=== PATIENT | male | born 1965 | race Caucasian/White ===

== ENCOUNTER → 2017-12-08 20:10 | Outpatient (CLI) | payer MEDICAID, SELFPAY | PROVIDERS: Family Provider Family Medicine; PCP Family Medicine; Visit Provider Internal Medicine Critical Care Medicine | DX: G47.10 Hypersomnia, unspecified (principal) | CPT/HCPCS: 95810 ==

== ENCOUNTER → 2018-02-08 13:07 | Outpatient (CLI) | payer OTHER, SELFPAY ==
--- NOTE | 2018-02-08 13:30 | MRI_ITS ---
STUDY: MRI LUMBAR SPINE WITHOUT CONTRAST REASON FOR EXAM: Male, 52 years old. Back pain. Previous surgery TECHNIQUE: Standardized fat and water weighted pulse sequences were obtained in the sagittal and axial planes. COMPARISON: None FINDINGS: There is a mild (7 mm) spondylolisthesis of L4 over L5. There are no acute fractures. There are no abnormal marrow infiltrative processes. Plates and transpedicular screws through L4 and L5 are noted. There is also de- kt at L4 and L5 T12-L1: Normal endplates. Normal disc height, hydration and morphology. Normal bilateral facet joints. Normal central canal and bilateral lateral recesses. Normal bilateral intervertebral neural foramina. L1-2: Disc space narrowing but no focal disc protrusion or extrusion. L2-3: Normal endplates. Normal disc height, hydration and morphology. Normal bilateral facet joints. Normal central canal and bilateral lateral recesses. Normal bilateral intervertebral neural foramina. L3-4: No focal disc protrusion or extrusion. The disc spaces are normal height.. L4-5: The kt. Plates and transpedicular screws through L4 and L5. No pseudomeningocele formation and no arachnoiditis. The dural sac is ectatic L5-S1: Normal endplates. Normal disc height, hydration and morphology. Normal bilateral facet joints. Normal central canal and bilateral lateral recesses. Normal bilateral intervertebral neural foramina. . MRI/Spine Lumbar (Routine) IMPRESSION: A mild spondylolisthesis of L4 over L5. Plates and transpedicular screws through L4 and L5 have been used for stabilization. The hardware is in good position. De kt at L4-5. No pseudomeningocele formation and no arachnoiditis Electronically Signed: Arnaldo Amaral, at 3:15 EDT Tel , Service support ,
== END ==
PROVIDERS: Family Provider Family Medicine; PCP Family Medicine; Visit Provider Family Medicine
DX: M43.16 Spondylolisthesis, lumbar region (principal)
CPT/HCPCS: 72148

== ENCOUNTER 2018-04-26 11:30 | Outpatient (RCR) | payer OTHER, SELFPAY ==
--- NOTE | 2018-03-31 09:44 | HP.PTEVAL ---
Patient's Visit Information ALLISON DALTON is a 53 year old M referred to Physical Therapy by Sandy Vela with a diagnosis of LUMBAR BACK PAIN,LUMBAR RADICULOPATHY,H/O LUMBR FUSION. Date of Evaluation: 03/31/18 Physical Therapist: Pete Antunez, PT, - Visit Plan Frequency: 2x /Week Duration: 4 Weeks Plan: Initiate slow graded progression LUMBAR ROM ,strengthening ,LE flexablity,DLS,postural ex's - Subjective Subjective: This 53 y/o male presenst to physical therapy with lumbar pain . Patient intially,injury at work 2014 fell down flight of steps immediated pain . MRI showed spondylothesis ,buldging disc. Seen Dr Lin refered to [facility] thus underwent L4-5 fusion laminectomy. Patient several session of PT . Patient has had several eidural injections.Patient has had Aquatic PT. Patient seen DR Cardoza. Patient had MRI. Recommended Aquatic PT. Pain lumbar -thoracic occassionally pain radicular symptoms. Patient pain described as ache. Patient c/o parathesia/tingling left > right. Symtoms walking ,standing ,bending,lifting,siiting. Symptoms affect sleeping. Coughing/sneezing increases symptoms. Bowel/bladder dysfunction. Patient affects QOL and ADL'S and husework tasks. SOCAIL: single. VOCATION:not working - Pain Bilateral Back Pain Intensity (Out of 10): 4 Pain Intensity Range: 7, 10 - Objective POSTURE: right shift mild foward posture hips knees flexed. GAIT: ambulates with antalgic right shift decrease stance time left mild foward posture slow beryr. PALAPTION: tender paraspinals ,L-S REGION. NEURO: c/o parathesia/tingling feet,light touch impaired bilateral feet,reflexes L3-4,L4-5,L5-S1 3/3. FLEXABLITITY: hams severe tight. LUMBAR ROM: flexion /extension mod/severe tight,side glides mod/severe tight. MMT: quads 3/5 ,hams 3+/5,hip flexion 3+/5,ankle 4-/5,great toe extensors 4-/5. + ANR - Special Tests L/S Slump test left side: Positive L/S Slump test right side: Positive L/S Left Straight Leg Raise: Positive L/S Right Straight Leg Raise: Positive - Goals Goal 1:: Patient to be Independant with Aquatic PT to address pain Goal Time Frame: 4-6 Weeks Goal 2:: Patient to improve qulaity of gait by 50% with less anatlagic gait Goal Time Frame: 4-6 Weeks Goal 3:: Patient to decrease lumbar pain by 40% por greater to improve function Goal Time Frame: 4-6 Weeks Goal 4:: Patient improve strength by 1/2 grade to improve function with walking and standing. Goal Time Frame: 4-6 Weeks Goal 5:: Patient to improve lumbar ROM for function of recovery, Goal Time Frame: 4-6 Weeks Goal 6:: Patient improve ADL'S and light housework tasks with min/mod limiations Goal Time Frame: 4-6 Weeks - Rehabilitation Potential Physical Therapy Diagnosis: This patient presents with lumbar apin from h/o lumbar fusion with poor ROM lumbar,pain,decrease strength BLE impairs and ADL'S Rehabilitation Potential: Fair - Anticipated Interventions Patient/Client Instruction: Educate patient on: Condition, Plan of Care For the Purpose of:: To decrease pain, To increase ROM, To improve muscle performance and motor function, To improve ability to perform ADL's, To increase tolerance to activity/condition/position, To decrease level of supervision to perform tasks, To improve ability of physical actions for home/community/work/leisure, To improve gait and locomotor functions, To improve health of tissue, To decrease soft tissue restriction, To increase flexibility/ROM, To improve endurance, To improve health and function, To improve ability to perform tasks related to life management Therapeutic Exercise to Include: Strength training, Body mechanics, Postural training, Flexibilty training, In an aquatic setting, Dynamic Lumbar Stabilization Comment: BLE For the Purpose of:: To decrease pain, To improve muscle performance and motor function, To improve ability to perform ADL's, To increase tolerance to activity/condition/position, To improve performance and independence with ADL's, To improve ability of physical actions for home/community/work/leisure, To improve gait and locomotor functions, To improve health of tissue, To decrease soft tissue restriction, To increase flexibility/ROM, To improve ability to perform tasks related to life management Thank you for the opportunity to evaluate your patient. For Medicare and Medicare HMO plans, please review the plan of care and approve it. It will need to be FAXED BACK to us at [phone] for Medicare purposes. Please let me know if there are questions or concerns regarding this plan of care. Physician Signature: Date:
--- NOTE | 2018-04-04 07:53 | HP.PTEVAL_ITS ---
Patient's Visit Information ALLISON DALTON is a 53 year old M referred to Physical Therapy by Sandy Vela with a diagnosis of LUMBAR BACK PAIN,LUMBAR RADICULOPATHY,H/O LUMBR FUSION. Date of Evaluation: 03/31/18 Physical Therapist: Pete Antunez, PT, - Visit Plan Frequency: 2x /Week Duration: 4 Weeks Plan: Initiate slow graded progression Aquatic ex's LUMBAR ROM ,strengthening ,LE flexablity,DLS,postural ex's - Subjective Subjective: This 53 y/o male presenst to physical therapy with lumbar pain . Patient intially,injury at work 2014 fell down flight of steps immediated pain . MRI showed spondylothesis ,buldging disc. Seen Dr Lin refered to [facility] thus underwent L4-5 fusion laminectomy. Patient several session of PT . Patient has had several eidural injections.Patient has had Aquatic PT. Patient seen DR Cardoza. Patient had MRI. Recommended Aquatic PT. Pain lumbar - thoracic occassionally pain radicular symptoms. Patient pain described as ache. Patient c/o parathesia/tingling left > right. Symtoms walking ,standing ,bending,lifting,siiting. Symptoms affect sleeping. Coughing/sneezing increases symptoms. Bowel/bladder dysfunction. Patient affects QOL and ADL'S and husework tasks. SOCAIL: single. VOCATION:not working - Pain Bilateral Back Pain Intensity (Out of 10): 4 Pain Intensity Range: 7, 10 - Objective POSTURE: right shift mild foward posture hips knees flexed. GAIT: ambulates with antalgic right shift decrease stance time left mild foward posture slow berry. PALAPTION: tender paraspinals ,L-S REGION. NEURO: c/o parathesia/tingling feet,light touch impaired bilateral feet,reflexes L3-4,L4-5,L5-S1 3/3. FLEXABLITITY: hams severe tight. LUMBAR ROM: flexion /extension mod/severe tight,side glides mod/severe tight. MMT: quads 3/5 ,hams 3+/5,hip flexion 3+/5,ankle 4-/5,great toe extensors 4-/5. + ANR - Special Tests L/S Slump test left side: Positive L/S Slump test right side: Positive L/S Left Straight Leg Raise: Positive L/S Right Straight Leg Raise: Positive - Goals Goal 1:: Patient to be Independant with Aquatic PT to address pain Goal Time Frame: 4-6 Weeks Goal 2:: Patient to improve qulaity of gait by 50% with less anatlagic gait Goal Time Frame: 4-6 Weeks Goal 3:: Patient to decrease lumbar pain by 40% por greater to improve function Goal Time Frame: 4-6 Weeks Goal 4:: Patient improve strength by 1/2 grade to improve function with walking and standing. Goal Time Frame: 4-6 Weeks Goal 5:: Patient to improve lumbar ROM for function of recovery, Goal Time Frame: 4-6 Weeks Goal 6:: Patient improve ADL'S and light housework tasks with min/mod limiations Goal Time Frame: 4-6 Weeks - Rehabilitation Potential Physical Therapy Diagnosis: This patient presents with lumbar apin from h/o lumbar fusion with poor ROM lumbar,pain,decrease strength BLE impairs and ADL'S Rehabilitation Potential: Fair - Anticipated Interventions Patient/Client Instruction: Educate patient on: Condition, Plan of Care For the Purpose of:: To decrease pain, To increase ROM, To improve muscle performance and motor function, To improve ability to perform ADL's, To increase tolerance to activity/condition/position, To decrease level of supervision to perform tasks, To improve ability of physical actions for home/community/work/leisure, To improve gait and locomotor functions, To improve health of tissue, To decrease soft tissue restriction, To increase flexibility/ROM, To improve endurance, To improve health and function, To improve ability to perform tasks related to life management Therapeutic Exercise to Include: Strength training, Body mechanics, Postural training, Flexibilty training, In an aquatic setting, Dynamic Lumbar Stabilization Comment: BLE For the Purpose of:: To decrease pain, To improve muscle performance and motor function, To improve ability to perform ADL's, To increase tolerance to activity/condition/position, To improve performance and independence with ADL's, To improve ability of physical actions for home/community/work/leisure, To improve gait and locomotor functions, To improve health of tissue, To decrease soft tissue restriction, To increase flexibility/ROM, To improve ability to perform tasks related to life management Thank you for the opportunity to evaluate your patient. For Medicare and Medicare HMO plans, please review the plan of care and approve it. It will need to be FAXED BACK to us at [phone] for Medicare purposes. Please let me know if there are questions or concerns regarding this plan of care. Physician Signature: Date:
--- NOTE | 2018-07-19 14:20 | HP.PTDCSUM ---
HP - PT D/C Summary It has been my pleasure to treat ALLISON DALTON under orders from Sandy Vela MD, for the diagnosis of LUMBAR BACK PAIN,LUMBAR RADICULOPATHY,H/O LUMBR FUSION for a total of 13 visit(s). Discharge Date: Please see the following information for a summary of their discharge status. - Subjective Subjective: Patient feels great while in water ,but out pain returns. Symptoms affect ADL'S and activities with walking. Some improvement with flexablity - Pain Bilateral Back Pain Intensity (Out of 10): 3 LLE Pain Intensity (Out of 10): 3 - Overall Improvement % Improvement: 25 - Objective Objective/Function: POSTURE: reduce lordosis,lateral flexed to right. GAIT: antalgic gait foward posture ,shifted to right. MMT: quads 3-/5 ANR,HAMS 3+/5,hip flexion 3+/5 ankld 3+/5. LUMBAR ROM: flexion mod/severe loss,extension severe loss pain. FLEXABLITY: mod /severe loss - Goals Goal 1:: Patient to be Independant with Aquatic PT to address pain Goal Progress: Goal Met Goal 2:: Patient to improve qulaity of gait by 50% with less anatlagic gait Goal Progress: Not Progressing Goal 3:: Patient to decrease lumbar pain by 40% por greater to improve function Goal Progress: Progressing Goal 4:: Patient improve strength by 1/2 grade to improve function with walking and standing. Goal Progress: Not Progressing Goal 5:: Patient to improve lumbar ROM for function of recovery, Goal Progress: Not Progressing Goal 6:: Patient improve ADL'S and light housework tasks with min/mod limiations Goal Progress: Progressing - Plan Plan: RTD - D/C Information If there are questions or concerns regarding this patient's physical therapy, please feel free to call me at [phone]. Thank you for the referral of this patient. Sincerely, Pete Antunez, PT, Cert MDT, OCS
== END 2018-04-26 19:00 | disposition home or self-care (01) ==
LOC: PT 11:30
PROVIDERS: Family Provider Family Medicine; PCP Family Medicine; Visit Provider Orthopaedic Surgery
DX: M54.5 Low back pain (principal); M54.16 Radiculopathy, lumbar region; Z98.1 Arthrodesis status
CPT/HCPCS: 97113; 97162

== ENCOUNTER 2019-03-27 05:21 | Emergency (ER) | payer MEDICAID, SELFPAY ==
[2019-03-27] VITALS (7 sets, daily range): BP systolic 95–126; BP diastolic 63–100; PULSE 72–144; RESP 15–20; TEMP 37.1; O2SAT 92–100; BMI 32.9
--- NOTE | 2019-03-27 05:29 | EKG12_ITS ---
Test Reason : REPEAT Blood Pressure : / mmHG Vent. Rate : 078 BPM Atrial Rate : 078 BPM P-R Int : 184 ms QRS Dur : 094 ms QT Int : 358 ms P-R-T Axes : 023 -39 002 degrees QTc Int : 408 ms Normal sinus rhythm Left axis deviation Low Voltage QRS (Limb Leads) Poor R - wave progression Abnormal ECG Confirmed by ALINE BROWNING, AN ([id number]), editor news HAWK AN ([id number]) on 03/28/2019 2:09:00 PM Referred By: ROXANA Confirmed By:AN MIRELES MD
--- NOTE | 2019-03-27 05:29 | RAD_ITS ---
STUDY: X-RAY CHEST REASON FOR EXAM: Male, 53 years old. Chest pain TECHNIQUE: Single AP portable view of the chest. COMPARISON: . 02/16/2017. FINDINGS: There are superimposed monitor leads. Stable left sided calcified granuloma. The lungs are clear and expanded. There is no demonstrated pleural abnormality. Normal size heart. Normal mediastinum and margy. Normal visualized pulmonary arteries. Normal visualized aortic arch and descending thoracic aorta. Normal visualized thoracic spine. Normal visualized ribs, clavicles, and shoulders. There is no demonstrated abnormality of the visualized soft tissue structures of the upper abdomen. RAD/Chest 1 View (Portable) IMPRESSION: No acute cardiopulmonary disease. Other nonacute findings as outlined above. No significant interval change. Electronically Signed: Yael Betancourt MD at 5:57 EDT , Service support ,
[2019-03-27] MEDS: dilTIAZem 25 MG/5 ML Vial 10 MG IV BOLUS (05:39)
[2019-03-27 05:48] LABS: Absolute Lymphocyte Count 4.61 X10^3/uL (0.83-4.51); Absolute Neutrophil Count 4.4 X10^3/uL (2.0-7.7); Basophil# 0.06 X10^3/uL; Basophil% 0.6 % (0-1); Eosinophil# 0.21 X10^3/uL; Eosinophils% 2.1 % (0-5); Hematocrit 49.2 % (40-54); Hemoglobin 16.3 g/dL (13.0-16.5); Lymphocyte # 4.61 X10^3/ul (4.0); Lymphocyte % 45.7 % (19-41); Mean Corp Hgb Conc 33.1 g/dL (32-36); Mean Corpuscular Hgb 29.5 pg (27.0-32.0); Mean Corpuscular Volume 89.1 fL (80-94); Mean Platelet Vol. 10.4 fl (6.2-12.0); Monocyte# 0.77 X10^3/uL; Monocyte% 7.6 % (0-10); NRBC Flagged by Analyzer 0 % (0-5); Neutrophil # 4.41 X10^3/uL (2.7-7.7); Neutrophil % 43.8 % (47-70); Platelet Count 175 K/mm3 (150-450); RBC Distribution Width SD 42.8 fl (35.1-43.9); Red Blood Count 5.52 M/mm3 (4.6-6.2); White Blood Count 10.1 K/mm3 (4.4-11.0)
[2019-03-27 06:09] LABS: Anion Gap 10 (5-15); BUN 15 mg/dL (7-18); BUN/Creat Ratio 14.2 RATIO (10-20); Calcium,Total 8.4 mg/dL (8.5-10.1); Chloride 109 mmol/L (98-107); Creatinine, Serum 1.06 mg/dL (0.70-1.30); EST Glomerular Filtration Rate 78 mL/min (>60); Est Glom Filt Rate - Afr Amer 94 mL/min (>60); Estimated Creatinine Clearance 86.82 ml/min; Glucose 98 mg/dL (74-106); Potassium 4.3 mmol/L (3.5-5.1); Sodium Level 140 mmol/L (136-145)
[2019-03-27] MEDS: Enoxaparin 100 MG/ML Syringe SC (06:31)
--- NOTE | 2019-03-27 06:42 | ED.VISSUMM ---
- ER Visit Summary Date of Service: 03/27/19 Chief Complaint: Rapid heart rate History of Present Illness: The patient is a 53 M with a history of atrial fibrillation. His symptoms started about an hour prior to arrival. They woke him up. He was feeling well previously. He has had these symptoms before. He normally takes 100 of flecainide. He did this morning, but nothing changed. He reports an associated headache as well as some chest pain. 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 He takes aspirin but no other blood thinners. No history of coronary disease. He says he had a normal stress test in 2017. Patient has a history of PE. He was told this was provoked after his back surgery. He was on Eliquis for several months, but had completed the course. He has had CTA chest to evaluate for PE in the past. Both times, the IV contrast triggered his atrial fibrillation. Physical Examination: Afebrile. Heart rate 144. Blood pressure 126/100. Patient appears uncomfortable but not toxic or in distress. Heart is a regular and tachycardic. Lungs are clear. Abdomen is soft. Skin appears normal. Alert and oriented. Test Results: EKG shows atrial fibrillation at rate of 154. CBC, BMP, troponin unremarkable. Chest x-ray showed chronic changes. Emergency Department Course and Treatment: Patient was placed on a monitor. Treated with a fluid bolus and Cardizem. He did have some transient rate control, but remained in atrial fibrillation. He was still having symptoms. Patient was discussed with Dr. Matos. We will treat the patient with a dose of Lovenox and then perform synchronized cardioversion. Patient consented to sedation and cardioversion. Dr. Matos also requested d-dimer. Results are pending. Patient was treated with Versed and fentanyl. Immediately after sedation, Dr. Matos came to the ED and talked with the patient. He immediately cardioverted spontaneously. Repeat EKG shows sinus rhythm, normal rate and blood pressure is normal. Patient is resting. Symptoms resolved. D-dimer is negative. Dr. Matos advised treatment with Xarelto 20 mg daily for a month and follow-up with cardiology. HASBLED = 0. Treatment Plan: As above Disposition: Discharge Impression: 1. Atrial fibrillation This note was generated with [employer] software. It may contain incorrect words, spelling, and punctuation that were not noted in review of the chart prior to signing ED Disposition - Plan for ED Patient: Instructions: Rivaroxaban Oral tablet, Atrial Fibrillation Prescriptions: Rivaroxaban [Xarelto] 20 mg PO DAILY #30 tab Prescription Printed Referrals: Jean-Pierre Matos MD [STAFF PHYSICIAN] -
[2019-03-27] MEDS: fentaNYL 100 MCG/2 ML Ampul 50 MCG IV (06:47)
[2019-03-27] MEDS: Midazolam 2 MG/2 ML Syringe IV (06:47)
--- NOTE | 2019-03-27 06:53 | ED.DEP ---
ED Disposition - Plan for ED Patient: Instructions: Atrial Fibrillation, Rivaroxaban Oral tablet Prescriptions: Rivaroxaban [Xarelto] 20 mg PO DAILY #30 tab Prescription Printed Referrals: Jean-Pierre Matos MD [STAFF PHYSICIAN] -
[2019-03-27 06:55] LABS: D-Dimer Quantitative (DVT/PE) < 0.27 FEU/ug/m (0.27-0.49)
--- NOTE | 2019-03-27 07:14 | EKG12_ITS ---
Test Reason : CP Blood Pressure : / mmHG Vent. Rate : 154 BPM Atrial Rate : 197 BPM P-R Int : 000 ms QRS Dur : 076 ms QT Int : 292 ms P-R-T Axes : 000 -32 035 degrees QTc Int : 467 ms Atrial fibrillation with rapid ventricular response Left axis deviation Low Voltage QRS (Limb Leads) Poor R- wave Progression Abnormal ECG Confirmed by ALINE BROWNING, AN ([id number]), manuscript editor HAWK AN ([id number]) on 03/28/2019 2:09:52 PM Referred By: DIDIER Confirmed By:AN MIRELES MD
== END 2019-03-27 08:10 | disposition home or self-care (01) ==
LOC: ED 05:50
PROVIDERS: Emergency Provider Emergency Medicine; Family Provider Family Medicine; PCP Family Medicine
DX: I48.91 Unspecified atrial fibrillation (principal); R51 Headache; Z86.711 Personal history of pulmonary embolism; Z79.82 Long term (current) use of aspirin; Z79.899 Other long term (current) drug therapy; Z87.891 Personal history of nicotine dependence
CPT/HCPCS: 71045; 80048; 84484; 85025; 85379; 93005; 96361; 96372; 96374; 96375; 99285; J7030; A4216

== ENCOUNTER → 2019-04-02 12:58 | Outpatient (CLI) | payer MEDICAID, SELFPAY ==
[2019-03-27 05:22] VITALS: BMI 32.9
--- NOTE | 2019-04-02 13:12 | MRI_ITS ---
STUDY: MRI LUMBAR SPINE WITH AND WITHOUT CONTRAST REASON FOR EXAM: Male, 54 years old. The patient presents with a history of a radiculopathy, with a history of previous lumbar surgery (2016), now complaining of low back pain and no improvement following surgery. TECHNIQUE: Standardized fat and water weighted pulse sequences were obtained in the sagittal and axial planes. IV Dotarem 20 contrast material was administered for the contrast portion of the examination COMPARISON: MRI LUMBAR SPINE-February 08, 2018 FINDINGS: Vertebrae, Alignment and Curvature Vertebrae: There is a first-degree L4 anterolisthesis relationship to the L5 vertebra with 8 mm of anterior displacement, unchanged as compared the prior examination of February 08, 2018. The patient status post total L4-5 (unroofing) there are bilateral pedicle screws within the L4 and L5 pedicles laminectomies. Curvature: Exaggerated cervical lordosis. Mild levoscoliosis of the lumbar spine on this non-weight bearing examination. Thoracic Cord (visualized distal) / Conus Medullaris Normal. Terminates at the at the superior endplate of the L1 vertebra. Disc Space Levels N.B.: Normal level statement indicates: Normal endplates; disc height, signal and morphology; facet joints; central canal, lateral recesses, and intervertebral neuroformina. T12-L1: (Imaged only in the sagittal plane). Normal disc hydration and height. There is a small Schmorl's node deformity the anterior superior endplate of the L1 vertebra. There is no disc displacement. Normal central canal and intervertebral neural foramina. L1-L2: There is disc desiccation, moderate loss of the disc height with Schmorl's node deformity the inferior endplate of the L1 vertebra. There is a posterior right central disc protrusion (axial T2 series 5, image 25; axial T1 series 6, image 33; axial T1 postcontrast series 8, image 33; sagittal T1 fat-sat postcontrast series 7, image 8). The small disc protrusion measures 3 x 11 mm (AP, transverse), and is producing minimal rightward ventral thecal sac flattening, but without thoracic cord or radicular impingement. L2-L3: There is mild disc desiccation, preservation of the disc height without disc displacement. There is mild bilateral facet arthrosis with bilateral facet effusions (axial T2 series 5, image 20). Normal central canal and intervertebral neural foramina. L3-L4: Normal disc hydration, height and morphology. There is moderate bilateral facet arthrosis with osseous hypertrophy (axial T1 postcontrast series 8, image 19). Normal central canal and intervertebral neural foramina. L4-L5: Status post total (unroofing) laminectomy with a first-degree L4 anterolisthesis relationship to the L5 vertebra, with 8 mm of anterior slippage. Pedicle screws are present within the bilateral L4 and L5 pedicles. There is dural ectasia prolapsing into the laminectomy. There is bilateral osseous foraminal stenosis with impingement upon the bilateral exiting L4 nerve roots (sagittal T2 series 2, images 4 and 11), unchanged compared the prior examination. L5-S1: There is mild disc desiccation, preservation disc height, anterior endplate spondylosis with annular bulging. Normal central canal and intervertebral neural foramina. Sacral Alae: Normal. Retroperitoneum and Paraspinal Structures Kidneys: Partially imaged with no demonstrated abnormality. Aorta: Normal. Inferior Vena Cava: Normal. Lymph Nodes: None visualized. Muscles (Paraspinal): Normal. MRI/Spine Lumbar W/WO Contrast IMPRESSION: 1. Status post total L4-5 laminectomies with a first-degree L4 anterolisthesis with pedicle screws within the bilateral L4 and L5 pedicles. 2. Bilateral L4-5 osseous foraminal stenosis with neural impingement upon the bilateral exiting L4 nerve roots. 3. L1-2 small posterior right central disc protrusion without neural impingement. 4. L2-3 and L3-4 facet arthroses without neural impingement. Electronically Signed: Lázaro Vital DO at 14:56 EDT Tel , Service support ,
[2019-04-02 13:43] LABS: BUN 11 mg/dL (7-18); EST Glomerular Filtration Rate 67 mL/min (>60); Est Glom Filt Rate - Afr Amer 81 mL/min (>60)
== END ==
PROVIDERS: Family Provider Family Medicine; PCP Family Medicine
DX: M54.16 Radiculopathy, lumbar region (principal); M43.10 Spondylolisthesis, site unspecified
CPT/HCPCS: 36415; 72158; 82565; 84520; A9575

== ENCOUNTER → 2019-04-09 17:46 | Outpatient (CLI) | payer MEDICAID, SELFPAY ==
[2019-03-27 05:22] VITALS: BMI 32.9
--- NOTE | 2019-04-09 17:52 | CT_ITS ---
STUDY: CT LUMBAR SPINE WITHOUT CONTRAST REASON FOR EXAM: Male, 54 years old. SPONDYLOLISTHESIS. Prior surgery 04/2016. Low back pain. RADIATION DOSAGE (If Supplied By Facility): CTDIvol = ( 26.82 ) mGy, DLP = ( 859.87 ) mGycm TECHNIQUE: The patient was scanned in a multi detector CT scanner. High resolution transaxial imaging was performed. Images were obtained from L1 to L5. Sagittal and coronal images were reconstructed. Individualized dose optimization techniques were used for this CT. COMPARISON: MRI 04/02/2019 FINDINGS: Stable 10 mm of grade 1 L4-5 anterolisthesis. There is no substantial scoliosis. Bilateral posterior pedicle fusions at the L4 and L5 levels. Screws are well seated within bone. No CT evidence of hardware failure. L1-2: Bulging annulus with mild central canal and bilateral foraminal stenoses. L2-3: Normal endplates. Normal disc height and morphology. Normal bilateral facet joints. Normal central canal and bilateral lateral recesses. Normal bilateral intervertebral neural foramina. L3-4: Bulging annulus and bilateral facet hypertrophy with moderate bilateral foraminal stenoses. L4-5: Bilateral laminectomies. Severe bilateral foraminal stenoses. L5-S1: Bulging annulus with mild central canal and severe left foraminal stenosis. Vascular calcifications. CT/Spine Lumbar without Contrast IMPRESSION: Stable 10 mm of grade 1 L4-5 anterolisthesis. Multilevel degenerative disease and postoperative change as described. Severe foraminal stenoses are present bilaterally at L4-5 and on the left at L5-S1. Electronically Signed: Yann Winston MD at 16:55 EDT Tel , Service support ,
== END ==
PROVIDERS: Family Provider Family Medicine; PCP Family Medicine
DX: M54.16 Radiculopathy, lumbar region (principal); M43.10 Spondylolisthesis, site unspecified
CPT/HCPCS: 72131

== ENCOUNTER → 2019-04-17 16:10 | Outpatient (CLI) | payer MEDICAID, SELFPAY ==
[2019-03-27 05:22] VITALS: BMI 32.9
[2019-04-13 13:20] VITALS: BMI 31.8
--- NOTE | 2019-04-17 16:45 | MRI_ITS ---
HISTORY: Bilateral hearing loss. Symptoms been ongoing for years. Lower back pain. Technique: High spatial resolution algorithm T2 fat saturated series was obtained through the internal auditory canals. Coronal T2 through the internal auditory canals. Coronal T1 post gadolinium through the internal auditory canals. Axial T1 post gadolinium through the internal auditory canals with fat saturation, axial T1 through the entire brain post gadolinium. Sagittal T1 pre-gadolinium, and several other axial series were obtained through the brain. 15 series. 440 images. No comparison cross-sectional imaging through the brain. Findings: Brain volume is normal. No acute ischemia. Flow is present within major central intracranial arteries. Paranasal sinuses are clear. The seventh and eighth nerves are normal. The fifth nerves have normal origins. The sixth nerves have normal origins. The internal auditory canals are not expanded. Cochleovestibular systems appeared normal. No enhancing lesions are perceived. The cerebral pontine angles are normal. Orbits and globes are normal. Paranasal sinuses and mastoid air cells are free of disease. MRI/Brain W/WO Contrast IMPRESSION: Normal. at 0608 Reported and signed by: Clemente Singleton MD Electronically Signed: Clemente Singleton MD at 6:07 EDT Tel , Service support ,
== END ==
PROVIDERS: Family Provider Family Medicine; PCP Family Medicine; Visit Provider Otolaryngology
DX: H93.292 Other abnormal auditory perceptions, left ear (principal)
CPT/HCPCS: 70553; A9575

== ENCOUNTER → 2019-05-14 20:00 | Outpatient (CLI) | payer MEDICAID, SELFPAY ==
[2019-04-13 13:20] VITALS: BMI 31.8
== END ==
PROVIDERS: Family Provider Family Medicine; PCP Family Medicine; Referring Provider Nurse Practitioner Acute Care; Visit Provider Nurse Practitioner Acute Care
DX: G47.33 Obstructive sleep apnea (adult) (pediatric) (principal)
CPT/HCPCS: 95811

== ENCOUNTER 2019-05-24 16:00 | Outpatient (RCR) | payer MEDICAID, SELFPAY ==
[2019-03-27 05:22] VITALS: BMI 32.9
[2019-04-13 13:20] VITALS: BMI 31.8
--- NOTE | 2019-04-23 13:01 | HP.PTEVAL_ITS ---
Patient's Visit Information ALLISON DALTON is a 54 year old M referred to Physical Therapy by WANDA MANDEL with a diagnosis of LUMBAR RADICULOPATHY,DEGENERATIVE SPONDYLISTHESIS. Date of Evaluation: 04/23/19 Physical Therapist: Pete Antunez, PT, Cert MDT, OCS - Visit Plan Frequency: 2x /Week Duration: 4 Weeks Plan: PT INTERVENTIONS AQUATIC THERAPY FOR LUMBAR ROM ,STRENGTH BLE,LE FLEXABILTY ,LUMBAR ROM ,ENDURANCE - Subjective Findings: This 54 y/o male presents to physical therapy with lumbar radiculopathy. Patient intially underwent s/p lumbar fusion/laminectomy L4-5 2015. Intially ,after surgery had parathesia in legs and pain progressively worse over time.Patient injuried low back due to falling down stairs Jun 11 2015. Patient after surgery had PT to include Aquatic therapy which helped. Patient h ad pain management to included epidural injections didnt help. Patient seen DR FRANKLIN orthopedic surgeon. Did MRI CATscan showed disc protrusion ,and severe bilateral formal stenosis L4-5 ,and on left L5-S1.Location symmtical lumvar with radicular symptoms in bilateral legs to buttucks ,lateral hip anterior anteror tibia worse left . Pateint unable to feel below knees. Aggravating walking ,standing,twisting,bending lifting ,sitting. Patient pain affects ADL'S and husework tasks unable to work. Alleviating factors rest ,and aquatic.MEDS neurotin . Pateint had h/o Afib . Coughing/sneezing -. Bowel/bladder +. Patient pain affects sleeping. SOCIAL: . VOCATION: unemployed - Pain Bilateral Back Pain Intensity (Out of 10): 4 Pain Intensity Range: 10 Bilateral Lower Extremity Pain Intensity (Out of 10): 3 Pain Intensity Range: 10 - Objective POSTURE: foward posture trunk flexed. PALPATION: unremarkable. NEURO: c/o parathesai/tingling below knee ,light touch diminished , reflexes L3-4,L4-5,L5-S1 2/3. GAIT: antalgic gait foward posture trunk flexion slow berry. SYMMTRIES: align. LUMBAR ROM: flexion mod /severe loss,extension severe loss ,side glides mod loss pain with all test movemnets. MMT: bilateral quads/hams/ankle 3+/5 ,ankle and GTE 3+/5 - Special Tests L/S Slump test left side: Negative L/S Slump test right side: Negative L/S Left Straight Leg Raise: Positive L/S Right Straight Leg Raise: Positive Lumbar Standing: Flexion - Mechanical Response: No effect Lumbar Standing: Flexion - Symptoms During Testing: Increases Lumbar Standing: Flexion - Symptoms After Testing: Worse Lumbar Standing: Extension - Mechanical Response: No effect Lumbar Standing: Extension - Symptoms During Testing: Increases Lumbar Standing: Extension - Symptoms After Testing: Worse - Goals Goal 1:: Patient to be Independant with Aquatic PT. Goal Time Frame: 4-6 Weeks Goal 2:: Patient to decrease back pain by 40 % or > to improve function. Goal Time Frame: 4-6 Weeks Goal 3:: Patient to improve quality of gait with less pain Goal Time Frame: 4-6 Weeks Goal 4:: Patient to improve lumbar ROM for function of recovery Goal Time Frame: 4-6 Weeks Goal 5:: Patient to improve back owestry by 5 points or > to improve QOL. Goal Time Frame: 4-6 Weeks Goal 6:: Patient increase strength BLE to 4-/5 to improve function. Goal Time Frame: 4-6 Weeks - Rehabilitation Potential Physical Therapy Diagnosis: This patient has h/o with lumbar laminectomy/fusion 2016 but recently had MRI showed protrusion ,spondylotheisis ,severe foraminal stenosis with pain lumbar and radiculopathy with poor ROM, weakness legs,antal gic gait impairs ADLS' and function/. Rehabilitation Potential: Good - Anticipated Interventions Patient/Client Instruction: Educate patient on: Condition, Plan of Care For the Purpose of:: To decrease pain, To increase ROM, To improve muscle performance and motor function, To improve ability to perform ADL's, To increase tolerance to activity/condition/position, To improve performance and independence with ADL's, To improve ability of physical actions for home/community/work/leisure, To improve gait and locomotor functions, To improve health of tissue, To decrease soft tissue restriction, To increase flexibility/ROM, To improve endurance, To improve ability to perform tasks related to life management Therapeutic Exercise to Include: Strength training, Endurance training, Postural training, Flexibilty training, In an aquatic setting, Active ROM, Dynamic Lumbar Stabilization Comment: BLE For the Purpose of:: To decrease pain, To increase ROM, To improve muscle performance and motor function, To improve ability to perform ADL's, To increase tolerance to activity/condition/position, To improve performance and independence with ADL's, To improve ability of physical actions for home/community/work/leisure, To improve health of tissue, To decrease soft tissue restriction, To improve ability to perform tasks related to life management Thank you for the opportunity to evaluate your patient. For Medicare and Medicare HMO plans, please review the plan of care and approve it. It will need to be FAXED BACK to us at [phone] for Medicare purposes. For Medicare only, by signing this I certify the plan of care. Please let me know if there are questions or concerns regarding this plan of care. Physician Signature: Da te:
--- NOTE | 2019-06-28 09:29 | HP.PTDCNRP_ITS ---
HP - Discharge Summary (1) - Patient Information ALLISON DALTON was seen in my office for initial evaluation on 04/23/19. The following Plan of Care was established for this patient: Initial Frequency: 2x /Week Initial Duration: 4 Weeks - Anticipated Interventions Patient/Client Instruction: Educate patient on: Condition, Plan of Care For the Purpose of:: To decrease pain, To increase ROM, To improve muscle p erformance and motor function, To improve ability to perform ADL's, To increase tolerance to activity/condition/position, To improve performance and independence with ADL's, To improve ability of physical actions for home/community/work/leisure, To improve gait and locomotor functions, To improve health of tissue, To decrease soft tissue restriction, To increase flexibility/ROM, To improve endurance, To improve ability to perform tasks related to life management Therapeutic Exercise to Include: Strength training, Endurance training, Postural training, Flexibilty training, In an aquatic setting, Active ROM, Dynamic Lumbar Stabilization For the Purpose of:: To decrease pain, To increase ROM, To improve muscle performance and motor function, To improve ability to perform ADL's, To increase tolerance to activity/condition/position, To improve performance and independence with ADL's, To improve ability of physical actions for home/community/work/leisure, To improve health of tissue, To decrease soft tissue restriction, To improve ability to perform tasks related to life management This patient was last seen in our office . Pertinent comments regarding their Physical therapy will appear below: Patient was seen for PT for lumbar radiculopathy with h/o of lumbar fusion. Plan to undergo 2 lumbar surgery in Jul per patient thus is d/c. At this point I will be discontinuing this patient from physical therapy. I would be happy to see this patient again in the future if found appropriate by the physician. Thank you! Pete Antunez, PT, Cert MDT, OCS
== END 2019-05-24 19:00 | disposition home or self-care (01) ==
LOC: PT 16:00
PROVIDERS: Family Provider Family Medicine; PCP Family Medicine
DX: M54.16 Radiculopathy, lumbar region (principal)
CPT/HCPCS: 97113; 97162; 97530

== ENCOUNTER → 2019-07-20 10:05 | Outpatient (CLI) | payer MEDICAID, SELFPAY ==
[2019-04-13 13:20] VITALS: BMI 31.8
[2019-07-20 12:42] LABS: Absolute Lymphocyte Count 2.34 X10^3/uL (0.83-4.51); Absolute Neutrophil Count 4.8 X10^3/uL (2.0-7.7); Basophil# 0.05 X10^3/uL; Basophil% 0.6 % (0-1); Eosinophil# 0.16 X10^3/uL; Hematocrit 50.6 % (40-54); Hemoglobin 16.5 g/dL (13.0-16.5); Lymphocyte # 2.34 X10^3/ul (4.0); Lymphocyte % 29.3 % (19-41); Mean Corp Hgb Conc 32.6 g/dL (32-36); Mean Corpuscular Hgb 29.7 pg (27.0-32.0); Mean Corpuscular Volume 91.2 fL (80-94); Mean Platelet Vol. 10.5 fl (6.2-12.0); Monocyte# 0.57 X10^3/uL; Monocyte% 7.1 % (0-10); NRBC Flagged by Analyzer 0 % (0-5); Neutrophil # 4.83 X10^3/uL (2.7-7.7); Neutrophil % 60.6 % (47-70); Platelet Count 206 K/mm3 (150-450); RBC Distribution Width CV 12.7 % (11.6-14.6); RBC Distribution Width SD 42.7 fl (35.1-43.9); Red Blood Count 5.55 M/mm3 (4.6-6.2)
[2019-07-20 12:56] LABS: ALB/GLOB Ratio 1.2 RATIO (0.9-2.4); AST(SGOT) 15 U/L (15-37); Alanine Aminotransfer ALT/SGPT 44 U/L (16-61); Albumin, Serum 3.8 g/dL (3.2-5.0); Alkaline Phosphatase 72 U/L (45-117); Anion Gap 4 (5-15); BUN 19 mg/dL (7-18); BUN/Creat Ratio 15.8 RATIO (10-20); Calcium,Total 9.4 mg/dL (8.5-10.1); Chloride 106 mmol/L (98-107); EST Glomerular Filtration Rate 67 mL/min (>60); Est Glom Filt Rate - Afr Amer 81 mL/min (>60); Globulin 3.3 g/dL (2.2-4.2); Glucose 95 mg/dL (74-106); Hemoglobin A1c 5.7 % (4.2-6.3); Potassium 4.4 mmol/L (3.5-5.1); Prealbumin 36.9 mg/dL (20.0-40.0); Protein, Total 7.1 g/dL (6.4-8.2); Sodium Level 141 mmol/L (136-145)
== END ==
PROVIDERS: Family Provider Family Medicine; PCP Family Medicine; Referring Provider Family Medicine
DX: M54.16 Radiculopathy, lumbar region (principal)
CPT/HCPCS: 36415; 80053; 82306; 83036; 84134; 85025; 85610

== ENCOUNTER 2019-09-14 15:45 | Emergency (ER) | payer MEDICAID, SELFPAY ==
[2019-04-13 13:20] VITALS: BMI 31.8
[2019-09-14 15:47] VITALS: BP 149/133; PULSE 158; RESP 18; TEMP 37.2; O2SAT 98; BMI 33.7
[2019-09-14 15:50] VITALS: PULSE 141; RESP 16; O2SAT 98
--- NOTE | 2019-09-14 15:58 | EKG12_ITS ---
Test Reason : AFIB Blood Pressure : / mmHG Vent. Rate : 160 BPM Atrial Rate : 202 BPM P-R Int : 000 ms QRS Dur : 086 ms QT Int : 278 ms P-R-T Axes : 000 -32 047 degrees QTc Int : 453 ms Atrial fibrillation with rapid ventricular response Left axis deviation Abnormal ECG Confirmed by FABRIZIO BROWNING, AUGUSTO ([id number]), electronic news gathering editor ARIAS HOPPER ([id number]) on 09/17/2019 3:28:55 PM Referred By: TUCKER Confirmed By:AUGUSTO DINH MD
--- NOTE | 2019-09-14 15:59 | ED.DCSUM_ITS ---
- ER Visit Summary Date of Service: 09/14/19 Chief Complaint: Palpitations History of Present Illness: The patient is a 54 M who presents with palpitations that began today. Patient states that began suddenly approximately 45 minutes prior to arrival. Patient states he has a history of paroxysmal atrial f ibrillation and he could feel himself go into atrial fibrillation. Patient states he took atenolol and flecainide at home with no relief. Patient called EMS after this. Patient denies any chest pain or shortness of breath. Patient denies any nausea or vomiting. Patient denies any diaphoresis. Patient did have recent back surgery and has been on Coumadin since 09/11/2019. Physical Examination: Vital signs are stable except for a tachycardia of 158. Patient is afebrile. Patient is in no acute distress. Oral mucosa is pink and moist. Neck is supple. Trachea is midline. There is no JVD. Heart was irregularly irregular and tachycardic. Lungs are clear and equal bilaterally. Abdomen is soft. There is some mild incisional tenderness but there is no rebound or guarding noted. Cranial nerves II through XII are intact. There are no focal motor or sensory deficits noted. Test Results: EKG shows atrial fibrillation with a rate of 160. There are no acute ST or T wave changes. CBC and comprehensive metabolic profile were essentially within normal limits. INR is 1.0. Troponin was normal. Emergency Department Course and Treatment: Patient was ordered a dose of Cardizem however he converted to a normal sinus rhythm prior to receiving Cardizem. Repeat EKG showed normal sinus rhythm with a rate of 75. There are no acute ST or T wave changes. Patient was instructed to continue his medications as previously prescribed. Patient was instructed to follow-up with his primary care physician and sprinkler irrigation equipment mechanic in 5 to 7 days. Patient was instructed return if worse in any way. Patient understood and was agreeable with the plan. All questions were answered. Disposition: Discharge home Impression: Paroxysmal atrial fibrillation This note was generated with [employer] dictation software. It may contain incorrect words, spelling, and punctuation that were not noted in review of the chart prior to signing ED Disposition - Plan for ED Patient: Disposition: Home or Assisted Living Diagnosis: Paroxysmal atrial fibrillation Instructions: Atrial Fibrillation Referrals: Yannick Wilkins MD [Primary Care Provider] - 3-5 Days
--- NOTE | 2019-09-14 16:05 | EKG12_ITS ---
Test Reason : REPEAT Blood Pressure : / mmHG Vent. Rate : 075 BPM Atrial Rate : 075 BPM P-R Int : 170 ms QRS Dur : 096 ms QT Int : 354 ms P-R-T Axes : 040 -21 035 degrees QTc Int : 395 ms Normal sinus rhythm Normal ECG Confirmed by AUGUSTO DINH MD ([id number]), department editor ARIAS HOPPER ([id number]) on 09/17/2019 3:28:39 PM Referred By: RENY Confirmed By:AUGUSTO DINH MD
[2019-09-14] MEDS: 0.9% Normal Saline 1,000 ML 1000 ML IV (16:12)
[2019-09-14 16:13] LABS: Absolute Lymphocyte Count 2.99 X10^3/uL (0.83-4.51); Absolute Neutrophil Count 5.7 X10^3/uL (2.0-7.7); Basophil# 0.03 X10^3/uL; Basophil% 0.3 % (0-1); Eosinophil# 0.09 X10^3/uL; Eosinophils% 0.9 % (0-5); Hematocrit 37.6 % (40-54); Hemoglobin 12.8 g/dL (13.0-16.5); Lymphocyte # 2.99 X10^3/ul (4.0); Lymphocyte % 31.3 % (19-41); Mean Corpuscular Hgb 30.1 pg (27.0-32.0); Mean Corpuscular Volume 88.5 fL (80-94); Mean Platelet Vol. 9.9 fl (6.2-12.0); Monocyte# 0.66 X10^3/uL; Monocyte% 6.9 % (0-10); NRBC Flagged by Analyzer 0 % (0-5); Neutrophil # 5.71 X10^3/uL (2.7-7.7); Neutrophil % 59.9 % (47-70); Platelet Count 182 K/mm3 (150-450); RBC Distribution Width SD 42.5 fl (35.1-43.9); Red Blood Count 4.25 M/mm3 (4.6-6.2); White Blood Count 9.6 K/mm3 (4.4-11.0)
[2019-09-14 16:24] LABS: Prothrombin Time (Protime)PT. 12.7 SECONDS (11.7-14.9)
[2019-09-14 16:35] LABS: ALB/GLOB Ratio 0.9 RATIO (0.9-2.4); AST(SGOT) 42 U/L (15-37); Alanine Aminotransfer ALT/SGPT 44 U/L (16-61); Albumin, Serum 2.7 g/dL (3.2-5.0); Alkaline Phosphatase 58 U/L (45-117); Anion Gap 7 (5-15); BUN 19 mg/dL (7-18); BUN/Creat Ratio 18.3 RATIO (10-20); Calcium,Total 8.2 mg/dL (8.5-10.1); Chloride 104 mmol/L (98-107); Creatinine, Serum 1.04 mg/dL (0.70-1.30); EST Glomerular Filtration Rate 79 mL/min (>60); Est Glom Filt Rate - Afr Amer 96 mL/min (>60); Estimated Creatinine Clearance 87.49 ml/min; Globulin 3.1 g/dL (2.2-4.2); Glucose 119 mg/dL (74-106); Potassium 3.4 mmol/L (3.5-5.1); Protein, Total 5.8 g/dL (6.4-8.2); Sodium Level 139 mmol/L (136-145)
[2019-09-14 16:51] VITALS: BP 103/63; PULSE 77; RESP 19; O2SAT 94
== END 2019-09-14 17:40 | disposition home or self-care (01) ==
PROVIDERS: Emergency Provider Emergency Medicine; PCP Family Medicine
DX: I48.0 Paroxysmal atrial fibrillation (principal); J02.9 Acute pharyngitis, unspecified; M54.9 Dorsalgia, unspecified; Z79.01 Long term (current) use of anticoagulants; Z87.891 Personal history of nicotine dependence
CPT/HCPCS: 80053; 84484; 85025; 85610; 93005; 96360; 99285; J7030; A4216

== ENCOUNTER 2019-09-20 14:36 | Emergency (ER) | payer MEDICAID, SELFPAY ==
[2019-09-20 14:37] VITALS: BP 144/98; PULSE 75; RESP 18; TEMP 36.6; O2SAT 98; BMI 33.0
--- NOTE | 2019-09-20 14:58 | EKG12_ITS ---
Test Reason : WHEEZING/EDEMA Blood Pressure : / mmHG Vent. Rate : 063 BPM Atrial Rate : 063 BPM P-R Int : 162 ms QRS Dur : 090 ms QT Int : 384 ms P-R-T Axes : 028 -07 -01 degrees QTc Int : 392 ms Normal sinus rhythm Normal ECG Confirmed by MAKSIM BROWNING, LAMONT ([id number]), primer expeditor and drier HAWK AN ([id number]) on 09/21/2019 1:13:34 PM Referred By: MIK Confirmed By:ANSELMO SCHAEFFER MD
[2019-09-20] MEDS: Ipratropium/Albuterol Sulfate 3 ML AMPUL.NEB INHALATION (15:38)
[2019-09-20 15:41] VITALS: PULSE 69; RESP 16; O2SAT 100
[2019-09-20 16:51] VITALS: PULSE 86; RESP 17; O2SAT 98
--- NOTE | 2019-09-20 16:55 | RAD_ITS ---
STUDY: X-RAY CHEST REASON FOR EXAM: Male, 54 years old. PT WITH FLUID OVERLOAD. SWELLING TO BILATERAL FEET AND LEGS. PT STATES STARTING TO WHEEZE SLIGHTLY TECHNIQUE: PA and lateral views of the chest. COMPARISON: None. FINDINGS: Cardiac silhouette unremarkable. Pulmonary vascularity unremarkable. Aorta unremarkable. No focal airspace opacities. No pleural effusions. Stable left lung granuloma. Upper abdomen unremarkable. Osseous structures intact. No pneumothorax. RAD/Chest PA and Lateral IMPRESSION: No acute cardiopulmonary findings Electronically Signed: Pola Sagastume, at 17:58 EDT Tel , Service support ,
[2019-09-20 17:28] LABS: Absolute Lymphocyte Count 1.41 X10^3/uL (0.83-4.51); Absolute Neutrophil Count 6.4 X10^3/uL (2.0-7.7); Basophil# 0.04 X10^3/uL; Basophil% 0.5 % (0-1); Eosinophil# 0.19 X10^3/uL; Eosinophils% 2.2 % (0-5); Hematocrit 37.2 % (40-54); Hemoglobin 12.7 g/dL (13.0-16.5); Lymphocyte # 1.41 X10^3/ul (4.0); Lymphocyte % 16.1 % (19-41); Mean Corp Hgb Conc 34.1 g/dL (32-36); Mean Corpuscular Hgb 30.5 pg (27.0-32.0); Mean Corpuscular Volume 89.2 fL (80-94); Mean Platelet Vol. 9.5 fl (6.2-12.0); Monocyte# 0.64 X10^3/uL; Monocyte% 7.3 % (0-10); NRBC Flagged by Analyzer 0 % (0-5); Neutrophil # 6.38 X10^3/uL (2.7-7.7); Platelet Count 257 K/mm3 (150-450); RBC Distribution Width CV 12.5 % (11.6-14.6); RBC Distribution Width SD 40.5 fl (35.1-43.9); Red Blood Count 4.17 M/mm3 (4.6-6.2); White Blood Count 8.7 K/mm3 (4.4-11.0)
[2019-09-20] MEDS: Furosemide 40 MG Tablet PO (17:45)
[2019-09-20] MEDS: HYDROcodone Bitartrate/Apap 5/325 Tablet PO (17:45)
[2019-09-20 17:50] LABS: Anion Gap 6 (5-15); BUN 14 mg/dL (7-18); BUN/Creat Ratio 14.4 RATIO (10-20); Calcium,Total 8.6 mg/dL (8.5-10.1); Chloride 104 mmol/L (98-107); Creatinine, Serum 0.97 mg/dL (0.70-1.30); EST Glomerular Filtration Rate 86 mL/min (>60); Est Glom Filt Rate - Afr Amer 104 mL/min (>60); Glucose 104 mg/dL (74-106); Potassium 4.1 mmol/L (3.5-5.1); Sodium Level 137 mmol/L (136-145)
[2019-09-20 18:27] LABS: BNP,B-Type NATRIURETIC PEPTIDE 44.2 pg/mL (0-100)
--- NOTE | 2019-09-20 18:34 | ED.DCSUM_ITS ---
- ER Visit Summary Date of Service: 09/20/19 Chief Complaint: Bilateral leg swelling History of Present Illness: The patient is a [address] Menon, Dr. Matos, and Dr. Yannick Soriano. He reports that he had a lumbar fusion at [facility] by Dr. bhardwaj on September 10. States he was doing well until his legs became swollen this morning. States he is elevating his feet and has not gone down. He is on Lovenox for atrial fibrillation and following this surgery. Patient reports he is also been wheezing today. He has an occasional cough that he describes as clearing my throat. He states he is mildly short of breath at worst and is not short of breath now. Denies any fever or chills. No chest p ain. Physical Examination: Vitals: Stable. Afebrile. General: Well-nourished and well-developed. Head: Normocephalic atraumatic. Neck: Supple, no lymphadenopathy. No JVD. Nontender. Cardiovascular: Regular rate and rhythm. No murmurs. Respiratory: No respiratory distress. Clear to auscultation bilaterally. Minimal forced end expiratory wheezing. Abdominal: Soft, nontender, nondistended, normal bowel sounds. No guarding, rebound, or peritoneal signs. Back: Nontender. Incisions are healing well. There is no erythema or warmth to suggest infection Extremities: Nontender 2+ pitting edema lower extremities bilaterally. 2+ dorsalis pedis pulses bilaterally Skin: Normal color, no rash. Neurologic: Alert and oriented ?3. Cranial nerves II through XII are intact. N ormal strength and sensation. Psych: Normal affect. Test Results: EKG is sinus at [address] changes. CBC shows an H&H 12.7, 37.2, segmented for 73, lymphs at 16. Chem-7 is normal. Troponin is negative. BT CUSTOMER ACCOUNT TECHNICIAN is 44.2. Chest x-ray is normal. Emergency Department Course and Treatment: Patient was treated albuterol Atro vent aerosol. He was given a dose of Lasix p.o. Multiple attempts were made an IV without success. He had a Mcdonough stick on the right to obtain blood work. Treatment Plan: Patient was discussed with Dr. Betancourt, covering for Dr. Soriano. He will be discharged instructions to follow-up tomorrow as previously scheduled. Is given a prescription for Lasix and albuterol MDI for home. Return to the emergency department for any worsening symptoms. Disposition: To home in improved and stable condition. Impression: 1. Peripheral edema. This note was generated with [employer] dictation software. It may contain incorrect words, spelling, and punctuation that were not noted in review of the chart prior to signing ED Disposition - Plan for ED Patient: Disposition: Home or Assisted Living Instructions: ED Peripheral Edema, Bilateral Prescriptions: Furosemide [Lasix] 20 mg PO DAILY #7 tab Prescription Printed Albuterol Inhaler [Ventolin Hfa] 1 - 2 puff INHALATION Q4H PRN PRN #1 inhaler PRN Reason: Wheezing Prescription Printed Referrals: Yannick Wilkins MD [Primary Care Provider] - 3-5 Days
[2019-09-20 19:17] VITALS: BP 115/64; PULSE 68; RESP 16; O2SAT 95
== END 2019-09-20 19:18 | disposition home or self-care (01) ==
LOC: ED 15:02
PROVIDERS: Emergency Provider Emergency Medicine; PCP Family Medicine
DX: R60.0 Localized edema (principal); R05 Cough; R06.00 Dyspnea, unspecified; I48.91 Unspecified atrial fibrillation; G47.33 Obstructive sleep apnea (adult) (pediatric); F32.9 Major depressive disorder, single episode, unspecified; Z86.711 Personal history of pulmonary embolism; Z98.1 Arthrodesis status; Z79.01 Long term (current) use of anticoagulants; Z79.899 Other long term (current) drug therapy
CPT/HCPCS: 71046; 80048; 83880; 84484; 85025; 93005; 94640; 99283; A4216; J1940

== ENCOUNTER → 2019-11-21 14:21 | Outpatient (CLI) | payer MEDICAID, SELFPAY ==
[2019-11-20 11:05] VITALS: BMI 31.8
--- NOTE | 2019-11-21 14:33 | RAD_ITS ---
STUDY: X-RAY - LUMBAR SPINE REASON FOR EXAM: Male, 54 years old. Surgery September 10 to replace hardware, pain going down left leg TECHNIQUE: 3 view(s) of the lumbar spine were obtained. COMPARISON: None FINDINGS: The patient is status post laminectomy and fusion at the L3-L4 and L5-S1 levels with interpedicular screw and mervat fixation device. There is also evidence of anterior fixation at the L5-S1 level with prosthetic disc. Normal lumbar lordosis. There is no substantial scoliosis. Anterior listhesis of L5 forward on L5. Moderate degree of disc space narrowing at the L1-L2 level with marked degree of disc space narrowing at the L4-L5 level. There is mild atherosclerotic calcification of the abdominal aorta without a demonstrated aneurysm. RAD/Lumbar Spine 2 or 3 Views IMPRESSION: Prior laminectomy and fusion at the L4-L5 and L5-S1 levels with anterior listhesis of L4 on L5 and disc space narrowing. Electronically Signed: Jacob Regan, at 14:56 EDT , Service support ,
== END ==
PROVIDERS: PCP Family Medicine
DX: M54.16 Radiculopathy, lumbar region (principal); M43.10 Spondylolisthesis, site unspecified; Z98.1 Arthrodesis status
CPT/HCPCS: 72100

== ENCOUNTER 2019-12-19 15:30 | Outpatient (RCR) | payer MEDICAID, SELFPAY ==
[2019-11-20 11:05] VITALS: BMI 31.8
--- NOTE | 2019-12-14 15:54 | HP.PTEVAL ---
Patient's Visit Information ALLISON DALTON is a 54 year old M referred to Physical Therapy by WANDA MANDEL with a diagnosis of SACROILIITIS. Date of Evaluation: 12/14/19 Physical Therapist: Mary Jansen PT, Cert MDT - Visit Plan Frequency: 2-3x /Week Duration: 4-6 Weeks Plan: AQUATIC THERAPY FOR PAIN RELIEF, LE DESENSATIZATION, POSTURE CORRECTION/STRENGTHENING, INSTRUCTION IN APPROPRIATE BODY MECHANICS AND ACTIVITY MODIFICATIONS. DLS STARTING WITH A NEUTRAL SPINE PROGRESSING ROM TOLERATED. CHET LE ROM, STRETCHING AND STRENGTHENING. HEP INSTRUCTION. MINIMIZE BENDING, LIFTING AND TWISTING UNTIL NEXT SURGICAL FOLLOW UP. - Subjective DX: SACROILITIS. 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 Work/Leisure: NOT CURRENTLY WORKING. OFF SINCE SURGERY IN SEPTEMBER 2019. WORKS FOR THE [employer]. OFF WORK COMPLETELY UNTIL MAY 2019. Disability: NO. Present symptoms: LEFT LOW BACK PAIN AND PAIN GOING DOWN LEFT LEG TO THE HEEL. NO TAILBONE PAIN. ALSO LEFT LE NUMBNESS AND TINGLING. LEFT CALF REALLY ACHES. NUMBNESS AND TINGLING GOES TO THE HEEL TOO. Present since: JUN 11 2015. Pain Scale: WORST 4/10, LEAST 0/10. Currently: 0/10 NO PAIN BUT LLE NUMBNESS AND TINGLING. Commenced as a result of: WENT DOWN A FLIGHT OF STEPS ON HIS BACK AT THE [employer] WORK[employer] COMPENSATION. Worse: TRYING TO TURN OVER IN BED, GETTING UP, INITIATING GAIT, BENDING DOWN TO SIT, PRESSURE ON LEFT BUTTOCK. FIRST THING IN THE MORNING LEFT LEG DOESN'T WANT TO WORK RIGHT. Better: LYING DOWN. Disturbed sleep: YES. Previous history/Previous treatment: APR 2016 FIRST BACK SURGERY BY DR. ANGELES AT [facility]. ONE OR TWO INJECTIONS BEFORE SECOND SURGERY - DIDN'T HELP. PHYSICAL THERAPY. NO CHIRO FOR LOW BACK. STARTED WITH A FALL IN 2014. Treatment this episode: SURGERY SEPTEMBER 11 2019 (3 MONTHS PO). Coughing/sneezing/straining: POSITIVE. Gait: DIFFICULTY INITIATING GAIT ABOUT 15 TO 20 STEPS THEN OK. NO ASSISTIVE DEVICE. Difficulty initiating urinatin: NO. Accidents: NOTHING ELSE MAJOR. Unexplained weight loss: NO. Imaging: LUMBAR X-RAY ABOUT 2 WEEKS - SEE [facility] EMR. PATIENT REPORTS HE WAS TOLD EVERYTHING LOOKS GOOD. PMH: UNREMARKABLE. OTHER: PATIENT REPORTS HE IS MUCH BETTER SINCE THIS SURGERY. RIGHT LE FEELS NORMAL NOW. RESIDUAL LEFT LE SX'S BUT LLE IS MUCH BETTER THAN BEFORE THIS SURGERY EVEN THOUGH IT STILL HAS ISSUES. PATIENT REPORTS NO EXCESSIVE BENDING LIFTING OR TWISTING. NO LIFTING GREATER THAN 25 LBS UNTIL FOLLOW UP. - Objective Sitting/Standing Posture: POOR. INCREASED TRUNK FLEXION. Active Correction of posture: NE. Other Observations: INDEP GAIT INTO PT WITHOUT ANY ASSISTIVE DEVICES. Motor deficit: CHET LE WEAKNESS LEFT > RIGHT. RIGHT LE: HIP 4-/5, KNEE 4/5, ANKLE 4/5. C/O PAIN IN LOWER LEG WHEN MMT OF RIGHT QUAD. LLE: HIP 3+/5, KNEE 4-/5, ANKLE 4-/5. PATIENT IS SHAKY WITH LE MMT'ING. Sensory deficit: HYPERSENSATIVITY OF LEFT TRUNK AND LE. ROM deficit: TIGHT CHET HS'S, HIP FLEXORS, HIP ROTATORS AND HS'S. Reflexes: 1/2 CHET QUADS. CHET ACHILLES - ABSENT. Dural Signs: POSITIVE LLE. Lumbar mvmt loss: flex - WOO. ext - WOO. R SG - WOO. L SG - WOO. PATIENT C/O INCREASED LEFT BACK AND LE PAIN WITH LEFT SG TESTING BUT EVERYTHING ELSE JUST FEELS STIFF. Core strength: POOR. Palpation: ANTERIOR AND POSTERIOR INCISIONS LOOK WELL HEALED WITHOUT ANY SIGNS OF INFECTION. LEFT LOW BACK, BUTTOCK, THIGH AND CALF ARE VERY HYPERSENSATIVE TO TOUCH. - Goals Goal 1:: DECREASE C/O BACK AND LE SX'S. Goal Time Frame: 4-6 Weeks Goal 2:: IMPROVE PERSONAL CARE, LIFTING, WALKING, SITTING, STANDING, SLEEP, SOCIAL LIFE, TRAVEL AND WORK FUNCTION. Goal Time Frame: 4-6 Weeks Goal 3:: INSTRUCT IN PROPHYLAXIS Goal Time Frame: 4-6 Weeks - Rehabilitation Potential Rehabilitation Potential: Fair - Anticipated Interventions Patient/Client Instruction: Educate patient on: Condition, Plan of Care, Risk Factors, Benefits of Fitness Program For the Purpose of:: To improve self management Therapeutic Exercise to Include: Strength training, Body mechanics, Postural training, Flexibilty training, Gait and locomotor training, Neuromotor development, In an aquatic setting, Dynamic Lumbar Stabilization For the Purpose of:: To decrease pain, To increase ROM, To improve muscle performance and motor function, To increase tolerance to activity/condition/position, To improve ability of physical actions for home/community/work/leisure, To improve gait and locomotor functions Thank you for the opportunity to evaluate your patient. For Medicare and Medicare HMO plans, please review the plan of care and approve it. It will need to be FAXED BACK to us at [phone] for Medicare purposes. For Medicare only, by signing this I certify the plan of care. Please let me know if there are questions or concerns regarding this plan of care. Physician Signature: Date:
--- NOTE | 2020-05-12 18:11 | HP.PT.NRP ---
ALLISON DALTON was seen in my office for initial evaluation on 12/14/19. The following Plan of Care was established for this patient: Initial Frequency: 2-3x /Week Initial Duration: 4-6 Weeks Patient/Client Instruction: Educate patient on: Condition, Plan of Care, Risk Factors, Benefits of Fitness Program For the Purpose of:: To improve self management Therapeutic Exercise to Include: Strength training, Body mechanics, Postural training, Flexibilty training, Gait and locomotor training, Neuromotor development, In an aquatic setting, Dynamic Lumbar Stabilization For the Purpose of:: To decrease pain, To increase ROM, To improve muscle performance and motor function, To increase tolerance to activity/condition/position, To improve ability of physical actions for home/community/work/leisure, To improve gait and locomotor functions This patient was last seen in our office 12/19/19. Pertinent comments regarding their Physical therapy will appear below: This patient has not returned to Physical Therapy and is appropriate to return to MD for further follow-up as needed. At this point I will be discontinuing this patient from physical therapy. I would be happy to see this patient again in the future if found appropriate by the physician. Thank you! Mary Jansen, PT, Cert MDT
== END 2019-12-19 19:00 | disposition home or self-care (01) ==
LOC: PT 15:30
PROVIDERS: PCP Family Medicine
DX: M46.1 Sacroiliitis, not elsewhere classified (principal)
CPT/HCPCS: 97113; 97162

== ENCOUNTER 2020-08-12 07:53 | Day surgery (SDC) | payer MEDICAID, SELFPAY ==
[2020-08-07 14:08] VITALS: BMI 29.1
[2020-08-12] VITALS (7 sets, daily range): BP systolic 101–118; BP diastolic 55–77; PULSE 52–66; RESP 16–18; TEMP 36.2–36.6; O2SAT 95–100; BMI 29.6
--- NOTE | 2020-08-12 06:49 | HP_ITS ---
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 Is patient in pain?: No Allergies venom-honey bee Allergy (Verified 08/07/20 14:09) Swelling clarithromycin [From Biaxin] Adverse Reaction (Verified 08/07/20 14:09) Rash Iodinated Contrast Media [DYEE] Adverse Reaction (Verified 08/07/20 14:09) Other Medications Atenolol [Tenormin] 25 mg PO PRN PRN 09/14/19 [History Confirmed 08/07/20] Cholecalciferol (Vitamin D3) [Vitamin D3] 5,000 unit PO DAILY 09/14/19 [History Confirmed 08/07/20] Flecainide [Tambocor] 100 mg PO PRN PRN 09/14/19 [History Confirmed 08/07/20] Multivitamin with Minerals [Multiple Vitamin] 1 ea PO DAILY 09/14/19 [History Confirmed 08/07/20] PFSH Medical History Umbilical hernia (Acute) Abdominal pain (Acute) Sleep apnea (Acute) Low back problem (Acute) Arthritis (Acute) Gall stones (Chronic) Pulmonary embolism (Resolved) Depression (Chronic) LATESHA (obstructive sleep apnea) (Acute) Atrial fibrillation (Chronic) Hypersomnia (Acute) Surgical History History of fracture of ankle (Acute) History of back surgery (Chronic) Family History Father CAD (coronary artery disease) History of coronary artery bypass surgery Social History (Updated 08/08/20 @ 08:[address] Jose Alejandro Martinez MD) alcohol intake: never substance use type: does not use HPI HPI HPI: ALLISON DALTON, is a 55 M who presents to the office today for HPI HPI Surgical H&P: Yes HPI: ALLISON DALTON, is a 55 M who presents to the office today for Umbilical hernia. The patient has had his umbilical hernia for approximately 1 year and it is growing larger. He has no nausea or vomiting or fevers or chills. The area is tender with no radiation of pain to other areas. ROS General General: No weight change, appetite, fatigue, colon cancer or breast cancer HEENT HEENT: No difficulty swallowing, eye injury, eye surgery, swollen glands or hoarseness Endo Endocrine: No thyroid disease, diabetes mellitus, thyroid cancer, Hair loss, heat intolerance or cold intolerance Skin Skin: No rash or changing moles Musc Musculoskeletal: Yes back problems and arthritis; no rheumatoid arthritis, gout or joint pain Cardio Cardiovascular: Yes atrial fibrillation; no murmur, pacemaker, heart disease, high blood pressure, heart attack, heart stent, palpitations, shortness of breat with exertion or chest pain Psych Psychiatric: No depression, anxiety or hearing voices Resp Respiratory: No shortness of breath, Yes sleep apnea, No cough, No COPD, No asthma, No emphysema, No wheezing Gastro Gastrointestinal: Yes abdominal pain, No nausea or vomiting, No diarrhea, No constipation, No blood in stool, No acid reflux, No hemorrhoids, No ulcers, Yes gallbladder problem, No black,tarry stools Harsha Hematologic: No blood thinners, No blood disorders, No bleeding, No anemia, No blood clots Neuro Neurologic: Yes numbness, Yes tingling Exam Const General: cooperative Orientation: alert, oriented x3 Resp Effort & Inspection: normal respiratory effort Auscultation: clear to auscultation bilaterally Cardio Rate: regular rate Rhythm: regular rhythm Heart Sounds: no murmurs GI Inspection: non-distended Palpation: soft, hernia umbilical, nontender Assessment & Plan Problems 1. Umbilical hernia without obstruction and without gangrene K42.9 Plan The patient has a small umbilical hernia which is reducible. I discussed open hernia repair with him. I discussed mesh versus nonmesh repair. I recommended that if the hernia defect is larger than [address] a mesh and the patient is agreeable. I discussed the risks of the procedure including not limited to bleeding, infection, injury to underlying bowel. The patient understands the risks as well to proceed with umbilical hernia repair with or without mesh. Jose Alejandro Martinez MD Pager: [facility] [address] [place] [address], [address] [place] [address] Office: Coding Level of Care Code Off vis,new,level 3 Diagnoses Umbilical hernia without obstruction and without gangrene K42.9 ??Obstruction and gangrene presence: without obstruction or gangrene I have re-examined the patient. There are no clinical changes since date of exam.
[2020-08-12] MEDS: Lactated Ringers 1,000 ML 100 ML IV (08:44)
[2020-08-12] MEDS: Cefazolin 2 GM in 0.9% Normal Saline 100 ML IV (08:55)
[2020-08-12] MEDS: Bupiv/Epi 0.5% Mpf 30 ML Vial (09:20)
--- NOTE | 2020-08-12 09:30 | PCM.OPRPT ---
Problem List (1) Umbilical hernia Status: Acute Qualifiers: Obstruction and gangrene presence: without obstruction or gangrene Report of Operation Date of Procedure: 08/12/20 Pre-Operative Diagnosis: Umbilical hernia Post-Operative Diagnosis: Same Surgery/Procedure Performed:: Umbilical hernia repair with mesh Description of Procedure: Patient was brought back to the operating room and general anesthesia was induced. A curvilinear incision was marked over the umbilicus and injected with local anesthetic. Scalpel was used to make a curvilinear incision this was deepened to the hernia. The hernia was reduced and the fascia was cleared anteriorly's electrocautery. The fascia was then grasped elevated and appeared to be approximately 1.5 cm in diameter. The preperitoneal fat was cleared underneath to create a pocket for the mesh and the peritoneum remained intact. Next a small Ventralex mesh was placed into the preperitoneal space and sutured to the anterior abdominal wall using 2-0 PDS suture. The anterior fascia was then closed transversely using interrupted 2-0 PDS sutures. The cavity was irrigated and suctioned dry the skin was closed with running 4-0 Monocryl and injected with local anesthesia once more. Steri-Strips and bandage were applied. Patient tolerated the procedure well was brought to PACU in stable condition. Grafts/Implants Used: small Ventralex ST - Admit VTE Documentation VTE Mechan Device Prophylaxis: SCD's
--- NOTE | 2020-08-12 09:35 | DCINST_ITS ---
Discharge Diet: Light diet - advance as tolerated Discharge Activity: Return to Normal Activity, May Not Drive - for 2-3 days or while taking narcotic pain meds., May Shower - with the bandage in place 1-2 days after surgery. Lifting Restrictions: 20 pounds for 4 weeks. Additional Activity Instructions:: Climbing stairs is fine, walking is encouraged. Sitting in bed may be uncomfortable. Sitting up using your lateral muscles (sitting up sideways) is usually more comfortable. Do not drive, work heavy equipment of sign legal documents for 24 hours. Pain medications may cause nausea, you should typically eat light foods as you take your pain medications. Pain medications may also cause constipation. If you have difficulty with this, discuss with your doctor. Call your doctor if your incision/area has: Continuous Slow Oozing, Sudden Increased Bleeding, Increased Pain/ Swelling, Increased Redness, Foul Smelling Discharge Call your doctor if you observe: Fever of 101 or Higher Suture Line Care: Avoid Pulling/Pushing, Avoid Pinching/Bending Change Dressing in (Days):: 3 - Leave steri-strips for 1 week. May protect with a guaze bandaid. Cleanse incision/area with: Keep Dressing Clean & Dry Allergies/Adverse Reactions: Allergies venom-honey bee Allergy (Verified 08/12/20 08:21) Swelling clarithromycin [From Biaxin] Adverse Reaction (Verified 08/12/20 08:21) Rash Iodinated Contrast Media [DYEE] Adverse Reaction (Verified 08/12/20 08:21) Other PATIENT STATES PUT HIM INTO AFIB, chest pain Medications to take at Discharge Atenolol [Tenormin] 25 mg PO PRN PRN 09/14/19 Cholecalciferol (Vitamin D3) [Vitamin D3] 5,000 unit PO DAILY 09/14/19 Flecainide [Tambocor] 100 mg PO PRN PRN 09/14/19 Multivitamin with Minerals [Multiple Vitamin] 1 ea PO DAILY 09/14/19 Aspirin E.C. [Ecotrin] 81 mg PO DAILY@0800 08/08/20 Oxycodone HCl/Acetaminophen [Percocet 5-325 mg Tablet] 1 - 2 tab PO Q6H PRN PRN 3 Days #20 tablet 08/12/20 The following prescriptions were given: Oxycodone HCl/Acetaminophen [Percocet 5-325 mg Tablet] 1 - 2 tab PO Q6H PRN PRN 3 Days #20 tablet PRN Reason: Pain Score 4-10/10 Transmission Status: Sent to [facility] Primary Care Physician: Yannick Wilkins MD [Primary Care Provider] - Test Results: Test results from this visit will be discussed in further detail at your follow- up appointment, if applicable. Please Follow Up With: Jose Alejandro Martinez MD When: Please call to schedule 2 week follow up appointment. [phone]
[2020-08-12] MEDS: BENZOCAINE/MENTHOL 1 LOZENGE MUCOUS MEM (10:58)
== END 2020-08-12 11:30 | disposition home or self-care (01) ==
LOC: SDC 07:53 → AC 07:53
PROVIDERS: PCP Family Medicine; Referring Provider Surgery; Visit Provider Surgery
PROC: (CPT 49585; principal; 2020-08-12 09:15)
DX: K42.9 Umbilical hernia without obstruction or gangrene (principal); Z20.828 Contact with and (suspected) exposure to other viral communicable diseases; M19.90 Unspecified osteoarthritis, unspecified site; F32.9 Major depressive disorder, single episode, unspecified; G47.33 Obstructive sleep apnea (adult) (pediatric); I48.91 Unspecified atrial fibrillation; Z86.711 Personal history of pulmonary embolism; Z79.899 Other long term (current) drug therapy; Z87.891 Personal history of nicotine dependence
CPT/HCPCS: 00750; 49585; 87426; C9803; J7120; C1781; J2405

== ENCOUNTER 2020-09-02 02:03 | Emergency (ER) | payer MEDICAID, SELFPAY ==
[2020-09-02 02:04] VITALS: BP 137/85; PULSE 56; RESP 16; TEMP 35.9; O2SAT 97; BMI 30.7
--- NOTE | 2020-09-02 02:19 | EKG12_ITS ---
Test Reason : BACK PAIN Blood Pressure : / mmHG Vent. Rate : 058 BPM Atrial Rate : 058 BPM P-R Int : 168 ms QRS Dur : 094 ms QT Int : 414 ms P-R-T Axes : 018 -06 042 degrees QTc Int : 406 ms Sinus bradycardia Otherwise normal ECG Confirmed by FABRIZIO BROWNING, AUGUSTO ([id number]), science editor TANESHA SCHNEIDER ([id number]) on 09/03/2020 12:50:22 PM Referred By: DC Confirmed By:AUGUSTO DINH MD
--- NOTE | 2020-09-02 02:19 | CT_ITS ---
STUDY: CTA OF THE ABDOMINAL AORTA REASON FOR EXAM: Male, 55 years old. RADIATION DOSAGE (If Supplied By Facility): CTDIvol = ( 17.91 ) mGy, DLP = ( 1512.06 ) mGycm TECHNIQUE: Axial CT angiography multi-detector data acquisition was obtained from the to the following intravenous administration of ml of 100mL Isovue-370 contrast. Axial images and MIP images were reconstructed from the axial data set. Post-processing of the angiographic images was performed, with multiplanar reformation and 3D reconstruction. Individualized dose optimization techniques were used for this CT. TECHNICAL QUALITY: Good COMPARISON: None. Descriptors of Narrowing: None (0%) Mild (< 50%) Moderate (50-70%) Severe (70-90%) Subtotal/Total Occlusion (90-100%) Non-Evaluable (technically non-diagnostic FINDINGS: Abdominal aorta: Mild atherosclerotic disease. No demonstrated narrowing. Celiac and superior mesenteric arteries: No demonstrated narrowing. Inferior mesenteric artery: No demonstrated narrowing. Right renal artery(arteries): No demonstrated narrowing. Left renal artery(arteries): No demonstrated narrowing. Right common iliac artery: No demonstrated narrowing. Right external iliac artery: No demonstrated narrowing. Right internal iliac artery: No demonstrated narrowing. Left common iliac artery: No demonstrated narrowing. Left external iliac artery: No demonstrated narrowing. Left internal iliac artery: No demonstrated narrowing. The visualized lung bases are unremarkable. The visualized portions of the heart are within normal limits. Liver cyst in segment #5 measures 1 cm. There are multiple gallstones. Normal spleen. Normal pancreas. Normal bilateral adrenal glands. Normal right kidney. Normal left kidney. Normal visualized stomach. Normal small intestine. Normal colon. The appendix is visualized and appears normal. Normal abdominal aorta. Normal inferior vena cava. Normal retroperitoneum. Normal urinary bladder. There are postsurgical changes from umbilical hernia repair. Normal osseous structures. CT/CT ANGIO ABD&PEL W/O&W/DYE IMPRESSION: Mild atherosclerotic disease changes in the abdominal aorta without dissection or hemodynamically significant stenosis. Cholelithiasis. Liver cyst in segment #5 measures 1 cm. Electronically Signed: Pawel Beyer MD at 2:55 EST Tel , Service support ,
--- NOTE | 2020-09-02 02:19 | CT_ITS ---
STUDY: CTA CHEST REASON FOR EXAM: Male, 55 years old. c/o severe back pain and lower abdominal pain, pt had umbilical hernia sx this month, hx pe in the past, a-fib, prior back sx, concern for dissection/pe RADIATION DOSAGE (If Supplied By Facility): CTDIvol = ( 17.91 ) mGy, DLP = ( 1512.60 ) mGycm TECHNIQUE: The examination was performed with the intravenous administration of IV 100mL Isovue-370. Post-processing of the angiographic images was performed, with multiplanar reformation and 3D reconstruction. Individualized dose optimization techniques were used for this CT. COMPARISON: None. FINDINGS: Normal enhancement of the main pulmonary artery and right and left pulmonary arteries. Normal enhancement of the bilateral peripheral pulmonary arteries. There is no demonstrated pulmonary embolism. Normal thoracic aorta and visualized great vessels. There is no demonstrated aortic dissection. Normal heart and pericardium. Normal mediastinum. Normal hilar regions. Normal visualized trachea and bronchi. The lungs are well expanded. Normal pulmonary parenchyma. There is a calcified granuloma in the left lung upper lobe measures 1.2 cm. Normal pleura. Normal chest wall structures. Normal osseous structures. CT/CTA Chest W/WO Contrast IMPRESSION: Normal CTA chest examination, without a demonstrated pulmonary embolism or arterial dissection. Electronically Signed: Pawel Beyer MD at 3:01 EST Tel , Service support ,
[2020-09-02] MEDS: Ondansetron 4 MG/2 ML Vial IV (02:25)
[2020-09-02] MEDS: HYDROmorphone 1 MG/ML Syringe IV ×2 (02:25→03:04)
[2020-09-02] MEDS: 0.9% Normal Saline 1,000 ML 1000 ML IV (02:26)
[2020-09-02 02:27] LABS: Absolute Lymphocyte Count 2.35 X10^3/uL (0.83-4.51); Absolute Neutrophil Count 10.5 X10^3/uL (2.0-7.7); Basophil# 0.05 X10^3/uL; Basophil% 0.4 % (0-1); Eosinophil# 0.09 X10^3/uL; Eosinophils% 0.7 % (0-5); Hematocrit 44.4 % (40-54); Hemoglobin 14.9 g/dL (13.0-16.5); Lymphocyte # 2.35 X10^3/ul (4.0); Lymphocyte % 17.4 % (19-41); Mean Corp Hgb Conc 33.6 g/dL (32-36); Mean Corpuscular Hgb 29.9 pg (27.0-32.0); Mean Platelet Vol. 10.2 fl (6.2-12.0); Monocyte# 0.54 X10^3/uL; NRBC Flagged by Analyzer 0 % (0-5); Neutrophil # 10.45 X10^3/uL (2.7-7.7); Neutrophil % 77.1 % (47-70); Platelet Count 214 K/mm3 (150-450); RBC Distribution Width CV 12.7 % (11.6-14.6); RBC Distribution Width SD 41.1 fl (35.1-43.9); Red Blood Count 4.99 M/mm3 (4.6-6.2); White Blood Count 13.5 K/mm3 (4.4-11.0)
[2020-09-02 02:33] LABS: Partial Thromboplast Time 29.7 Seconds (24.1-36.2)
[2020-09-02 02:42] VITALS: O2SAT 99
[2020-09-02 02:44] LABS: ALB/GLOB Ratio 1.2 RATIO (0.9-2.4); AST(SGOT) 10 U/L (15-37); Alanine Aminotransfer ALT/SGPT 30 U/L (16-61); Albumin, Serum 3.8 g/dL (3.2-5.0); Alkaline Phosphatase 76 U/L (45-117); Anion Gap 9 (5-15); BUN 19 mg/dL (7-18); BUN/Creat Ratio 15.1 RATIO (10-20); Calcium,Total 8.9 mg/dL (8.5-10.1); Chloride 104 mmol/L (98-107); Creatinine, Serum 1.26 mg/dL (0.70-1.30); EST Glomerular Filtration Rate 63 mL/min (>60); Est Glom Filt Rate - Afr Amer 77 mL/min (>60); Estimated Creatinine Clearance 73.56 ml/min; Globulin 3.3 g/dL (2.2-4.2); Glucose 145 mg/dL (74-106); Lipase 107 U/L (73-393); Potassium 3.8 mmol/L (3.5-5.1); Protein, Total 7.1 g/dL (6.4-8.2); Sodium Level 141 mmol/L (136-145)
[2020-09-02 03:04] VITALS: BP 125/69; PULSE 52; RESP 18; O2SAT 96
--- NOTE | 2020-09-02 03:15 | ED.RN ---
LACTIC 2.3 REPORTED TO . VERBALIZES UNDERSTANDING
[2020-09-02 03:16] LABS: Lactic Acid 2.3 mmol/L (0.4-1.9)
[2020-09-02 04:37] LABS: Bacteria 0 SEEN /hpf (None Seen); Mucous, Urine 0 SEEN /hpf (<or=2+); Squamous Epithelial Cells - UA 0 SEEN /hpf (0-5); White Blood Cells 0 SEEN /hpf (0-5)
[2020-09-02 04:41] LABS: Color, Urine Yellow (Yellow); Glucose, Dipstick Normal (Normal); Ketone-Dipstick 15 mg/dl (Negative); Leukocyte Esterase-Dipstick Negative /ul (Negative); Nitrite-Dipstick Negative (Negative); Occult Blood-Urine 10 /ul (Negative); Protein-Dipstick 15 mg/dl (Negative); Urine Bilirubin Dipstick Negative (Negative); Urine Clarity Clear (Clear); Urine Urobilinogen Normal (Normal); Urine pH 6.5 (5.0 - 8.0)
[2020-09-02 04:48] LABS: Red Blood Cells-Urine 0-5 SEEN /hpf (0-5)
[2020-09-02 06:18] VITALS: BP 106/66; PULSE 53; RESP 15; O2SAT 97
[2020-09-02 06:24] LABS: Lactic Acid 1.9 mmol/L (0.4-1.9)
[2020-09-02] MEDS: HYDROcodone Bitartrate/Apap 5/325 Tablet PO (06:43)
[2020-09-02] MEDS: 0.9% Normal Saline 1,000 ML 999 ML IV (06:43)
--- NOTE | 2020-09-02 06:43 | ED.VISSUMM ---
- ER Visit Summary Date of Service: 09/02/20 Chief Complaint: Multiple complaints History of Present Illness: The patient is a 55 M with notable complaints. Yesterday morning he noticed an irregular heart rate from around 9 AM until noon. He has a history of atrial fibrillation and felt like atrial fibrillation. He took his flecainide and atenolol and seemed to do better. In the evening around 11 PM he started to have some chest pain. He was worried he might have a clot and so he took a dose of Xarelto. He was previously on Xarelto but has not taken a dose for several months. After that he started to have low back pain at his prior lumbar fusion site. He had a fusion in 2015 and the second 1 in 2019. He then started to have stomach pain at his umbilicus and he vomited. He did have surgery to repair her hernia by Dr. Stoll earlier this month. Patient also has a history of sleep apnea, PE. He normally just takes aspirin but no other blood thinners. Non-smoker. Physical Examination: Afebrile and vital signs unremarkable. Heart rate is 56. Patient appears very uncomfortable. Head and neck show normal inspection. Heart regular. Lungs clear. Abdomen is diffusely tender but worse at the umbilicus and in the lower abdomen. Surgical sites appear unremarkable. No hernia appreciated. No spinal tenderness, but he does have diffuse lower back tenderness. Lower extremities show strong and equal pulses. He has good strength but he reports some decreased sensation in the left leg. This is not new. No bowel or bladder symptoms. Patient appears slightly pale. Test Results: EKG shows sinus rhythm at a rate of 58. No sign of acute ischemia or infarction pattern. White count 13.5. Glucose 145, BUN 19, AST 10, lipase normal. INR 2.0, PTT 29.7. Urinalysis unremarkable. Troponin normal. Lactate 2.3. Repeat lactate 1.9 and repeat troponin normal. CTA chest abdomen and pelvis shows no PE or dissection. He has mild atherosclerosis of his abdominal aorta, cholelithiasis without other additional abnormal findings of the gallbladder and a 1 cm liver cyst. Emergency Department Course and Treatment: Patient was seen immediately on arrival. He was treated with pain medicine, fluids, nausea medicine. He was placed on the monitor. Patient has multiple symptoms including chest pain, abdominal pain, back pain. There was concern for an aortic process. There was also concern for cardiothoracic etiologies, GI and postsurgical etiologies, and myofascial and spinal back pain. His initial work-up showed a slightly elevated lactate and white count. He had no signs of infection. The timing does not fit with an abscess. His exam does not fit with an abscess to his spine. There is no evidence of PE. No evidence of aortic dissection. Cardiac testing is unremarkable. Normal osseous structures on imaging. Patient was discussed with his PCP who is on-call as the hospitalist. He would like to follow-up with the patient and his an outpatient in the office and will not be admitting the patient this evening. Patient voiced understanding and agreement. Treatment Plan: As above Disposition: Discharge Impression: Lumbar back pain This note was generated with [employer] dictation software. It may contain incorrect words, spelling, and punctuation that were not noted in review of the chart prior to signing ED Disposition - Plan for ED Patient: Referrals: Yannick Wilkins MD [Primary Care Provider] -
--- NOTE | 2020-09-02 06:49 | ED.DEP ---
ED Disposition - Plan for ED Patient: Instructions: ED Back Pain (Acute or Chronic) Referrals: Yannick Wilkins MD [Primary Care Provider] -
[2020-09-02 06:58] LABS: Reflex Lactate? Y
[2020-09-02 07:12] VITALS: BP 102/50; PULSE 48; RESP 17; O2SAT 96
== END 2020-09-02 07:13 | disposition home or self-care (01) ==
LOC: ED 03:01
PROVIDERS: Emergency Provider Emergency Medicine; PCP Family Medicine
DX: M54.5 Low back pain (principal); R10.30 Lower abdominal pain, unspecified; R11.2 Nausea with vomiting, unspecified; R20.2 Paresthesia of skin; I48.91 Unspecified atrial fibrillation; G47.30 Sleep apnea, unspecified; Z98.1 Arthrodesis status; Z86.711 Personal history of pulmonary embolism; Z79.82 Long term (current) use of aspirin; Z79.899 Other long term (current) drug therapy
CPT/HCPCS: 71275; 74174; 80053; 81001; 83605; 83690; 84484; 85025; 85610; 85730; 93005; 96361; 96374; 96375; 99285; J7030; Q9967; A4216; J2405

== ENCOUNTER → 2021-06-03 10:38 | Outpatient (CLI) | payer MEDICAID, SELFPAY ==
--- NOTE | 2021-06-03 15:37 | PFTCOMP_ITS ---
COMPLETE PULMONARY FUNCTION TEST INTERPRETATION Brief HPI: Patient is a 56 year old male, currently under the care of Dr. Helms, who presents to [facility] for complete pulmonary function tests secondary to diagnosis of dyspnea. Respiratory therapist reports good effort and reproducible results. Interpretation: Forced expiration spirometry shows no large airways obstructive ventilatory defect with an FEV1 of 94% predicted. There is no significant bronchodilator response by strict ATS criteria. Spirograms are of good quality and plateau normally. The respiratory flow volume loop shows a normal pattern. Lung volumes by body plethysmography show a normal total lung capacity at 7.29 L, 105% predicted. All other lung volumes are within normal limits. Diffusion capacity by carbon monoxide is elevated at 122% predicted. The airway resistance is normal. No previous pulmonary function tests were available for review. Impression: Normal pulmonary function testing. Could consider a bronchoprovocation study if asthma is suspected
== END ==
PROVIDERS: PCP Family Medicine; Referring Provider Internal Medicine Critical Care Medicine; Visit Provider Internal Medicine Critical Care Medicine
DX: R06.00 Dyspnea, unspecified (principal)
CPT/HCPCS: 94060; 94726; 94729

== ENCOUNTER → 2021-06-25 11:04 | Outpatient (CLI) | payer MEDICAID, SELFPAY ==
[2021-06-25 11:15] VITALS: PULSE 102; PULSE 107; PULSE 110; PULSE 88; PULSE 90; O2SAT 95; O2SAT 96
--- NOTE | 2021-06-26 07:43 | PCM.PSN.6M ---
PSN 6 Minute Walk Test 6 Minute Walk Test 6 Minute Walk Test: 6 Minute Walk Test PSN:6-Minute Walk Test Start: 06/25/21 11:38 Freq: Status: Active Protocol: [id number].6MINW Document 06/25/21 11:15 INDIGO (Rec: 06/25/21 11:41 INDIGO [id number]) 6 Minute Walk Test Date Performed 06/25/21 Time Performed 11:15 Height 5 ft 11 in Weight: 99.79 kg Weight in Pounds 220.[address]: Rakesh Helms Assistive device used: None Pre-test Oxygen Delivery Method Room Air Pulse Ox (%) 96 Pulse Rate (60-100 beats/min) 88 Dyspnea Lizeth Scale (0-10) 0 Exertion Lizeth Scale (6-20) 6 1st minute Oxygen Delivery Method Room Air Pulse Ox (%) 95 Pulse Rate (60-100 beats/min) 110 H 2nd minute Oxygen Delivery Method Room Air Pulse Ox (%) 95 Pulse Rate (60-100 beats/min) 107 H 3rd minute Oxygen Delivery Method Room Air Pulse Ox (%) 96 Pulse Rate (60-100 beats/min) 102 H 4th minute Oxygen Delivery Method Room Air Pulse Ox (%) 95 Pulse Rate (60-100 beats/min) 107 H 5th minute Oxygen Delivery Method Room Air Pulse Ox (%) 96 Pulse Rate (60-100 beats/min) 102 H 6th minute Oxygen Delivery Method Room Air Pulse Ox (%) 96 Pulse Rate (60-100 beats/min) 102 H Dyspnea Lizeth Scale (0-10) 0 Exertion Lizeth Scale (6-20) 11 Post-test Oxygen Delivery Method Room Air Pulse Ox (%) 95 Pulse Rate (60-100 beats/min) 90 Full Laps Walked 24 Partial Lap, Number of Tiles Walked 40 Total Distance Walked (ft) 1456 Interpretation Interpretation: The patient ambulated 1456 feet over the course of 6 minutes beginning on room air without assistive devices or breaks. Pretesting oxygen saturation was noted to be 96% on room air. With ambulation, the mitchel oxygen saturation was 95%. There was no significant exertional oxygen desaturation. Recommendations Recommendations: There is no indication for the use of supplemental oxygen at this time.
== END ==
PROVIDERS: PCP Family Medicine; Referring Provider Internal Medicine Critical Care Medicine; Visit Provider Internal Medicine Critical Care Medicine
DX: R06.00 Dyspnea, unspecified (principal)
CPT/HCPCS: 94618

== ENCOUNTER 2021-07-17 12:48 | Outpatient (CLI) | payer MEDICAID, SELFPAY ==
[2021-07-17] MEDS: Methacholine Chloride 18 ml neb kit INHALATION (13:07)
--- NOTE | 2021-07-17 15:25 | BRONCHALL_ITS ---
Bronchoprovocation Challenge Bronchoprovocation Challenge Bronchoprovocation Challenge: BRONCHOPROVOCATION STUDY INTERPRETATION Brief HPI: Patient is a 56 year old male, currently under the care of Dr. Helms, who presents to [facility] for a bronchoprovocation study secondary to diagnosis of dyspnea. Respiratory therapist reports good effort and reproducible results. Interpretation: Initial spirometry showed no large airways obstructive ventilatory defect. The patient was then given increasingly concentrated doses of methacholine in a stepwise/standardized fashion, using a modified ATS protocol. The patient?s maximum reduction in FEV1 was 15 percent predicted. Impression: Negative Bronchoprovocation study. This is NOT consistent with the diagnosis of asthma.
== END 2021-07-17 23:59 | disposition short-term general hospital (02) ==
LOC: PSN 12:48
PROVIDERS: PCP Family Medicine; Referring Provider Nurse Practitioner Acute Care; Visit Provider Nurse Practitioner Acute Care
DX: R06.00 Dyspnea, unspecified (principal)
CPT/HCPCS: 94070; 95070

== ENCOUNTER 2021-09-07 13:00 | Outpatient (CLI) | payer MEDICAID, SELFPAY | END 2021-09-07 23:59 | disposition home or self-care (01) | PROVIDERS: PCP Family Medicine; Visit Provider Nurse Practitioner Acute Care | DX: G47.33 Obstructive sleep apnea (adult) (pediatric) (principal) | CPT/HCPCS: 98960; G0463 ==

== ENCOUNTER 2023-05-09 13:00 | Outpatient (RCR) | payer OTHER, MEDICAID, SELFPAY ==
--- NOTE | 2023-03-17 12:41 | HP.PTEVAL ---
Patient's Visit Information Visit Information Visit Information: ALLISON DALTON is a 57 year old M referred to Physical Therapy by DARCI HELTON with a diagnosis of s/p LB surgery 01/10/23 cleanout. Date of Evaluation: 03/17/23 Physical Therapist: Andreas Contreras, DPT, OCS, CSCS Visit Plan Frequency: 3x /Week Duration: 2 Months Plan: 3x/week for 8 weeks starting aquatic therapy for ... 1. LB aggressive ROM in pool and progress to HEP 2. stretch posterior legs calves, HS, gluts and progress to HEP 3. core adn postural strength including LE to I pool program(pt willing after I in therapy. Then we can consider progression to gym based exercises. Subjective Subjective: Slipped on icy steps back in 2014. had back surgery laminectomy fusion did not help. 2nd surgery did not help, Pain was still down legs and in LB and hard to move. had cleanout procedure of LB which he thinks finally helped take pressure off nerve. pain in les is better at 0-4/10 laterally and anteriorly. L leg still numb and has been for 7 years. LB hurts slightly more now at 4+/10. Worse with standing and being too active. Feels OK lying down.Worse with weather changes. Sleep is not great and gets 4-5 hours before has to wake up and move. basic ADLs are I and slow but able Enjoys golfing and disc golf but has not lately done these. work injury was at [facility] and he has not worked since the original injury. Pain LBP, legs: Pain Intensity (Out of 10): 2 Pain Intensity Range: 0 and 6 Objective Objective: Walks with very stiff LB and poor trunk rotation but I. Transfers slowly out of chair but I. bed transfer stiff but I. Incisions posteriorly x 3 have healed, they have obviosu soft tissue scarring particularly middle incision, no signs of redness, wetness or swelling. tender to touch moderatlely in L lumbar paraspinals into R side and up into thoracic lower. Lumbar AROM: ext max limited, flexion max limited, SB max limited, poor and painful at all end ranges in LB LE AROM is painful to stretch back of hips fascia in LB, + slump and + SLR B Hip 90 degrees flexion before limited by pain, extension to 5 B with some pain in LB. knees and ankles AROM WFL, max tightness HS at -60 90/90 test limited by pain. reflexes 1/3 patella and achilles Sensation diminished in lateral legs L >R to gross lgiht touch. Strength L ankle DF and ev3+ and L 4, PF 4 B. knee strength flexion 4- L and 4 R, extension 4- L and 4 R. hip flexion seated 3 B with pain in LB. abduction 3+ L and 4- Rextension 3+ L and 4- R. Steps are stiff but reciprocal. Balance/Special Test Scores Oswestry Low Back Score: 24 Goals Goal 1:: Pain in LB and legs 3/10 at worst and 50% better Goal Time Frame: 6-8 Weeks Goal 2:: Walks and transfer without hesitation or evidence of paiin or limitations in community Goal Time Frame: 6-8 Weeks Goal 3:: I appropriate strength pool and land for core adn LB ROM and LE stretching Goal Time Frame: 6-8 Weeks Goal 4:: Oswestry score 10 or better. Goal Time Frame: 6-8 Weeks Rehabilitation Potential Physical Therapy Diagnosis: stiffness, weakness and soft tissue pain due to chronic back issues effecting his function Rehabilitation Potential: Fair Anticipated Interventions Patient/Client Instruction: Educate patient on: Condition and Plan of Care For the Purpose of:: To decrease pain, To increase ROM, To improve nutrient delivery to tissue, To improve muscle performance and motor function and To increase tolerance to activity/condition/position Therapeutic Exercise to Include: Strength training, Postural training, Flexibilty training, In an aquatic setting, Active ROM and Dynamic Lumbar Stabilization For the Purpose of:: To decrease pain, To increase ROM, To improve nutrient delivery to tissue, To improve muscle performance and motor function, To increase tolerance to activity/condition/position, To improve ability of physical actions for home/community/work/leisure and To improve gait and locomotor functions Manual Therapy Techniques to Include: Scar massage For the Purpose of:: To decrease pain, To increase ROM and To improve nutrient delivery to tissue Text: Thank you for the opportunity to evaluate your patient. For Medicare and Medicare HMO plans, please review the plan of care and approve it. It will need to be FAXED BACK to us at [phone] for Medicare purposes. For Medicare only, by signing this I certify the plan of care. Please let me know if there are questions or concerns regarding this plan of care. Physician Signature: Date:
--- NOTE | 2023-05-09 13:46 | HP.PTDCSUM ---
Discharge Summary D/C summary: It has been my pleasure to treat ALLISON DALTON referred by DARCI HELTON, with the diagnosis of s/p LB surgery 01/10/23 cleanout for a total of 21 visit(s). Discharge Date: 05/09/23 Please see the following information for a summary of their discharge status. Subjective Subjective: Pt states he's still pretty sore. Did not go swimming today. Was up quite late last night with back pain. Took some muscle relaxers to help take the edge off. States trying to golf on tuesday, but didn't go well - hurt to swing. Pain LBP, legs: Pain Intensity (Out of 10): 3 Upper Back: Pain Intensity (Out of 10): 2 Overall Improvement % Improvement: 10 Objective Objective/Function: Cont to add in a few more activities that pt can demo at home. Remains quite challenged with Current exercise selections. To see PT next for reassessment. Goals Goal 1:: Pain in LB and legs 3/10 at worst and 50% better Goal Progress: 10% Goal 2:: Walks and transfer without hesitation or evidence of paiin or limitations in community Goal Progress: Not Progressing Goal 3:: I appropriate strength pool and land for core adn LB ROM and LE stretching Goal Progress: pool met Goal 4:: Oswestry score 10 or better. Goal Progress: Not Progressing Plan Plan: 3x/week for 4 week, pt to continue daily HEP and 3x/week in the pool at . In clinic work toward ROM Low back including yoga stretches, Also please do HEP for core and general strength he can do at home including mat exercises for core, using db (has 0-40#) and knee flexion /ext which he has, and bands and body weight and work to I. D/C Information Discharge Comments: back to doctor for next medical step d/c sentence: If there are questions or concerns regarding this patient's physical therapy, please feel free to call me at [phone]. Thank you for the referral of this patient. Sincerely, Andreas Contreras, DPT, OCS, CSCS Balance/Gait/Functional tests Balance/Special Test Scores Oswestry Low Back Score: 23 Improvement % Improvement: 10
== END 2023-05-09 19:00 | disposition home or self-care (01) ==
LOC: PT 13:00
PROVIDERS: PCP Family Medicine
DX: M43.16 Spondylolisthesis, lumbar region (principal)
CPT/HCPCS: 97110; 97113; 97162; 97164; 97530

== ENCOUNTER → 2023-10-27 | Outpatient (CLI) | payer MEDICAID, SELFPAY ==
--- NOTE | 2023-10-27 12:45 | RAD_ITS ---
STUDY: X-RAY - LUMBAR SPINE REASON FOR EXAM: Male, 58 years old. Status post spinal surgery. Follow-up. TECHNIQUE: 3 view(s) of the lumbar spine were obtained. COMPARISON: None FINDINGS: Normal lumbar lordosis. No scoliosis. 12 mm of anterolisthesis of L4 on L5. Posterior fusion from L4 to S1 with laminectomy defects and intervertebral disc prosthesis at L5-S1. Diffuse moderate lower thoracic and lumbosacral intervertebral disc space narrowing most marked at L4-5 with osteophytes at this level. Vascular calcification. RAD/Lumbar Spine 2 or 3 Views IMPRESSION: Posterior fusion with laminectomy from L4 to S1 with no complicating features identified. Moderate lower thoracic and lumbosacral spondylosis as described. Electronically Signed: Fabricio Churchill MD at 14:54 EDT ,
== END | disposition home or self-care (01) ==
LOC: RAD 12:36
PROVIDERS: PCP Family Medicine; Referring Provider Anesthesiology Pain Medicine; Visit Provider Anesthesiology Pain Medicine
DX: M54.16 Radiculopathy, lumbar region (principal)
CPT/HCPCS: 72100

== ENCOUNTER 2024-03-23 07:51 | Day surgery (SDC) | payer MEDICAID, SELFPAY ==
[2024-03-23] VITALS (9 sets, daily range): BP systolic 109–122; BP diastolic 69–78; PULSE 64–70; RESP 16; TEMP 36.4–36.7; O2SAT 94–97; BMI 30.3
--- NOTE | 2024-03-23 08:09 | PCM.PRE.AN2 ---
ASA Classification* ASA Classification ASA Classification: 3 Assessment & Plan Anesthesia* Anesthesia Assessment Anesthesia Assessment: Discussed sedation and/or anesthesia options, risks, benefits, and alternatives with patient/parents/legal guardian/POA. Questions invited. The patient/parents/legal guardian/POA seems to understand and agrees to proceed with anesthesia plan. Reviewed the physical assessment, medical history, allergy history and patient home medications list prior to surgery/procedure/anesthetic and documented any changes. Performed airway and anesthesia risk assessments. Anesthesia Type Anesthesia Type: General Anesthesia Focused Assessment* Airway Assessment Mouth opens: >3 cm Mallampati Score: II Focused Labs Anesthesia Preop lab: CBC WBC 13.5 K/mm3 (4.4-11.0) H 09/02/20 02:05 RBC 4.99 M/mm3 (4.6-6.2) 09/02/20 02:05 Hgb 14.9 g/dL (13.0-16.5) 09/02/20 02:05 Hct 44.4 % (40-54) 09/02/20 02:05 Plt Count 214 K/mm3 (150-450) 09/02/20 02:05 CHEMISTRY Potassium 3.8 mmol/L (3.5-5.1) 09/02/20 02:05 Sodium 141 mmol/L (136-145) 09/02/20 02:05 BUN 19 mg/dL (7-18) H 09/02/20 02:05 Creatinine 1.26 mg/dL (0.70-1.30) 09/02/20 02:05 Glucose 145 mg/dL (74-106) H 09/02/20 02:05 TSH 1.05 uIU/mL (0.358-3.74) 01/05/17 10:53 COAG PT 22.0 SECONDS (11.7-14.9) H 09/02/20 02:05 Pre-Assessment Diagnosis/Proposed Procedure Planned Operative Procedure(s): Insertion, Spinal Cord Stim,Permanent Anesthesia History 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 When Was Last Pacemaker Check QUESTION #4 FULL TEXT: You/Your Family Experience fever (hyperthermia) with Anesthesia Last Oral Intake Last Oral intake: Last Oral Intake NPO since Meds taken in AM with sips of water? 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 Female No 03/22/24 10:56 HX of Motion Sickness No 03/22/24 10:56 HX of N/V After Surgery No 03/22/24 10:56 Non-Smoker Yes 03/22/24 10:56 Duration of Surgery greater Yes 03/22/24 10:56 than 60 minutes Number of Risk Factors 2 03/22/24 10:56 PONV Score Moderate Risk 03/22/24 10:56 Height & Weight Height & Weight: Anesthesia: Height & Weight Height 5 ft 11.5 in 08/19/21 10:15 Respiratory Assessment Respiratory Assessment - lieutenant shift supervisor: Respiratory Tract Infection Hx - lieutenant shift supervisor Hx Respiratory Tract Infection No 03/22/24 10:56 STOP Sleep Apnea STOP Sleep Apnea - lieutenant shift supervisor: STOP Sleep Apnea - lieutenant shift supervisor Hx Hypertension No 03/22/24 10:56 Hx Sleep Apnea Yes: NON-COMPLIANT 03/22/24 10:56 CPAP No: NON-COMPLIANT 03/22/24 10:56 BIPAP No 03/22/24 10:56 Do you snore loudly (louder than talking or can be heard Do you often feel tired/ fatigued/ sleepy during daytime? Has anyone observed you stop breathing during sleep? STOP Results Positive 03/22/24 10:56 QUESTION #5 FULL TEXT : Do you snore loudly (louder than talking or can be heard through closed doors)? 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 Specify any problems Hx of Preganancy in last 3 N/A 03/22/24 10:56 Months Nurse Filling Out Transfusion VCHRISTIN 03/22/24 10:56 & Questions: Date: 03/22/24 03/22/24 10:56 Time: 10:57 03/22/24 10:56 Patient unable to answer at this time (ie. confused, unrespo /Reproduction History /Reproductive History - lieutenant shift supervisor: /Reproductive Hx- lieutenant shift supervisor Hx Now Gestational Age (in weeks): EDC: Hx Hx Para Hx Section SAB Active Medications Active Medications: Current Medications Generic Name Dose Route Start Last Admin Trade Name Freq PRN Reason Stop Dose Admin Lactated Ringer's 1,000 mls @ 15 mls/hr 03/23/24 06:00 IV 03/25/24 05:59 .Q48H ARIELLA Lactated Ringer's 1,000 mls @ 15 mls/hr 03/23/24 08:00 IV .Q48H ARIELLA PFSH Medical History (Updated 03/22/24 @ 10:56 by Annie Falk) Wears glasses Back pain Former smoker History of echocardiogram Cardiology follow-up encounter Umbilical hernia Abdominal pain Sleep apnea Low back problem Arthritis LATESHA (obstructive sleep apnea) Atrial fibrillation Hypersomnia Depression Pulmonary embolism Gall stones Home Medications ?Medication ?Instructions ?Recorded ?Last Taken ?Type multivitamin with minerals 1 ea PO DAILY 09/14/19 Unknown History meloxicam 7.5 mg tablet 7.5 mg PO DAILY 03/22/24 Unknown History tizanidine 4 mg tablet 4 mg PO QHS PRN PRN muscle 03/22/24 Unknown History spasticity Allergy/AdvReac Type Severity Reaction Status Date / Time venom-honey bee Allergy Swelling Verified 03/22/24 10:48 clarithromycin (From Biaxin) AdvReac Rash Verified 03/22/24 10:48 Iodinated Contrast Media AdvReac Other Verified 03/22/24 10:48 (DYEE) Family History Father CAD (coronary artery disease) History of coronary artery bypass surgery Surgical History (Updated 03/22/24 @ 10:56 by Annie Falk) H/O cardiac radiofrequency ablation Hx of umbilical hernia repair History of fracture of ankle History of back surgery Social History Smoking Status: Never smoker alcohol intake: never substance use type: does not use caffeine: Yes what type of physical activity do you participate in: walking Review of Systems (Anesthesia) ROS Narrative System reviewed and no additional complaints, except as documented.
[2024-03-23] MEDS: Lactated Ringers 1,000 ML 15 ML IV (08:28)
[2024-03-23] MEDS: Cefazolin 3 GM in 0.9% Normal Saline (100mL Bag) 100 ML IV (10:02)
--- NOTE | 2024-03-23 10:48 | RAD_ITS ---
STUDY: X-RAY - LUMBAR SPINE REASON FOR EXAM: Male, 58 years old. Intraprocedural digital documentation views TECHNIQUE: 3 intraoperative digital documentation view(s) of the lumbar spine were obtained. COMPARISON: Lumbar spine x-rays dated October 27, 2023 FINDINGS: 3 intraprocedural digital documentation views show placement of epidural catheter with tips at the T7-T8 interspace. RAD/Lumbar Spine 2 or 3 Views IMPRESSION: Intraprocedural digital documentation views. Electronically Signed: Fabricio Churchill MD at 11:58 EDT ,
[2024-03-23] MEDS: Lidocaine 0.5% (50 ml) 50 ML Vial (11:40)
[2024-03-23] MEDS: Bupiv/Epi 0.25% 30 ML Vial (11:40)
--- NOTE | 2024-03-23 12:13 | PCM.POST.ANE ---
Anesthesia: Postop Eval I Current Vital Signs Temperature: 97.9 F Pulse Rate: 68 Blood Pressure: 119/76 Respiratory Rate: 16 Pulse Ox: 95 Oxygen Delivery Method: Room Air Assessment Airway patent: Yes Spontaneous unlabored respirations: Yes Mental status: Awake and Calm nausea: No Vomiting: No Anesthesia Complication: No Fluid Hydration Crystalloid volume administer (ml): 700 Total IV fluid infused: 700 Progress Note Anesthesia document: Postop Eval 1 completed: Yes
--- NOTE | 2024-03-23 13:25 | SUR.PHASEII ---
this nurse called dr. alonso's office, script sent to [facility]; antibiotic
--- NOTE | 2024-03-23 15:37 | POSTOPAN2_ITS ---
Anesthesia Postop Eval I Sum Postop Eval Completion status Anesthesia document: Postop Eval 1 completed: Yes Anesthesia Postop Eval I Summary Anesthesia Postop Eval I Summary: Anesthesia Postop Eval I: Assessment Summary Airway patent Yes 03/23/24 13:42 BREWERY WORKER.[email or web address] Spontaneous unlabored Yes 03/23/24 13:42 BREWERY WORKER.GDOTT respirations Mental status Awake,Calm 03/23/24 13:42 BREWERY WORKER.GDOTT nausea No 03/23/24 13:42 BREWERY WORKER.GDOTT Vomiting No 03/23/24 13:42 BREWERY WORKER.GDOTT Anesthesia Postop Eval I: Fluid Summary Crystalloid volume administer 700 03/23/24 13:42 BREWERY WORKER.GDOTT (ml) Colloids volume administered ( ml) Blood Product volume administered (ml) Total IV fluid infused 700 03/23/24 13:42 BREWERY WORKER.GDOTT Anesthesia Postop Eval I: Summary Notes Anesthesia Complication No 03/23/24 13:42 BREWERY WORKER.GDOTT Anesthesia Complication Comment: Post-operative progress note Anesthesia: Postop Eval II Evaluation Mental status: Awake Pain Level: 0 nausea: No Vomiting: No
--- NOTE | 2024-03-23 15:37 | PCM.POSTANE2 ---
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.GDOTT Spontaneous unlabored Yes 03/23/24 13:42 PARALLEL COMPUTING SOFTWARE ENGINEER.GDOTT respirations Mental status Awake,Calm 03/23/24 13:42 PARALLEL COMPUTING SOFTWARE ENGINEER.GDOTT nausea No 03/23/24 13:42 PARALLEL COMPUTING SOFTWARE ENGINEER.GDOTT Vomiting No 03/23/24 13:42 PARALLEL COMPUTING SOFTWARE ENGINEER.GDOTT Anesthesia Postop Eval I: Fluid Summary Crystalloid volume administer 700 03/23/24 13:42 PARALLEL COMPUTING SOFTWARE ENGINEER.GDOTT (ml) Colloids volume administered ( ml) Blood Product volume administered (ml) Total IV fluid infused 700 03/23/24 13:42 PARALLEL COMPUTING SOFTWARE ENGINEER.GDOTT Anesthesia Postop Eval I: Summary Notes Anesthesia Complication No 03/23/24 13:42 PARALLEL COMPUTING SOFTWARE ENGINEER.GDOTT Anesthesia Complication Comment: Post-operative progress note Anesthesia: Postop Eval II Evaluation Mental status: Awake Pain Level: 0 nausea: No Vomiting: No
== END 2024-03-23 14:28 | disposition home or self-care (01) ==
LOC: SDC 07:52 → AC 07:53
PROVIDERS: PCP Family Medicine; Referring Provider Anesthesiology Pain Medicine; Visit Provider Anesthesiology Pain Medicine
PROC: (CPT 63685; principal; 2024-03-23 09:15)
DX: M96.1 Postlaminectomy syndrome, not elsewhere classified (principal); I48.91 Unspecified atrial fibrillation; M51.36 Other intervertebral disc degeneration, lumbar region; M51.37 Other intervertebral disc degeneration, lumbosacral region; Z79.82 Long term (current) use of aspirin; F32.9 Major depressive disorder, single episode, unspecified
CPT/HCPCS: 63685; 72100; 76000; C1778; C1820; J7120; J2405

== ENCOUNTER 2024-07-06 12:41 | Emergency (ER) | payer MEDICAID, SELFPAY ==
[2024-07-06 12:42] VITALS: BP 148/72; PULSE 87; RESP 16; TEMP 37; O2SAT 100; BMI 30.9
[2024-07-06 12:43] VITALS: BP 148/72; PULSE 87; RESP 16; TEMP 37; O2SAT 100
--- NOTE | 2024-07-06 13:16 | ED.RN ---
PT STATES OF 07/05/24 PT WOKE UP AROUND 0100 WITH URINARY SYMPTOMS, CHILLS, TEMP OF 101 DEGREES. DENIES EVER EXPERIENCING URINARY SYMPTOMS LIKE THIS BEFORE. NO HX OF UTI. PT C/O URGENCY, BURNING, NOT ABLE TO EMPTY HIS BLADDER. PT STATES, TOOK 4 TABS OF KEFLEX THAT I HAD AT HOME THAT WAS WITHIN DATE.
--- NOTE | 2024-07-06 13:56 | CT_ITS ---
HISTORY: Pain. TECHNIQUE: Helically acquired images were obtained of the abdomen and pelvis without oral or IV contrast. A radiation dose optimization technique was used for this scan. 435 images. COMPARISON: 09/02/2020. FINDINGS: LOWER CHEST: Lung bases clear. BOWEL: Bowel including appendix nondilated. No focal pericolonic inflammatory change. PERITONEUM: No significant free fluid. LIVER: Small central cyst again seen. GALLBLADDER/BILIARY TREE: Multiple gallstones. SPLEEN: Calcified granulomas. PANCREAS/ADRENAL GLANDS: Nonenlarged. KIDNEYS AND URETERS: Punctate left interpolar calculus without hydronephrosis. No right nephrolithiasis or hydronephrosis. VESSELS: No abdominal aortic aneurysm. Mild atherosclerosis. PELVIC ORGANS: Mildly enlarged prostate gland. ABDOMINAL WALL: Small fat-containing inguinal hernias. BONES: Left lateral rib fractures L4-S1 posterior spinal fusion hardware with chronic anterolisthesis of L4-5 and L5-S1 interbody fusion material. Thoracic spinal stimulator noted. CT/Abdomen/Pelvis without Cont IMPRESSION: Small nonobstructing left renal calculus. Cholelithiasis. Mildly enlarged prostate gland. Electronically Signed: Kerri Hernandez MD at 15:21 EST ,
--- NOTE | 2024-07-06 14:03 | EX.ED.DYSGE1 ---
HPI <YANY Bustillo - Last Filed: 07/06/24 16:24> History of Present Illness Chief Complaint: Complaint Narrative Narrative: Patient is a 59-year-old male with history of atrial fibrillation who no longer has a secondary to ablation, chronic back pain with a pain stimulator presenting to the emergency department with complaints of dysuria, fever and chills. Patient states at 1:30 AM yesterday, the patient developed fever and chills, dysuria. Patient states he feels like he is not emptying all the way. He states he feels generalized malaise and bodyaches. Denies any history of kidney stones. Denies taking any blood thinners. Denies any concern for STD. PFS <YANY Bustillo - Last Filed: 07/06/24 16:24> [facility] Medical History (Updated 07/06/24 @ 16:22 by YANY Bustillo) Wears glasses Back pain Former smoker History of echocardiogram Cardiology follow-up encounter Umbilical hernia Abdominal pain Sleep apnea Low back problem Arthritis LATESHA (obstructive sleep apnea) Atrial fibrillation Hypersomnia Depression Pulmonary embolism Gall stones Home Medications ?Medication ?Instructions ?Recorded ?Last Taken ?Type multivitamin with minerals 1 ea PO DAILY 09/14/19 03/22/24 History meloxicam 7.5 mg tablet 7.5 mg PO DAILY 03/22/24 03/22/24 History tizanidine 4 mg tablet 4 mg PO QHS PRN PRN muscle 03/22/24 03/21/24 History spasticity ciprofloxacin HCl 500 mg tablet 500 mg PO BID 14 days #28 tabs 07/06/24 Unknown Rx (Cipro) tamsulosin 0.4 mg capsule (Flomax) 0.4 mg PO DAILY #10 caps 07/06/24 Unknown Rx Allergy/AdvReac Type Severity Reaction Status Date / Time venom-honey bee Allergy Swelling Verified 07/06/24 12:43 clarithromycin (From Biaxin) AdvReac Rash Verified 07/06/24 12:43 Iodinated Contrast Media AdvReac Other Verified 07/06/24 12:43 (RICA) Family History (Reviewed 08/19/21 @ 10:25 by Tiffanie Dangelo CHAIR POST MACHINE OPERATOR, CHAIR POST MACHINE OPERATOR-C) Father CAD (coronary artery disease) History of coronary artery bypass surgery Surgical History H/O cardiac radiofrequency ablation Hx of umbilical hernia repair History of fracture of ankle History of back surgery Social History Smoking Status: Current every day smoker tobacco type: cigarettes alcohol intake: never substance use type: does not use caffeine: Yes what type of physical activity do you participate in: walking ROS <YANY Bustillo - Last Filed: 07/06/24 16:24> ROS ED ROS Narrative Constitutional: Negative for weight loss, weakness. Positive for fever and chills Eyes: Negative for vision loss, vision change, double vision ENT: Negative for any sore throat, ear pain, congestion Cardiovascular: Negative for any chest pain, tightness, palpitations Respiratory: Negative for any cough, sputum production, hemoptysis, dyspnea, dyspnea on exertion, orthopnea Gastrointestinal: Negative for any abdominal pain, nausea, vomiting, diarrhea, constipation, blood in stool, blood in vomit : Negative for any urinary frequency, blood in urine. Positive for dysuria, urine retention Muscle skeletal: Negative for any neck pain. Positive for back pain Neurological: Negative for any headache, syncope, dizziness Skin: Negative for any rashes, itching, abrasions, lacerations Psychiatric: Negative for any depression, anxiety, stress, suicidal ideation, homicidal ideation Hematologic: Negative for any excessive bruising, easy bleeding EXAM <YANY Bustillo - Last Filed: 07/06/24 16:24> Physical Exam Narrative Exam Narrative: Vital signs reviewed. Vital signs are stable, no fever in the emergency department. HEET: Head normocephalic atraumatic, TMs clear bilaterally. Posterior pharynx is clear, moist mucous membranes. Nares clear bilaterally. Neck: Supple with no lymphadenopathy or tenderness. No signs of meningismus. Cardiac: Regular rate and rhythm no murmurs gallops or rubs, equal peripheral pulses bilaterally. Respiratory: Lungs clear to auscultation bilaterally. No chest tenderness. Abdomen: Soft, nontender, nondistended. No abdominal bruit or pulsatile masses. No hepatosplenomegaly. Patient was able provide a urine sample, patient did have some dark-colored urine, the could be possibly hematuria. Pay states he still feels full. Extremities: No peripheral edema, no signs of gross trauma or deformity. Active full range of motion of all extremities. Neuro: Cranial nerves II through XII intact, no focal neurological deficits. Skin: Clean dry and intact with no rash, purpura, petechiae, vesicles or pustules. Backs/flank: Positive right sided CVA tenderness no midline spinal tenderness, no deformity. Psych: Normal mood and affect. No SI, HI or acute psychosis. Const Vital Signs: 07/06/24 12:42 07/06/24 12:43 07/06/24 14:41 Temperature 98.6 F 98.6 F Temperature Source Oral Oral Pulse Rate 87 87 88 Respiratory Rate 16 16 16 Blood Pressure 148/72 H 148/72 H 156/79 H Blood Pressure Mean 97 97 104 Pulse Ox 100 100 94 Oxygen Delivery Method Room Air Room Air Room Air 07/06/24 16:00 07/06/24 16:07 Temperature 98.5 F Temperature Source Pulse Rate 88 88 Respiratory Rate 16 16 Blood Pressure 148/72 H 148/72 H Blood Pressure Mean 97 97 Pulse Ox 98 97 Oxygen Delivery Method Room Air <Dr. Santos Hallman DO - Last Filed: 07/06/24 16:01> Physical Exam Const Vital Signs: 07/06/24 12:42 07/06/24 12:43 07/06/24 14:41 Temperature 98.6 F 98.6 F Temperature Source Oral Oral Pulse Rate 87 87 88 Respiratory Rate 16 16 16 Blood Pressure 148/72 H 148/72 H 156/79 H Blood Pressure Mean 97 97 104 Pulse Ox 100 100 94 Oxygen Delivery Method Room Air Room Air Room Air 07/06/24 16:00 07/06/24 16:07 Temperature 98.5 F Temperature Source Pulse Rate 88 88 Respiratory Rate 16 16 Blood Pressure 148/72 H 148/72 H Blood Pressure Mean 97 97 Pulse Ox 98 97 Oxygen Delivery Method Room Air MDM <YANY Bustillo - Last Filed: 07/06/24 16:24> [facility] Lab Data Labs: Laboratory Results - last 24 hr 07/06/24 07/06/24 14:00 14:05 WBC 15.2 H RBC 4.91 Hgb 15.3 Hct 44.4 MCV 90.4 MCH 31.2 MCHC 34.5 RDW Std Deviation 42.5 RDW Coeff of Navneet 12.8 Plt Count 129 L MPV 9.6 Immature Gran % (Auto) 0.300 Neut % (Auto) 81.9 H Lymph % (Auto) 11.8 L [place] % (Auto) 5.3 Eos % (Auto) 0.3 Baso % (Auto) 0.4 Absolute Neuts (auto) 12.5 H Absolute Lymphs (auto) 1.79 Nucleated RBC % 0 Sodium 137 Potassium 4.5 Chloride 105 Carbon Dioxide 29.0 Anion Gap 4 L BUN 15 Creatinine 1.15 Estim Creat Clear Calc 84.53 Est GFR (MDRD) Af Amer 84 Est GFR (MDRD) Non-Af 69 BUN/Creatinine Ratio 13.0 Glucose 100 Calcium 9.2 Total Bilirubin 1.20 H AST 41 H ALT 62 H Alkaline Phosphatase 84 Total Protein 7.2 Albumin 3.4 Globulin 3.8 Albumin/Globulin Ratio 0.9 Lipase 26 Urine Color Chelly Urine Clarity Sl. Cloudy Urine pH 7.0 Ur Specific Romayor 1.010 Urine Protein 30 H Urine Glucose (UA) Normal Urine Ketones 5 H Urine Occult Blood 10 H Urine Nitrite Negative Urine Bilirubin 1 H Urine Urobilinogen 4 H Ur Leukocyte Esterase 100 H Urine RBC 0 SEEN Urine WBC 25-50 SEEN Ur Squamous Epith Cells 0 SEEN Urine Bacteria 0 SEEN Urine Mucus 1+ Radiography Diagnostic Testing: Clinical Impression(s) from Imaging Studies Abdomen/Pelvis CT 07/06/24 13:56 IMPRESSION: Small nonobstructing left renal calculus. Cholelithiasis. Mildly enlarged prostate gland. Electronically Signed: Kerri Hernandez MD at 15:21 EST Reading Location ID and State: [facility] / [place] Tel , Service support , Treatment and Re-Evaluation :: Differential diagnosis includes however is not limited to: Obstructing uropathy, kidney stone, outlet obstruction, UTI, STI, pyelonephritis Patient appears generally well, vital signs are stable, patient is nontoxic-appearing. Presenting to the emergency department complaints of dysuria, fever chills, back pain. Patient will receive a CT scan of the abdomen pelvis without contrast, patient received basic laboratory values, urinalysis IV fluids IV Toradol and Zofran. Patient will receive a bladder scan after voiding to see if he is retaining. All radiologic examinations were read, reviewed by the emergency department attending. From these reads, a plan of care will be put in place. Patient's laboratory values show a leukocytosis with a white blood count of 15.2, patient's chemistries show a normal creatinine, bili bilirubin is 1.20, lipase was negative. Urinalysis will be sent for culture, and showed no bacteria have there was 25-50 white blood cells, 100 leukocytes, negative for any nitrites. Patient CT scan of the abdomen pelvis shows a small nonobstructing left renal calculus, cholelithiasis, mildly enlarged prostate gland. Secondary to this finding, secondary to the finding the urine, patient be treated for more of a prostatitis picture. Patient replaced on Cipro twice a day for 14 days. He will follow-up closely with Dr. Earl from urology. He is instructed return for any worsening symptoms, fever chills nausea or vomiting. Patient stable for discharge I have personally performed a face to face assessment of the patient and have reviewed the JAMES Note. I performed a substantive portion of the visit including all aspects of the following. My mata findings include: History is 59-year-old male for an onset of urinary hesitancy feeling that he cannot empty his bladder as well as fever. He states that normally does not have any difficulty with urination does not frequently get up during the night. He wonders if there is some blood in his urine. Exam is afebrile vital signs are stable. Patient clinically appears well. Medical Decison Making urinalysis with 25-50 white cells. No significant blood in the urine white count 15.2 normal creatinine slight elevation total bilirubin at 1.2 AST [address] of the abdomen pelvis was obtained which demonstrates slightly enlarged prostate. I do wonder if the patient has a prostatitis. Placed him on Flomax [id number] he is comfortable with that plan. <Dr. Santos Hallman, - Last Filed: 07/06/24 16:01> [facility] History & Record Review Discussion w/independent historian: Patient Lab Data Attestation: I reviewed the patient's lab results. Labs: Laboratory Results - last 24 hr 07/06/24 07/06/24 14:00 14:05 WBC 15.2 H RBC 4.91 Hgb 15.3 Hct 44.4 MCV 90.4 MCH 31.2 MCHC 34.5 RDW Std Deviation 42.5 RDW Coeff of Navneet 12.8 Plt Count 129 L MPV 9.6 Immature Gran % (Auto) 0.300 Neut % (Auto) 81.9 H Lymph % (Auto) 11.8 L [place] % (Auto) 5.3 Eos % (Auto) 0.3 Baso % (Auto) 0.4 Absolute Neuts (auto) 12.5 H Absolute Lymphs (auto) 1.79 Nucleated RBC % 0 Sodium 137 Potassium 4.5 Chloride 105 Carbon Dioxide 29.0 Anion Gap 4 L BUN 15 Creatinine 1.15 Estim Creat Clear Calc 84.53 Est GFR (MDRD) Af Amer 84 Est GFR (MDRD) Non-Af 69 BUN/Creatinine Ratio 13.0 Glucose 100 Calcium 9.2 Total Bilirubin 1.20 H AST 41 H ALT 62 H Alkaline Phosphatase 84 Total Protein 7.2 Albumin 3.4 Globulin 3.8 Albumin/Globulin Ratio 0.9 Lipase 26 Urine Color Chelly Urine Clarity Sl. Cloudy Urine pH 7.0 Ur Specific Romayor 1.010 Urine Protein 30 H Urine Glucose (UA) Normal Urine Ketones 5 H Urine Occult Blood 10 H Urine Nitrite Negative Urine Bilirubin 1 H Urine Urobilinogen 4 H Ur Leukocyte Esterase 100 H Urine RBC 0 SEEN Urine WBC 25-50 SEEN Ur Squamous Epith Cells 0 SEEN Urine Bacteria 0 SEEN Urine Mucus 1+ Radiography Diagnostic Testing: Clinical Impression(s) from Imaging Studies Abdomen/Pelvis CT 07/06/24 13:56 IMPRESSION: Small nonobstructing left renal calculus. Cholelithiasis. Mildly enlarged prostate gland. Electronically Signed: Kerri Hernandez MD at 15:21 EST , Treatment and Re-Evaluation :: Differential diagnosis includes however is not limited to: Obstructing uropathy, kidney stone, outlet obstruction, UTI, STI, pyelonephritis Patient appears generally well, vital signs are stable, patient is nontoxic-appearing. Presenting to the emergency department complaints of dysuria, fever chills, back pain. Patient will receive a CT scan of the abdomen pelvis without contrast, patient received basic laboratory values, urinalysis IV fluids IV Toradol and Zofran. Patient will receive a bladder scan after voiding to see if he is retaining. All radiologic examinations were read, reviewed by the emergency department attending. From these reads, a plan of care will be put in place. I have personally performed a face to face assessment of the patient and have reviewed the JAMES Note. I performed a substantive portion of the visit including all aspects of the following. My mata findings include: History is 59-year-old male for an onset of urinary hesitancy feeling that he cannot empty his bladder as well as fever. He states that normally does not have any difficulty with urination does not frequently get up during the night. He wonders if there is some blood in his urine. Exam is afebrile vital signs are stable. Patient clinically appears well. Medical Decison Making urinalysis with 25-50 white cells. No significant blood in the urine white count 15.2 normal creatinine slight elevation total bilirubin at 1.2 AST [address] of the abdomen pelvis was obtained which demonstrates slightly enlarged prostate. I do wonder if the patient has a prostatitis. Placed him on Flomax [id number] he is comfortable with that plan. Discharge Plan Triage Chief Complaint: Complaint ED Midlevel Provider: Yannick Arevalo ED Provider: Santos Hallman Dx/Rx/DC Orders Clinical Impression: Acute prostatitis Instructions: ED Prostatitis Prescriptions: New ciprofloxacin HCl [Cipro] 500 mg tablet 500 mg PO BID 14 Days Qty: 28 0RF tamsulosin [Flomax] 0.4 mg capsule 0.4 mg PO DAILY Qty: 10 0RF No Action multivitamin with minerals 1 EACH tablet 1 ea PO DAILY tizanidine 4 mg tablet 4 mg PO QHS PRN PRN (Reason: muscle spasticity) meloxicam 7.5 mg tablet 7.5 mg PO DAILY Primary Care Provider: Yannick Wilkins Referrals: Daniel Edge MD [Med Staff - Active Staff] - Yannick Wilkins MD [Primary Care Provider] - Print Language: Danish Disposition Disposition: Home, Self Care
[2024-07-06 14:15] LABS: Bacteria 0 SEEN /hpf (None Seen); Red Blood Cells-Urine 0 SEEN /hpf (0-5); Squamous Epithelial Cells - UA 0 SEEN /hpf (0-5)
[2024-07-06] MEDS: Ketorolac 15 MG/ML Vial IV (14:16)
[2024-07-06] MEDS: 0.9% Normal Saline (1000mL) 1,000 ML 999 ML IV (14:16)
[2024-07-06] MEDS: Ondansetron 4 MG/2 ML Vial IV (14:16)
[2024-07-06 14:18] LABS: Absolute Lymphocyte Count 1.79 X10^3/uL (0.83-4.51); Absolute Neutrophil Count 12.5 X10^3/uL (2.0-7.7); Basophil# 0.06 X10^3/uL; Basophil% 0.4 % (0-1); Eosinophil# 0.04 X10^3/uL; Eosinophils% 0.3 % (0-5); Hematocrit 44.4 % (40-54); Hemoglobin 15.3 g/dL (13.0-16.5); Lymphocyte # 1.79 X10^3/ul (0.83-4.51); Lymphocyte % 11.8 % (19-41); Mean Corp Hgb Conc 34.5 g/dL (32-36); Mean Corpuscular Hgb 31.2 pg (27.0-32.0); Mean Corpuscular Volume 90.4 fL (80-94); Mean Platelet Vol. 9.6 fl (6.2-12.0); Monocyte# 0.81 X10^3/uL; Monocyte% 5.3 % (0-10); NRBC Flagged by Analyzer 0 % (0-5); Neutrophil # 12.48 X10^3/uL (2.7-7.7); Neutrophil % 81.9 % (47-70); Platelet Count 129 K/mm3 (150-450); RBC Distribution Width CV 12.8 % (11.6-14.6); RBC Distribution Width SD 42.5 fl (35.1-43.9); Red Blood Count 4.91 M/mm3 (4.6-6.2); White Blood Count 15.2 K/mm3 (4.4-11.0)
[2024-07-06 14:18] LABS: Color, Urine Amber (Yellow); Glucose, Dipstick Normal (Normal); Ketone-Dipstick 5 mg/dl (Negative); Leukocyte Esterase-Dipstick 100 /ul (Negative); Nitrite-Dipstick Negative (Negative); Occult Blood-Urine 10 /ul (Negative); Protein-Dipstick 30 mg/dl (Negative); Urine Clarity Sl. Cloudy (Clear); Urine Urobilinogen 4 mg/dl (Normal)
[2024-07-06 14:29] LABS: Urine Bilirubin Dipstick 1 mg/dL (Negative)
[2024-07-06 14:36] LABS: ALB/GLOB Ratio 0.9 RATIO (0.9-2.4); AST(SGOT) 41 U/L (15-37); Alanine Aminotransfer ALT/SGPT 62 U/L (16-61); Albumin, Serum 3.4 g/dL (3.2-5.0); Alkaline Phosphatase 84 U/L (45-117); Anion Gap 4 (5-15); BUN 15 mg/dL (7-18); Calcium,Total 9.2 mg/dL (8.5-10.1); Chloride 105 mmol/L (98-107); Creatinine, Serum 1.15 mg/dL (0.70-1.30); EST Glomerular Filtration Rate 69 mL/min (>60); Est Glom Filt Rate - Afr Amer 84 mL/min (>60); Estimated Creatinine Clearance 84.53 ml/min; Globulin 3.8 g/dL (2.2-4.2); Glucose 100 mg/dL (74-106); Lipase 26 U/L (13-75); Potassium 4.5 mmol/L (3.5-5.1); Protein, Total 7.2 g/dL (6.4-8.2); Sodium Level 137 mmol/L (136-145)
[2024-07-06 14:38] LABS: White Blood Cells 25-50 SEEN /hpf (0-5)
[2024-07-06 14:39] LABS: Mucous, Urine 1+ /hpf (<or=2+)
[2024-07-06 14:41] VITALS: BP 156/79; PULSE 88; RESP 16; O2SAT 94
[2024-07-06 16:00] VITALS: BP 148/72; PULSE 88; RESP 16; O2SAT 98
[2024-07-06 16:07] VITALS: BP 148/72; PULSE 88; RESP 16; TEMP 36.9; O2SAT 97
[2024-07-06] MEDS: Ciprofloxacin 500 MG Tablet PO (16:24)
[2024-07-06] MEDS: Tamsulosin HCl 0.4 MG Capsule PO (16:38)
== END 2024-07-06 16:39 | disposition home or self-care (01) ==
PROVIDERS: Nurse Practitioner; Emergency Provider Emergency Medicine; PCP Family Medicine; Visit Provider Emergency Medicine
DX: N41.0 Acute prostatitis (principal); I48.91 Unspecified atrial fibrillation; R50.9 Fever, unspecified; F17.210 Nicotine dependence, cigarettes, uncomplicated; R30.0 Dysuria
CPT/HCPCS: 74176; 80053; 81001; 83690; 85025; 87086; 96361; 96374; 96375; 99283; A4216; J2405

== ENCOUNTER 2025-04-24 12:09 | Emergency (ER) | payer MEDICAID, SELFPAY ==
[2025-04-24 12:09] VITALS: BP 147/81; PULSE 77; RESP 16; TEMP 36.6; O2SAT 99; BMI 30.1
--- NOTE | 2025-04-24 12:37 | RAD_ITS ---
PROCEDURE: KNEE 4 OR MORE VIEWS 04/24/2025 REASON FOR EXAM: PAIN 4 day history of knee pain. No known injury. TECHNIQUE: Procedure Code: RADKN Modality: DX Procedure: KNEE 4 OR MORE VIEWS Laterality: Left knee COMPARISON: None FINDINGS: Bones: No fracture. No suspicious bone lesion. Joints: Normal alignment. Mild degenerative changes. Effusion: No effusion. Soft tissues: Soft tissues are unremarkable. Other: RAD/Knee 4 or More Views IMPRESSION: NO EFFUSION ACUTE FRACTURE OR DISLOCATION. Reading Location: [place] [address]
[2025-04-24] MEDS: Ketorolac 30 MG/ML Syringe IM (12:49)
--- NOTE | 2025-04-24 12:56 | EDS_ITS ---
HPI History of Present Illness Chief Complaint: Lower Extremity Injury Narrative Narrative: Chief complaint and HPI: 60-year-old male presents for evaluation of left knee pain. Patient states approximately 4 days ago he mowed several different yards. He states shortly after he developed left knee pain that has progressively worsened. Pain is located on the medial aspect. He denies any twisting motion or trauma. He denies any popping or clicking. He denies any fever, chills, sw elling. Pain is worse with ambulation. Review of systems: See HPI Medications: As listed on the chart Allergies: As listed on the chart PFSH: Per chart Vital signs: As listed on the chart. Reviewed. Physical exam: Gen: A&O x3, NAD Head: Normocephalic, atraumatic Eyes: No sclera icterus, conjunctiva clear ENT: Moist mucous membranes CV: RRR, no murmurs Resp: Lungs CTA BL, no w/r/c Musc: Full active and passive range of motion of the left lower extremity/knee although endorses pain in the medial knee with movement, no knee instability, no popping or clicking of the knee with movement, patient has tenderness to palpation of the medial knee located over the medial collateral ligament, no meniscus tenderness, no swelling/warmth/erythema/ecchymosis/crepitus of the knee joint or left lower extremity, compartments soft, sensation intact, good capillary refill, femoral/DP/PT pulses +2 Skin: Warm, dry Psych: Cooperative, appropriate mood and affect [facility] Medical History (Updated 04/24/25 @ 13:[address] Luis Braxton, ) Wears glasses Back pain Former smoker History of echocardiogram Cardiology follow-up encounter Umbilical hernia Abdominal pain Sleep apnea Low back problem Arthritis LATESHA (obstructive sleep apnea) Atrial fibrillation Hypersomnia Depression Pulmonary embolism Gall stones Home Medications ?Medication ?Instructions ?Recorded ?Last Taken ?Type multivitamin with minerals 1 ea PO DAILY 09/14/1903/11 History aripiprazole 10 mg tablet 10 mg PO DAILY 04/24/25 Unkn own History trazodone 50 mg tablet 25 - 150 mg PO QHS PRN PRN s leep 04/24/25 Unknown History Allergy/AdvReac Type Severity Reaction Status Date / Time venom-honey bee Allergy Swelling Verified 04/24/25 12:11 clarithromycin (From Biaxin) AdvReac Rash Verified 04/24/25 12:11 Iodinated Contrast Media AdvReac Other Verified 04/24/25 12:11 (DYEE) Family History Father CAD (coronary artery disease) History of coronary artery bypass surgery Surgical History H/O cardiac radiofrequency ablation Hx of umbilical hernia repair History of fracture of ankle History of back surgery Social History Smoking Status: Former smoker quit date: 07/11/99 pack-years: 2 alcohol intake: never substance use type: does not use caffeine: Yes what type of physical activity do you participate in: walking EXAM Physical Exam Const Vital Signs: 04/24/25 12:09 Temperature 98 F Temperature Source Oral Pulse Rate 77 Respiratory Rate 16 Blood Pressure 147/81 H Blood Pressure Mean 103 Pulse Ox 99 Oxygen Delivery Method Room Air MDM MDM MDM Narrative Medical decision making narrative: 60-year-old male presents for evaluation of left knee pain. Patient states approximately 4 days ago he mowed several different yards. He states shortly after he developed left knee pain that has progressively worsened. Pain is located on the medial aspect. He denies any twisting motion or trauma. He denies any popping or clicking. He denies any fever, chills, swelling. See physical exam findings. Differential diagnosis includes but is not limited to knee sprain, osteoarthritis. Suspect less likely fracture. Exam not consistent with septic arthritis. IM Toradol ordered for pain. X-ray of the knee obtained. X-ray of the knee was personally reviewed and interpreted by me, ED physician. No fracture or dislocation. No effusion. Radiology in agreement. At this point in time, I suspect patient's pain is secondary to a knee sprain. RICE therapy. Tylenol and Motrin as needed for pain. Crutches needed for ambulation. Follow-up with orthopedic surgeon. He confirmed understand the plan. Patient stable discharge home. Pain did improve with Toradol. Impression: 1. Left knee sprain Radiography Diagnostic Testing: Clinical Impression(s) from Imaging Studies Knee X-Ray 04/24/25 12:37 IMPRESSION: NO EFFUSION ACUTE FRACTURE OR DISLOCATION. Reading Location: [facility] Discharge Plan Triage Chief Complaint: Lower Extremity Injury ED Provider: Luis Braxton Dx/Rx/DC Orders Clinical Impression: Left knee sprain Instructions: ED Knee Sprain, ED RICE Prescriptions: No Action multivitamin with minerals 1 EACH tablet 1 ea PO DAILY trazodone 50 mg tablet 25 - 150 mg PO QHS PRN PRN (Reason: sleep) aripiprazole 10 mg tablet 10 mg PO DAILY Primary Care Provider: Yannick Wilkins Referrals: Yannick Wilkins MD [Primary Care Provider, Family Practice] - 3-5 Days Jaylen Carlos MD [Med Staff - Active Staff, Orthopedics] - 3-5 Days Activity Restrictions/Additional Instructions: Follow-up with primary care physician and orthopedic physician. Return back to ED if symptoms change or worsen. Crutches as needed for ambulation. Tylenol and ibuprofen as needed for pain. Received Toradol here in the emergency department, no ibuprofen for 8 hours. After okay for ibuprofen. Print Language: [place] Citizen Disposition Disposition: Home, Self Care
[2025-04-24 13:36] VITALS: BP 123/70; PULSE 69; RESP 16; TEMP 36.6; O2SAT 94
== END 2025-04-24 13:47 | disposition home or self-care (01) ==
PROVIDERS: Emergency Provider Surgery; PCP Family Medicine; Visit Provider Surgery
DX: S83.92XA Sprain of unspecified site of left knee, initial encounter (principal); I48.91 Unspecified atrial fibrillation; Z87.891 Personal history of nicotine dependence; F32.A Depression, unspecified; Z79.899 Other long term (current) drug therapy
CPT/HCPCS: 73564; 96372; 99282

== ENCOUNTER → 2025-05-01 | Outpatient (CLI) | payer MEDICAID, SELFPAY ==
--- OUTSIDE RECORDS SUMMARY | 2025-05-01 11:48 | XMS RPT_ITS | CCD ---
Author Organization [facility] Care Team Providers Care Business Team Leader Name Role Phone Yannick Wilkins Primary Care Provider YANNICK WILKINS Primary Care Unavailable YANNICK WILKINS Referring Unavailable YANNICK WILKINS Primary Care Unavailable LOREE GARNETT Attending Unavailable YANNICK WILKINS Primary Care Unavailable GRUPO SILVA Referring Unavailable GRUPO SILVA Attending Unavailable Santos Hallman Attending Unavailable Yannick Wilkins Primary Care Unavailable Luis Braxton Attending UnavailYannick Ott Primary Care Unavailable Allergies Allergy Classification Reported Allergen(s) Allergy Type Date of Onset Reaction(s) Facility (9 sources) Clarithromycin; Translations: [CLARITHROMYCIN] Drug Allergy 05-05-20 16 Rash [place], [place] (7 sources) Iodine; Translations: [IODINE] Drug Allergy 05-05-20 16 Other: See Comments [place], [place] (7 sources) pregabalin; Translations: [PREGABALIN] Drug Allergy 02-10-20 18 Other: See Comments [place], [place] (7 sources) bee venom Propensity to adverse reactions to drug 05-10-20 19 Anaphylaxis [facility] Work Phone: (1 source) BEE VENOM PROTEIN (HONEY BEE); Translations: [BEE VENOM PROTEIN (HONEY BEE)] Propensity to adverse reactions to drug (disorder) 10-04-19 21 [facility] Repository (2 sources) Triiodobenzoic Acids Propensity to adverse reactions 08-19-19 22 Other [facility] (1 source) Clarithromycin Drug Allergy 04-24-20 25 [facility] Repository (1 source) Iodinated Contrast Media Drug allergy (disorder) 04-24-20 25 [facility] Repository (1 source) venom-honey bee Drug allergy (disorder) 04-24-20 [facility] Repository Medications Current Medications Medication Drug Class(es) Dates Sig (Normalized) Sig (Original) acetaminophen 500 mg oral tablet (2 sources) Start: 09-11-2019 End: 09-11-2019 take 1 dose by mouth three times daily 1,000 mg, Oral, EVERY 8 HOURS SCHEDULED (3 times per day), First dose on Tue09/11/19 at 2200 Maximum dose of acetaminophen is 4000 mg from all sources in 24 hours. [id number] 200 actuat albuterol 0.09 mg/actuat metered dose inhaler (4 sources) beta2-Adrenergic Agonist Start: 07-08-2021 take 1 puff(s) by inhalation every four hours Albuterol Sulfate (Ventolin Hfa) 90 mcg/actuation HFA aerosol inhaler Active 2 PUFF INHALATION Q4H July 08, 2021 1:00am Start: 09-20-2019 End: 08-07-2020 take 1 puff(s) by inhalation every four hours as needed Albuterol Sulfate Discontinued 1 - 2 PUFF INHALATION EVERY 4 HOURS NEEDED September 20, 2019 12:00am August 07, 2020 3:10pm ascorbic acid 60 mg / beta carotene 5000 unt / copper sulfate 40 mg / dl-alpha tocopheryl acetate 30 unt / sodium selenite 0.04 mg / zinc oxide 40 mg oral tablet (1 source) Vitamin C take 1 tablet by mouth once daily Multiple Vitamins-Minerals (THERAPEUTIC MULTIVITAMIN-MINERALS) tablet Take 1 tablet by mouth daily 0 Active aspirin 81 mg delayed release oral tablet (9 sources) Platelet Aggregation Inhibitor, Nonsteroidal Anti-inflammatory Drug Start: take 81 mg by mouth once daily Aspirin Active 81 MG PO DAILY@0800 August 08, 2020 1:00am Start: 09-26-2019 End: 10-26-2019 take 1 tablet by mouth once daily aspirin EC 81 MG EC tablet Take 1 tablet by mouth daily 30 tablet 0 09/26/2019 Active Start: 09-26-2019 End: 09-12-2019 take 1 tablet by mouth once daily aspirin EC 81 MG EC tablet Take 1 tablet by mouth daily 30 tablet 0 09/26/2019 09/12/2019 Discontinued (REORDER) End: 09-11-2019 take 1 tablet by mouth once daily aspirin, enteric coated (ASPIRIN, ENTERIC COATED) 81 mg EC tablet Take 81 mg by mouth once daily. 0 Active Comment on above: Take 81 mg by mouth once daily. atenolol 25 mg oral tablet (8 sources) beta-Adrenergic Roberto Start: Atenolol Active 25 MG PO NEEDED September 14, 2019 1:00am Comment on above: [facility]. cholecalciferol 5000 unt oral tablet (3 sources) Vitamin D Start: End: take 1 tablet by mouth once daily Cholecalciferol (VITAMIN D3) 125 MCG (5000 UT) TABS Take 1 tablet by mouth daily 30 tablet 2 09/05/2019 Active Cholecalciferol (Vitamin D3) (Vitamin D3) 5,000 UNIT capsule (2 sources) Start: take 1 capsule by mouth once daily Cholecalciferol (Vitamin D3) (Vitamin D3) 5,000 UNIT capsule Active 5000 UNIT PO DAILY September 14, 2019 1:00am 1 ml dexamethasone phosphate 4 mg/ml injection (1 source) Corticosteroid Start: End: 4 mg, Intravenous, EVERY 4 HOURS, First dose on Tue09/11/19 at 2100, For 3 days docusate sodium 50 mg / sennosides, jail 8.6 mg oral tablet (4 sources) Start: take 1 tablet by mouth twice daily 1 tablet, Oral, 2 TIMES DAILY, First dose on Tue09/11/19 at 2100 Start: 09-11-2019 take 8.6-50 mg by [facility] once as needed senna-docusate (PERICOLACE) 8.6-50 MG per tablet Take 2 tablets by mouth daily as needed for Constipation 20 tablet 0 09/11/2019 Active flecainide acetate 100 mg oral tablet (10 sources) Antiarrhythmic Start: 09-14-2019 Flecainide Act ida 100 MG PO NEEDED September 14, 2019 1:00am Start: 09-12-2019 take 1 dose by mouth twice daily 100 mg, Oral, EVERY 12 HOURS SCHEDULED (2 times per day), First dose on Tue09/12/19 at 2100 Start: 11-04-2016 End: 08-24-2022 Flecainide Discontinued 100 MG PO NEEDED December 30, 2016 12:00am April 13, 2019 9:12am Comment on above: Take 1 tablet by neris twice daily. metoclopramide 10 mg oral tablet (1 source) Dopamine-2 Receptor Antagonist Start: 09-11-19 take 10 mg by mouth four times daily before mealtime 10 mg, Oral, 4 TIMES DAILY BEFORE MEALS & NIGHTLY, First dose on Tue09/11/19 at 2100 montelukast 10 mg oral tablet (2 sources) Leukotriene Receptor Antagonist Start: 07-08-20 take 10 mg by mouth once daily in the evening Montelukast Active 10 MG PO EVERY EVENING July 08, 2021 1:00am 1 ml morphine sulfate 4 mg/ml injection (1 source) Opioid Agonist Start: 09-11-19 take 4 mg by mouth every six hours as needed for pain 4 mg, Intravenous, EVERY 6 HOURS PRN, Pain Severe (7-10), Starting Tue09/11/19 at 2027 If oral and IV narcotics ordered, use oral first and only use IV if oral is ineffective or cannot take oral. Do Not give oral and IV within 1 hour of each other unless specifically ordered. Multiple Vitamins-Minerals (THERAPEUTIC MULTIVITAMIN-MINERALS) tablet (3 sources) take 1 tablet by mouth once daily Multiple Vitamins-Minerals (THERAPEUTIC MULTIVITAMIN-MINERA LS) tablet Take 1 tablet by mouth daily 0 Active Multivitamin With Minerals (2 sources) Start: 09-14-19 Multivitamin With Minerals Active 1 EACH PO DAILY September 14, 2019 1:00am oxyCODONE hydrochloride 5 mg oral tablet (2 sources) Opioid Agonist Start: 09-11-19 End: 09-18-19 take 5 mg by mouth every six hours as needed for pain 5 mg, Oral, EVERY 6 HOURS PRN, Pain Mild (1-3), Pain Moderate (4-6), Starting Tue09/11/19 at 2027 phenol 14 mg/ml mouthwash (1 source) Start: 09-11-19 phenol 1.4 % mouth spray 1 spray Promethazine (1 source) Phenothiazine Start: 09-11-19 promethazine (PHENERGAN) tablet 12.5 mg 3 ml sodium chloride 9 mg/ml injection (2 sources) Start: 09-11-19 20 10 mL, Intravenous, EVERY 12 HOURS SCHEDULED (2 times per day), First dose on Tue09/11/19 at 2100 Start: 09-11-2019 take 10 mL intraveno us route once as needed 10 mL, Intravenous, PRN, Line Care, After every IV line use, Starting Tue09/11/19 at 2027 therapeutic multivitamin-minerals 1 tablet (1 source) Start: 09-12-2019 take 1 tablet by mouth once daily 1 tablet, Oral, DAILY, First dose on Tue09/12/19 at 0900 Completed/Discontinued Medications Medication Drug Class(es) Dates Sig (Normalized) Sig (Original) acetaminophen 325 mg / oxyCODONE hydrochloride 5 mg oral tablet (2 sources) Opioid Agonist Start: 08-12-2020 End: 08-15-2020 take 1 tablet by mouth every six hours as needed Oxycodone-Acetami nophen Discontinued 1 - 2 TABLET PO EVERY 6 HOURS NEEDED 27 09August 12, 2020 August 15, 2020 1:03am ALPRAZolam 0.25 mg disintegrating oral tablet (1 source) Benzodiazepine Start: 09-11-2019 End: 09-11-2019 ALPRAZolam (NIRAVAM) dissolvable tablet 0.25 mg calcium chloride 0.0014 meq/ml / potassium chloride 0.004 meq/ml / sodium chloride 0.103 meq/ml / sodium lactate 0.028 meq/ml injectable solution (1 source) Start: 09-11-2019 End: 09-11-2019 lactated ringers infusion ceFAZolin 2000 mg injection (2 sources) Cephalosporin Antibacterial Start: 09-11-2019 End: 09-12-2019 2 g, Intravenous, EVERY 8 HOURS, 3 doses, First dose on Tue09/11/19 at 2100, Last dose on Tue09/12/19 at 1300 Start: 09-11-2019 End: 09-11-2019 ceFAZolin (ANCEF) 2 g in dex trose 4 % 100 mL IVPB (premix) celecoxib 400 mg oral capsule (1 source) Nonsteroidal Anti-inflammatory Drug Start: 09-11-2019 End: 09-11-2019 celecoxib (CELEBREX) capsule 400 mg Start: 09-11-2019 End: 09-11-2019 celecoxib (CELEBREX) capsule 400 mg citalopram 20 mg oral tablet (1 source) Serotonin Reuptake Inhibitor Start: 01-18-2017 citalopram 10 mg tab(s) (CeleXA) 24 hr dilTIAZem hydrochloride 360 mg extended release oral tablet (2 sources) Calcium Channel Roberto Start: 05-03-2016 End: 05-04-2016 take 360 mg by mouth once daily Diltiazem Hcl Discontinued 360 MG PO DAILY May 03, 2016 12:00am May 04, 2016 10:55am DULoxetine 30 mg delayed release oral capsule (1 source) Serotonin and Norepinephrine Reuptake Inhibitor Start: 07-23-2022 take 1 capsule by mouth once daily DULoxetine (CYMBALTA) 30 mg capsule Take 30 mg by mouth once daily. 0 07/23/2022 Active Comment on above: Take 30 mg by mouth once daily. 0.4 ml enoxaparin sodium 100 mg/ml prefilled syringe (6 sources) Low Molecular Weight Heparin Start: 09-11-2019 End: 08-07-2020 Enoxaparin Discontinued 40 MG SC DAILY@0600 September 14, 2019 1:00am August 07, 2020 3:10pm famotidine 20 mg oral tablet (1 source) Histamine-2 Receptor Antagonist Start: 09-11-2019 End: 09-11-2019 famotidine (PEPCID) tablet 20 mg Start: 09-11-2019 End: 09-11-2019 famotidine (PEPCID) tablet 2 0 mg furosemide 20 mg oral tablet (2 sources) Loop Diuretic Start: 09-20-2019 End: 08-07-2020 take 20 mg by mouth once daily Furosemide Discontinued 20 MG PO DAILY September 20, 2019 12:00am August 07, 2020 3:10pm gabapentin 300 mg oral capsule (1 source) Anti-epileptic Agent Start: 09-11-2019 End: 09-11-2019 gabapentin (NEURONTIN) capsule 300 mg Start: 09-11-2019 End: 09-11-2019 gabapentin (NEURONTIN) capsu le 300 mg 1 ml HYDROmorphone hydrochloride 1 mg/ml cartridge (1 source) Opioid Agonist Start: 09-11-2019 End: 09-11-2019 HYDROmorphone (DILAUDID) injection 0.5 mg 1 ml LORazepam 2 mg/ml injection (1 source) Benzodiazepine Start: 09-11-2019 End: 09-11-2019 LORazepam (ATIVAN) injection 0.5 mg maprotiline hydrochloride 50 mg oral tablet (1 source) Start: 01-17-2017 maprotiline 50 mg tab(s) (LUDIOMIL) MULTIVITAMIN ORAL (1 source) MULTIVITAMIN ORA L Take by mouth once daily. 0 Active Comment on above: Take by mouth once d aily. pantoprazole 40 mg delayed release oral tablet (1 source) Proton Pump Inhibitor Start: 12-27-2020 End: 08-24-2022 take 1 tablet by mouth once daily in the morning pantoprazole DR (PROTONIX) 40 mg tablet Take 1 tablet by mouth DAILY at 6:00 AM 30 tablet 0 12/27/2020 08/24/2022 Discontinued Comment on above: Take 1 tablet by neris th DAILY at 6:00 AM polyethylene glycol 3350 259308 mg / potassium chloride 2970 mg / sodium bicarbonate 6740 mg / sodium chloride 5860 mg / sodium sulfate 15968 mg powder for oral solution (1 source) Osmotic Laxative Start: 08-24-2022 End: 08-24-2022 peg 3350-Electrolytes (GOLYTELY) 236-22.74-6.74 -5.86 gram suspension Take 4,000 mL by mouth one time only for 1 dose. 1 Each 0 08/24/2022 08/24/2022 Comment on above: Take 4,000 mL by neris th one time only for 1 dose. rivaroxaban 20 mg oral tablet (7 sources) Factor Xa Inhibitor Start: 09-02-2020 End: 08-24-2022 Rivaroxaban Discontinued 20 MG PO NEEDED September 02, 2020 1:00am August 19, 2021 11:20am Start: 03-27-2019 End: 09-11-2019 take 20 mg by mouth once daily Rivaroxaban Discontinue d 20 MG PO DAILY March 27, 2019 12:00am April 13, 2019 1:14pm Comment on above: Take 1 tablet by neris th daily with dinner. Problems Active Problems Problem Classification Problem Date Documented Date Episodic/Chronic Abdominal hernia (2 sources) Umbilical hernia; Translations: [Umbilical hernia without obstruction or gangrene] 08-12-2020 Episodic Abdominal pain (2 sources) Abdominal pain; Translations: [Unspecified abdominal pain] 08-12-2020 Episodic Biliary tract disease (2 sources) Gallstone; Translations: [Calculus of gallbladder without cholecystitis without obstruction] 08-12-2020 Episodic Cardiac dysrhythmias (9 sources) Atrial fibrillation; Translations: [Unspecified atrial fibrillation] Onset: 05-05-2016 12-25-2020 Chronic Mood disorders (2 sources) Depressive disorder; Translations: [Depression] 08-07-2020 Chronic Osteoarthritis (2 sources) Arthritis; Translations: [Unspecified osteoarthritis, unspecified site] 08-12-2020 Chronic Other injuries and conditions due to external causes (2 sources) H/O: fracture; Translations: [Personal history of (healed) traumatic fracture] 08-12-2020 Episodic Other lower respiratory disease (2 sources) Dyspnea; Translations: [Dyspnea, unspecified] 07-08-2021 Episodic Other screening for suspected conditions (not mental disorders or infectious disease) (2 sources) Patient encounter status; Translations: [Encounter for screening for malignant neoplasm of colon] Onset: 08-24-2022 Episodic Pulmonary heart disease (2 sources) Pulmonary embolism; Translations: [Other pulmonary embolism without acute cor pulmonale] 08-12-2020 Episodic Residual codes; unclassified (2 sources) Obstructive sleep apnea syndrome; Translations: [Obstructive sleep apnea (adult) (pediatric)] 08-12-2020 Chronic Residual codes; unclassified (2 sources) Sleep apnea; Translations: [Sleep apnea, unspecified] 08-12-2020 Chronic Residual codes; unclassified (2 sources) Hypersomnia; Translations: [Hypersomnia, unspecified] 08-07-2020 Chronic Residual codes; unclassified (2 sources) History of repair of umbilical hernia; Translations: [Other specified postprocedural states] 08-26-2020 Episodic Residual codes; unclassified (2 sources) H/O Spinal surgery; Translations: [Other specified postprocedural states] 08-12-2020 Episodic Spondylosis; intervertebral disc disorders; other back problems (1 source) Post-surgery back pain; Translations: [Postlaminectomy syndrome, not elsewhere classified] Onset: 11-19-2016 11-19-2016 Chronic Spondylosis; intervertebral disc disorders; other back problems (8 sources) Lumbar radiculopathy; Translations: [Chronic low back pain] Onset: 09-22-2016 04-05-2019 Episodic Past or Other Problems Problem Classification Problem Date Documented Date Episodic/Chronic Complications of surgical procedures or medical care (4 sources) Pseudarthrosis after fusion or arthrodesis; Translations: [Pseudarthrosis after fusion or arthrodesis] Onset: 09-11-2019 09-11-2019 Episodic Inflammatory conditions of male genital organs (1 source) Acute prostatitis; Translations: [Acute prostatitis] Onset: 08-01-2024 Episodic Other connective tissue disease (1 source) History of lumbar fusion; Translations: [Arthrodesis status] Onset: 05-05-2016 05-05-2016 Episodic Residual codes; unclassified (1 source) Family history of atrial fibrillation; Translations: [Family history of ischemic heart disease and other diseases of the circulatory system] Onset: 05-05-2016 05-05-2016 Episodic Results Test Name Value Interpretation Reference Range Facility Emergency Department Summary on 04-24-2025 Emergency Department Summary [facility] Medical Records Department [address] [place] [address] Emergency Department Summary 04/24/25 MR#: [id number] Acct: [id number] Name: CHANO DALTON Rep #: [id number] : 1965 60 From: Luis Braxton DO PCP: Dr. Yannick Wilkins MD Status:REG ER Location: ED HPI History of Present Illness Chief Complaint: Lower Extremity Injury Narrative Narrative: Chief complaint and HPI: 60-year-old male presents for evaluation of left knee pain. Patient states approximately 4 days ago he mowed several different yards. He states shortly after he developed left knee pain that has progressively worsened. Pain is located on the medial aspect. He denies any twisting motion or trauma. He denies any popping or clicking. He denies any fever, chills, swelling. Pain is worse with ambulation. Review of systems: See HPI Medications: As listed on the chart Allergies: As listed on the chart PFSH: Per chart Vital signs: As listed on the chart. Reviewed. Physical exam: Gen: A O x3, NAD Head: Normocephalic, atraumatic Eyes: No sclera icterus, conjunctiva clear ENT: Moist mucous membranes CV: RRR, no murmurs Resp: Lungs CTA BL, no w/r/c Musc: Full active and passive range of motion of the left lower extremity/knee although endorses pain in the medial knee with movement, no knee instability, no popping or clicking of the knee with movement, patient has tenderness to palpation of the medial knee located over the medial collateral ligament, no meniscus tenderness, no swelling/warmth/erythe ma/ecchymosis/crepitus of the knee joint or left lower extremity, compartments soft, sensation intact, good capillary refill, femoral/DP/PT pulses +2 Skin: Warm, dry Psych: Cooperative, appropriate mood and affect PFSH [facility] Medical History (Updated 04/24/25 @ 13:[address] Luis Braxton, DO) Wears glasses Back pain Former smoker History of echocardiogram Cardiology follow-up encounter Umbilical hernia Abdominal pain Sleep apnea Low back problem Arthritis LATESHA (obstructive sleep apnea) Atrial fibrillation Hypersomnia Depression Pulmonary embolism Gall stones Home Medications ???Medication ???Instructions ???Recorded ???Last Taken ???Type multivitamin with minerals 1 ea PO DAILY 09/14/19 03/22/24 Hi story aripiprazole 10 mg tablet 10 mg PO DAILY 04/24/25 Unknown Hi story trazodone 50 mg tablet 25 - 150 mg PO QHS PRN PRN sleep 1 Unknown History Allergy/AdvReac Type Severity Reaction Status Date / Time venom-honey bee Allergy Swelling Verified 04/24/25 12:11 clarithromycin (From Biaxin) AdvReac Rash Verified 04/24/25 12:11 Iodinated Contrast Media AdvReac Other Verified 04/24/25 12:11 (DYEE) Family History Father CAD (coronary artery disease) History of coronary artery bypass surgery Surgical History H/O cardiac radiofrequency ablation Hx of umbilical hernia repair History of fracture of ankle History of back surgery Social History Smoking Status: Former smoker quit date: 07/11/99 pack-years: 2 alcohol intake: never substance use type: does not use caffeine: Yes what type of physical activity do you participate in: walking EXAM Physical Exam Const Vital Signs: 04/24/25 12:09 Temperature 98 F Temperature Source Oral Pulse Rate 77 Respiratory Rate 16 Blood Pressure 147/81 H Blood Pressure Mean 103 Pulse Ox 99 Oxygen Delivery Method Room Air MDM MDM MDM Narrative Medical decision making narrative: 60-year-old male presents for evaluation of left knee pain. Patient states approximately 4 days ago he mowed several different yards. He states shortly after he developed left knee pain that has progressively worsened. Pain is located on the medial aspect. He denies any twisting motion or trauma. He denies any popping or clicking. He denies any fever, chills, swelling. See physical exam findings. Differential diagnosis includes but is not limited to knee sprain, osteoarthritis. Suspect less likely fracture. Exam not consistent with septic arthritis. IM Toradol ordered for pain. X-ray of the knee obtained. X-ray of the knee was personally reviewed and interpreted by me, ED physician. No fracture or dislocation. No effusion. Radiology in agreement. At this point in time, I suspect patient's pain is secondary to a knee sprain. RICE therapy. Tylenol and Motrin as needed for pain. Crutches needed for ambulation. Follow-up with orthopedic surgeon. He confirmed understand the plan. Patient stable discharge home. Pain did improve with Toradol. Impression: 1. Left knee sprain Radiography Diagnostic Testing: Clinical Impres (more content not included)... Normal [facility] Knee 4 or More Viewson 04-24 Knee 4 or More Views [facility] Imaging Services [address], [place] [id number] Knee 4 or More Views MR#: [id number] Acct: [id number] Name: CHANO DALTON Rep #: [id number] : 1965 M 60 From: Jacob cochran MD PCP: Dr. Yannick Wilkins MD Status: REG ER Study: Knee 4 or More Views Date of Exam: 04/24/25 Exam# [id number] Ordering Dr: Luis Braxton DO PROCEDURE: KNEE 4 OR MORE VIEWS 04/24/2025 REASON FOR EXAM: PAIN 4 day history of knee pain. No known injury. TECHNIQUE: Procedure Code: RADKN Modality: DX Procedure: KNEE 4 OR MORE VIEWS Laterality: Left knee COMPARISON: None FINDINGS: Bones: No fracture. No suspicious bone lesion. Joints: Normal alignment. Mild degenerative changes. Effusion: No effusion. Soft tissues: Soft tissues are unremarkable. Other: RAD/Knee 4 or More Views IMPRESSION: NO EFFUSION ACUTE FRACTURE OR DISLOCATION. Reading Location: [place] [address] CC: Dr. Luis Braxton DO; Dr. Yannick Wilkins MD [employer] Straightener: Signed Normal [facility] Urine Cultureon 07-07-2024 [facility] Culture exhibits no growth. Normal [facility] Comment on above: Performed By: #### M 100.2200 #### [facility] Laboratory [address] [facility] [place], [address] Abdomen/Pelvis without Conto n 07-06-2024 Abdomen/Pelvis without Cont [facility] Imaging Services [address], [place] [address] Abdomen/Pelvis without Cont MR#: [id number] Acct: [id number] Name: CHANO DALTON Rep #: [id number] : 1965 M 59 From: Kerri nielsen MD PCP: Dr. Yaninck Wilkins MD Status: REG ER Study: Abdomen/Pelvis without Cont Date of Exam: 06/11 01/31 Exam# [id number] Ordering Dr: Yannick Arevalo INGOT PASSER-C [id number] HISTORY: Pain. TECHNIQUE: Helically acquired images were obtained of the abdomen and pelvis without oral or IV contrast. A radiation dose optimization technique was used for this scan. 435 images. COMPARISON: 09/02/2020. FINDINGS: LOWER CHEST: Lung bases clear. BOWEL: Bowel including appendix nondilated. No focal pericolonic inflammatory change. PERITONEUM: No significant free fluid. LIVER: Small central cyst again seen. GALLBLADDER/BILIARY TREE: Multiple gallstones. SPLEEN: Calcified granulomas. PANCREAS/ADRENAL GLANDS: Nonenlarged. KIDNEYS AND URETERS: Punctate left interpolar calculus without hydronephrosis. No right nephrolithiasis or hydronephrosis. VESSELS: No abdominal aortic aneurysm. Mild atherosclerosis. PELVIC ORGANS: Mildly enlarged prostate gland. ABDOMINAL WALL: Small fat-containing inguinal hernias. BONES: Left lateral rib fractures L4-S1 posterior spinal fusion hardware with chronic anterolisthesis of L4-5 and L5-S1 interbody fusion material. Thoracic spinal stimulator noted. CT/Abdomen/Pelvis without Cont IMPRESSION: Small nonobstructing left renal calculus. Cholelithiasis. Mildly enlarged prostate gland. Electronically Signed: Kerri Hernandez MD at 15:21 EST Reading Location ID and State: [facility] / [place] Tel , Service support , CC: YANY Arevalo; Dr. Yannick Wilkins MD [employer] Straightener: Signed Normal [facility] CBC W/Diff, Automatedon 12- Absolute Lymph 1.79 X10 3/uL Normal 0.83-4.51 [facility] Comment on above: Performed By: #### L 100.0100, L500.4050, L501.2450 #### [facility] Laboratory [address] [place], [address] Absolute Neut 12.5 X10 3/uL High 2.0-7.7 [facility] Comment on above: Performed By: #### L 100.0100, L500.4050, L501.2450 #### [facility] Laboratory [address] [place], [address] Basophils/100 WBC (Bld) 0.4 % Normal 0-1 [facility] Comment on above: Performed By: #### L 100.0100, L500.4050, L501.2450 #### [facility] [address] [place], [address] Eosinophils/100 WBC (Bld) 0.3 % Normal 0-5 [facility] Comment on above: Performed By: #### L 100.0100, L500.4050, L501.2450 #### [facility] [address] [place], [address] Erythrocyte distribution width (RBC) [Ratio] 12.8 % Normal 11.6-14.6 [facility] Comment on above: Performed By: #### L 100.0100, L500.4050, L501.2450 #### [facility] [address] [place], [address] Hematocrit (Bld) [Volume fraction] 44.4 % Normal 40-54 [facility] Comment on above: Performed By: #### L 100.0100, L500.4050, L501.2450 #### [facility] [address] [place], [address] Hemoglobin (Bld) [Mass/Vol] 15.3 g/dL Normal 13.0-16.5 [facility] Comment on above: Performed By: #### L 100.0100, L500.4050, L501.2450 #### [facility] [address] [place], [address] IG% 0.300 Normal 0.0-0.9 [facility] Comment on above: Result Comment: IG% - Immature Granulocytes (promyelocytes, myelocytes and metamyelocytes) > 1% indicates that a LEFT SHIFT is Present. Performed By: #### L 100.0100, L500.4050, L501.2450 #### [facility] [address] [place], [address] Lymphocytes/100 WBC (Bld) 11.8 % Low 19-41 [facility] Comment on above: Performed By: #### L 100.0100, L500.4050, L501.2450 #### [facility] [address] [place], [address] MCH (RBC) [Entitic mass] 31.2 pg Normal 27.0-32.0 [facility] Comment on above: Performed By: #### L 100.0100, L500.4050, L501.2450 #### [facility] [address] [place], [address] MCHC (RBC) [Mass/Vol] 34.5 g/dL Normal 32-36 [facility] Comment on above: Performed By: #### L 100.0100, L500.4050, L501.2450 #### [facility] [address] [place], [address] MCV (RBC) [Entitic vol] 90.4 fL Normal 80-94 [facility] Comment on above: Performed By: #### L 100.0100, L500.4050, L501.2450 #### [facility] [address] [place], [address] Monocytes/100 WBC (Bld) 5.3 % Normal 0-10 [facility] Comment on above: Performed By: #### L 100.0100, L500.4050, L501.2450 #### [facility] [address] [place], [address] Neutrophils/100 WBC (Bld) 81.9 % High 47-70 [facility] Comment on above: Performed By: #### L 100.0100, L500.4050, L501.2450 #### [facility] [address] [place], [address] Nucleated RBC (Bld) [#/Vol] 0 10*3/uL Normal 0-5 [facility] Comment on above: Performed By: #### L 100.0100, L500.4050, L501.2450 #### [facility] [address] [place], [address] Platelet mean volume (Bld) [Entitic vol] 9.6 fL Normal 6.2-12.0 [facility] Comment on above: Performed By: #### L 100.0100, L500.4050, L501.2450 #### [facility] [address] [place], [address] Platelets (Bld) [#/Vol] 129 10*3/uL Low 150-450 [facility] Comment on above: Performed By: #### L 100.0100, L500.4050, L501.2450 #### [facility] [address] [place], [address] RBC (Bld) [#/Vol] 4.91 10*6/uL Normal 4.6-6.2 [facility] Comment on above: Performed By: #### L 100.0100, L500.4050, L501.2450 #### [facility] [address] [place], [address] RDW SD 42.5 fl Normal 35.1-43.9 [facility] Comment on above: Performed By: #### L 100.0100, L500.4050, L501.2450 #### [facility] [address] [place], [address] WBC (Bld) [#/Vol] 15.2 10*3/uL High 4.4-11.0 [facility] Comment on above: Performed By: #### L 100.0100, L500.4050, L501.2450 #### [facility] [address] [place], [address] Comprehensive Metabolic Prof [facility] 07-06-2024 Albumin [Mass/Vol] 3.4 g/dL Normal 3.2-5.0 [facility] Comment on above: Performed By: #### L 100.0100, L500.4050, L501.2450 #### [facility] [address] [place], [address] Albumin/Globulin [Mass ratio] 0.9 {ratio} Normal 0.9-2.4 [facility] Comment on above: Performed By: #### L 100.0100, L500.4050, L501.2450 #### [facility] [address] [place], [address] ALK P 84 U/L Normal 45-117 [facility] Comment on above: Performed By: #### L 100.0100, L500.4050, L501.2450 #### [facility] [address] [place], [address] ALT [Catalytic activity/Vol] 62 U/L High 16-61 [facility] Comment on above: Performed By: #### L 100.0100, L500.4050, L501.2450 #### [facility] [address] [place], [address] AST [Catalytic activity/Vol] 41 U/L High 15-37 [facility] Comment on above: Result Comment: Mode rate Hemolysis, Result may be falsely increased. Performed By: #### L 100.0100, L500.4050, L501.2450 #### [facility] [address] [place], [address] Bilirubin [Mass/Vol] 1.20 mg/dL High 0.20-1.00 [facility] Comment on above: Result Comment: For patients on eltrombopag therapy, use of Dimension [place] TBIL is not recommended. Performed By: #### L 100.0100, L500.4050, L501.2450 #### [facility] [address] [place], [address] BUN/CRE 13.0 RATIO Normal 10-20 [facility] Comment on above: Performed By: #### L 100.0100, L500.4050, L501.2450 #### [facility] [address] [place], [address] CA,Total 9.2 mg/dL Normal 8.5-10.1 [facility] Comment on above: Performed By: #### L 100.0100, L500.4050, L501.2450 #### [facility] [address] [place], [address] Chloride [Moles/Vol] 105 mmol/L Normal 98-107 [facility] Comment on above: Performed By: #### L 100.0100, L500.4050, L501.2450 #### [facility] [address] [place], [address] CO2 [Moles/Vol] 29.0 mmol/L Normal 21.0-32.0 [facility] Comment on above: Performed By: #### L 100.0100, L500.4050, L501.2450 #### [facility] [address] [place], [address] Creatinine [Mass/Vol] 1.15 mg/dL Normal 0.70-1.30 [facility] Comment on above: Result Comment: The validity of the calculated GFR GFRAA in patients over 70 years has not been determined. Clinical correlation is essential. Performed By: #### L 100.0100, L500.4050, L501.2450 #### [facility] [address] [place], [address] ECRCL 84.53 ml/min Normal [facility] Comment on above: Performed By: #### L 100.0100, L500.4050, L501.2450 #### [facility] [address] [place], [address] EST GFR - AA 84 mL/min Normal >60 [facility] Comment on above: Result Comment: Afri can [place] GFR Calc Performed By: #### L 100.0100, L500.4050, L501.2450 #### [facility] [address] [place], [address] GAP 4 Low 5-15 [facility] Comment on above: Performed By: #### L 100.0100, L500.4050, L501.2450 #### [facility] [address] [place], [address] GFR/1.73 sq M.predicted among non-blacks MDRD (S/P/Bld) [Vol rate/Area] 69 mL/min/{1.73_m2} Normal >60 [facility] Comment on above: Result Comment: Non- GFR Calc Performed By: #### L 100.0100, L500.4050, L501.2450 #### [facility] [address] [place], [address] Globulin (S) [Mass/Vol] 3.8 g/dL Normal 2.2-4.2 [facility] Comment on above: Performed By: #### L 100.0100, L500.4050, L501.2450 #### [facility] [address] [place], [address] Glucose [Mass/Vol] 100 mg/dL Normal 74-106 [facility] Comment on above: Result Comment: Fast ing Glucose result from 100 to 125 mg/dL suggests IMPAIRED HOMEOSTASIS per A.D.A. criteria. Performed By: #### L 100.0100, L500.4050, L501.2450 #### [facility] [address] [place], [address] Potassium [Moles/Vol] 4.5 mmol/L Normal 3.5-5.1 [facility] Comment on above: Result Comment: Mode rate Hemolysis, Result may be falsely increased. Performed By: #### L 100.0100, L500.4050, L501.2450 #### [facility] [address] [place], [address] Sodium [Moles/Vol] 137 mmol/L Normal 136-145 [facility] Comment on above: Performed By: #### L 100.0100, L500.4050, L501.2450 #### [facility] [address] [place], [address] T PROT 7.2 g/dL Normal 6.4-8.2 [facility] Comment on above: Performed By: #### L 100.0100, L500.4050, L501.2450 #### [facility] [address] [place], [address] Urea nitrogen [Mass/Vol] 15 mg/dL Normal 7-18 [facility] Comment on above: Performed By: #### L 100.0100, L500.4050, L501.2450 #### [facility] [address] [place], [address] Emergency Department Summary on 07-06-2024 Emergency Department Summary [facility] Department [address] [place] [address] Emergency Department Summary 07/06/24 MR#: [id number] Acct: [id number] Name: CHANO DALTON Rep #: [id number] : 1965 59 From: Yannick SLADE PCP: Dr. Yannick [place] MD Status:DEP ER Location: ED HPI History of Present Illness Chief Complaint: Complaint Narrative Narrative: Patient is a 59-year-old male with history of atrial fibrillation who no longer has a secondary to ablation, chronic back pain with a pain stimulator presenting to the emergency department with complaints of dysuria, fever and chills. Patient states at 1:30 AM yesterday, the patient developed fever and chills, dysuria. Patient states he feels like he is not emptying all the way. He states he feels generalized malaise and bodyaches. Denies any history of kidney stones. Denies taking any blood thinners. Denies any concern for STD. [facility] Medical History (Updated 07/06/24 @ 16:22 by YANY Bustillo) Wears glasses Back pain Former smoker History of echocardiogram Cardiology follow-up encounter Umbilical hernia Abdominal pain Sleep apnea Low back problem Arthritis LATESHA (obstructive sleep apnea) Atrial fibrillation Hypersomnia Depression Pulmonary embolism Gall stones Home Medications ???Medication ???Instructions ???Recorded ???Last Taken ???Type multivitamin with minerals 1 ea PO DAILY 09/14/19 03/22/24 History meloxicam 7.5 mg tablet 7.5 mg PO DAILY 03/22/24 03/22/24 History tizanidine 4 mg tablet 4 mg PO QHS PRN PRN muscle 03/22/24 03/21/24 History spasticity ciprofloxacin HCl 500 mg tablet 500 mg PO BID 14 days #28 tabs 07/06/24 Unknown Rx (Cipro) tamsulosin 0.4 mg capsule (Flomax) 0.4 mg PO DAILY #10 caps 07/06/24 Unknown Rx Allergy/AdvReac Type Severity Reaction Status Date / Time venom-honey bee Allergy Swelling Verified 07/06/24 12:43 clarithromycin (From Biaxin) AdvReac Rash Verified 07/06/24 12:43 Iodinated Contrast Media AdvReac Other Verified 07/06/24 12:43 (DYEE) Family History Father CAD (coronary artery disease) History of coronary artery bypass surgery Surgical History H/O cardiac radiofrequency ablation Hx of umbilical hernia repair History of fracture of ankle History of back surgery Social History Smoking Status: Current every day smoker tobacco type: cigarettes alcohol intake: never substance use type: does not use caffeine: Yes what type of physical activity do you participate in: walking ROS ROS ED ROS Narrative Constitutional: Negative for weight loss, weakness. Positive for fever and chills Eyes: Negative for vision loss, vision change, double vision ENT: Negative for any sore throat, ear pain, congestion Cardiovascular: Negative for any chest pain, tightness, palpitations Respiratory: Negative for any cough, sputum production, hemoptysis, dyspnea, dyspnea on exertion, orthopnea Gastrointestinal: Negative for any abdominal pain, nausea, vomiting, diarrhea, constipation, blood in stool, blood in vomit : Negative for any urinary frequency, blood in urine. Positive for dysuria, urine retention Muscle skeletal: Negative for any neck pain. Positive for back pain Neurological: Negative for any headache, syncope, dizziness Skin: Negative for any rashes, itching, abrasions, lacerations Psychiatric: Negative for any depression, anxiety, stress, suicidal ideation, homicidal ideation Hematologic: Negative for any excessive bruising, easy bleeding EXAM Physical Exam Narrative Exam Narrative: Vital signs reviewed. Vital signs are stable, no fever in the emergency department. HEET: Head normocephalic atraumatic, TMs clear bilaterally. Posterior pharynx is clear, moist mucous membranes. Nares clear bilaterally. Neck: Supple with no lymphadenopathy or tenderness. No signs of meningismus. Cardiac: Regular rate and rhythm no murmurs gallops or rubs, equal peripheral pulses bilaterally. Respiratory: Lungs clear to auscultation bilaterally. No chest tenderness. Abdomen: Soft, nontender, nondistended. No abdominal bruit or pulsatile masses. No hepatosplenomegaly. Patient was able provide a urine sample, patient did have some dark-colored urine, the could be possibly hematuria. Pay states he still feels full. Extremities: No peripheral edema, no signs of gross trauma or deformity. Active full range of motion of all extremities. Neuro: Cranial nerves II through XII intact, no focal neurological deficits. Skin: Clean dry and intact with no rash, purpura, petechiae, vesicles or pustules. Backs/flank: Positive right sided CVA tenderness no midline spinal te (more content not included)... Normal [facility] Lipaseon 07-06-2024 Lipase [Catalytic activity/Vol] 26 U/L Normal 13-75 [facility] Comment on above: Result Comment: Renetta abarca note: LIPASE revised reference range effective 22. New Lipase methodology. Expected to produce lower values than the previous assay method. NEW Reference Range: 13 - 75 U/L Performed By: #### L 100.0100, L500.4050, L501.2450 #### [facility] [address] [place], [address] Urinalysis, Completeon 07-06 Mucus Ql (Urine sed) 1+ /hpf Normal [facility] Comment on above: Order Comment: COLOR OF URINE MAY AFFECT DIPSTICK RESULTS. CLEAN CATCH Performed By: #### L 400.0001 #### [facility] [address] [place], [address] WBC 25-50 SEEN Normal 0-5 [facility] Comment on above: Order Comment: COLOR OF URINE MAY AFFECT DIPSTICK RESULTS. CLEAN CATCH Performed By: #### L 400.0001 #### [facility] [address] [place], [address] BACTERIA 0 SEEN Normal None Seen [facility] Comment on above: Order Comment: COLOR OF URINE MAY AFFECT DIPSTICK RESULTS. CLEAN CATCH Performed By: #### L 400.0001 #### [facility] [address] [place], [address] EPI,SQUAMOUS 0 SEEN Normal 0-5 [facility] Comment on above: Order Comment: COLOR OF URINE MAY AFFECT DIPSTICK RESULTS. CLEAN CATCH Performed By: #### L 400.0001 #### [facility] [address] [place], [address] RBC 0 SEEN Normal 0-5 [facility] Comment on above: Order Comment: COLOR OF URINE MAY AFFECT DIPSTICK RESULTS. CLEAN CATCH Performed By: #### L 400.0001 #### [facility] [address] [place], [address] CNOVon 10-04-2022 CN Office Visit (UCWSTR ) CHANO DALTON ([id number]) 1965 M Date Time Provider Department 10/04/22 12:45 PM JOSS GONSALEZ [facility] During your visit today, we recorded the following information about you: Temperature Pulse Respiration Blood pressure 98.4 degrees 70/minute 20/minute 126/80 Weight 99.6 kg Joss Gonsalez MD 10/04/2022 12:52 PM Signed Patient presents with: Cough: SOB, chest congestion, ears clogged, nasal congestion x2 weeks HPI: Feeling sick for 2 weeks. Initial influenza-like illness improved some, but head and chest congestion are not. Positive symptoms: Cough, Shortness of breath, Chest tightness, Earache, Nasal Congestion, resolved fever, sinus pressure, Negative symptoms: Vomiting, Diarrhea, OTC: Tylenol PAST MEDICAL HISTORY Diagnosis Date Atrial fibrillation (HCC) Depression MEDICATIONS: Current Outpatient Medications Medication Sig DULoxetine (CYMBALTA) 30 mg capsule Take 30 mg by mouth once daily. aspirin, enteric coated (ASPIRIN, ENTERIC COATED) 81 mg EC tablet Take 81 mg by mouth once daily. MULTIVITAMIN ORAL Take by mouth once daily. atenolol (TENORMIN) 25 mg tablet Take 1 tablet by mouth once daily. (Patient taking differently: Take 25 mg by mouth as needed.) Current Facility-Administered Medications Medication Dose Route Frequency citalopram 10 mg tab(s) (CeleXA) 10 mg ORAL DAILY (6 AM) maprotiline 50 mg tab(s) (LUDIOMIL) 50 mg ORAL AT BEDTIME ALLERGIES: ALLERGIES Allergen Reactions Bee Venom Protein (* Anaphylaxis Contrast Dye [Iodin* Other: See Comments Triggers afib Lyrica [Pregabalin] Other: See Comments can't pee Biaxin [Clarithromy* Rash VITALS: BP 126/80 Pulse 70 Temp 36.9 ?C (98.4 ?F) Resp 20 Wt 99.6 kg (219 lb 9.6 oz) SpO2 96% BMI 29.78 kg/m? PHYSICAL EXAM: GEN: mildly ill appearing HEENT: PERRL, EOMI, conjunctiva clear Ears: canals clear. TMs without bulge or effusion. Right tympanic membrane retracted. Small central hyperemia left tympanic membrane. Sinuses: tender frontal sinus, tender maxillary sinuses Throat: moist mucous membranes, pharyngeal erythema, no exudate Neck: supple, no thyromegaly, no lymphadenopathy HEART: regular rate and rhythm, no murmurs LUNGS: clear to auscultation, no wheezes or crackles, no increased WOB ASSESSMENT/PLAN: 1. Acute non-recurrent sinusitis, unspecified location - ICD9: 461.9, ICD10: J01.90 Discussed differential includes lingering viral URI, multiple viral illnesses, and secondary bacterial sinusitis. - AMOXICILLIN 875 MG-POTASSIUM CLAVULANATE 125 MG TABLET Continue supportive treatment. Joss Gonsalez MD Allergies As of Date: 10/04/2022 Noted Allergy Reaction BEE VENOM PROTEIN (HONEY BEE) 10/03/2020 10 - Anaphylaxis CONTRAST DYE (IODINE) 05/05/2016 14 - Other: See Comments Comments: Triggers afib LYRICA (PREGABALIN) 10/03/2020 14 - Other: See Comments Comments: can't pee BIAXIN (CLARITHROMYCIN) 05/05/2016 2 - Rash Date Reviewed: 10/04/2022 Reviewed by: Ana M Ferreira MA - Fully Assessed Reason for Visit: Cough [28] Cmt: SOB, chest congestion, ears clogged, nasal congestion x2 weeks Primary Visit Diagnosis:Acute non-recurrent sinusitis, unspecified location [J01.90] Order(s):amoxicillin-c lavulanic acid (AUGMENTIN) 875-125 mg per tabletTake 1 tablet by mouth twice daily for 5 days.Disp: 10 tabletRfl: 0 Prescriptions as of 10/04/2022 - amoxicillin-clavulanic acid (AUGMENTIN) 875-125 mg per tablet Take 1 tablet by mouth twice daily for 5 days. - DULoxetine (CYMBALTA) 30 mg capsule Take 30 mg by mouth once daily. - aspirin, enteric coated (ASPIRIN, ENTERIC COATED) 81 mg EC tablet Take 81 mg by mouth once daily. - MULTIVITAMIN ORAL Take by mouth once daily. - atenolol (TENORMIN) 25 mg tablet Take 1 tablet by mouth once daily. Facility-Administered Medications as of 10/04/2022 - citalopram 10 mg tab(s) (CeleXA) - maprotiline 50 mg tab(s) (LUDIOMIL) Problem List As Of Date 10/04/2022 Noted Resolved Atrial fibrillation (HCC) [I48.91] 05/05/2016 Family history of atrial fibrillation [Z82.49] 05/05/2016 S/P lumbar fusion [Z98.1] 05/05/2016 Chronic left-sided low back pain with left-side*09/22/2016 Failed back syndrome [M96.1] 11/19/2016 Prescriptions ordered this encounter Disp Refills Start End AMOXICILLIN 875 MG-POTASSIUM CLAVULA* 10 t* 0 10/04/2022 10/09/2022 Route: ORAL Sig: Take 1 tablet by mouth twice daily for 5 days. Encounter Status:Closed by JOSS GONSALEZ on 10/04/22 [facility] CNOVon 08-24-2022 CNOV Office Visit (GENSWS ) CHANO DALTON ([id number]) 1965 M Date Time Provider Department 08/24/22 1:00 PM LOREE GARNETT During your visit today, we recorded the following information about you: Temperature Pulse Blood pressure Weight 97.2 degrees 94/minute 140/78 99.3 kg Height 1.829 m Sanam Martin LPN 08/24/2022 12:58 PM Signed REVIEW OF SYSTEMS: General: The patient denies fatigue, denies weight loss, denies weight gain, denies feeling hot, and denies feelings of cold. Eyes: The patient denies glaucoma, denies eye injury/surgery, wears glasses or contacts. Ear/Nose/Throat: The patient notes allergies, denies hayfever, denies ear infections, and denies bloody noses. Cardiovascular: The patient denies chest pain, denies heart disease, denies high blood pressure,denies cardiac stent, denies prior heart attack, denies irregular heart beat, denies high cholesterol, denies poor circulation, denies heart failure, other cardiac issues, notes claudication, notes cold feet, denies peripheral arterial stent. Respiratory: The patient denies tuberculosis, denies pneumonia, denies frequent cough, denies pulmonary embolism, denies shortness of breath, and denies coughing up blood. Gastrointestinal: The patient denies difficulty swallowing, denies acid reflux, denies ulcers, denies vomiting, denies jaundice/hepatitis, denies gallbladder problems, denies black or tarry stools, denies hemorrhoids, denies bleeding from rectum, denies diverticulitis, denies constipation, denies diarrhea, denies loss of stool control, and denies hernias. Kidney/Bladder: The patient denies kidney stones, denies urine infections, and denies bloody urine. Skin: The patient denies a history of skin cancer, denies bleeding/changing moles, and denies a history of skin rash. Neurologic: The patient denies a history of epilepsy/convulsions, denies headaches, notes head/spinal injuries, and denies stroke/TIA. Psychiatric: The patient notes psychiatric medications, notes depression, and denies voices, denies substance abuse. Endocrine: The patient denies thyroid disorders, denies diabetes, and denies hormonal problems. Hematologic: The patient denies a history of bruising, denies bleeding, and denies anemia, denies blood clots. Infections: The patient denies a history of measles and mumps, denies rheumatic fever, and denies sexually transmitted diseases. Musculoskeletal: The patient notes back pain/injury, notes back problems, notes sciatica, denies knee/foot trouble, denies arthritis, or denies gout. When was patient's last Mammogram screening? N/A Last Colonoscopy: none KRISTEN Adames PA-C 08/24/2022 4:40 PM Signed HISTORY AND PHYSICAL Chano Beeood 1965 REFERRING PHYSICIAN: Yannick Wilkins MD CHIEF COMPLAINT: Consult (colonoscopy) HPI: The patient is a 57 year old male referred for endoscopy. Chano notes no colon complaints. Patient denies any change in bowel habits, weight changes, blood in stools, black tarry stools or abdominal pain. Denies family history of colon issues. The patient notes no upper GI complaints. Chano has not undergone prior endoscopy. Patient denies chest pain, shortness of breath or recent hospitalizations. Past medical history significant for atrial fibrillation, resolved after ablation per patient. Denies problems with sedation in the past. PAST MEDICAL HISTORY Diagnosis Date Atrial fibrillation (HCC) Depression PAST SURGICAL HISTORY Procedure Laterality Date LAMINECTOMY W/O FFD 07/12 VERT SEG LUMBAR LAMINECTOMY,LUMBAR redo in 2019 REPAIR INCISIONAL HERNIA,REDUCIBLE Current Outpatient Medications Medication Sig DULoxetine (CYMBALTA) 30 mg capsule Take 30 mg by mouth once daily. aspirin, enteric coated (ASPIRIN, ENTERIC COATED) 81 mg EC tablet Take 81 mg by mouth once daily. MULTIVITAMIN ORAL Take by mouth once daily. atenolol (TENORMIN) 25 mg tablet Take 1 tablet by mouth once daily. (Patient taking differently: Take 25 mg by mouth as needed.) Current Facility-Administered Medications Medication Dose Route Frequency citalopram 10 mg tab(s) (CeleXA) 10 mg ORAL DAILY (6 AM) maprotiline 50 mg tab(s) (LUDIOMIL) 50 mg ORAL AT BEDTIME ALLERGIES: Bee Venom Protein (Honey Bee), Contrast Dye [Iodine], Lyrica [Pregabalin], and Biaxin [Clarithromycin] PERSONAL HISTORY: Social History Tobacco Use Smoking status: Former Types: Cigarettes Quit date: 07/11/2009 Years since quittin.1 Smokeless tobacco: Former Types: Chew Vaping Use Vaping Use: Never used Substance Use Topics Alcohol use: Not Currently Drug use: Not Currently FAMILY HISTORY: FAMILY HISTORY Problem Relation Age of Onset Coronary Artery Disease Father Heart Maternal Grandmother Heart Maternal Grandfather REVIEW OF SYMPTOMS: The review of systems data was (more content not included)... Normal [facility] CT PULMONARY VEIN W IVCONon 03-23-2021 CT PULMONARY VEIN W IVCON * * *Final Report* * * DATE OF EXAM: Mar 23 2021 10:34AM [facility] [place] 5227 - CT PULMONARY VEIN W IVCON / PROCEDURE REASON: I48.19-Persistent atrial fibrillation (HCC) * * * * Physician Interpretation * * * * Examination: CTA of the chest dated 03/23/2021 10:34 AM Comparison: Not available History: 55 years old Male with history of atrial fibrillation status post RFA/PVI of the pulmonary vein ostia in 12/25/2020. There is a concern for pulmonary venous patency. Technique: Multi-detector CT technology was employed (Siemens Definition Flash dual source scanner ). Axial, sequential imaging with prospective gating was performed of the chest following the IV administration of contrast material. A low-osmolar contrast agent was used (90 cc of Omnipaque 350). CT Dose-Length Product (DLP): [address] Dose Reduction Employed: Automated exposure control (AEC) For optimization of anatomic evaluation, multiplanar reconstruction, maximum intensity projections, and advanced 3-D off-line postprocessing were performed on a dedicated stand-alone workstation under the direct supervision of the interpreting physician. RESULT: Potential study limitations: Extra systole artifact. The chest wall, mediastinum, pericardium, and pulmonary arteries are unremarkable. No significant adenopathy is identified in the axilla, mediastinum, and margy. Small hiatal hernia. Lung windows within normal limits. There is no pulmonary parenchymal mass, infiltrate, or pleural effusion. The cardiac chambers are normal in size.... VASCULAR WITH ADVANCED 3-D OFF-LINE POSTPROCESSING: The left atrium and atrial appendage show no evidence of thrombus. The left atrium receives 4 widely patent pulmonary veins without complication from the RFA/PVI procedure. The right middle vein is a branch of the right superior pulmonary vein. No pulmonary vein stenosis is noted. The coronary sinus drains into the right atrium normally and is widely patent. The aortic valve is trileaflet, and free from calcifications. The visualized portions of the ascending and descending thoracic aorta are of normal size. The aortic arch is not included in this study. There is no acute aortic pathology, such as dissection, intramural hematoma, or contained rupture. The coronary arteries have normal origins and courses. There are no distinct coronary calcifications identified, though this study was not optimized for coronary artery evaluation. The limited images of the upper abdomen are unremarkable. IMPRESSION: 1. Very prominent artifacts due to extrasystoles. Grossly Normal pulmonary venous anatomy without pulmonary vein stenosis. 2. No left atrial or left atrial appendage thrombus. Tin Container Straightener: MARCELLA Transcribe Date/Time: Mar 23 2021 11:51A Dictated by : OSWALDO PEREZ MD This examination was interpreted and the report reviewed and electronically signed by: OSWALDO PEREZ MD on Mar 23 2021 11:59AM EST [id number] [facility] 12-26-2020 [facility] HNO ID: [id number] Author: Deya Sow MD Service: Electrophysiology Author Type: Physician Type: Discharge Summary Filed: 12/29/2020 8:08 AM Note Text: Department of Cardiovascular Medicine Discharge Summary PATIENT NAME: Chano Dalton ADMISSION DATE: 12/25/2020 DISCHARGE DATE: 12/26/2020 Attending Physician: Deya Mon* Code Status: Not on file Primary Service: Admission Diagnosis: symptomatic persistent atrial fibrillation Discharge Diagnosis: successful pulmonary vein isolation of atrial fibrillation Secondary Diagnoses: Patient Active Hospital Problem List: Atrial fibrillation (HCC) (05/05/2016) Reason for Hospitalization: Mr. Chano Dalton is a 55 year old patient of Dr. Crespo who was diagnosed in 2010 with paroxysmal atrial fibrillation and underwent a cardioversion. Maintained on pill in the pocket flecainide and beta roberto with termination usually within a few hours. He has a preserved LV systolic function. Of recent, he has noticed frequent episodes of atrial fibrillation cause lightheadedness but no syncope and is bothered by the prominent tachy palpitations. He was seen in the outpatient department on 10/03/20 and agreed to pursue catheter ablation. Hospital Course: Post PVI he is doing well with no complaints of lightheadedness on ambulation. He has been SR on telemetry. He does complain of chest tightness and much reassurance given to him due to common symptoms after the procedure. He has been started on protonix and given tylenol and is starting to feel better. Vital signs have been stable. He is urinating well this morning. Extensive discharge teaching was given. Physical exam: Alert AND oriented x 3. MARCIAL x 4. Lungs clear ant and post. S1S2 regular. Abdomen soft and non tender. Positive bowel sounds. No LE edema. Right and left femoral access sites both without bruit or hematoma; DP +2. Sutures to both sites were removed without problems. Consults: None Major Procedure or Operation: Other Procedures, Testing AND Radiology: None In summary, the patient underwent: Pulmonary vein isolation CFE were targeted Pre-discharge Medications: AAD Summary Findings: BASELINE 1. Clinical arrhythmia procedure outcome: successful 2. Instrumentation was via inferior vena cava and transeptal approaches. 3. The [employer]: MAGGI/NAVX mapping system was utilized. 4. Sinus node function was normal. 5. AV arden testing revealed normal function. 6. Infranodal conduction was normal. 7. Supraventricular arrhythmias - Atrial fibrillation. There were no intraprocedural complications. Patient Condition at Discharge: Stable Disposition: Home/Self Care Information Provided to the Patient: Patient given copy of After Visit Summary which included activity instructions, diet instructions, wound care instructions, medication instructions and follow up appointment. ALLERGIES Allergen Reactions - Bee Venom Protein (* Anaphylaxis - Contrast Dye [Iodin* Other: See Comments Triggers afib - Lyrica [Pregabalin] Other: See Comments can't pee - Biaxin [Clarithromy* Rash Discharge Medications: Current Discharge Medication List START taking these medications pantoprazole DR (PROTONIX) 40 mg Take 40 mg by mouth DAILY (6 AM). Qty: 30 tablet Refills: 0 CONTINUE these medications which have NOT CHANGED XARELTO 20 mg Take 20 mg by mouth daily with dinner. Qty: 90 tablet Refills: 3 aspirin, enteric coated (ASPIRIN, ENTERIC COATED) 81 mg Take 81 mg by mouth once daily. MULTIVITAMIN ORAL Take by mouth. gabapentin (NEURONTIN) 300 mg capsule Initially start by taking two 300mg tablets three times a day, then use titration instructions given to increase dose. Qty: 360 capsule Refills: 1 atenolol (TENORMIN) 25 mg Take 25 mg by mouth once daily. Qty: 30 tablet Refills: 11 flecainide (TAMBOCOR) 100 mg Take 100 mg by mouth twice daily. Qty: 60 tablet Refills: 6 Comments: Take 1 or 2 tabs as needed for atrial fibrillation breakthroughs Transitions of Care Critical Issues: Outpatient Management: * Are there important medication changes and/or outstanding issues that need to be addressed: None * What is the plan for follow up: (see below) Future Appointments: Future Appointments Date Time Provider Department Center 01/01/2021 2:00 PM [id number] Highest Readmission Risk Score: 7 The 30 day readmissions risk score is derived from an internally validated risk model which evaluates patient level characteristics, utilization history, medication orders and lab results up until the day of discharge. Patients with a score of 40 or above are considered highest risk for readmission. Specific patient level drivers will be listed at the bottom of the summary. The patient's risk for 30-day readmission is determined using the following contributing factors: P (more content not included)... Normal [facility] NURSING PROGon 12-26-2020 NURSING PROG HNO ID: [id number] Author: Susy Mccormick RN Service: Nursing Author Type: Registered Nurse Type: Nursing Progress Note Filed: 12/26/2020 4:40 PM Note Text: Patient is alert, oriented, and ambulating in his room and the hallway. Bilateral groin sites are soft and stable and unchanged from earlier assessments. Dressings are D AND I. Pulses are palp and no edema noted. Patient states that he has been having non radiating, mid sternal aching for a few hours that gets worse with inspiration but does not change with ambulation. O2 applied at 2L/NC for comfort and patient states that he feels better. Lungs are clear, and patient denies SOB or cough. Patient taking po well and states that his throat is very sore from general anesthesia yesterday. VSS and monitor SR Call herrera within reach. 1015 Patient given Cepacol and Toradol for his pain with good relief. 1130 Patient ambulating in the hallway and states that he is still having throat and chest discomfort. Nadja Fernández SIZE MAKER paged. 1150 Nadja Fernández in to see patient. 1300 Patient given Tylenol, Cepacol, and Protonix. Nadja Fernández in to check patient. 1400 Patient states that he is feeling better but his throat is still sore. Patient ready for discharge. Waiting for his ride home. [facility] NURSING PROG HNO ID: [id number] Author: Nelly Almaguer RN Service: ? Author Type: Registered Nurse Type: Nursing Progress Note Filed: 12/26/2020 12:43 AM Note Text: Nursing Progress Note Patient Name: Chano Dalton Patient Location: [id number]/[facility] -[id number] __ Daily Note: Assumed care of pt at 2330: pt alert and resting in chair. Pt denies cp or pressure, c/o sore throat Pt bilateral groin dressings dry and intact, no bleeding or hematoma noted. Pedal pulses palpable. Pt SR on telemetry. Independent in the room and hallway w/ a steady gait. Pt denies any needs at this time. Call light in reach. 0045: Pt given cepacol for c/o sore throat, safety maintained. This note was completed by: Nelly Almaguer [facility] ANES PRE-OPon 12-25-2020 ANES PRE-OP HNO ID: [id number] Author: Andreas Verde MD Service: Anesthesiology Author Type: Anesthesiologist Type: Anesthesia Preprocedure Evaluation Filed: 12/25/2020 9:38 AM Note Text: ANESTHESIOLOGY DAY OF SURGERY NOTE : 1965 Procedure(s) (LRB): COMPLETE EPS W/PVI ABLATION (N/A) ADD'L PVI ABLATION (N/A) Surgeon(s): Deya Sow MD Estimated body mass index is 30.12 kg/m? as calculated from the following: Height as of this encounter: 182.9 cm (6'). Weight as of this encounter: 100.7 kg (222 lb 1.6 oz). Most recent hematocrit and potassium results: Hematocrit 44.8 12/25/2020 Potassium 4.8 12/25/2020 Relevant Problems CARDIO (+) Atrial fibrillation (HCC) I - PHYSICAL EVALUATION AIRWAY Patient intubated: No. Mallampati: II. TM distance: >3 FB. Neck ROM: full ROM without neurological symptoms. Mouth opening: adequate. Short neck: no. Thick neck: no DENTAL Dental findings: teeth intact. Additional exam findings: no II - ANESTHESIA PLAN ASA Score: 3 Anesthetic Plan: general Airway type: ETT Anesthetic plan additional comments: Symptoms of Sleep Apnea: Denies Previous Anesthesia: No history of adverse event Family history of anesthetic problems: None Functional Capacity Assessment:Denies chest pain and SOB with exertion. Denies change in functional capacity. History of GERD: No Most recent lab results: Hemoglobin 15.0 12/25/2020 Hematocrit 44.8 12/25/2020 Potassium 4.8 12/25/2020 Platelet Count 179 12/25/2020 Creatinine 1.15 12/25/2020. The patient is not a current smoker. NPO Status: adequate Monitoring plan: Standard ASA. Postoperative analgesic plan: parenteral or oral opioids and multimodal analgesia. Anesthetic Risks, Benefits, Alternatives, Personnel Discussed. Consent obtained from: patient.Patient / Surrogate agrees to blood products: yes DNR status not reviewed with patient and/or family prior to surgery. Significant changes in the patient condition since the History and Physical, not otherwise documented in primary service progress note: no. Potential Anesthesia issues that may suggest increased risk of complications or contraindication to planned procedure: none. Vitals Value Taken Time BP 127/87 12/25/20 0711 Pulse 58 12/25/20 0711 Resp 14 12/25/20 0711 Temp SpO2 97 % 12/25/20 0711 No current facility-administered medications on file as of 12/25/2020. Outpatient Medications as of 12/25/2020 Medication Sig - rivaroxaban (XARELTO) 20 mg tablet Take 1 tablet by mouth daily with dinner. - aspirin, enteric coated (ASPIRIN, ENTERIC COATED) 81 mg EC tablet Take 81 mg by mouth once daily. - MULTIVITAMIN ORAL Take by mouth. - gabapentin (NEURONTIN) 300 mg capsule Initially start by taking two 300mg tablets three times a day, then use titration instructions given to increase dose. - atenolol (TENORMIN) 25 mg tablet Take 1 tablet by mouth once daily. (Patient taking differently: Take 25 mg by mouth as needed. For AF episodes ) - flecainide (TAMBOCOR) 100 mg tablet Take 1 tablet by mouth twice daily. (Patient taking differently: Take 100 mg by mouth as needed.) I have interviewed and examined the patient. I have reviewed the medical record and/or the pre-anesthesia evaluation, pertinent labs, and test results. This contains updated information obtained within 48 hours of Surgery/Procedure. SIGNATURE: Andreas Verde MD PATIENT NAME: Chano Dalton DATE: December 25, 2020 TIME: 7:46 AM CSN: [id number] Normal [facility] Basic Metabolic Panlon 12-25 Anion gap [Moles/Vol] 10 mmol/L Normal 9-18 [facility] Comment on above: Performed By: #### B SHOSHANA, CBC ####[id number] [place], [place] [phone] Calcium [Mass/Vol] 9.3 mg/dL Normal 8.5-10.5 [facility] Comment on above: Performed By: #### B MP, CBC ####[facility] [place], [place] [phone] Chloride [Moles/Vol] 104 mmol/L Normal 98-110 [facility] Comment on above: Performed By: #### B MP, CBC ####[phone] CO2 [Moles/Vol] 27 mmol/L Normal 23-32 [facility] Comment on above: Performed By: #### B MP, CBC ####[place] [phone] Creatinine [Mass/Vol] 1.15 mg/dL Normal 0.70-1.40 [facility] Comment on above: Performed By: #### B MP, CBC ####[place] [phone] eGFR- Amer. >60 Normal >60 [facility] Comment on above: Performed By: #### B SHOSHANA, CBC ####[place] [phone] eGFR-All Other Races >60 Normal >60 [facility] Comment on above: Result Comment: eGFR (Estimated GFR) Units of measure: mL/min/1.73 meters squared eGFR is derived from the reexpressed MDRD Study equation using the following parameters: serum creatinine, age, gender and race. The creatinine assay has been calibrated to be traceable to IDMS. An eGFR <60 mL/min/1.73m2 for >3 months is consistent with chronic kidney disease. Refer to KDOQI guidelines for clinical interpretation. In patients with unstable renal function, e.g. those with acute kidney injury, the eGFR may not accurately reflect actual GFR. Performed By: #### B MP, CBC ####[place] [phone] Glucose [Mass/Vol] 96 mg/dL Normal 65-100 [facility] Comment on above: Performed By: #### B MP, CBC ####[place] [phone] Potassium [Moles/Vol] 4.8 mmol/L Normal 3.5-5.0 [facility] Comment on above: Performed By: #### B MP, CBC ####[place] [phone] Sodium [Moles/Vol] 141 mmol/L Normal 135-146 [facility] Comment on above: Performed By: #### B MP, CBC ####[place] [phone] Urea nitrogen [Mass/Vol] 17 mg/dL Normal 10-25 [facility] Comment on above: Performed By: #### B MP, CBC ####[phone] CBCon 12-25-2020 Absolute nRBC <0.01 Normal <0.01 [facility] Comment on above: Performed By: #### B MP, CBC #### [place] [phone] Erythrocyte distribution width (RBC) [Ratio] 12.9 % Normal 11.5-15.0 [facility] Comment on above: Performed By: #### B MP, CBC #### [place] [phone] Hematocrit (Bld) [Volume fraction] 44.8 % Normal 39.0-51.0 [facility] Comment on above: Performed By: #### B MP, CBC #### [phone] Hemoglobin (Bld) [Mass/Vol] 15.0 g/dL Normal 13.0-17.0 [facility] Comment on above: Performed By: #### B MP, CBC #### [phone] MCH 29.5 pG Normal 26.0-34.0 [facility] Comment on above: Performed By: #### B MP, CBC #### [place] [phone] MCHC (RBC) [Mass/Vol] 33.5 g/dL Normal 30.5-36.0 [facility] Comment on above: Performed By: #### B MP, CBC #### [place] [phone] MCV (RBC) [Entitic vol] 88.2 fL Normal 80.0-100.0 [facility] Comment on above: Performed By: #### B MP, CBC #### [place] [phone] Platelet mean volume (Bld) [Entitic vol] 10.4 fL Normal 9.0-12.7 [facility] Comment on above: Performed By: #### B MP, CBC #### [place] [phone] Platelets (Bld) [#/Vol] 179 10*3/uL Normal 150-400 [facility] Comment on above: Performed By: #### B MP, CBC #### [place] [address] RBC (Bld) [#/Vol] 5.08 10*6/uL Normal 4.20-6.00 [facility] Comment on above: Performed By: #### B MP, CBC #### [place] [phone] WBC (Bld) [#/Vol] 7.88 10*3/uL Normal 3.70-11.00 [facility] Comment on above: Performed By: #### B MP, CBC #### [place] [address] CONSULT PROGon 12-25-2020 CONSULT PROG HNO ID: [id number] Author: Jere Mohan RPh Service: Pharmacy Author Type: Pharmacist Type: Consult Progress Note Filed: 12/25/2020 4:28 PM Note Text: PHARMACY PROGRESS NOTE Patient Name: Chano Dalton Admission Date: 12/25/2020 Date of Consult: 12/25/2020 Time of Consult: 4:27 PM In accordance with the inpatient pharmacy consult agreement the following medication changes have been made: Discontinue Citalopram 10 mg PO daily and Maprotiline 50 mg PO at bedtime, patient no longer prescribed outpatient. Pharmacy will continue to monitor patient for continued eligibility of these medication changes. Please call with any questions or concerns. SIGNATURE: Jere Mohan RPh DATE/TIME: 12/25/2020 4:27 PM Normal [facility] Confirm Blood Typeon 021 ABO/RH(D) Positive Normal [facility] Comment on above: Performed By: #### C ONABO ####[facility] [place], [place] [phone] HISTORY PHYSICALon HISTORY PHYSICAL HNO ID: [id number] Author: Violeta Henley PA-C Service: Cardiovascular Disease Author Type: Physician Fur Stretcher Type: HANDP Filed: 12/25/2020 7:54 AM Note Text: HISTORY AND PHYSICAL EXAMINATION SERVICE DATE: 12/25/2020 SERVICE TIME: 7:39 AM PRIMARY CARE PHYSICIAN: Yannick Wilkins MD ASSESSMENT AND PLAN: Paroxysmal atrial tachycardia, A.Fib SUBJECTIVE CHIEF COMPLAINT: Having A.Fib and being symptomatic HPI: This is a 55 year old male who his first episode of A.Fib was ten yrs ago that was terminated with cardioversion . States his breakthrough episodes were treated with Flecainide and metoprolol and this regmine was helpful for while And few times he end up at local [facility] and his A.Fib was terminated with IV medication. States last few months its frequency and its duration has been increased and also they are more symptomatics He describes of having palpitations, chest heaviness, with S.O.B and light-headedness. Therefore he decided to have ablation PAST MEDICAL HISTORY: PAST MEDICAL HISTORY Diagnosis Date - Atrial fibrillation (HCC) PAST SURGICAL HISTORY: PAST SURGICAL HISTORY Procedure Laterality Date - LAMINECTOMY,LUMBAR - LAMINECTOMY,LUMBAR redo in 2019 - REPAIR INCISIONAL HERNIA,REDUCIBLE FAMILY HISTORY: FAMILY HISTORY Problem Relation Age of Onset - Coronary Artery Disease Father - Heart Maternal Grandmother - Heart Maternal Grandfather SOCIAL HISTORY: Social History Tobacco Use - Smoking status: Former Smoker Types: Cigarettes Quit date: 07/11/2009 Years since quittin.4 - Smokeless tobacco: Former User Types: Chew Vaping Use - Vaping Use: Never used Substance Use Topics - Alcohol use: Not Currently - Drug use: Not Currently MEDICATIONS: Prior to Admission Medications perflutren lipid microspheres 1.3 mL in NaCl (PF) 0.9% 10 mL injection (DEFINITY), , INTRAVENOUS, DIRECTED PRN, Deya Sow MD sodium chloride 0.9 % (flush) 10 mL (BD POSIFLUSH), 10 mL, INTRAVENOUS, DIRECTED PRN, Deya Sow MD citalopram 10 mg tab(s) (CeleXA), 10 mg, ORAL, DAILY (6 AM), Sanam Horta APRN.GRANT maprotiline 50 mg tab(s) (LUDIOMIL), 50 mg, ORAL, AT BEDTIME, Sanam Horta APRN.SIZE MAKER rivaroxaban (XARELTO) 20 mg tablet, Take 1 tablet by mouth daily with dinner., Disp: 90 tablet, Rfl: 3, 12/24/2020 at 1700 aspirin, enteric coated (ASPIRIN, ENTERIC COATED) 81 mg EC tablet, Take 81 mg by mouth once daily., Disp: , Rfl: , 12/24/2020 at 1300 MULTIVITAMIN ORAL, Take by mouth., Disp: , Rfl: , 12/24/2020 at Unknown time gabapentin (NEURONTIN) 300 mg capsule, Initially start by taking two 300mg tablets three times a day, then use titration instructions given to increase dose., Disp: 360 capsule, Rfl: 1 atenolol (TENORMIN) 25 mg tablet, Take 1 tablet by mouth once daily. (Patient taking differently: Take 25 mg by mouth as needed. For AF episodes ), Disp: 30 tablet, Rfl: 11, Unknown at Unknown time flecainide (TAMBOCOR) 100 mg tablet, Take 1 tablet by mouth twice daily. (Patient taking differently: Take 100 mg by mouth as needed.), Disp: 60 tablet, Rfl: 6, Unknown at Unknown time CURRENT ALLERGIES: ALLERGIES Allergen Reactions - Bee Venom Protein (* Anaphylaxis - Contrast Dye [Iodin* Other: See Comments Triggers afib - Lyrica [Pregabalin] Other: See Comments can't pee - Biaxin [Clarithromy* Rash COMPLETE REVIEW OF SYSTEMS: GENERAL: No weight loss, malaise or fevers., SEE HPI HEENT: No changes in vision, no nose bleeds or other nasal problems NECK: Negative for lumps, goiter, and significant neck swelling RESPIRATORY: Negative for cough, wheezing or shortness of breath. CARDIOVASCULAR: No leg swelling claudication or palpitations GI: Negative for abdominal discomfort, blood in stools or black stools or change in bowel habits MUSCULOSKELETAL: Negative for joint pain or swelling, PSYCH: Negative for depression or sleep disturbance. HEMATOLOGY/LYMPHOLOGY: Negative for prolonged bleeding, bruising easily or swollen nodes ENDOCRINE: Is not diabetic, does not have hyperthyroidism. NEURO: No history of syncope, paralysis, seizures or tremors All other reviewed and negative other than HPI. History of Bleeding Issues: No OBJECTIVE PHYSICAL EXAM: Patient Vitals for the past 24 hrs: BP Temp src Pulse Resp SpO2 Height Weight 12/25/20 0711 127/87 Temporal Art (!) 58 14 97 % 182.9 cm (6') 100.7 kg (222 lb 1.6 oz) Body mass index is 30.12 kg/m?. GENERAL: Alert and orianted x 3, no distress, cooperative SKIN: Skin color, turgor normal. No rashes or lesions. EARS: External ears normal. NECK: No jugulovenous distention, no carotid bruits, supple. CHEST: No deformities. LUNGS: Lungs clear to auscultation. No rales or wheezing. CARDIAC: Rhythm regular, normal S1 and S2; No murmurs ABDOMEN: Abdomen soft, non-tender.. No masses or organomegaly. EXTREMITIES: Extremities normal. No deformities, (more content not included)... Normal [facility] NURSING PROGon 12-25-2020 NURSING PROG HNO ID: [id number] Author: Briana Rae RN Service: ? Author Type: Registered Nurse Type: Nursing Progress Note Filed: 12/25/2020 9:57 PM Note Text: Nursing Progress Note Patient Name: Chano Dalton Patient Location: [id number]/[facility] -[id number] __ 1999 Assumed care of patient. Report given from ZULAY Jain. Patient in chair at this time. Bilateral groin sites dry and intact. Call light within reach. 2099 Patient ambulating in halls with stable gait. Bilateral groin sites dry and intact. Vascular assessment WNL. Patient denies any pain or discomfort at this time. 2144 Patient up in chair. No needs at this time. This note was completed by: Briana Rae [facility] NURSING PROG HNO ID: [id number] Author: Susy Mccormick RN Service: Nursing Author Type: Registered Nurse Type: Nursing Progress Note Filed: 12/25/2020 6:52 PM Note Text: Patient alert, oriented, and denies pain or need at time of arrival to CPPU from Pre Post. He is calm and pleasant, and states that his throat is very scratchy Bilateral groin sites are soft, stable and dressings are D AND I with no SS hematoma, bleeding, or ecchymosis at sites. Patient is taking po well and menu given. Carpenter draining clear yellow urine and patient may have it removed after he is ambulating . He is on bedrest until 1600. VSS and monitor SR. Call herrera within reach. 1700 Patient off bedrest and bilateral groin sites are stable and soft. He denies pain or needs. Patient ordering his dinner. 1844 No changes. Patient sitting at the edge of the bed. He will ambulate and then his carpenter can be removed. [facility] NURSING PROG HNO ID: [id number] Author: Jackie Tesfaye RN Service: Nursing Author Type: Registered Nurse Type: Nursing Progress Note Filed: 12/25/2020 3:33 PM Note Text: Nursing Progress Note Topic of Note: Daily Note Chano Dalton [id number] Pt. in recovery following a PVI ablation. Pt. awakens to tactile stimuli but is sedated and falls back to sleep when left alone. Right and left groin sites with no bleeding or hematoma to either site. SR on the monitor. No respiratory distress on 4 liters simple face mask. 1423 Pt. able to swallow water and his medications with no choking episodes. States his throat is a little sore, but denies severe pain at groin sites. 1443 Medicated with 15 mg of Toradol and 300 mg Gabapentin per order. Pt. resting quietly in bed. 1510 Report called to Susy Mccormick R.N. Pt. will be transported to room 307 with all personal belongings shortly. 1530 Taken via bed to CPPU room 307 in no acute distress. This note was completed by: Jackie Tesfaye Normal [facility] Type and Screenon 12-25-2020 ABO/RH(D) Positive Normal [facility] Comment on above: Performed By: #### T SCR ####[place] [phone] Urinalysison 12-25-2020 Bilirubin, Urine Negative Normal Negative [facility] Comment on above: Performed By: #### U A #### [address] Clarity (U) Clear Normal Clear [facility] Comment on above: Performed By: #### U A #### [place] [phone] Color (U) Light Yellow Critically abnormal Yellow [facility] Comment on above: Performed By: #### U A #### [place] [phone] Comments SEE COMMENT Normal [facility] Comment on above: Result Comment: Micr oscopic not warranted Performed By: #### U A #### [address] Glucose Ql (U) Negative Normal Negative [facility] Comment on above: Performed By: #### U A #### [place] [phone] Hemoglobin/Blood,Ur Negative Normal Negative [facility] Comment on above: Performed By: #### U A #### [address] Ketones Ql (U) Negative Normal Negative [facility] Comment on above: Performed By: #### U A #### [address] Leukest Negative Normal Negative [facility] Comment on above: Performed By: #### U A #### [place] [phone] Nitrite Ql (U) Negative Normal Negative [facility] Comment on above: Performed By: #### U A #### [place] [phone] pH (U) 5.5 [pH] Normal 5.0-8.0 [facility] Comment on above: Performed By: #### U A #### [place] [phone] Protein, Urine Negative Normal Negative [facility] Comment on above: Performed By: #### U A #### [place] [phone] Specific [place], Ur 1.023 Normal 1.005-1.030 [facility] Comment on above: Performed By: #### U A #### [place] [phone] Urobilinogen (U) [Mass/Vol] Negative Normal Negative [facility] Comment on above: Performed By: #### U A #### [place] [phone] CR Spine Lumbosacral 4+ View son 08-20-2020 CR Spine Lumbosacral 4+ Views Patient Name: CHANO DALTON Diagnostic Radiology ACCESSION EXAM DATE/TIME PROCEDURE ORDERING PROVIDER [id number] 08/20/2020 07:56 EST CR Spine Lumbosacral 4+ MD TEQUILA, YURI BERNARDO CPT code 69941 Reason For Exam (CR Spine Lumbosacral 4+ Views) Lumbar pain Report CLINICAL INFORMATION: Lower back pain. Prior lumbar fusion. Lumbosacral spine, four views: Weightbearing AP and lateral views in neutral position, flexion and extension views demonstrate five lumbar type vertebral bodies. There has been an L4 and L5 laminectomy with posterior instrumented fusion of L4 through S1 using bilateral pedicle screws and rods and and intervertebral disc prosthesis at L5 L5 S1 with transfixing screws extending into the L5 vertebral body. There is no evidence of acute fracture or compression deformity. There is severe narrowing of the fused C4-C5 intervertebral disc with grade I anterolisthesis of L4 on L5 which is stable in flexion and extension. There is and moderate intervertebral disc narrowing at L1-L2 and L2-L3. There is mild retrolisthesis of L2 on L3 which is stable in all three positions. There is no other spondylolisthesis. The pedicles and posterior elements are intact at the nonfused levels. IMPRESSION: Degenerative and postsurgical changes as described. Report Dictated on Final Dictated: 08/20/2020 2:21 pm Dictating Physician: MD GUERRERO HARLAN Signed Date and Time: 08/20/2020 2:32 pm Signed by: MD GUERRERO HARLAN Transcribed Date and Time: 08/20/2020 2:21 Normal [facility] XR LUMBAR SPINE (MIN 4 VIEWS )on 08-20-2020 Patient Name: CHANO DALTON Diagnostic Radiology ACCESSION EXAM DATE/TIME PROCEDURE ORDERING PROVIDER [id number] 08/20/2020 07:56 EST CR Spine Lumbosacral 4+ MD LOVELACE BRADLEY Views PHILLIP CPT code 06049 Reason For Exam (CR Spine Lumbosacral 4+ Views) Lumbar pain Report CLINICAL INFORMATION: Lower back pain. Prior lumbar fusion. Lumbosacral spine, four views: Weightbearing AP and lateral views in neutral position, flexion and extension views demonstrate five lumbar type vertebral bodies. There has been an L4 and L5 laminectomy with posterior instrumented fusion of L4 through S1 using bilateral pedicle screws and rods and and intervertebral disc prosthesis at L5 L5 S1 with transfixing screws extending into the L5 vertebral body. There is no evidence of acute fracture or compression deformity. There is severe narrowing of the fused C4-C5 intervertebral disc with grade I anterolisthesis of L4 on L5 which is stable in flexion and extension. There is and moderate intervertebral disc narrowing at L1-L2 and L2-L3. There is mild retrolisthesis of L2 on L3 which is stable in all three positions. There is no other spondylolisthesis. The pedicles and posterior elements are intact at the nonfused levels. IMPRESSION: Degenerative and postsurgical changes as described. Report Dictated on --- Final --- Dictated: 08/20/2020 2:21 pm Dictating Physician: MD GUERRERO HARLAN Signed Date and Time: 08/20/2020 2:32 pm Signed by: MD GUERRERO HARLAN Transcribed Date and Time: 08/20/2020 2:21 [facility] Work Phone: [facility] From [facility] - 08/20/2020 2:33 PM EST [facility]: [id number] Diagnostic Radiology ACCESSION EXAM DATE/TIME PROCEDURE ORDERING PROVIDER [id number] 08/20/2020 07:56 EST CR Spine Lumbosacral 4+ MD TEQUILA, YURI BERNARDO CPT code 81526 Reason For Exam (CR Spine Lumbosacral 4+ Views) Lumbar pain Report CLINICAL INFORMATION: Lower back pain. Prior lumbar fusion. Lumbosacral spine, four views: Weightbearing AP and lateral views in neutral position, flexion and extension views demonstrate five lumbar type vertebral bodies. There has been an L4 and L5 laminectomy with posterior instrumented fusion of L4 through S1 using bilateral pedicle screws and rods and and intervertebral disc prosthesis at L5 L5 S1 with transfixing screws extending into the L5 vertebral body. There is no evidence of acute fracture or compression deformity. There is severe narrowing of the fused C4-C5 intervertebral disc with grade I anterolisthesis of L4 on L5 which is stable in flexion and extension. There is and moderate intervertebral disc narrowing at L1-L2 and L2-L3. There is mild retrolisthesis of L2 on L3 which is stable in all three positions. There is no other spondylolisthesis. The pedicles and posterior elements are intact at the nonfused levels. IMPRESSION: Degenerative and postsurgical changes as described. Report Dictated on --- Final --- Dictated: 08/20/2020 2:21 pm Dictating Physician: MD GUERRERO HARLAN Signed Date and Time: 08/20/2020 2:32 pm Signed by: MD GUERRERO HARLAN Transcribed Date and Time: 08/20/2020 2:21 [facility] Work Phone: CR Spine Lumbosacral 2 or 3 Viewson 09-27-2019 CR Spine Lumbosacral 2 or 3 Views Patient Name: CHANO DALTON Diagnostic Radiology Exam Date/Time 09/27/2019 10:01:47 EDT Exam CR Spine Lumbosacral 2 or 3 Views Ordering Physician MD LOVELACE BRADLEY PHILLIP Accession Number [id number] CPT4 Codes 98458 () Reason For Exam status post lumbar spinal fusion Report Indication: Status post lumbar fusion. AP and lateral views of the lumbar spine. COMPARISON: 03/15/2019. Since the prior examination, fusion has been performed at the L4, L5 and S1 levels with intrapedicular screws and posterior stabilization bars present. A disc block spacer is present at L5-S1. Persistent disc space narrowing at L4-L5. Anterolisthesis of L4 in reference L5 is similar. Lumbar vertebral body height is maintained. IMPRESSION: Status post fusion of L3, L4 and L5. No acute bony abnormality. Report Dictated on Final Dictated: 09/27/2019 10:53 am Dictating Physician: MD CHANDRA LAURA Signed Date and Time: 09/27/2019 10:54 am Signed by: MD CHANDRA LAURA Transcribed Date and Time: 09/27/2019 10:53 Normal [facility] XR LUMBAR SPINE (2-3 VIEWS)o n 09-27-2019 Patient Name: CHANO DALTON ---Diagnostic Radiology--- Exam Date/Time 09/27/2019 10:01:47 EDT Exam CR Spine Lumbosacral 2 or 3 Views Ordering Physician MD LOVELACE BRADLEY PHILLIP Accession Number [id number] CPT4 Codes 60776 () Reason For Exam status post lumbar spinal fusion Report Indication: Status post lumbar fusion. AP and lateral views of the lumbar spine. COMPARISON: 03/15/2019. Since the prior examination, fusion has been performed at the L4, L5 and S1 levels with intrapedicular screws and posterior stabilization bars present. A disc block spacer is present at L5-S1. Persistent disc space narrowing at L4-L5. Anterolisthesis of L4 in reference L5 is similar. Lumbar vertebral body height is maintained. IMPRESSION: Status post fusion of L3, L4 and L5. No acute bony abnormality. Report Dictated on --- Final --- Dictated: 09/27/2019 10:53 am Dictating Physician: MD CHANDRA LAURA Signed Date and Time: 09/27/2019 10:54 am Signed by: MD CHANDRA LAURA Transcribed Date and Time: 09/27/2019 10:53 [place], [place] Ronnie, Emilya Incoming Radiology Results From [facility] - 09/27/2019 10:55 AM EDT Patient Name: CHANO DALTON ---Diagnostic Radiology--- Exam Date/Time 09/27/2019 10:01:47 EDT Exam CR Spine Lumbosacral 2 or 3 Views Ordering Physician MD LOVELACE BRADLEY PHILLIP Accession Number [id number] CPT4 Codes 06070 () Reason For Exam status post lumbar spinal fusion Report Indication: Status post lumbar fusion. AP and lateral views of the lumbar spine. COMPARISON: 03/15/2019. Since the prior examination, fusion has been performed at the L4, L5 and S1 levels with intrapedicular screws and posterior stabilization bars present. A disc block spacer is present at L5-S1. Persistent disc space narrowing at L4-L5. Anterolisthesis of L4 in reference L5 is similar. Lumbar vertebral body height is maintained. IMPRESSION: Status post fusion of L3, L4 and L5. No acute bony abnormality. Report Dictated on --- Final --- Dictated: 09/27/2019 10:53 am Dictating Physician: MD CHANDRA LAURA Signed Date and Time: 09/27/2019 10:54 am Signed by: MD CHANDRA LAURA Transcribed Date and Time: 09/27/2019 10:53 [facility], [place] Basic Metabolic Panelon 0 Calcium [Mass/Vol] 8.6 mg/dL Normal 8.4-10.4 [facility] Comment on above: Performed By: #### H VICENTE ALBARADO3M #### [facility] [address] [place] [address] Glucose [Mass/Vol] 145 mg/dL High 70-100 [facility] Comment on above: Performed By: #### H EMOG, BMP3M #### [facility] [address] [place] [address] Urea nitrogen [Mass/Vol] 18 mg/dL Normal 7-20 [facility] Comment on above: Performed By: #### H VERENA BMP3M #### [facility] [address] [place] [address] Anion gap [Moles/Vol] 9 Normal [facility] Comment on above: Performed By: #### H VERENA BMP3M #### [facility] [address] [place] [address] CO2 [Moles/Vol] 25 mmol/L Normal 22-30 [facility] Comment on above: Performed By: #### H VICENTE ALBARADO3M #### [place] [address] [place] [address] Creatinine [Mass/Vol] 0.95 mg/dL Normal 0.52-1.25 [facility] Comment on above: Performed By: #### H VERENA BMP3M #### [place] [address] [place] [address] GFR/1.73 sq M predicted among blacks MDRD (S/P/Bld) [Vol rate/Area] mL/min/{1.73_m2} Normal >60 [facility] Comment on above: Performed By: #### H VERENA BMP3M #### [place] [address] [place] [address] GFR/1.73 sq M predicted among non-blacks MDRD (S/P/Bld) [Vol rate/Area] mL/min/{1.73_m2} Normal >60 [facility] Comment on above: Result Comment: Sour ce- MDRD equation with creatinine calibration to IDMS(NKDEP) eGFR not recommended for drug dose adjustment Performed By: #### H VERENA BMP3M #### [place] [address] [place] [address] Chloride [Moles/Vol] 104 mmol/L Normal 98-107 [facility] Comment on above: Performed By: #### H VERENA BMP3M #### [facility] [address] [place] [address] Potassium [Moles/Vol] 4.6 mmol/L Normal 3.5-5.1 [facility] Comment on above: Performed By: #### H VICENTE ALBARADO3M #### [facility] [address] [place] [address] Sodium [Moles/Vol] 138 mmol/L Normal 135-145 [facility] Comment on above: Performed By: #### H VICENTE ALBARADO3M #### [facility] [address] [place] [address] Basic Metabolic Panel w/ Ref cornelius to MGon 09-12-2019 Anion gap [Moles/Vol] 9 mmol/L [place], [place] Calcium [Mass/Vol] 8.6 mg/dL 8.4 - 10. 4 mg/dL [place] Chloride [Moles/Vol] 104 mmol/L 98 - 107 mmol/L [place] CO2 [Moles/Vol] 25 mmol/L 22 - 30 mmol/L [place] Creatinine [Mass/Vol] 0.95 mg/dL 0.52 - 1.25 mg/dL [place] EGFR IF NonAfrican [place] >60.0 >60 mL/min [place] Comment on above: Source- MDRD equatio n with creatinine calibration to IDMS(NKDEP) eGFR not recommended for drug dose adjustment GFR/1.73 sq M predicted among blacks MDRD (S/P/Bld) [Vol rate/Area] mL/min/{1.73_m2} >60 mL/min [place] Glucose [Mass/Vol] 145 mg/dL High 70 - 100 mg/dL [place] Interpretation and review of laboratory results Abnormal [place] Potassium [Moles/Vol] 4.6 mmol/L 3.5 - 5.1 mmol/L [place] Sodium [Moles/Vol] 138 mmol/L 135 - 145 mmol/L [place] Urea nitrogen [Mass/Vol] 18 mg/dL 7 - 20 mg/dL [place] Test Performed by [facility], [address] [place] [address] [place], [place] CBCon 09-12-2019 Erythrocyte distribution width (RBC) [Ratio] 13.5 % 11.5 - 14.5 % [place] Hematocrit (Bld) [Volume fraction] 42.3 % 40 - 52 % [place] Hemoglobin (Bld) [Mass/Vol] 14.0 g/dL 13 - 18 g/dL [place] Interpretation and review of laboratory results Abnormal [place] MCH (RBC) [Entitic mass] 29.9 pg 26 - 34 pg [place] MCHC (RBC) [Mass/Vol] 33.0 % 32 - 36 % [place] MCV (RBC) [Entitic vol] 90.4 fL 80 - 98 fL [place] Platelet mean volume (Bld) [Entitic vol] 8.3 fL 7.4 - 10.4 fL [place] Platelets (Bld) [#/Vol] 194 10*3/uL 140 - 440 10*3/uL [place] RBC (Bld) [#/Vol] 4.68 10*6/uL 4.4 - 5.9 10*6/uL [place] WBC (Bld) [#/Vol] 16.7 10*3/uL High 3.6 - 10.7 10*3/uL [place] Test Performed by [facility], [address] [place] [address] [place], [place] Hemogramon 09-12-2019 Erythrocyte distribution width (RBC) [Ratio] 13.5 % Normal 11.5-14.5 [facility] Comment on above: Performed By: #### H JOSE ROBERTO ALBARADO #### [address] [address] Hematocrit (Bld) [Volume fraction] 42.3 % Normal 40.0-52.0 [facility] Comment on above: Performed By: #### H VICENTE ALBARADO3Miriam #### [address] Hemoglobin (Bld) [Mass/Vol] 14.0 g/dL Normal 13.0-18.0 [facility] Comment on above: Performed By: #### VICENTE MEADE3M #### [facility] [address] [place], [place] MCH (RBC) [Entitic mass] 29.9 pg Normal 26.0-34.0 [facility] Comment on above: Performed By: #### Bandar ALBARADO BMP3M #### [place] [address] [address] [place] MCHC (RBC) [Mass/Vol] 33.0 % Normal 32.0-36.0 [facility] Comment on above: Performed By: #### Bandar ALBARADO BMP3M #### [place] [address] [address] [place] MCV (RBC) [Entitic vol] 90.4 fL Normal 80.0-98.0 [facility] Comment on above: Performed By: #### Bandar ALBARADO BMP3M #### [place] [address] [address] [place], [place] Platelet mean volume (Bld) [Entitic vol] 8.3 fL Normal 7.4-10.4 [facility] Comment on above: Performed By: #### Bandar ALBARADO BMP3M #### [place] [address] [address] [place], [place] Platelets (Bld) [#/Vol] 194 10*3/uL Normal 140-440 [facility] Comment on above: Performed By: #### H VERENA BMP3M #### [place] [address] [address], [place] RBC (Bld) [#/Vol] 4.68 10*6/uL Normal 4.40-5.90 [facility] Comment on above: Performed By: #### Bandar ALBARADO BMP3M #### [facility] [address] [place], [place] WBC (Bld) [#/Vol] 16.7 10*3/uL High 3.6-10.7 [facility] Comment on above: Performed By: #### H EMOG, BMP3M #### [address] [address] Op Noteon 09-11-2019 Op Note PATIENT: CHANO DALTON ADMISSION DATE: 09/11/2019 SURGERY DATE: 09/11/2019 DATE OF : 1965 AGE: 54 ADMITTING PHYSICIAN: Yuri Lovelace MD ATTENDING PHYSICIAN: Mireya Sagastume MD DICTATING PHYSICIAN: Mireya Sagastume MD OPERATIVE RECORD Procedure: ANTERIOR LUMBAR EXPOSURE WITH DISKECTOMY AND FUSION OF L4 THROUGH S1. Preoperative Diagnosis: Degenerative disk disease at L4-L5 and L5-S1. Postoperative Diagnosis: Degenerative disk disease at L4-L5 and L5-S1. Anesthesia: General. Co-Surgeon: Yuri Lovelace M.D. Indications: The patient is a 54-year-old white male brought to the operating room by Dr. Lovelace for anterior lumbar spine approach. Description of Procedure: The patient was placed in the supine position and general anesthesia was induced. The abdomen was shaved, prepped, and draped in the usual sterile fashion. A transverse left lower quadrant incision was made and through this incision, the left rectus sheath was exposed. A Z-shaped incision was made in the left rectus sheath and the left rectus muscle was retracted laterally. Using blunt dissection, the retroperitoneum was dissected down to the iliac vessels and spine. Middle sacral artery and vein were ligated with hemoclips and divided. The iliac vessels were then mobilized laterally exposing the L5-S1 disk space. The left iliac vein was then mobilized laterally and mobilized to the right side of the spine exposing the L4-L5 disk space. Once the 2 disk spaces were adequately exposed, Dr. Lovelace proceeded with his portion of the case which will be dictated separately. Once he was finished, the retractors were removed placing the iliac vessels and retroperitoneum back into normal position. The anterior rectus sheath was then reconstructed with running #1 PDS suture followed by a subcutaneous and subcuticular closure. Estimated blood loss for the procedure was 100 cc and sponge and needle counts were correct at the end of the case. The patient will then be turned for a posterior approach, which Dr. Lovelace will dictate separately. [employer] Job ID: [id number] Mireya Sagastume MD DOD:09/11/2019 02:51 P DP/dsk DOT:09/11/2019 03:41 P Job Number: [id number] Document Number: [id number] cc: Yuri Lovelace MD [address] Replaced by [facility] [address] Mireya Sagastume MD [address] Replaced by [facility] [address] Normal [facility] Vit D, 1,25-Dihydroxyon 08-12 Vit D, 1,25-Dihydroxy 44.7 pg/mL Normal 19.9-79.3 [facility] Comment on above: Result Comment: INTE RPRETIVE INFORMATION: Vitamin D, 1,25-Dihydroxy This test is primarily indicated during patient evaluation for hypercalcemia and renal failure. A normal result does not rule out Vitamin D deficiency. The recommended test for diagnosing Vitamin D deficiency is Vitamin D 25-hydroxy. Performed by [facility], [address] [place] [address] [email or web address], Osiel Lassiter MD, Lab. Director Performed By: #### D 125O #### The performing lab is in the report. CULTURE STAPH AUREUSon 08-30 CULTURE STAPH AUREUS CULTURE STAPH AUREUS --> Status: F No Staphylococcus aureus isolated. Normal [facility] Comment on above: Order Comment: Speci men Source Comment:Nasal Performed By: #### C /SA ####[facility] [id number] [place] [address] CULTURE URINEon 08-30-2019 CULTURE URINE CULTURE URINE --> Status: F Normal urogenital porter present. Normal [facility] Comment on above: Performed By: #### C UA2, C/UR #### [facility] [address] [place] [address] Add On Lab Teston 08-28-2019 Sodium [Moles/Vol] Accepted [facility] Work Phone: Comment on above: Specimen available & acceptable for analysis. Test Performed by [facility], [address] [place] [id number] [place] [address] Work Phone: Add on test from HISon 08-28 Add on test from HIS Accepted Normal [facility] Comment on above: Result Comment: Spec imen available & acceptable for analysis. Performed By: #### A DDON #### [facility] [place] Complete Urinalysison 2019 Appearance (U) Clear Normal Clear [facility] Comment on above: Performed By: #### C UA2, C/UR #### [facility] [place] Bacteria LM.HPF (Urine sed) [#/Area] Moderate Normal Negative [facility] Comment on above: Performed By: #### C UA2, C/UR #### [facility] [place], [place] Bilirubin,Urine Negative Normal Negative [facility] Comment on above: Performed By: #### C UA2, C/UR #### [facility] [place] Color (U) Yellow Normal Lt. Yellow [facility] Comment on above: Performed By: #### C UA2, C/UR #### [facility] [place] Glucose Ql (U) Normal Normal Normal (<70) [facility] Comment on above: Performed By: #### C UA2, C/UR #### [facility] [place] Ketone,Urine Negative Normal Negative [facility] Comment on above: Performed By: #### C UA2, C/UR #### [facility] [place], [place] Leukocytes,Urine 75 Lanny/uL Normal Negative [facility] Comment on above: Performed By: #### C UA2, C/UR #### [facility] [place] Mucous Threads Many Normal Negative [facility] Comment on above: Performed By: #### C UA2, C/UR #### [facility] [address] [place], [place] Nitrites,Urine Positive Normal Negative [facility] Comment on above: Performed By: #### C UA2, C/UR #### [place] [address] [place] Occult Blood,Urine Negative Normal Negative [facility] Comment on above: Performed By: #### C UA2, C/UR #### [place] [address] [place] pH (U) 5.5 Normal 5.0-8.0 [facility] Comment on above: Performed By: #### C UA2, C/UR #### [place] [address] [place] Protein (U) [Mass/Vol] Negative Normal Negative [facility] Comment on above: Performed By: #### C UA2, C/UR #### [place] [address] [place] RBC LM.HPF (Urine sed) [#/Area] 3 - 5 Normal 0-2 [facility] Comment on above: Performed By: #### C UA2, C/UR #### [place] [address] [place] Specific [place],Urine 1.018 Normal 1.005-1.030 [facility] Comment on above: Performed By: #### C UA2, C/UR #### [place] [address] [place] Squamous Epithelial 0 - 2 Normal 3-5 [facility] Comment on above: Performed By: #### C UA2, C/UR #### [place] [address] [place], [place] Urobilinogen,Urine Normal Normal Normal (0-1) [facility] Comment on above: Performed By: #### C UA2, C/UR #### [place] [address] [place], [place] WBC LM.HPF (Urine sed) [#/Area] 11 - 25 Normal 0-5 [facility] Comment on above: Performed By: #### C UA2, C/UR #### [facility] [place] [address] TS GELon 08-28-2019 TS GEL ABO Group: A Rh, Gel: POS Antibody Screen Gel: NEG Normal [facility] Comment on above: Performed By: #### T SGL #### [facility] [place] [address] [facility] TYPE AND SCREENon 08-28-2019 Sodium [Moles/Vol] A [employer] Work Phone: Sodium [Moles/Vol] Negative [employer] Work Phone: Comment on above: Test Performed by [facility] [employer], [address] [place] [id number] Sodium [Moles/Vol] Positive [employer] Work Phone: Comment on above: Test Performed by [employer], [address] [place] [address] Test Performed by [facility], [address] [place] [address] [employer] Work Phone: Urinalysison 08-28-2019 Appearance (U) Clear Clear NA [employer] Work Phone: Bacteria, UA Moderate Negative /[HPF] [employer] Work Phone: Bilirubin Urine Negative Negative mg/dL [employer] Work Phone: Color (U) Yellow Lt. Yellow NA [employer] Work Phone: Glucose, Ur Normal Normal (<70) mg/dL [facility] Work Phone: Ketones Ql (U) Negative Negative mg/dL [employer] Work Phone: LEUKOCYTES, UA 75 Negative Lanny/uL [facility] Work Phone: Mucous Threads Many Negative /[LPF] [employer] Work Phone: Nitrite, Urine Positive Negative NA [employer] Work Phone: Occult Blood,Urine Negative Negative mg/dL [facility] Work Phone: pH (U) 5.5 [pH] [employer] Work Phone: Protein (U) [Mass/Vol] Negative Negative mg/dL [facility] Work Phone: RBC (U) [#/Vol] 3-5 0 - 2 /[HPF] [facility] Work Phone: Specific [place], Urine 1.018 [facility] Work Phone: Squam Epithel, UA 0-2 3 - 5 /[HPF] [employer] Work Phone: Urobilinogen, Urine Normal Normal ( 0-1) mg/dL [employer] Work Phone: WBC, UA 11-25 0 - 5 /[HPF] [employer] Work Phone: Test Performed by [employer], [address] [place] [address] [facility] Work Phone: Vital Signs Date Time Vital Sign Value Performing Clinician Facility 08-24-2022 12:55-0500 Body height 182.9 cm Loree Kostas PA-C Work Phone: [facility] 08-24-2022 12:55-0500 Body temperature 97.2 [degF] Loree Kostas PA-C Work Phone: [facility] 08-24-2022 12:55-0500 Body weight 99.34 kg Loree Tylersville PA-C Work Phone: [facility] 08-24-2022 12:55-0500 Diastolic blood pressure 78 mm[Hg] Loree [place] PA-C Work Phone: [facility] 08-24-2022 12:55-0500 Heart rate 94 /min Loree [place] PA-C Work Phone: [facility] 08-24-2022 12:55-0500 SaO2% (BldA) [Mass fraction] 96 % Loree Kostas PA-C Work Phone: [facility] 08-24-2022 12:55-0500 Systolic blood pressure 140 mm[Hg] Loree [place] PA-C Work Phone: [facility] 09-12-2019 13:14-0500 Body Temperature 97.81 [degF] [facility] [employer] [facility] [place] , [place] 09-12-2019 13:14-0500 BP Diastolic 59 mm[Hg] [facility] [place] 09-12-2019 13:14-0500 BP Systolic 112 mm[Hg] [facility] [place] 09-12-2019 13:14-0500 Pulse (Heart Rate) 72 /min [facility] [place] 09-12-2019 13:14-0500 Pulse Oximetry 93 % [facility] [place] 09-12-2019 13:14-0500 Respiratory Rate 16 /min [facility] [place] 09-11-2019 06:43-0500 BMI (Body Mass Index) 33.52 kg/m2 [facility], [place] 09-11-2019 06:43-0500 Body weight 102.97 kg [facility] , [place] 09-11-2019 06:43-0500 Height 175.3 cm [facility] , [place] 08-28-2019 10:16-0500 BMI (Body Mass Index) 31.66 kg/m2 Yuri Adornot [employer] Work Phone: 08-28-2019 10:16-0500 Body Temperature 97.59 [degF] Yuri Adornot [employer] Work Phone: 08-28-2019 10:16-0500 Body weight 102.97 kg Yuri Figueroarott [facility] Work Phone: 08-28-2019 10:16-0500 BP Diastolic 76 mm[Hg] Yuri Figueroarott [facility] Work Phone: 08-28-2019 10:16-0500 BP Systolic 117 mm[Hg] Yuri Figueroarott [facility] Work Phone: 08-28-2019 10:16-0500 Height 180.3 cm Yuri [facility] Work Phone: 08-28-2019 10:16-0500 Pulse (Heart Rate) 52 /min Yuri [facility] Work Phone: 08-28-2019 10:16-0500 Pulse Oximetry 95 % Yuri [facility] Work Phone: Encounters Encounter Date Encounter Type Care Provider Facility Start: 04-24-2025 End: 04-24-2025 Emergency department patient visit Luis Braxton Facility:[facility] Start: 07-06-2024 End: 07-06-2024 Emergency department patient visit Santosroxana Vailne Facility:[facility] Start: 01-23-2024 ambulatory YANNICK WILKINS [facility] Start: 10-27-2023 End: 10-27-2023 ambulatory [facility] Work Phone: Start: 10-27-2023 End: 10-27-2023 Patient encounter procedure [facility]-Radiology, [facility] Work Phone: Start: 05-09-2023 End: 05-09-2023 ambulatory [facility] Work Phone: Start: 05-09-2023 End: 05-09-2023 Discharged Recurring [facility]-Physical Therapy Work Phone: Start: 10-04-2022 End: 10-04-2022 ambulatory YANNICK WILKINS Facility:[facility] Start: 08-24-2022 End: 08-25-2022 ambulatory YANNICK WILKINS Facility:[facility] Start: 08-24-2022 End: 08-24-2022 Patient encounter procedure Loree Garnett PA-C Work Phone: General Surgery Comment on above: Encounter for screen ing for malignant neoplasm of colon (Primary Dx) Start: 08-20-2020 End: 08-20-2020 Subsequent hospital visit by physician Yuri Lovelace Work Phone: [facility] Start: 09-27-2019 End: 09-27-2019 Subsequent hospital visit by physician Yuri Lovelace Work Phone: [facility] X-Ray Start: 09-11-2019 End: 09-12-2019 Evaluation and management of inpatient Yuri Figueroahasmukh Work Phone: [facility] H6 TELEMETRY Comment on above: Pseudarthrosis after fusion or arthrodesis (Primary Dx) Start: 08-28-2019 End: 08-28-2019 Subsequent hospital visit by physician Yuri Lovelace Work Phone: [facility] Pre-Admit Testing Comment on above: Lumbar radiculopathy Start: 03-15-2019 End: 03-15-2019 Subsequent hospital visit by physician Yuri Lovelace Work Phone: [facility] X-Ray Procedures Date Procedure Procedure Detail Performing Clinician Start: 10-27-2023 X-ray of lumbar spin e, two or three views Start: 12-25-2020 Antibody screen Comment on above: Performed By: #### T SCR ####[address] [id number] Start: 08-20-2020 Radex spine lumbosac ral minimum 4 views Yuri Inkhasmukh Work Phone: Start: 09-27-2019 Radex spine lumbosac ral 2/3 views Yuri Inkhasmukh Work Phone: Start: 09-12-2019 OPERATIVE REPORT 3m Sca nning Start: 09-12-2019 BASIC METABOLIC PANE L W/ REFLEX TO MG FOR LOW K David Reagan Work Phone: Start: 09-12-2019 Blood count complete automated David Reagan Work Phone: Start: 08-28-2019 ADD ON LAB TEST Abbi Andujar Work Phone: Start: 08-28-2019 Urnls dip stick/tabl et rgnt auto w/o microscopy Abbi Andujar Work Phone: Start: 08-28-2019 Blood typing serologic abo Abbi Andujar Work Phone: Plan of Treatment Date Care Activity Detail Author Start: 12-26-2023 DIABETES SCREEN DIABETES SCREEN [facility] Start: 07-11-2022 DEPRESSION ASSESSMENT DEPRESSION ASS ESSMENT [facility] Start: 02-04-2022 COVID-19 VACCINE (5 - Booster for Pfizer series) COVID-19 VACCINE (5 - Booster for Pfizer series) [facility] Start: 2021 PROSTATE CANCER SCREENING DISCUSSION PROSTATE CANCER SCREENING DISCUSSION [facility] Start: 03-11-2020 Influenza vaccination Flu vaccine (# 1) [facility] Work Phone: Start: 11-08-2019 End: 11-08-2019 Nurse Only [facility] [place] Start: 10-04-2019 End: 10-04-2019 Office Visit [facility] [place] Start: 09-20-2019 End: 09-20-2019 Office Visit [facility] [place] Start: 09-11-2019 End: 09-11-2019 Appointment 09/11/2019 Appointment General Surgery Yuri Lovelace MD [address] [facility] [address] [place], [place] [id number] Mireya Sagastume MD [address] [facility] [address] [place], [place] [id number] [facility] General Surgery Start: 04-05-2019 End: 04-05-2019 Office Visit 04/05/2019 Office Visit Orthopedic Surgery Yuri Lovelace MD [address] [facility] [address] [place], [place] [address] [facility] [place] Start: 03-11-2019 Influenza vaccination Flu vaccine (# 1) [place], [place] Start: 2016 Colon cancer screen colonoscopy Colon cancer screen colonoscopy [place], [place] Start: 2016 Screening for malign ant neoplasm of colon Colon cancer screen colonoscopy [facility] Work Phone: Start: 2016 Shingles Vaccine (1 of 2) Shingles Vaccine (1 of 2) [place] Start: 2016 SHINGRIX VACCINE (1 of 2) SHINGRIX VACCINE (1 of 2) [facility] Start: 2011 COLOGUARD (FIT-DNA) COLOGUARD (FIT-D NA) [facility] Start: 2011 Colonoscopy COLONOSCOPY [facility] Start: 2011 COLORECTAL CANCER SCREENING COLORECTAL CANCER SCREENING [facility] Start: [address] COLONOGRAPHY [facility] Start: 2011 FECAL OCCULT BLOOD FECAL OCCULT BLOO D [facility] Start: 2011 SIGMOIDOSCOPY SIGMOIDOSCOPY [facility] Start: 2006 Diabetes screen Diabetes screen [place], [place] Start: 2006 Lipid panel Lipid screen [facility] Work Phone: Start: 2006 Lipid screen Lipid screen [place], [place] Start: 2001 LIPID SCREEN LIPID SCREEN [facility] Start: 1985 DTaP/Tdap/Td vaccine (1 - Tdap) DTaP/Tdap/Td vaccine (1 - Tdap) [place], [place] Start: 1985 Urine microalbumin profile DTAP,TDAP,TD (1 - Tdap) [facility] Start: 1984 HIV SCREENING HIV SCREENING [facility] Start: 1981 HIV screen HIV screen [place], [place] Start: 1981 HIV screening HIV screen [facility] Work Phone: Start: 1977 DTaP/Tdap/Td vaccine (1 - Tdap) DTaP/Tdap/Td vaccine (1 - Tdap) [facility] Work Phone: Start: 1966 HEPATITIS B (1 of 3 - 3-dose series) HEPATITIS B (1 of 3 - 3-dose series) [facility] Start: 1966 Hepatitis C screening Hepatitis C sc reen [facility] Work Phone: End: 08-28-2019 Bacteria identified Cx Nom (U) Urine Culture Microbiology Routine Once for 1 Occurrences starting 08/28/2019 until 08/28/2019 [facility] Work Phone: Comment on above: Once for 1 Occurrenc es starting 08/28/2019 until 08/28/2019 Bacteria identified Cx Nom (U) Urine Culture Microbiology Routine 08/28/2019 11:23 AM [employer] Work Phone: End: 09-13-2019 Basic Metabolic Panel w/ Reflex to MG Basic Metabolic Panel w/ Reflex to MG Lab Routine Daily for 2 Occurrences starting 09/12/2019 until 09/13/2019, 1 completed [employer] [facility] Comment on above: Daily for 2 Occurren dawn starting 09/12/2019 until 09/13/2019, 1 completed End: 09-13-2019 CBC CBC Lab Routine Daily for 2 Occurrences starting 09/12/2019 until 09/13/2019, 1 completed [employer] [facility] Comment on above: Daily for 2 Occurren dawn starting 09/12/2019 until 09/13/2019, 1 completed End: 08-28-2019 Culture, Staph Aureus - [facility] only Culture, Staph Aureus - [facility] Microbiology Routine Lumbar radiculopathy 1 Occurrences starting 08/28/2019 until 08/28/2019 [employer] Work Phone: Comment on above: 1 Occurrences starti ng 08/28/2019 until 08/28/2019 Culture, Staph Aureu s - [facility] only Culture, Staph Aureus - [facility] Microbiology Routine Lumbar radiculopathy 08/28/2019 11:23 AM [employer] Work Phone: EKG 12 Lead EKG 12 Lead ECG Routine 09/12/2019 1:48 PM LEIGH [employer] HERNAN GUILLEN End: 09-11-2019 FL Greater Than 1 Hour FL Greater Than 1 Hour Imaging Routine Once for 1 Occurrences starting 09/11/2019 until 09/11/2019 [employer] [facility] Comment on above: Once for 1 Occurrenc es starting 09/11/2019 until 09/11/2019 FL Greater Than 1 Hour FL Greate r Than 1 Hour Imaging Routine 09/11/2019 7:54 AM LEIGH [employer] AKHERNAN Initiate Oxygen Ther apy Protocol Initiate Oxygen Therapy Protocol Respiratory Care Routine Daily until discontinued starting 09/11/2019 [facility] [employer] HERNAN GUILLEN Comment on above: Daily until disconti nued starting 09/11/2019 End: 08-28-2019 Vitamin D 1,25 Dihydroxy Vitamin D 1,25 Dihydroxy Lab Routine One Time for 1 Occurrences starting 08/28/2019 until 08/28/2019 [facility] Work Phone: Comment on above: One Time for 1 Occur rences starting 08/28/2019 until 08/28/2019 Vitamin D 1,25 Dihydroxy Vitamin D 1,25 Dihydroxy Lab Routine 08/28/2019 11:21 AM EST [facility] Work Phone: End: 03-15-2019 XR LUMBAR SPINE (MIN 4 VIEWS) XR LUMBAR SPINE (MIN 4 VIEWS) Imaging Routine Once for 1 Occurrences starting 03/15/2019 until 03/15/2019 [place] Comment on above: Once for 1 Occurrenc es starting 03/15/2019 until 03/15/2019 XR LUMBAR SPINE (MIN 4 VIEWS) XR LUMBAR SPINE (MIN 4 VIEWS) Imaging Routine 03/15/2019 1:58 PM EDT [place] [facility] Immunizations Immunization Date Immunization Notes Care Provider Fa cili 10-23-2020 Covid (Pfizer) [facility] 10-03-2020 Covid (Pfizer) [facility] 04-12-2016 Influenza virus vaccine [facility] Payers Date Payer Category Payer Self-pay [id number] 2022 Medicaid [facility] MEDICAID [facility] COMMUNITY PLAN [place] [id number] 2022-Present [phone] [address] [place] [address] Medicaid [id number] 2019 Medicaid [id number] 2016 Private Health Insurance [facility] COMMUNITY PLAN xxxxxxxxx 2016-Present [phone] [address] [place] [address] xxxxxxxxx [id number] 2016 Private Health Insurance [id number] 1966 Unknown [id number] Unknown [facility] [id number] Unknown [facility] [id number] Unknown [id number] Unknown [id number] Social History Date Type Detail Facility Start: 03-15-2019 End: 08-24-2022 Tobacco smoking status NHIS Former smoker [facility] End: 07-11-2009 History of tobacco use Current smoker [place], [place] End: 07-11-2009 History of tobacco use Cigarette Smoker [place] Start: 03-15-2019 Alcohol intake Not Currently [place], [place] Sex Assigned At Not on file [place] Start: 09-11-2019 End: 08-24-2022 Alcohol intake Ex-drinker (finding) [employer] Work Phone: Start: 08-20-2020 Tobacco use and exposure Never used [employer] Work Phone: Exposure to SARS-CoV -2 (event) Not sure [employer] Work Phone: Start: 08-24-2022 Tobacco use and exposure Former smokeless tobacco user [facility] History of tobacco use Chews Tobacco [facility] Start: 1965 Sex Assigned At Male [facility] Start: 08-19-2021 Tobacco smoking stat [facility] Unknown if ever smoked [facility] Start: 08-08-2020 Non-smoker [facility] Medical Equipment Procedure Code Equipment Code Equipment Origin al Text Equipment Identifier Dates Repair, hernia, umbilical, using mesh MESH,VENTLEX ST SM 4.3CM FDA Start: 08-12-2020 Repair, hernia, umbilical, using mesh MESH,VENTLEX ST SM 4.3CM FDA Start: 02-02-2021 Clinical Notes 12-26-2020 to 05-09-2023 Note Date & Type Note Facility 05-09-2023 Discharge summary Note Date/Time May 09, 2023 1:46pm [facility] Physical Therapy [facility] [address] [place] [address] / REHABILITATION SERVICES DISCHARGE SUMMARY MR#: [id number] Acct: [id number] Name: CHANO DALTON Rep #: [id number] : 1965 58 From: Andreas Contreras DPT, OCS, CSCS Referring DrDaren: Status: REG RCR Insurance: [employer] [facility] COMMUNITY PLAN Discharge Summary D/C summary: It has been my pleasure to treat CHANO DALTON referred by DARCI HELTON,with the diagnosis of s/p LB surgery 01/10/23 cleanout for a total of 21 visit(s). Discharge Date: 05/09/23 Please see the following information for a summary of their discharge status. Subjective Subjective: Pt states he's still pretty sore. Did not go swimming today. Was up quite late last night with back pain. Took some muscle relaxers to help take theedge off. States trying to golf on tuesday, but didn't go well - hurt to swing. Pain LBP, legs: Pain Intensity (Out of 10): 3 Upper Back: Pain Intensity (Out of 10): 2 Overall Improvement % Improvement: 10 Objective Objective/Function: Cont to add in a few more activities that pt can demo at home. Remains quite challenged with Current exercise selections. To see PT next for reassessment. Goals Goal 1:: Pain in LB and legs 3/10 at worst and 50% better Goal Progress: 10% Goal 2:: Walks and transfer without hesitation or evidence of paiin or limitations in community Goal Progress: Not Progressing Goal 3:: I appropriate strength pool and land for core adn LB ROM and LE stretching Goal Progress: pool met Goal 4:: Oswestry score 10 or better. Goal Progress: Not Progressing Plan Plan: 3x/week for 4 week, pt to continue daily HEP and 3x/week in the pool at . In clinic work toward ROM Low back including yoga stretches, Also please do HEPfor core and general strength he can do at home including mat exercises for core, using db (has 0-40#) and knee flexion /ext which he has, and bands and body weight and work to I. D/C Information Discharge Comments: back to doctor for next medical step d/c sentence: If there are questions or concerns regarding this patient's physical therapy, please feel free to call me at [phone]. Thank you for the referral of thispatient. Sincerely, Andreas Contreras, DPT, OCS, CSCS Balance/Gait/Functional tests Balance/Special Test Scores Oswestry Low Back Score: 23 Improvement % Improvement: 10 <Electronically signed by Andreas MARQUEZT, OCS, CSCS> 05/09/23 1346 CC: Dr. Yannick Wilkins MD; DARCI SHALL ~ EBG Signed [facility] Work Phone: [phone]) 389-668703-27-2023 NoteHNO ID: [id number] Author: Joss Gonsalez MD Service: ? Author Type: Physician Type: Progress Notes Filed: 10/04/2022 12:52 PM Note Text: Patient presents with: Cough: SOB, chest congestion, ears clogged, nasal congestion x2 weeks HPI: Feeling sick for 2 weeks. Initial influenza-like illness improved some, but head and chest congestion are not. Positive symptoms: Cough, Shortness of breath, Chest tightness, Earache, Nasal Congestion, resolved fever, sinus pressure, Negative symptoms: Vomiting, Diarrhea, OTC: Tylenol PAST MEDICAL HISTORY Diagnosis Date Atrial fibrillation (HCC) Depression MEDICATIONS: Current Outpatient Medications Medication Sig DULoxetine (CYMBALTA) 30 mg capsule Take 30 mg by mouth once daily. aspirin, enteric coated (ASPIRIN, ENTERIC COATED) 81 mg EC tablet Take 81 mg by mouth once daily. MULTIVITAMIN ORAL Take by mouth once daily. atenolol (TENORMIN) 25 mg tablet Take 1 tablet by mouth once daily. (Patient taking differently: Take 25 mg by mouth as needed.) Current Facility-Administered Medications Medication Dose Route Frequency citalopram 10 mg tab(s) (CeleXA) 10 mg ORAL DAILY (6 AM) maprotiline 50 mg tab(s) (LUDIOMIL) 50 mg ORAL AT BEDTIME ALLERGIES: ALLERGIES Allergen Reactions Bee Venom Protein (* Anaphylaxis Contrast Dye [Iodin* Other: See Comments Triggers afib Lyrica [Pregabalin] Other: See Comments can't pee Biaxin [Clarithromy* Rash VITALS: BP 126/80 Pulse 70 Temp 36.9 ?C (98.4 ?F) Resp 20 Wt 99.6 kg (219 lb 9.6 oz) SpO2 96% BMI 29.78 kg/m? PHYSICAL EXAM: GEN: mildly ill appearing HEENT: PERRL, EOMI, conjunctiva clear Ears: canals clear. TMs without bulge or effusion. Right tympanic membrane retracted. Small central hyperemia left tympanic membrane. Sinuses: tender frontal sinus, tender maxillary sinuses Throat: moist mucous membranes, pharyngeal erythema, no exudate Neck: supple, no thyromegaly, no lymphadenopathy HEART: regular rate and rhythm, no murmurs LUNGS: clear to auscultation, no wheezes or crackles, no increased WOB ASSESSMENT/PLAN: 1. Acute non-recurrent sinusitis, unspecified location - ICD9: 461.9, ICD10: J01.90 Discussed differential includes lingering viral URI, multiple viral illnesses, and secondary bacterial sinusitis. - AMOXICILLIN 875 MG-POTASSIUM CLAVULANATE 125 MG TABLET Continue supportive treatment. Joss Gonsalez, [facility]02-14-2023 NoteHNO ID: [id number] Author: Loree Garnett PA-C Service: ? Author Type: Physician Fur Stretcher Type: Progress Notes Filed: 08/24/2022 4:40 PM Note Text: HISTORY AND PHYSICAL Chano Dalton 1965 REFERRING PHYSICIAN: Yannick Wilkins MD CHIEF COMPLAINT: Consult (colonoscopy) HPI: The patient is a 57 year old male referred for endoscopy. Chano notes no colon complaints. Patient denies any change in bowel habits, weight changes, blood in stools, black tarry stools or abdominal pain. Denies family history of colon issues. The patient notes no upper GI complaints. Chano has not undergone prior endoscopy. Patient denies chest pain, shortness of breath or recent hospitalizations. Past medical history significant for atrial fibrillation, resolved after ablation per patient. Denies problems with sedation in the past. PAST MEDICAL HISTORY Diagnosis Date Atrial fibrillation (HCC) Depression PAST SURGICAL HISTORY Procedure Laterality Date LAMINECTOMY W/O FFD 07/12 VERT SEG LUMBAR LAMINECTOMY,LUMBAR redo in 2019 REPAIR INCISIONAL HERNIA,REDUCIBLE Current Outpatient Medications Medication Sig DULoxetine (CYMBALTA) 30 mg capsule Take 30 mg by mouth once daily. aspirin, enteric coated (ASPIRIN, ENTERIC COATED) 81 mg EC tablet Take 81 mg by mouth once daily. MULTIVITAMIN ORAL Take by mouth once daily. atenolol (TENORMIN) 25 mg tablet Take 1 tablet by mouth once daily. (Patient taking differently: Take 25 mg by mouth as needed.) Current Facility-Administered Medications Medication Dose Route Frequency citalopram 10 mg tab(s) (CeleXA) 10 mg ORAL DAILY (6 AM) maprotiline 50 mg tab(s) (LUDIOMIL) 50 mg ORAL AT BEDTIME ALLERGIES: Bee Venom Protein (Honey Bee), Contrast Dye [Iodine], Lyrica [Pregabalin], and Biaxin [Clarithromycin] PERSONAL HISTORY: Social History Tobacco Use Smoking status: Former Types: Cigarettes Quit date: 07/11/2009 Years since quittin.1 Smokeless tobacco: Former Types: Chew Vaping Use Vaping Use: Never used Substance Use Topics Alcohol use: Not Currently Drug use: Not Currently FAMILY HISTORY: FAMILY HISTORY Problem Relation Age of Onset Coronary Artery Disease Father Heart Maternal Grandmother Heart Maternal Grandfather REVIEW OF SYMPTOMS: The review of systems data was entered by the nurse and reviewed by ky Nursing Notes: Sanam Martin LPN 08/24/2022 12:58 PM Signed REVIEW OF SYSTEMS: General: The patient denies fatigue, denies weight loss, denies weight gain, denies feeling hot, and denies feelings of cold. Eyes: The patient denies glaucoma, denies eye injury/surgery, wears glasses or contacts. Ear/Nose/Throat: The patient notes allergies, denies hayfever, denies ear infections, and denies bloody noses. Cardiovascular: The patient denies chest pain, denies heart disease, denies high blood pressure,denies cardiac stent, denies prior heart attack, denies irregular heart beat, denies high cholesterol, denies poor circulation, denies heart failure, other cardiac issues, notes claudication, notes cold feet, denies peripheral arterial stent. Respiratory: The patient denies tuberculosis, denies pneumonia, denies frequent cough, denies pulmonary embolism, denies shortness of breath, and denies coughing up blood. Gastrointestinal: The patient denies difficulty swallowing, denies acid reflux, denies ulcers, denies vomiting, denies jaundice/hepatitis, denies gallbladder problems, denies black or tarry stools, denies hemorrhoids, denies bleeding from rectum, denies diverticulitis, denies constipation, denies diarrhea, denies loss of stool control, and denies hernias. Kidney/Bladder: The patient denies kidney stones, denies urine infections, and denies bloody urine. Skin: The patient denies a history of skin cancer, denies bleeding/changing moles, and denies a history of skin rash. Neurologic: The patient denies a history of epilepsy/convulsions, denies headaches, notes head/spinal injuries, and denies stroke/TIA. Psychiatric: The patient notes psychiatric medications, notes depression, and denies voices, denies substance abuse. Endocrine: The patient denies thyroid disorders, denies diabetes, and denies hormonal problems. Hematologic: The patient denies a history of bruising, denies bleeding, and denies anemia, denies blood clots. Infections: The patient denies a history of measles and mumps, denies rheumatic fever, and denies sexually transmitted diseases. Musculoskeletal: The patient notes back pain/injury, notes back problems, notes sciatica, denies knee/foot trouble, denies arthritis, or denies gout. When was patient's last Mammogram screening? N/A Last Colonoscopy: none Sanam Martin LPN I have confirmed and edited as necessary, the PFSH and ROS obtained by others. Loree Garnett PA-C PHYSICAL EXAMINATION: General: The patient is 57 year old male, well nourished, well hydrated in no acute distre (more content not included)...[facility] 08-24-2022 History of Present illness Narrative* Loree Garnett PA-C - 08/24/2022 1:12 PM EST HISTORY AND PHYSICAL Chano Dalton 1965 REFERRING PHYSICIAN: Yannick Wilkins MD CHIEF COMPLAINT: Consult (colonoscopy) HPI: The patient is a 57 year old male referred for endoscopy. Chano notes no colon complaints. Patient denies any change in bowel habits, weight changes, blood in stools, black tarry stools or abdominal pain. Denies family history of colon issues. The patient notes no upper GI complaints. Chano has not undergone prior endoscopy. Patient denies chest pain, shortness of breath or recent hospitalizations. Past medical history significant for atrial fibrillation, resolved after ablation per patient. Denies problems with sedationin the past. PAST MEDICAL HISTORY Diagnosis Date Atrial fibrillation (HCC) Depression PAST SURGICAL HISTORY Procedure Laterality Date LAMINECTOMY W/O FFD 07/12 VERT SEG LUMBAR LAMINECTOMY,LUMBAR redo in 2019 REPAIR INCISIONAL HERNIA,REDUCIBLE Current Outpatient Medications Medication Sig DULoxetine (CYMBALTA) 30 mg capsule Take 30 mg by mouth once daily. aspirin, enteric coated (ASPIRIN, ENTERIC COATED) 81 mg EC tablet Take 81 mg by mouth once daily. MULTIVITAMIN ORAL Take by mouth once daily. atenolol (TENORMIN) 25 mg tablet Take 1 tablet by mouth once daily. (Patient taking differently: Take 25 mg by mouth as needed.) Current Facility-Administered Medications Medication Dose Route Frequency citalopram 10 mg tab(s) (CeleXA) 10 mg ORAL DAILY (6 AM) maprotiline 50 mg tab(s) (LUDIOMIL) 50 mg ORAL AT BEDTIME ALLERGIES: Bee Venom Protein (Honey Bee), Contrast Dye [Iodine], Lyrica [Pregabalin], and Biaxin [Clarithromycin] PERSONAL HISTORY: Social History Tobacco Use Smoking status: Former Types: Cigarettes Quit date: 07/11/2009 Years since quittin.1 Smokeless tobacco: Former Types: Chew Vaping Use Vaping Use: Never used Substance Use Topics Alcohol use: Not Currently Drug use: Not Currently FAMILY HISTORY: FAMILY HISTORY Problem Relation Age of Onset Coronary Artery Disease Father Heart Maternal Grandmother Heart Maternal Grandfather REVIEW OF SYMPTOMS: The review of systems data was entered by the nurse and reviewed by ky Nursing Notes: Sanam Martin LPN 08/24/2022 12:58 PM Signed REVIEW OF SYSTEMS: General: The patient denies fatigue, denies weight loss, denies weight gain, denies feeling hot, and denies feelings of cold. Eyes: The patient denies glaucoma, denies eye injury/surgery, wears glasses or contacts. Ear/Nose/Throat: The patient notes allergies, denies hayfever, denies ear infections, and denies bloody noses. Cardiovascular: The patient denies chest pain, denies heart disease, denies high blood pressure,denies cardiac stent, denies prior heart attack, denies irregular heart beat, denies high cholesterol, denies poor circulation, denies heart failure, other cardiac issues, notes claudication, notes cold feet, denies peripheral arterial stent. Respiratory: The patient denies tuberculosis, denies pneumonia, denies frequent cough, denies pulmonary embolism, denies shortness of breath, and denies coughing up blood. Gastrointestinal: The patient denies difficulty swallowing, denies acid reflux, denies ulcers, denies vomiting, denies jaundice/hepatitis, denies gallbladder problems, denies black or tarry stools, denies hemorrhoids, denies bleeding from rectum, denies diverticulitis, denies constipation, denies diarrhea, denies loss of stool control, and denies hernias. Kidney/Bladder: The patient denies kidney stones, denies urine infections, and denies bloody urine. Skin: The patient denies a history of skin cancer, denies bleeding/changing moles, and denies a history of skin rash. Neurologic: The patient denies a history of epilepsy/convulsions, denies headaches, notes head/spinal injuries, and denies stroke/TIA. Psychiatric: The patient notes psychiatric medications, notes depression, and denies voices, deniessubstance abuse. Endocrine: The patient denies thyroid disorders, denies diabetes, and denies hormonal problems. Hematologic: The patient denies a history of bruising, denies bleeding, and denies anemia, denies blood clots. Infections: The patient denies a history of measles and mumps, denies rheumatic fever, and denies sexually transmitted diseases. Musculoskeletal: The patient notes back pain/injury, notes back problems, notes sciatica, denies knee/foot trouble, denies arthritis, or denies gout. When was patient's last Mammogram screening? N/A Last Colonoscopy: none Sanam Martin LPN I have confirmed and edited as necessary, the PFSH and ROS obtained by others. Loree Garnett PA-C PHYSICAL EXAMINATION: General: The patient is 57 year old male, well nourished, well hydrated in no acute distress. The patient is oriented to time, place, and person. VITALS: Blood pressure 140/78, pulse 94, temperature 36.2 C (97.2 F), height 182.9 cm (6'), weight 99.3 kg (219 lb), SpO2 96 %. Body mass index is 29.7 kg/m . HEENT: Normal cephalic, ataumatic, pupils are equally round, sclera are anicteric, mucous membranesare moist, oropharynx is clear. Neck has no masses, asymmetry or lymphadenopathy. Respiratory: Clear to auscultation and percussion. Normal respiratory excursion and pattern. Cardiac: Examination is regular rate and rhythm. Normal S1/S2 Abdominal exam: Soft, nontender, with no palpable masses. No hepatosplenomegaly. No palpable hernias. Extremities: no clubbing, cyanosis or edema. No adenopathy. LABORATORY VALUES: As Noted RADIOLOGIC STUDIES: As Noted Assessment IMPRESSION: encounter for screening colonoscopy PLAN: I have reviewed my findings with the surgeon. Will plan for lower endoscopy. We discussed therisks and benefits of the planned endoscopy. I have informed the patient that complications can occur including failure to complete the endoscopy and perforation. The patient had the opportunity to ask questions concerning the planned endoscopy. My staff has also explained the procedure to the patient in understandable terms and has given the patient printed material concerning the procedure. Thepatient freely consents to surgery. The patient was offered a surgery/procedure at a [facility] facility. I have counseled the patient regarding the risk of exposure to and/or potential harm posed by the COVID-19 virus with having a surgery/procedure at this time versus the risk of delaying the surgery/procedure. It is not possible to know either the risk of delaying the surgery or procedure or chance of getting an infection with perfect accuracy, but a joint decision was made between the patient and myself to proceed at this time with endoscopy. I plan to use Golytely bowel preparation I have explained to the patient the difference between IV conscious sedation and MAC anesthesia - and I have offered either, according to the patient's wishes. I have explained that with IV conscioussedation there is no anesthesia provider available and therefore there is a limitation of the amount of IV medications that can be given and that the patient may wake up in the middle of the procedure and/or experience pain/discomfort during the procedure. Further discussion was done and the patient was given the opportunity to ask questions and all questions were answered. The patient chooses MAC anesthesia Diagnoses: (Z12.11) Encounter for screening for malignant neoplasm of colon (primary encounter diagnosis) Consultation requested by Dr. Wilkins for an opinion regarding screening colonoscopy. My final recommendations will be communicated back to the requesting physician by way of shared Medical record orletter to requesting physician via US mail. Loree Garnett PA-C [facility] Nurse Note* Sanam Martin, [employer] - 08/24/2022 12:55 PM EST REVIEW OF SYSTEMS: General: The patient denies fatigue, denies weight loss, denies weight gain, denies feeling hot, and denies feelings of cold. Eyes: The patient denies glaucoma, denies eye injury/surgery, wears glasses or contacts. Ear/Nose/Throat: The patient notes allergies, denies hayfever, denies ear infections, and denies bloody noses. Cardiovascular: The patient denies chest pain, denies heart disease, denies high blood pressure,denies cardiac stent, denies prior heart attack, denies irregular heart beat, denies high cholesterol, denies poor circulation, denies heart failure, other cardiac issues, notes claudication, notes cold feet, denies peripheral arterial stent. Respiratory: The patient denies tuberculosis, denies pneumonia, denies frequent cough, denies pulmonary embolism, denies shortness of breath, and denies coughing up blood. Gastrointestinal: The patient denies difficulty swallowing, denies acid reflux, denies ulcers, denies vomiting, denies jaundice/hepatitis, denies gallbladder problems, denies black or tarry stools, denies hemorrhoids, denies bleeding from rectum, denies diverticulitis, denies constipation, denies diarrhea, denies loss of stool control, and denies hernias. Kidney/Bladder: The patient denies kidney stones, denies urine infections, and denies bloody urine. Skin: The patient denies a history of skin cancer, denies bleeding/changing moles, and denies a history of skin rash. Neurologic: The patient denies a history of epilepsy/convulsions, denies headaches, notes head/spinal injuries, and denies stroke/TIA. Psychiatric: The patient notes psychiatric medications, notes depression, and denies voices, deniessubstance abuse. Endocrine: The patient denies thyroid disorders, denies diabetes, and denies hormonal problems. Hematologic: The patient denies a history of bruising, denies bleeding, and denies anemia, denies blood clots. Infections: The patient denies a history of measles and mumps, denies rheumatic fever, and denies sexually transmitted diseases. Musculoskeletal: The patient notes back pain/injury, notes back problems, notes sciatica, denies knee/foot trouble, denies arthritis, or denies gout. When was patient's last Mammogram screening? N/A Last Colonoscopy: none Sanam Martin LPN [facility] NoteHNO ID: [id number] Author: CARA Barber Service: Radiology Author Type: Clinical Compliance Mgr Type: Progress Notes Filed: 03/23/2021 10:37 AM Note Text: Radiology Service Progress Note DATE OF SERVICE: March 23, 2021 TIME: 10:35 AM PATIENT IDENTITY VERIFICATION COMPLETED USING TWO (2) STANDARD IDENTIFIERS: Name and Date of confirmed by patient verbally and Name and Date of confirmed by identification band. FALL SCREENING: Has the patient had 2 falls in the last year or 1 fall with injury or currently using an Ambulatory Assistive Device (Walker, Cane, Wheelchair, Crutches, etc.)? No PATIENT GENDER DATA: Male PATIENT RELEVANT IMPLANT DATA REVIEWED: Not Applicable ALLERGIES: Reviewed and unchanged CONTRAST ALLERGY: NO. and PT CLAIMS TRIGGERS AFIB, PT HAD CONTRAST WITH NO PTROBLEN AND NO PREP EXAM: CT -CONTRAST INDUCED NEPHROPATHY RISK FACTORS: Not applicable CREATININE: Creatinine Date Value Ref Range Status 12/25/2020 1.15 0.70 - 1.40 mg/dL Final 12/29/2016 0.87 0.73 - 1.22 mg/dL Final eGFR-All Other Races Date Value Ref Range Status 12/25/2020 >60 >60 . Final Comment: eGFR (Estimated GFR) Units of measure: mL/min/1.73 meters squared eGFR is derived from the reexpressed MDRD Study equation using the following parameters: serum creatinine, age, gender and race. The creatinine assay has been calibrated to be traceable to IDMS. An eGFR <60 mL/min/1.73m2 for >3 months is consistent with chronic kidney disease. Refer to KDOQI guidelines for clinical interpretation. In patients with unstable renal function, e.g. those with acute kidney injury, the eGFR may not accurately reflect actual GFR. eGFR- Date Value Ref Range Status 12/25/2020 >60 >60 Final P.O.C.T. RESULTS: POC done: Yes, See Lab Tab March 23, 2021 TREATMENT: N/A PERIPHERAL IV DATA: Ambulatory: A peripheral IV was started in the Left antecubital site with a Angio cath: 20 gauge. RADIOLOGY DEPARTMENT: CT; Exam(s) Completed: Chest SIGNATURE: Roselia Calix, CT PATIENT NAME: Chano Dalton DATE: March 23, 2021 TIME: 10:35 [id number] NoteHNO ID: [id number] Author: Ml Cartagena (Esphion) Service: Pharmacy Author Type: ? Type: Plan of Care Filed: 12/26/2020 6:47 PM Note Text: Pharmacy Discharge Medication Service: This patient has elected to receive their discharge prescriptions through the [facility] Bedside Prescription Delivery program. The prescriptions are currently being processed. A follow-up note will be entered once the prescriptions have been filled and delivered to the patient. Please contact me with any questions or updates to the patient's discharge medications. Ml Cartagena (Esphion) DCT Contact Info: [id number] NoteHNO ID: [id number] Author: Ml Cartagena (Esphion) Service: Pharmacy Author Type: ? Type: Plan of Care Filed: 12/26/2020 6:47 PM Note Text: PHARMACY BEDSIDE DELIVERY SERVICE Patient Name: Chano Dalton The marked outpatient medications were filled and delivered. NURSE WILL GIVE TO PATIENT. Medication List START taking these medications pantoprazole DR 40 mg tabletX Commonly known as: PROTONIX Take 1 tablet by mouth DAILY at 6:00 AM Start taking on: December 27, 2020 CHANGE how you take these medications atenolol 25 mg tablet Commonly known as: TENORMIN Take 1 tablet by mouth once daily. What changed: ? when to take this ? reasons to take this ? additional instructions flecainide 100 mg tablet Commonly known as: TAMBOCOR Take 1 tablet by mouth twice daily. What changed: ? when to take this ? reasons to take this CONTINUE taking these medications aspirin, enteric coated 81 mg EC tablet Commonly known as: ASPIRIN, ENTERIC COATED gabapentin 300 mg capsule Commonly known as: NEURONTIN Initially start by taking two 300mg tablets three times a day, then use titration instructions given to increase dose. MULTIVITAMIN ORAL XARELTO 20 mg tablet Generic drug: rivaroxaban Take 1 tablet by mouth daily with dinner. You might also be taking other medications not listed above. If you have questions about any of your other medications, talk to the person who prescribed them or your Primary Care Provider. Ml Cartagena (Esphion) PAGER: [phone] December 26, 2020 6:47 [facility]06-18-2021 NoteHNO ID: [id number] Author: Ml Cartagena (Esphion) Service: Pharmacy Author Type: ? Type: Plan of Care Filed: 12/26/2020 6:46 PM Note Text: [facility] BEDSIDE DELIVERY SURVEY 1. Patient to use [facility] Delivery - YES Insurance Information as follows: 2. Insurance card on file - YES 3. 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 Advance Directives and Living Will Power of Medical Coding Specialist Latest Code Status on File Code Status Date Activated Date Inactivated Comments Full Code 09/11/2019 8:28 PM Full Code 09/11/2019 6:43 AM 09/11/2019 8:28 PM Latest Code Status on File Code Status Date Activated Date Inactivated Comments Full Code 09/11/2019 8:28 PM 09/12/2019 8:50 PM Documents on File Type Date Recorded 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 These guidelines are for the post-surgery period. Activity: Ease into normal activity as tolerated. Weightbearing status: weight bearing as tolerated Medications: see medication instructions. Please be sure to read and understand the information provided by your pharmacy. Ask your Pharmacist if any questions. Wound Care and Hygiene: -Wash hands before touching or changing dressings -Do Not touch incision -Leave dressing till day 10 after surgery, then leave open to air Call Your Doctor for: -Excessive bleeding/swelling of incision -Fever with temperature above 101 F Anesthesia Precautions: -Do Not operate any vehicle (automobile, bicycle, motorcycle) or power tools for 24 hours -Do Not drink alcoholic beverages for 24 hours -As precaution to prevent post-operative nausea and vomiting, start your diet with liquids, then progress to light foods. If tolerated, resume normal diet. Additional Instructions: Contact your surgeon's office (Dr. Lovelace) to set up an appointment in 2 weeks, or if you have anyproblems or questions. documented in this encounter* Instructions* Yojana Lugo RN - 08/28/2019 Please bring your [employer] [facility] Information folder on the day of surgery. Please marco antonio the last dose taken (date and time ) on your Daily Medications List provided in your After Visit Summary. Please bring a photo ID and insurance information Do NOT take the following medications on the morning of surgery: Vitamins TAKE the following medications the morning of your surgery: NONE You may take your prescription pain medications. You may take Tylenol (Acetaminophen) if needed forpain. No Motrin, Ibuprofen, or Advil 24 hours prior to surgery, or longer if instructed by your surgeon. No Aleve or Naprosyn 3 days prior to surgery, or longer if instructed by your surgeon. If you are on BLOOD THINNERS or ASPIRIN: Last dose 09/05 Additional instructions: Shower kit given with instructions. You will receive a reminder call the day before surgery with your Same Day Surgery arrival time. If you have specific questions, please call your surgeon. * Attachments The following attachments cannot be sent through Care Everywhere. * Lumbar Spinal Fusion: Pre-op ([place]) documented in this encounter History of Present Illness * Manju Bhatti RN - 09/12/2019 6:00 PM EST Discharge instructions reviewed with the patient, medications were delivered form meds to beds, patient educated/teaching done on Lovenox injections. Patient instructed to follow up with ortho spine after discharge. Dad here to transport him home. No further questions. * Manju Bhatti RN - 09/12/2019 2:[address] Mcclelland EKG ok , ok to discharge if ok with ortho, ortho ok for discharge. * Jaylen Sanchez, TOMA - 09/12/2019 1:21 PM EST Physical Therapy [facility] Initial Assessment NAME: Chano Dalton : 1965 Date of Service: 09/12/2019 Discharge Recommendations: Home with Home health PT, Home with assist PRN PT Equipment Recommendations Equipment Needed: Yes(FWW for maintain floor of house) Assessment Body structures, Functions, Activity limitations: Decreased functional mobility ;Decreased safe awareness;Decreased endurance;Decreased strength;Decreased ROM Assessment: Pt admitted for ALIF L4-S1 +PSF L4-S1 on 09/10. 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 Pt has spinal precautions due to surgery and needs rollator or FWW for mobility. Pt able to ascend/descend 8 steps with handrail. Pt would benefit from home health PT. due to lifting restrictions (spinal precautions), pt needs FWW on main floor of home also. Prognosis: Good Decision Making: Low Complexity PT Education: Goals;PT Role;Plan of Care;Precautions;Weight-bearing Education Patient Education: log roll, spinal precautions, no brace needed. REQUIRES PT FOLLOW UP: Yes Patient Diagnosis(es): The encounter diagnosis was Pseudarthrosis after fusion or arthrodesis. has a past medical history of Atrial fibrillation (HCC), Back pain, Hx of blood clots, LATESHA (obstructive sleep apnea), and Pulmonary emboli (HCC). has a past surgical history that includes Ankle fracture surgery (Right); Spinal fusion; lumbar laminectomy (2016); and back surgery. Restrictions Restrictions/Precautions Restrictions/Precautions: (IV) Required Braces or Orthoses?: No(As per orders, no spinal brace needed. Pt has LSO and requested towear it during session) Position Activity Restriction Spinal Precautions: No Bending, No Lifting, No Twisting Vision/Hearing Vision: Impaired Vision Exceptions: Wears glasses at all times Hearing: Within functional limits Subjective General Chart Reviewed: Yes Patient assessed for rehabilitation services?: Yes Additional Pertinent Hx: hx of low back surgeries; ALIF L4-S1 +PSF L4-S1 on 09/10; new onset of tingling in R 1-3rd digit and ortho saw pt regarding this. Transferred IV to other side by nursing and feels much better after Family / Caregiver Present: No Follows Commands: Within Functional Limits Subjective Subjective: Pt agreeable for therapy. Pt states his legs feel so much better after surgery and states having NO numbness in BLE. Pain Screening Patient Currently in Pain: Yes Pain Assessment Pain Assessment: 0-10 Pain Level: 7 Pain Type: Surgical pain Pain Location: Back Pain Orientation: Lower Pain Descriptors: Aching Vital Signs Patient Currently in Pain: Yes Orientation Orientation Overall Orientation Status: Within Normal Limits Social/Functional History Social/Functional History Lives With: Family Type of Home: House Home Layout: Two level(lives in basement) Home Access: Stairs to enter with rails Entrance Stairs - Number of Steps: 7 Entrance Stairs - Rails: None Bathroom Shower/Tub: Tub/Shower unit Bathroom Toilet: Standard Bathroom Accessibility: Accessible Home Equipment: Standard walker, Cane Receives Help From: Family ADL Assistance: Independent Homemaking Assistance: Independent Homemaking Responsibilities: No Ambulation Assistance: Independent Transfer Assistance: Independent Active Lookback Coordinator: No Mode of Transportation: Other(mother or insurance) Occupation: Unemployed Additional Comments: Pt states has been using rollator for 2-3 months due to low back pain. Pt lives with parents Cognition Cognition Overall Cognitive Status: WFL Objective Observation/Palpation Posture: Fair Observation: LSO on AROM RLE (degrees) RLE AROM: WFL AROM LLE (degrees) LLE AROM : WFL AROM RUE (degrees) RUE AROM : WFL AROM LUE (degrees) LUE AROM : WFL Strength RLE Comment: 3+/5 Strength LLE Comment: 3+/5 Strength RUE Comment: 4-/5 Strength LUE Comment: 4-/5 Tone RLE RLE Tone: Normotonic Tone LLE LLE Tone: Normotonic Motor Control Gross Motor?: WNL Sensation Overall Sensation Status: (only report tingling of thumb, index and middle finger on R hand; improved pt reports after IV being moved. Diminished touch ) Bed mobility Comment: Pt had previous back surgery and aware of log rolling Transfers Sit to Stand: Stand by assistance Stand to sit: Stand by assistance Ambulation Ambulation?: Yes Ambulation 1 Surface: level tile Device: Rolling Walker Other Apparatus: (IV) Assistance: Stand by assistance Quality of Gait: mild lack of full knee extension with ambulation on LLE. Gait Deviations: Slow Shandra Distance: 75 feet x2 Stairs/Curb Stairs?: Yes Stairs # Steps : 8 Rails: Right ascending(Pt unable to reach both set of handrails) Device: Hand Held Assist Assistance: Minimal assistance Comment: Pt required hand held assist with hand but unable to touch other handrail. Pt with both handrails would be SBA x1. Balance Posture: Fair Sitting - Static: Good Sitting - Dynamic: Good Standing - Static: Fair;+ Standing - Dynamic: Fair Plan Plan Times per week: 5 Plan weeks: 2 weeks Current Treatment Recommendations: Strengthening, Transfer Training, Endurance Training, Neuromuscular Re-education, Patient/Caregiver Education & Training, Equipment Evaluation, Education, &procurement, Home Exercise Program, Safety Education & Training, Functional Mobility Training, Balance Training, Gait Training, Stair training, ROM Safety Devices Type of devices: Call light within reach, Patient at risk for falls, All fall risk precautions in place, Gait belt, Left in chair G-Code OutComes Score AM-PAC Score AM-PAC Inpatient Mobility Raw Score : 21 (09/12/191321) AM-PAC Inpatient T-Scale Score : 50.25 (09/12/191321) Mobility Inpatient CMS 0-100% Score: 28.97 (09/12/191321) Mobility Inpatient CMS G-Code Modifier : CJ (09/12/191321) Goals Short term goals Time Frame for Short term goals: 2 weeks Short term goal 1: Maintain spinal precautions at all times. Short term goal 2: Bed mobility via log roll independent Short term goal 3: Transfers independent Short term goal 4: Ambulate 150 feet x1 with least restrictive device with independence Short term goal 5: Ascend/descend 14 steps with unilateral or bilateral handrails with modified independence Patient Goals Patient goals : to get home Therapy Time Individual Concurrent Group Co-treatment Time In 1102 Time Out 1120 Minutes 18 Transfer Plan of care over to [facility] Physical Therapy staff. Goals and/or treatment plan was established in collaboration with patient/family/other (specify). No Bed/chair alarm on prior to session and no alarm after session Jaylen Sanchez PT * David Reagan MD - 09/12/2019 5:46 AM EST Department of Orthopedic Surgery Progress Note SUBJECTIVE: Right finger numbness/tingling improving since yesterday, still with some residual tingling, but improving. Tolerable pain. Tolerating PO intake, +flatus. Says he feels the tops of his feet for the first time in years. OBJECTIVE: General: alert and oriented to person, place and time, well-developed and well- nourished, in no acute distress VITALS: BP 90/61 Pulse 71 Temp 97.1 F (36.2 C) (Temporal) Resp 18 Ht 5' 9 (1.753 m) Wt 227 lb (103 kg) SpO2 93% BMI 33.52 kg/m MSK exam: 5/5 bilateral lower motor exam SILT +pulses Dressing CDI x3 RUE: SILT but decreased in first 3 digits. +AIN/PIN/IO, +pulses. Labs: CBC: Lab Results Component Value Date WBC 16.7 09/12/2019 RBC 4.68 09/12/2019 HGB 14.0 09/12/2019 HCT 42.3 09/12/2019 MCV 90.4 09/12/2019 MCH 29.9 09/12/2019 MCHC 33.0 09/12/2019 RDW 13.5 09/12/2019 PLT 194 09/12/2019 MPV 8.3 09/12/2019 ASSESSMENT AND PLAN: A/P: This is a 54 y.o. male s/p ALIF L4-S1 +PSF L4-S1 on 09/10: Perioperative abx x24hrs Lovenox 40mg Daily starting POD#1 for 14 days, then aspirin 81mg Daily x30 days general diet Pain control Senna and Reglan bowel regimen Decadron x 24hrs IMS c/s for post op medical mgmt Case mgmt c/s for dc planning No brace needed PT/OT, WBAT No NSAIDs due to spinal fusion surgery Anticipate Discharge today if cleared medically and passes PT * Obdulio Clark MD - 09/11/2019 8:00 PM EST Paged to bedside due to complaints of RUE numbness and tingling in thumb, index, and long finger since surgery. On examination, there is diminished sensation in those digits. AIN/PIN/u intact. Palpable radial pulse. Dorsal hand IV in place. Negative Tinel and Phalens test on ipsilateral arm at carpal and cubital tunnel. D/w Dr. Lovelace. Will monitor. Recommend removing IV and putting on other side. Will start IV decadron 4 mg Q4h. Obdulio Clark PGY-2 Orthopaedic Surgery 09/11/2019 8:03 PM [id number] * Radha Timmons RN - 09/11/2019 7:[address] Clark from Ortho at bedside to evaluate Numbness. He said it is due to positioning during surgery * Radha Timmons RN - 09/11/2019 7:20 PM EST Spoke with Dr Lovelace's resident, Lee Marie Regarding numbness and tingling in fingers on right hand. He will send someone to evaluate. * Mer Díaz RN - 09/11/2019 7:06 PM EST Pt complaining on new numbness in the right thumb, first and second fingers. * Mer Díaz RN - 09/11/2019 6:33 PM EST Pt's mother called per request with pt's assigned room number documented in this encounter* [place] - 08/28/2019 10:00 AM EST Labs obtained on first attempt with 23 gauge needle at L HAND site, patient tolerated well, site benign. documented in this encounter Assessments Diagnosis Pseudarthrosis after fusion or arthrodesis- Primary Arthrodesis status Diagnosis Lumbar radiculopathy Thoracic or lumbosacral neuritis or radiculitis, unspecified Summary Purpose Family History No Family History Records Found Relationship Condition Age at Onset Recorded Date/T gracy father Coronary artery disease Unknown History of coronary artery bypass surgery Unknown Hospital Course Note Orthopedic Discharge Summary Name: Chano Dalton ; 1965 Age: 54 y.o. Gender: male Weight: Weight: 227 lb (103 kg) Attending Physician: Yuri Lovelace MD Admit Date:09/11/2019 Discharge Diagnosis: Pseudarthrosis of L4-5 PSF Discharge Date: 09/12/2019 Brief history of injury/present illness: Chano is a 54 y.o. male with pseudarthrosis of previous L4-5 PSF who presented for operative treatment. Risks, benefits, alternatives to surgery were discussed with the family who elected to proceed. Pertinent physical findings: none Surgeries/Procedures: ALIF L4-S1, PSF L4-S1, JOANNE Hospital Course: The patient was admitted for elective spinal surgery. After undergoing the above procedure without complications, the patient recovered well in PACU. The patient progressed with physical therapy and met all goals prior to discharge. The patient was tolerating a diet and had their pain controlled prior to discharge. The patient was d/c on POD #1 in stable condition. Home going medic (more content not included)... Note PROCEDURE NOTE Name: Chano Dalton Date of : 1965 Age: 54 y.o. Primary Care Physician: YANNICK WILKINS MD Admission Date/Time: 09/11/2019 6:24 AM Date of Procedure: 09/11/19 Attending Surgeon: Yuri Lovelace MD Fur Stretcher: Tez PGY4 PREOPERATIVE DIAGNOSES: 1. L5-S1 DDD with Instability 2. L4/L5 Pseudarthrosis 3. Bilateral S1 radiculopathy 4. Mechanical back pain. POSTOPERATIVE DIAGNOSES: Same as above. PROCEDURES PERFORMED: 1. L5-S1 arthrodesis via anterior interbody technique (Vascular surgery assist) 2. L4-L5 anterior arthrodesis (Vascular surgery assist) 3. L5-S1 application of intervertebral biomechanical device. 4. Anterior exploration of fusion, L4/L5 5. Removal of spinal instrumentation, bilateral L4 and L5 6. Reinsertion of spinal Instrumentation, L4-S1 7. Posterior spinal fusion, L5-S1 8 Allograft for spinal surgery. 9. Use of intraoperative neuromonitoring. 10. Stereotactic computer-assisted (navigational) procedure; spinal (S (more content not included)... Procedure Findings Note PROCEDURE NOTE Name: Chano Dalton Date of : 1965 Age: 54 y.o. Primary Care Physician: YANNICK WILKINS MD Admission Date/Time: 09/11/2019 6:24 AM Date of Procedure: 09/11/19 Attending Surgeon: Yuri Lovelace MD Fur Stretcher: Tez PGY4 PREOPERATIVE DIAGNOSES: 1. L5-S1 DDD with Instability 2. L4/L5 Pseudarthrosis 3. Bilateral S1 radiculopathy 4. Mechanical back pain. POSTOPERATIVE DIAGNOSES: Same as above. PROCEDURES PERFORMED: 1. L5-S1 arthrodesis via anterior interbody technique (Vascular surgery assist) 2. L4-L5 anterior arthrodesis (Vascular surgery assist) 3. L5-S1 application of intervertebral biomechanical device. 4. Anterior exploration of fusion, L4/L5 5. Removal of spinal instrumentation, bilateral L4 and L5 6. Reinsertion of spinal Instrumentation, L4-S1 7. Posterior spinal fusion, L5-S1 8 Allograft for spinal surgery. 9. Use of intraoperative neuromonitoring. 10. Stereotactic computer-assisted (navigational) procedure; spinal (S (more content not included)... Chief Complaint and Reason for Visit Chief Complaint LUMBAR DR TO FAX, WE HAVE C9 Additional Source Comments (unrecognized sect ion and content) No Status Records FoundNo Status Records FoundNo Status Records FoundNo Status Records FoundNo Status Records FoundNo Status Records Found INFORMATION SOURCE (unrecogn ized section and content) DATE CREATED AUTHOR 08/26/2020 [facility] DATE CREATED AUTHOR AUTHOR'S ORGANIZ ATION 12/29/2020 [facility] DATE CREATED AUTHOR AUTHOR'S ORGANIZ ATION 03/24/2021 [facility] DATE CREATED AUTHOR AUTHOR'S ORGANIZ ATION 10/06/2022 [facility] DATE CREATED AUTHOR AUTHOR'S ORGANIZ ATION 01/27/2024 [facility] DATE CREATED AUTHOR AUTHOR'S ORGANIZ ATION 04/26/2025 [facility] Source Comments (unrecognize d section and content) In the event this informatio n is protected by the Federal Confidentiality of Alcohol and Drug Abuse Patient Records regulations: The Federal rules restrict any use of the information to criminally investigate or prosecute any alcohol or drug abuse patient.[facility] Reason for Visit (unrecogniz ed section and content) Reason Comments Consult colonoscopy Care Teams (unrecognized sec tion and content) Business 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 Yannick Wilkins MD Family Provider Active Dr. Yannick Wilkins MD Primary Care Provider Active Team Status: Inactive Member Role Status Dates Dr. Yannick Wilkins MD Primary Care Provider Active SUNITHA BEJARANO Attending Provider, Referring Provider Active Team Status: Inactive Member Role Status Dates Dr. Yannick Wilkins MD Primary Care Provider Active Dr. Marlon Doyle MD Attending Provider, Referring Pr cruzer Active Goals (unrecognized section and content) Goals may be documented in a n alternate sectionGoals may be documented in an alternate section FOR RECORDS PERTAINING TO PATIENTS WHO ARE OR HAVE BEEN ENROLLED IN A CHEMICAL DEPENDENCY/SUBSTANCEABUSE PROGRAM, SOME INFORMATION MAY BE OMITTED. This clinical summary was aggregated from multiple sources. Caution should be exercised in using it in the provision of clinical care. This summary normalizes information from multiple sources, and as a consequence, information in this document may materially change the coding, format and clinical context of patient data. In addition, data may be omitted in some cases. CLINICAL DECISIONS SHOULD BE BASED ON THE PRIMARY CLINICAL RECORDS. [facility] [employer] [facility]. provides no warranty or guarantee of the accuracy or completeness of information in this document.
--- OUTSIDE RECORDS SUMMARY | 2025-05-01 11:48 | XMS RPT_ITS | CCD ---
Author Organization [facility] Care Team Providers Care Biology Lecturer Name Role Phone Yannick Wilkins Primary Care [...] Translations: [CLARITHROMYCIN] Drug Allergy 05-05-20 16 Rash [place], [place] (7 sources) Iodine; Translations: [IODINE] Drug Allergy 05-05-20 16 Other: See Comments [place], [place] (7 sources) pregabalin; Translations: [PREGABALIN] Drug Allergy 02-10-20 18 Other: See Comments [place], [place] (7 sources) bee venom Propensity to adverse reactions to drug 05-10-20 19 Anaphylaxis [facility] Work Phone: (1 source) BEE VENOM PROTEIN (HONEY BEE); Translations: [BEE VENOM PROTEIN (HONEY BEE)] Propensity to adverse reactions to drug (disorder) 10-04-19 21 [facility] Rep[facility] (2 sources) Triiodobenzoic Acids Propensity to adverse reactions 08-19-19 22 Other [facility] (1 source) Clarithromycin Drug Allergy 04-24-20 25 [facility] Repository (1 source) Iodinated Contrast Media Drug allergy (disorder) 04-24-20 25 [facility] Repository (1 source) venom-honey bee Drug allergy (disorder) 04-24-20 [facility] Repository Medications Current Medications Medication Drug Class(es) Dates Sig (Normalized) Sig (Original) acetaminophen 500 mg oral tablet (2 sources) Start: 09-11-2019 End: 09-11-2019 take 1 dose by mouth three times daily 1,000 mg, Oral, EVERY 8 HOURS SCHEDULED (3 times per day), First dose on Tue09/11/19 at 2200 Maximum dose of acetaminophen is 4000 mg from all sources in 24 hours. [id number] actuat albuterol 0.09 mg/actuat metered dose [...] Comment on above: [facility]. cholecalciferol 5000 unt oral [...] days docusate sodium 50 mg / sennosides, assisted 8.6 mg oral tablet (4 sources) Start: take 1 tablet by mouth twice daily 1 tablet, Oral, 2 TIMES DAILY, First dose on Tue09/11/19 at 2100 Start: 09-11-2019 take 8.6-50 mg by [facility] once as needed senna-docusate (PERICOLACE) [...] DAILY at 6:00 AM polyethylene glycol [id number] [id number] mg / potassium chloride 2970 mg / sodium bicarbonate 6740 mg / sodium chloride 5860 mg / sodium sulfate 17596 mg powder for oral solution (1 source) [...] Department Summary on 04-24-2025 Emergency Department Summary [facility] Medical Records Department [address] [place] [address] Emergency Department Summary 04/24/25 MR#: [id number] Acct: [id number] Name: CHANO DALTON Rep #: [id number] : 1965 60 From: Luis Braxton DO [...] Psych: Cooperative, appropriate mood and affect PFSH [facility] Medical History (Updated 04/24/25 @ 13:24 [...] Clinical Impres (more content not included)... Normal [facility] Knee 4 or More Viewson 04-24 Knee 4 or More Views [facility] Imaging Services [address] [place], [place] [address] Knee 4 or More Views MR#: [id number] Acct: [id number] Name: CHANO DALTON Rep #: [id number] : 1965 M 60 From: Jacob cochran MD PCP: Dr. Yannick Wilkins MD Status: REG ER Study: Knee 4 or More Views Date of Exam: 04/24/25 Exam# [id number] Ordering Dr: Luis Braxton DO PROCEDURE: KNEE [...] EFFUSION ACUTE FRACTURE OR DISLOCATION. Reading Location: [place] [address] CC: Dr. Luis Braxton DO; Dr. Yannick Wilkins MD Junior Systems Engineer: Signed Normal [facility] Urine Cultureon 07-07-2024 URC Culture exhibits no growth. Normal [facility] Comment on above: Performed By: #### M 100.2200 #### [facility] Laboratory [address] [facility] [place], [address] Abdomen/Pelvis without Conto n 07-06-2024 Abdomen/Pelvis without Cont [facility] Imaging Services [address] [place], [place] [address] Abdomen/Pelvis without Cont MR#: [id number] Acct: [id number] Name: CHANO DALTON Rep #: [id number] : 1965 M 59 From: Kerri nielsen MD PCP: Dr. Yannick Wilkins MD Status: REG ER Study: Abdomen/Pelvis without Cont Date of Exam: 06/11 01/31 Exam# [id number] Ordering Dr: Yannick Arevalo AGENCY CASHIER-C [id number] HISTORY: Pain. TECHNIQUE: Helically acquired images were [...] 15:21 EST Reading Location ID and State: [facility] / [place] Tel , Service support , CC: YANY Arevalo; Dr. Yannick Wilkins MD Junior Systems Engineer: Signed Normal [facility] CBC W/Diff, Automatedon 12- Absolute Lymph 1.79 X10 3/uL Normal 0.83-4.51 [facility] Comment on above: Performed By: #### L 100.0100, L500.4050, L501.2450 #### [facility] Laboratory [address] [place], [address] Absolute Neut 12.5 X10 3/uL High 2.0-7.7 [facility] Comment on above: Performed By: #### L 100.0100, L500.4050, L501.2450 #### [facility] Laboratory [address] [place], [address] Basophils/100 WBC (Bld) 0.4 % Normal 0-1 [facility] Comment on above: Performed By: #### L 100.0100, L500.4050, L501.2450 #### [facility] Laboratory [address] [place], [address] Eosinophils/100 WBC (Bld) 0.3 % Normal 0-5 [facility] Comment on above: Performed By: #### L 100.0100, L500.4050, L501.2450 #### [facility] Laboratory [address] [place], [address] Erythrocyte distribution width (RBC) [Ratio] 12.8 % Normal 11.6-14.6 [facility] Comment on above: Performed By: #### L 100.0100, L500.4050, L501.2450 #### [facility] Laboratory [address] [place], [address] Hematocrit (Bld) [Volume fraction] 44.4 % Normal 40-54 [facility] Comment on above: Performed By: #### L 100.0100, L500.4050, L501.2450 #### [facility] Laboratory [address] [place], [address] Hemoglobin (Bld) [Mass/Vol] 15.3 g/dL Normal 13.0-16.5 [facility] Comment on above: Performed By: #### L 100.0100, L500.4050, L501.2450 #### [facility] Laboratory [address] [place], [address] IG% 0.300 Normal 0.0-0.9 [facility] Comment on above: Result Comment: IG% - Immature Granulocytes (promyelocytes, myelocytes and metamyelocytes) > 1% indicates that a LEFT SHIFT is Present. Performed By: #### L 100.0100, L500.4050, L501.2450 #### [facility] Laboratory [address] [place], [address] Lymphocytes/100 WBC (Bld) 11.8 % Low 19-41 [facility] Comment on above: Performed By: #### L 100.0100, L500.4050, L501.2450 #### [facility] Laboratory [address] [place], [address] MCH (RBC) [Entitic mass] 31.2 pg Normal 27.0-32.0 [facility] Comment on above: Performed By: #### L 100.0100, L500.4050, L501.2450 #### [facility] Laboratory [address] [place], [address] MCHC (RBC) [Mass/Vol] 34.5 g/dL Normal 32-36 [facility] Comment on above: Performed By: #### L 100.0100, L500.4050, L501.2450 #### [facility] Laboratory [address] [place], [address] MCV (RBC) [Entitic vol] 90.4 fL Normal 80-94 [facility] Comment on above: Performed By: #### L 100.0100, L500.4050, L501.2450 #### [facility] Laboratory [address] [place], [address] Monocytes/100 WBC (Bld) 5.3 % Normal 0-10 [facility] Comment on above: Performed By: #### L 100.0100, L500.4050, L501.2450 #### [facility] Laboratory [address] [place], [address] Neutrophils/100 WBC (Bld) 81.9 % High 47-70 [facility] Comment on above: Performed By: #### L 100.0100, L500.4050, L501.2450 #### [facility] Laboratory [address] [place], [address] Nucleated RBC (Bld) [#/Vol] 0 10*3/uL Normal 0-5 [facility] Comment on above: Performed By: #### L 100.0100, L500.4050, L501.2450 #### [facility] Laboratory [address] [place], [address] Platelet mean volume (Bld) [Entitic vol] 9.6 fL Normal 6.2-12.0 [facility] Comment on above: Performed By: #### L 100.0100, L500.4050, L501.2450 #### [facility] Laboratory [address] [place], [address] Platelets (Bld) [#/Vol] 129 10*3/uL Low 150-450 [facility] Comment on above: Performed By: #### L 100.0100, L500.4050, L501.2450 #### [facility] Laboratory [address] [place], [address] RBC (Bld) [#/Vol] 4.91 10*6/uL Normal 4.6-6.2 [facility] Comment on above: Performed By: #### L 100.0100, L500.4050, L501.2450 #### [facility] Laboratory [address] [place], [address] RDW SD 42.5 fl Normal 35.1-43.9 [facility] Comment on above: Performed By: #### L 100.0100, L500.4050, L501.2450 #### [facility] Laboratory [address] [place], [address] WBC (Bld) [#/Vol] 15.2 10*3/uL High 4.4-11.0 [facility] Comment on above: Performed By: #### L 100.0100, L500.4050, L501.2450 #### [facility] Laboratory [address] [place], [address] Comprehensive Metabolic Prof [facility] 07-06-2024 Albumin [Mass/Vol] 3.4 g/dL Normal 3.2-5.0 [facility] Comment on above: Performed By: #### L 100.0100, L500.4050, L501.2450 #### [facility] Laboratory [address] [place], [address] Albumin/Globulin [Mass ratio] 0.9 {ratio} Normal 0.9-2.4 [facility] Comment on above: Performed By: #### L 100.0100, L500.4050, L501.2450 #### [facility] Laboratory [address] [place], [address] ALK P 84 U/L Normal 45-117 [facility] Comment on above: Performed By: #### L 100.0100, L500.4050, L501.2450 #### [facility] Laboratory [address] [place], [address] ALT [Catalytic activity/Vol] 62 U/L High 16-61 [facility] Comment on above: Performed By: #### L 100.0100, L500.4050, L501.2450 #### [facility] Laboratory [address] [place], [address] AST [Catalytic activity/Vol] 41 U/L High 15-37 [facility] Comment on above: Result Comment: Mode rate Hemolysis, Result may be falsely increased. Performed By: #### L 100.0100, L500.4050, L501.2450 #### [facility] Laboratory [address] [place], [address] Bilirubin [Mass/Vol] 1.20 mg/dL High 0.20-1.00 [facility] Comment on above: Result Comment: For patients on eltrombopag therapy, use of Dimension [place] TBIL is not recommended. Performed By: #### L 100.0100, L500.4050, L501.2450 #### [facility] Laboratory [address] [place], [address] BUN/CRE 13.0 RATIO Normal 10-20 [facility] Comment on above: Performed By: #### L 100.0100, L500.4050, L501.2450 #### [facility] Laboratory [address] [place], [address] CA,Total 9.2 mg/dL Normal 8.5-10.1 [facility] Comment on above: Performed By: #### L 100.0100, L500.4050, L501.2450 #### [facility] Laboratory [address] [place], [address] Chloride [Moles/Vol] 105 mmol/L Normal 98-107 [facility] Comment on above: Performed By: #### L 100.0100, L500.4050, L501.2450 #### [facility] Laboratory [address] [place], [address] CO2 [Moles/Vol] 29.0 mmol/L Normal 21.0-32.0 [facility] Comment on above: Performed By: #### L 100.0100, L500.4050, L501.2450 #### [facility] Laboratory [address] [place], [address] Creatinine [Mass/Vol] 1.15 mg/dL Normal 0.70-1.30 [facility] Comment on above: Result Comment: The validity of the calculated GFR GFRAA in patients over 70 years has not been determined. Clinical correlation is essential. Performed By: #### L 100.0100, L500.4050, L501.2450 #### [facility] Laboratory [address] [place], [address] ECRCL 84.53 ml/min Normal [facility] Comment on above: Performed By: #### L 100.0100, L500.4050, L501.2450 #### [facility] Laboratory [address] [place], [address] EST GFR - AA 84 mL/min Normal >60 [facility] Comment on above: Result Comment: Afri can [place] GFR Calc Performed By: #### L 100.0100, L500.4050, L501.2450 #### [facility] Laboratory [address] [place], [address] GAP 4 Low 5-15 [facility] Comment on above: Performed By: #### L 100.0100, L500.4050, L501.2450 #### [facility] Laboratory [address] [place], [address] GFR/1.73 sq M.predicted among non-blacks MDRD (S/P/Bld) [Vol rate/Area] 69 mL/min/{1.73_m2} Normal >60 [facility] Comment on above: Result Comment: Non- GFR Calc Performed By: #### L 100.0100, L500.4050, L501.2450 #### [facility] Laboratory [address] [place], [address] Globulin (S) [Mass/Vol] 3.8 g/dL Normal 2.2-4.2 [facility] Comment on above: Performed By: #### L 100.0100, L500.4050, L501.2450 #### [facility] Laboratory [address] [place], [address] Glucose [Mass/Vol] 100 mg/dL Normal 74-106 [facility] Comment on above: Result Comment: Fast ing Glucose result from 100 to 125 mg/dL suggests IMPAIRED HOMEOSTASIS per A.D.A. criteria. Performed By: #### L 100.0100, L500.4050, L501.2450 #### [facility] Laboratory [address] [place], [address] Potassium [Moles/Vol] 4.5 mmol/L Normal 3.5-5.1 [facility] Comment on above: Result Comment: Mode rate Hemolysis, Result may be falsely increased. Performed By: #### L 100.0100, L500.4050, L501.2450 #### [facility] Laboratory [address] [place], [address] Sodium [Moles/Vol] 137 mmol/L Normal 136-145 [facility] Comment on above: Performed By: #### L 100.0100, L500.4050, L501.2450 #### [facility] Laboratory [address] [place], [address] T PROT 7.2 g/dL Normal 6.4-8.2 [facility] Comment on above: Performed By: #### L 100.0100, L500.4050, L501.2450 #### [facility] Laboratory [address] [place], [address] Urea nitrogen [Mass/Vol] 15 mg/dL Normal 7-18 [facility] Comment on above: Performed By: #### L 100.0100, L500.4050, L501.2450 #### [facility] Laboratory [address] [place], [address] Emergency Department Summary on 07-06-2024 Emergency Department Summary [facility] Medical Records Department [address] [place] [address] Emergency Department Summary 07/06/24 MR#: [id number] Acct: [id number] Name: CHANO DALTON Rep #: [id number] : 1965 59 From: Yannick SLADE PCP: [...] blood thinners. Denies any concern for STD. [facility] Medical History (Updated 07/06/24 @ 16:22 [...] spinal te (more content not included)... Normal [facility] Lipaseon 07-06-2024 Lipase [Catalytic activity/Vol] 26 U/L Normal 13-75 [facility] Comment on above: Result Comment: Renetta abarca note: LIPASE revised reference range effective 22. New Lipase methodology. Expected to produce lower values than the previous assay method. NEW Reference Range: 13 - 75 U/L Performed By: #### L 100.0100, L500.4050, L501.2450 #### [facility] Laboratory [address] [place], [address] Urinalysis, Completeon 07-06 Mucus Ql (Urine sed) 1+ /hpf Normal [facility] Comment on above: Order Comment: COLOR OF URINE MAY AFFECT DIPSTICK RESULTS. CLEAN CATCH Performed By: #### L 400.0001 #### [facility] Laboratory [address] [place], [address] WBC 25-50 SEEN Normal 0-5 [facility] Comment on above: Order Comment: COLOR OF URINE MAY AFFECT DIPSTICK RESULTS. CLEAN CATCH Performed By: #### L 400.0001 #### [facility] Laboratory [address] [place], [address] BACTERIA 0 SEEN Normal None Seen [facility] Comment on above: Order Comment: COLOR OF URINE MAY AFFECT DIPSTICK RESULTS. CLEAN CATCH Performed By: #### L 400.0001 #### [facility] Laboratory [address] [place], [address] EPI,SQUAMOUS 0 SEEN Normal 0-5 [facility] Comment on above: Order Comment: COLOR OF URINE MAY AFFECT DIPSTICK RESULTS. CLEAN CATCH Performed By: #### L 400.0001 #### [facility] Laboratory [address] [place], [address] RBC 0 SEEN Normal 0-5 [facility] Comment on above: Order Comment: COLOR OF URINE MAY AFFECT DIPSTICK RESULTS. CLEAN CATCH Performed By: #### L 400.0001 #### [facility] Laboratory [address] [place], [address] CNOVon 10-04-2022 CN Office Visit (UCWSTR ) CHANO DALTON ([id number]) 1965 M Date Time Provider Department 10/04/22 12:45 PM JOSS GONSALEZ [facility] During your visit today, we recorded the [...] Encounter Status:Closed by JOSS GONSALEZ on 10/04/22 [facility] CNOVon 08-24-2022 CNOV Office Visit (GENSWS ) CHANO DALTON ([id number]) 1965 M Date Time Provider Department 08/24/22 [...] data was (more content not included)... Normal [facility] CT PULMONARY VEIN W IVCONon 03-23-2021 CT PULMONARY VEIN W IVCON * * *Final Report* * * DATE OF EXAM: Mar 23 2021 10:34AM [facility] 5227 - CT PULMONARY VEIN W IVCON [...] left atrial or left atrial appendage thrombus. Junior Systems Engineer: MARCELLA Transcribe Date/Time: Mar 23 2021 11:51A Dictated by : OSWALDO PEREZ MD This examination was interpreted and the report reviewed and electronically signed by: OSWALDO PEREZ MD on Mar 23 2021 11:59AM EST [id number] [facility] 12-26-2020 [facility] HNO ID: [id number] Author: Deya Sow MD Service: Electrophysiology Author [...] Time Provider Department Center 01/01/2021 2:00 PM [id number] Highest Readmission Risk Score: 7 The [...] factors: P (more content not included)... Normal [facility] NURSING PROGon 12-26-2020 NURSING PROG HNO ID: [id number] Author: Susy Mccormick RN Service: Nursing Author [...] having throat and chest discomfort. Nadja Fernández LEARNING AND DEVELOPMENT ASSISTANT paged. 1150 Nadja Fernández in to see patient. 1300 Patient given Tylenol, Cepacol, and Protonix. Nadja Fernández in to check patient. 1400 Patient states that he is feeling better but his throat is still sore. Patient ready for discharge. Waiting for his ride home. [facility] NURSING PROG HNO ID: [id number] Author: Nelly Almaguer RN Service: ? Author Type: Registered Nurse Type: Nursing Progress Note Filed: 12/26/2020 12:43 AM Note Text: Nursing Progress Note Patient Name: Chano Dalton Patient Location: [id number]/[facility] -[id number] __ Daily Note: Assumed care of pt [...] This note was completed by: Nelly Almaguer [facility] ANES PRE-OPon 12-25-2020 ANES PRE-OP HNO ID: [id number] Author: Andreas Verde MD Service: Anesthesiology Author [...] December 25, 2020 TIME: 7:46 AM CSN: [id number] Normal [facility] Basic Metabolic Panlon 12-25 Anion gap [Moles/Vol] 10 mmol/L Normal 9-18 [facility] Comment on above: Performed By: #### B SHOSHANA, CBC ####[place] [id number] [place], [place] [phone] Calcium [Mass/Vol] 9.3 mg/dL Normal 8.5-10.5 [facility] Comment on above: Performed By: #### B MP, CBC ####[facility] [place], [place] [phone] Chloride [Moles/Vol] 104 mmol/L Normal 98-110 [facility] Comment on above: Performed By: #### B MP, CBC ####[phone] CO2 [Moles/Vol] 27 mmol/L Normal 23-32 [facility] Comment on above: Performed By: #### B MP, CBC ####[place] [phone] Creatinine [Mass/Vol] 1.15 mg/dL Normal 0.70-1.40 [facility] Comment on above: Performed By: #### B MP, CBC ####[place] [phone] eGFR- Amer. >60 Normal >60 [facility] Comment on above: Performed By: #### B SHOSHANA, CBC ####[place] [phone] eGFR-All Other Races >60 Normal >60 [facility] Comment on above: Result Comment: eGFR (Estimated [...] GFR. Performed By: #### B MP, CBC ####[place] [phone] Glucose [Mass/Vol] 96 mg/dL Normal 65-100 [facility] Comment on above: Performed By: #### B MP, CBC ####[place] [phone] Potassium [Moles/Vol] 4.8 mmol/L Normal 3.5-5.0 [facility] Comment on above: Performed By: #### B MP, CBC ####[place] [phone] Sodium [Moles/Vol] 141 mmol/L Normal 135-146 [facility] Comment on above: Performed By: #### B MP, CBC ####[place] [phone] Urea nitrogen [Mass/Vol] 17 mg/dL Normal 10-25 [facility] Comment on above: Performed By: #### B MP, CBC ####[phone] CBCon 12-25-2020 Absolute nRBC <0.01 Normal <0.01 [facility] Comment on above: Performed By: #### B MP, CBC #### [place] [phone] Erythrocyte distribution width (RBC) [Ratio] 12.9 % Normal 11.5-15.0 [facility] Comment on above: Performed By: #### B MP, CBC #### [place] [phone] Hematocrit (Bld) [Volume fraction] 44.8 % Normal 39.0-51.0 [facility] Comment on above: Performed By: #### B MP, CBC #### [phone] Hemoglobin (Bld) [Mass/Vol] 15.0 g/dL Normal 13.0-17.0 [facility] Comment on above: Performed By: #### B MP, CBC #### [phone] MCH 29.5 pG Normal 26.0-34.0 [facility] Comment on above: Performed By: #### B MP, CBC #### [place] [phone] MCHC (RBC) [Mass/Vol] 33.5 g/dL Normal 30.5-36.0 [facility] Comment on above: Performed By: #### B MP, CBC #### [place] [phone] MCV (RBC) [Entitic vol] 88.2 fL Normal 80.0-100.0 [facility] Comment on above: Performed By: #### B MP, CBC #### [place] [phone] Platelet mean volume (Bld) [Entitic vol] 10.4 fL Normal 9.0-12.7 [facility] Comment on above: Performed By: #### B MP, CBC #### [place] [phone] Platelets (Bld) [#/Vol] 179 10*3/uL Normal 150-400 [facility] Comment on above: Performed By: #### B MP, CBC #### [place] [address] RBC (Bld) [#/Vol] 5.08 10*6/uL Normal 4.20-6.00 [facility] Comment on above: Performed By: #### B MP, CBC #### [place] [phone] WBC (Bld) [#/Vol] 7.88 10*3/uL Normal 3.70-11.00 [facility] Comment on above: Performed By: #### B MP, CBC #### [place] [address] CONSULT PROGon 12-25-2020 CONSULT PROG HNO ID: [id number] Author: Jere Mohan RPh Service: Pharmacy Author [...] Mohan RPh DATE/TIME: 12/25/2020 4:27 PM Normal [facility] Confirm Blood Typeon 021 ABO/RH(D) Positive Normal [facility] Comment on above: Performed By: #### C ONABO ####[facility] [place], [place] [id number] HISTORY PHYSICALon HISTORY PHYSICAL HNO ID: [id number] Author: Violeta Henley PA-C Service: Cardiovascular Disease Author Type: Physician Aircraft Accessories Mechanic Type: HANDP Filed: 12/25/2020 7:54 AM Note [...] few times he end up at local [facility] and his A.Fib was terminated with IV [...] 50 mg, ORAL, AT BEDTIME, Sanam Horta APRN.LEARNING AND DEVELOPMENT ASSISTANT rivaroxaban (XARELTO) 20 mg tablet, Take 1 [...] No deformities, (more content not included)... Normal [facility] NURSING PROGon 12-25-2020 NURSING PROG HNO ID: [id number] Author: Briana Rae RN Service: ? Author Type: Registered Nurse Type: Nursing Progress Note Filed: 12/25/2020 9:57 PM Note Text: Nursing Progress Note Patient Name: Chano Dalton [id number]/[facility] -[id number] __ 1998 Assumed care of patient. Report [...] This note was completed by: Briana Rae [facility] NURSING PROG HNO ID: [id number] Author: Susy Mccormick RN Service: Nursing Author [...] and then his carpenter can be removed. [facility] NURSING PROG HNO ID: [id number] Author: Jackie Tesfaye RN Service: Nursing Author Type: Registered Nurse Type: Nursing Progress Note Filed: 12/25/2020 3:33 PM Note Text: Nursing Progress Note Topic of Note: Daily Note Chano Dalton [id number] Pt. in recovery following a PVI [...] note was completed by: Jackie Tesfaye Normal [facility] Type and Screenon 12-25-2020 ABO/RH(D) Positive Normal [facility] Comment on above: Performed By: #### T SCR ####[place] [phone] Urinalysison 12-25-2020 Bilirubin, Urine Negative Normal Negative [facility] Comment on above: Performed By: #### U A #### [address] Clarity (U) Clear Normal Clear [facility] Comment on above: Performed By: #### U A #### [place] [phone] Color (U) Light Yellow Critically abnormal Yellow [facility] Comment on above: Performed By: #### U A #### [place] [phone] Comments SEE COMMENT Normal [facility] Comment on above: Result Comment: Micr oscopic not warranted Performed By: #### U A #### [address] Glucose Ql (U) Negative Normal Negative [facility] Comment on above: Performed By: #### U A #### [place] [phone] Hemoglobin/Blood,Ur Negative Normal Negative [facility] Comment on above: Performed By: #### U A #### [address] Ketones Ql (U) Negative Normal Negative [facility] Comment on above: Performed By: #### U A #### [address] Leukest Negative Normal Negative [facility] Comment on above: Performed By: #### U A #### [place] [phone] Nitrite Ql (U) Negative Normal Negative [facility] Comment on above: Performed By: #### U A #### [place] [phone] pH (U) 5.5 [pH] Normal 5.0-8.0 [facility] Comment on above: Performed By: #### U A #### [place] [phone] Protein, Urine Negative Normal Negative [facility] Comment on above: Performed By: #### U A #### [place] [phone] Specific Thayer, Ur 1.023 Normal 1.005-1.030 [facility] Comment on above: Performed By: #### U A #### [place] [phone] Urobilinogen (U) [Mass/Vol] Negative Normal Negative [facility] Comment on above: Performed By: #### U A #### [place] [phone] CR Spine Lumbosacral 4+ View son 08-20-2020 CR Spine Lumbosacral 4+ Views Patient Name: CHANO DALTON Diagnostic Radiology ACCESSION EXAM DATE/TIME PROCEDURE ORDERING PROVIDER [id number] 08/20/2020 07:56 EST CR Spine Lumbosacral 4+ MD TEQUILA, YURI BERNARDO CPT code 27244 Reason For Exam (CR Spine Lumbosacral 4+ [...] Transcribed Date and Time: 08/20/2020 2:21 Normal [facility] XR LUMBAR SPINE (MIN 4 VIEWS )on 08-20-2020 Patient Name: CHANO DALTON Diagnostic Radiology ACCESSION EXAM DATE/TIME PROCEDURE ORDERING PROVIDER [id number] 08/20/2020 07:56 EST CR Spine Lumbosacral 4+ MD LOVELACE BRADLEY Views PHILLIP CPT code 50129 Reason For Exam (CR Spine Lumbosacral 4+ [...] Time: 08/20/2020 2:21 [facility] Work Phone: Ronnie, [facility] Incoming Radiology Results From [facility] - 08/20/2020 2:33 PM EST Patient [facility]: [id number] Radiology ACCESSION EXAM DATE/TIME PROCEDURE ORDERING PROVIDER [id number] 08/20/2020 07:56 EST CR Spine Lumbosacral 4+ MD TEQUILA, YURI BERNARDO CPT code 94176 Reason For Exam (CR Spine Lumbosacral 4+ [...] HARLAN Transcribed Date and Time: 08/20/2020 2:21 [facility] Work Phone: CR Spine Lumbosacral 2 or 3 Viewson 09-27-2019 CR Spine Lumbosacral 2 or 3 Views Patient Name: CHANO DALTON Diagnostic Radiology Exam Date/Time 09/27/2019 10:01:47 EDT Exam CR Spine Lumbosacral 2 or 3 Views Ordering Physician MD LOVELACE BRADLEY PHILLIP Accession Number [id number] CPT4 Codes 37337 () Reason For Exam status post lumbar [...] Transcribed Date and Time: 09/27/2019 10:53 Normal [facility] XR LUMBAR SPINE (2-3 VIEWS)o n 09-27-2019 Patient Name: CHANO DALTON ---Diagnostic Radiology--- Exam Date/Time 09/27/2019 10:01:47 EDT Exam CR Spine Lumbosacral 2 or 3 Views Ordering Physician MD LOVELACE BRADLEY PHILLIP Accession Number [id number] CPT4 Codes 01649 () Reason For Exam status post lumbar [...] LAURA Transcribed Date and Time: 09/27/2019 10:53 [place], [place] Ronnie, Emilya Incoming Radiology Results From [facility] - 09/27/2019 10:55 AM EDT Patient Name: CHANO DALTON ---Diagnostic Radiology--- Exam Date/Time 09/27/2019 10:01:47 EDT Exam CR Spine Lumbosacral 2 or 3 Views Ordering Physician MD LOVELACE BRADLEY PHILLIP Accession Number [id number] CPT4 Codes 62744 () Reason For Exam status post lumbar [...] LAURA Transcribed Date and Time: 09/27/2019 10:53 [facility], [place] Basic Metabolic Panelon 0 Calcium [Mass/Vol] 8.6 mg/dL Normal 8.4-10.4 [facility] Comment on above: Performed By: #### H VICENTE ALBARADO3M #### [facility] [employer] [facility] [address] [place] [address] Glucose [Mass/Vol] 145 mg/dL High 70-100 [facility] Comment on above: Performed By: #### H EMOG, BMP3M #### [facility] [address] [place] [address] Urea nitrogen [Mass/Vol] 18 mg/dL Normal 7-20 [facility] Comment on above: Performed By: #### H VERENA BMP3M #### [facility] [address] [place] [address] Anion gap [Moles/Vol] 9 Normal [facility] Comment on above: Performed By: #### H VERENA BMP3M #### [facility] [address] [place] [address] CO2 [Moles/Vol] 25 mmol/L Normal 22-30 [facility] Comment on above: Performed By: #### H VICENTE ALBARADO3M #### [place] [address] [place] [address] Creatinine [Mass/Vol] 0.95 mg/dL Normal 0.52-1.25 [facility] Comment on above: Performed By: #### H VERENA BMP3M #### [place] [address] [place] [address] GFR/1.73 sq M predicted among blacks MDRD (S/P/Bld) [Vol rate/Area] mL/min/{1.73_m2} Normal >60 [facility] Comment on above: Performed By: #### H VERENA BMP3M #### [place] [address] [place] [address] GFR/1.73 sq M predicted among non-blacks MDRD (S/P/Bld) [Vol rate/Area] mL/min/{1.73_m2} Normal >60 [facility] Comment on above: Result Comment: Sour ce- MDRD equation with creatinine calibration to IDMS(NKDEP) eGFR not recommended for drug dose adjustment Performed By: #### H VERENA BMP3M #### [place] [address] [place] [address] Chloride [Moles/Vol] 104 mmol/L Normal 98-107 [facility] Comment on above: Performed By: #### H VERENA BMP3M #### [facility] [address] [place] [address] Potassium [Moles/Vol] 4.6 mmol/L Normal 3.5-5.1 [facility] Comment on above: Performed By: #### H VICENTE ALBARADO3M #### [facility] [address] [place] [address] Sodium [Moles/Vol] 138 mmol/L Normal 135-145 [facility] Comment on above: Performed By: #### H VICENTE ALBARADO3M #### [facility] [employer] [facility] [address] [place] [address] Basic Metabolic Panel w/ Ref cornelius to MGon 09-12-2019 Anion gap [Moles/Vol] 9 mmol/L [place], [place] Calcium [Mass/Vol] 8.6 mg/dL 8.4 - 10. 4 mg/dL [place] Chloride [Moles/Vol] 104 mmol/L 98 - 107 mmol/L [place] CO2 [Moles/Vol] 25 mmol/L 22 - 30 mmol/L [place] Creatinine [Mass/Vol] 0.95 mg/dL 0.52 - 1.25 mg/dL [place] EGFR IF NonAfrican [place]ian >60.0 >60 mL/min [place] Comment on above: Source- MDRD equatio n with creatinine calibration to IDMS(NKDEP) eGFR not recommended for drug dose adjustment GFR/1.73 sq M predicted among blacks MDRD (S/P/Bld) [Vol rate/Area] mL/min/{1.73_m2} >60 mL/min [place] Glucose [Mass/Vol] 145 mg/dL High 70 - 100 mg/dL [place] Interpretation and review of laboratory results Abnormal [place] Potassium [Moles/Vol] 4.6 mmol/L 3.5 - 5.1 mmol/L [place] Sodium [Moles/Vol] 138 mmol/L 135 - 145 mmol/L [place] Urea nitrogen [Mass/Vol] 18 mg/dL 7 - 20 mg/dL [place] Test Performed by [facility], [address] [place] [address] [place] CBCon 09-12-2019 Erythrocyte distribution width (RBC) [Ratio] 13.5 % 11.5 - 14.5 % [place] Hematocrit (Bld) [Volume fraction] 42.3 % 40 - 52 % [place] Hemoglobin (Bld) [Mass/Vol] 14.0 g/dL 13 - 18 g/dL [place] Interpretation and review of laboratory results Abnormal [place] MCH (RBC) [Entitic mass] 29.9 pg 26 - 34 pg [place] MCHC (RBC) [Mass/Vol] 33.0 % 32 - 36 % [place] MCV (RBC) [Entitic vol] 90.4 fL 80 - 98 fL [place] Platelet mean volume (Bld) [Entitic vol] 8.3 fL 7.4 - 10.4 fL [place] Platelets (Bld) [#/Vol] 194 10*3/uL 140 - 440 10*3/uL [place] RBC (Bld) [#/Vol] 4.68 10*6/uL 4.4 - 5.9 10*6/uL [place] WBC (Bld) [#/Vol] 16.7 10*3/uL High 3.6 - 10.7 10*3/uL [place] Test Performed by [facility], [address] [place] [address] [place] Hemogramon 09-12-2019 Erythrocyte distribution width (RBC) [Ratio] 13.5 % Normal 11.5-14.5 [facility] Comment on above: Performed By: #### H JOSE ROBERTO ALBARADO #### [address] [address] Hematocrit (Bld) [Volume fraction] 42.3 % Normal 40.0-52.0 [facility] Comment on above: Performed By: #### H VICENTE ALBARADO3Miriam #### [address] Hemoglobin (Bld) [Mass/Vol] 14.0 g/dL Normal 13.0-18.0 [facility] Comment on above: Performed By: #### VICENTE MEADE3M #### [facility] [address] [place], [place] MCH (RBC) [Entitic mass] 29.9 pg Normal 26.0-34.0 [facility] Comment on above: Performed By: #### Bandar ALBARADO BMP3M #### [place] [address] [address] [place], [place] MCHC (RBC) [Mass/Vol] 33.0 % Normal 32.0-36.0 [facility] Comment on above: Performed By: #### Bandar ALBARADO BMP3M #### [place] [address] [address] [place], [place] MCV (RBC) [Entitic vol] 90.4 fL Normal 80.0-98.0 [facility] Comment on above: Performed By: #### Bandar ALBARADO BMP3M #### [place] [address] [address] [place], [place] Platelet mean volume (Bld) [Entitic vol] 8.3 fL Normal 7.4-10.4 [facility] Comment on above: Performed By: #### Bandar ALBARADO BMP3M #### [place] [address] [address] [place], [place] Platelets (Bld) [#/Vol] 194 10*3/uL Normal 140-440 [facility] Comment on above: Performed By: #### H VERENA BMP3M #### [place] [address] [address] [place], [place] RBC (Bld) [#/Vol] 4.68 10*6/uL Normal 4.40-5.90 [facility] Comment on above: Performed By: #### Bandar ALBARADO BMP3M #### [facility] [address] [place], [place] WBC (Bld) [#/Vol] 16.7 10*3/uL High 3.6-10.7 [facility] Comment on above: Performed By: #### H EMOG, BMP3M #### [address] [address] Op Noteon 09-11-2019 Op Note PATIENT: CHANO [...] Lovelace will dictate separately. Disk[employer] Job ID: [id number] Mireya Sagastume MD DOD:09/11/2019 02:51 P DP/dsk DOT:09/11/2019 03:41 P Job Number: [id number] Document Number: [id number] cc: Yuri Lovelace MD [address] [facility] [address] Mireya Sagastume MD [address] [facility] [address] Normal [facility] Vit D, 1,25-Dihydroxyon 08-12 Vit D, 1,25-Dihydroxy 44.7 pg/mL Normal 19.9-79.3 [facility] Comment on above: Result Comment: INTE RPRETIVE INFORMATION: Vitamin D, 1,25-Dihydroxy This test is primarily indicated during patient evaluation for hypercalcemia and renal failure. A normal result does not rule out Vitamin D deficiency. The recommended test for diagnosing Vitamin D deficiency is Vitamin D 25-hydroxy. Performed by [employer], [address] [place] [address] [email or web address], Osiel Lassiter MD, Lab. Director Performed By: #### D 125O #### The performing lab is in the report. CULTURE STAPH AUREUSon 08-30 CULTURE STAPH AUREUS CULTURE STAPH AUREUS --> Status: F No Staphylococcus aureus isolated. Normal [facility] Comment on above: Order Comment: Speci men Source Comment:Nasal Performed By: #### C /SA ####[facility] [address] [place] [address] CULTURE URINEon 08-30-2019 CULTURE URINE CULTURE URINE --> Status: F Normal urogenital porter present. Normal [facility] Comment on above: Performed By: #### C UA2, C/UR #### [facility] [employer] [address] [place] [address] Add On Lab Teston 08-28-2019 Sodium [Moles/Vol] Accepted [email or web address] Work Phone: Comment on above: Specimen available & acceptable for analysis. Test Performed by [facility], [address] [place] [id number] [place] [address] Work Phone: Add on test from HISon 08-28 Add on test from HIS Accepted Normal [facility] Comment on above: Result Comment: Spec imen available & acceptable for analysis. Performed By: #### A DDON #### [facility] [address] [place], [place] Complete Urinalysison 2019 Appearance (U) Clear Normal Clear [facility] Comment on above: Performed By: #### C UA2, C/UR #### [facility] [address] [place] Bacteria LM.HPF (Urine sed) [#/Area] Moderate Normal Negative [facility] Comment on above: Performed By: #### C UA2, C/UR #### [facility] [place] Bilirubin,Urine Negative Normal Negative [facility] Comment on above: Performed By: #### C UA2, C/UR #### [facility] [address] [place], [place] Color (U) Yellow Normal Lt. Yellow [facility] Comment on above: Performed By: #### C UA2, C/UR #### [facility] [address] [place] Glucose Ql (U) Normal Normal Normal (<70) [facility] Comment on above: Performed By: #### C UA2, C/UR #### [facility] [place] Ketone,Urine Negative Normal Negative [facility] Comment on above: Performed By: #### C UA2, C/UR #### [facility] [place] Leukocytes,Urine 75 Lanny/uL Normal Negative [facility] Comment on above: Performed By: #### C UA2, C/UR #### [facility] [place] Mucous Threads Many Normal Negative [facility] Comment on above: Performed By: #### C UA2, C/UR #### [facility] [address] [place], [place] Nitrites,Urine Positive Normal Negative [facility] Comment on above: Performed By: #### C UA2, C/UR #### [place] [address] [address] [place], [place] Occult Blood,Urine Negative Normal Negative [facility] Comment on above: Performed By: #### C UA2, C/UR #### [place] [address] [address] [place], [place] pH (U) 5.5 Normal 5.0-8.0 [facility] Comment on above: Performed By: #### C UA2, C/UR #### [place] [address] [address] [place], [place] Protein (U) [Mass/Vol] Negative Normal Negative [facility] Comment on above: Performed By: #### C UA2, C/UR #### [place] [address] [address] [place], [place] RBC LM.HPF (Urine sed) [#/Area] 3 - 5 Normal 0-2 [facility] Comment on above: Performed By: #### C UA2, C/UR #### [place] [address] [address] [place], [place] Specific Thayer,Urine 1.018 Normal 1.005-1.030 [facility] Comment on above: Performed By: #### C UA2, C/UR #### [place] [address] [address] [place], [place] Squamous Epithelial 0 - 2 Normal 3-5 [facility] Comment on above: Performed By: #### C UA2, C/UR #### [place] [address] [place], [place] Urobilinogen,Urine Normal Normal Normal (0-1) [facility] Comment on above: Performed By: #### C UA2, C/UR #### [place] [address] [place], [place] WBC LM.HPF (Urine sed) [#/Area] 11 - 25 Normal 0-5 [facility] Comment on above: Performed By: #### C UA2, C/UR #### [facility] [place] [address] TS GELon 08-28-2019 TS GEL ABO Group: A Rh, Gel: POS Antibody Screen Gel: NEG Normal [facility] [employer] Comment on above: Performed By: #### T SGL #### [facility] [place] [address] [facility] TYPE AND SCREENon 08-28-2019 Sodium [Moles/Vol] A [employer] Work Phone: Sodium [Moles/Vol] Negative [employer] [employer] Work Phone: Comment on above: Test Performed by [facility] [employer], [address] [place] [address] Sodium [Moles/Vol] Positive [employer] [employer] Work Phone: Comment on above: Test Performed by [employer], [address] [place] [address] Test Performed by [facility], [address] [place] [address] [employer] Work Phone: Urinalysison 08-28-2019 Appearance (U) Clear Clear NA [employer] Work Phone: Bacteria, UA Moderate Negative /[HPF] [employer] Work Phone: Bilirubin Urine Negative Negative mg/dL [employer] Work Phone: Color (U) Yellow Lt. Yellow NA [employer] Work Phone: Glucose, Ur Normal Normal (<70) mg/dL [facility] Work Phone: Ketones Ql (U) Negative Negative mg/dL [employer] Work Phone: LEUKOCYTES, UA 75 Negative Lanny/uL [facility] Work Phone: Mucous Threads Many Negative /[LPF] [employer] Work Phone: Nitrite, Urine Positive Negative NA [employer] Work Phone: Occult Blood,Urine Negative Negative mg/dL [facility] Work Phone: pH (U) 5.5 [pH] [employer] Work Phone: Protein (U) [Mass/Vol] Negative Negative mg/dL [facility] Work Phone: RBC (U) [#/Vol] 3-5 0 - 2 /[HPF] [facility] Work Phone: Specific Thayer, Urine 1.018 [facility] Work Phone: Squam Epithel, UA 0-2 3 - 5 /[HPF] [employer] Work Phone: Urobilinogen, Urine Normal Normal ( 0-1) mg/dL [employer] Work Phone: WBC, UA 11-25 0 - 5 /[HPF] [employer] Work Phone: Test Performed by [employer], [address] [place] [address] [email or web address] Work Phone: Vital Signs Date Time Vital Sign Value Performing Clinician Facility 08-24-2022 12:55-0500 Body height 182.9 cm Loree Kostas PA-C Work Phone: [facility] 08-24-2022 12:55-0500 Body temperature 97.2 [degF] Loree Kostas PA-C Work Phone: [facility] 08-24-2022 12:55-0500 Body weight 99.34 kg Loree [place] PA-C Work Phone: [facility] 08-24-2022 12:55-0500 Diastolic blood pressure 78 mm[Hg] Loree [place] PA-C Work Phone: [facility] 08-24-2022 12:55-0500 Heart rate 94 /min Loree [place] PA-C Work Phone: [facility] 08-24-2022 12:55-0500 SaO2% (BldA) [Mass fraction] 96 % Loree Kostas PA-C Work Phone: [facility] 08-24-2022 12:55-0500 Systolic blood pressure 140 mm[Hg] Loree [place] PA-C Work Phone: [facility] 09-12-2019 13:14-0500 Body Temperature 97.81 [degF] Yuri [facility] [employer] [place] [facility] [place] 09-12-2019 13:14-0500 BP Diastolic 59 mm[Hg] [facility] [place] 09-12-2019 13:14-0500 BP Systolic 112 mm[Hg] [facility] [place] 09-12-2019 13:14-0500 Pulse (Heart Rate) 72 /min [facility] [place] 09-12-2019 13:14-0500 Pulse Oximetry 93 % [facility] [place] 09-12-2019 13:14-0500 Respiratory Rate 16 /min [facility] [place] 09-11-2019 06:43-0500 BMI (Body Mass Index) 33.52 kg/m2 Yuri [facility], [place] 09-11-2019 06:43-0500 Body weight 102.97 kg Yuri [employer] [facility] [facility] , [place] 09-11-2019 06:43-0500 Height 175.3 cm [facility] [place] 08-28-2019 10:16-0500 BMI (Body Mass Index) 31.66 kg/m2 Yuri [employer]or[employer] Work Phone: 08-28-2019 10:16-0500 Body Temperature 97.59 [degF] Yuri Adornot [employer] Work Phone: 08-28-2019 10:16-0500 Body weight 102.97 [...] 04-24-2025 Emergency department patient visit Luis Braxton Facility:[facility] Start: 07-06-2024 End: 07-06-2024 Emergency department patient visit Santosroxana Vailne Facility:[facility] Start: 01-23-2024 ambulatory YANNICK WILKINS [facility] Start: 10-27-2023 End: 10-27-2023 ambulatory [facility] Work Phone: Start: 10-27-2023 End: 10-27-2023 Patient encounter procedure [facility]-Radiology, [facility] Work Phone: Start: 05-09-2023 End: 05-09-2023 ambulatory [facility] [facility] Work Phone: Start: 05-09-2023 End: 05-09-2023 Discharged Recurring [facility]-Physical Therapy Work Phone: Start: 10-04-2022 End: 10-04-2022 ambulatory YANNICK WILKINS Facility:[facility] Start: 08-24-2022 End: 08-25-2022 ambulatory YANNICK WILKINS Facility:[facility] Start: 08-24-2022 End: 08-24-2022 Patient encounter procedure Loree Garnett PA-C Work Phone: General Surgery Comment on above: Encounter for screen ing for malignant neoplasm of colon (Primary Dx) Start: 08-20-2020 End: 08-20-2020 Subsequent hospital visit by physician Yuri Lovelace Work Phone: [facility] X-Ray Start: 09-27-2019 End: 09-27-2019 Subsequent hospital visit by physician Yuri Lovelace Work Phone: [facility]ID [facility] X-Ray Start: 09-11-2019 End: 09-12-2019 Evaluation and management of inpatient Yuri Figueroahasmukh Work Phone: [facility] H6 TELEMETRY Comment on above: Pseudarthrosis after fusion or arthrodesis (Primary Dx) Start: 08-28-2019 End: 08-28-2019 Subsequent hospital visit by physician Yuri Lovelace Work Phone: [facility] Pre-Admit Testing Comment on above: Lumbar radiculopathy Start: 03-15-2019 End: 03-15-2019 Subsequent hospital visit by physician Yuri Lovelace Work Phone: [facility] X-Ray Procedures Date Procedure Procedure Detail Performing Clinician Start: 10-27-2023 X-ray of lumbar spin e, two or three views Start: 12-25-2020 Antibody screen Comment on above: Performed By: #### T SCR ####[address] [phone] Start: 08-20-2020 Radex spine lumbosac ral minimum [...] Author Start: 12-26-2023 DIABETES SCREEN DIABETES SCREEN [facility] Start: 07-11-2022 DEPRESSION ASSESSMENT DEPRESSION ASS ESSMENT [facility] Start: 02-04-2022 COVID-19 VACCINE (5 - Booster for Pfizer series) COVID-19 VACCINE (5 - Booster for Pfizer series) [facility] Start: 2021 PROSTATE CANCER SCREENING DISCUSSION PROSTATE CANCER SCREENING DISCUSSION [facility] Start: 03-11-2020 Influenza vaccination Flu vaccine (# 1) [facility] Work Phone: Start: 11-08-2019 End: 11-08-2019 Nurse Only [facility] [place] Start: 10-04-2019 End: 10-04-2019 Office Visit [facility] [place] Start: 09-20-2019 End: 09-20-2019 Office Visit [facility] [place] Start: 09-11-2019 End: 09-11-2019 Appointment 09/11/2019 Appointment General Surgery Yuri Lovelace MD [address] [facility] [address] [place], [place] [id number] Mireya Sagastume MD [address] [facility] [address] [place], [place] [id number] [facility] General Surgery Start: 04-05-2019 End: 04-05-2019 Office Visit 04/05/2019 Office Visit Orthopedic Surgery Yuri Lovelace MD [address] [facility] [address] [place], [place] [address] [facility] [place] Start: 03-11-2019 Influenza vaccination Flu vaccine (# 1) [place], [place] Start: 2016 Colon cancer screen colonoscopy Colon cancer screen colonoscopy [place], [place] Start: 2016 Screening for malign ant neoplasm of colon Colon cancer screen colonoscopy [facility] Work Phone: Start: 2016 Shingles Vaccine (1 of 2) Shingles Vaccine (1 of 2) [place] Start: 2016 SHINGRIX VACCINE (1 of 2) SHINGRIX VACCINE (1 of 2) [facility] Start: 2011 COLOGUARD (FIT-DNA) COLOGUARD (FIT-D NA) [facility] Start: 2011 Colonoscopy COLONOSCOPY [facility] Start: 2011 COLORECTAL CANCER SCREENING COLORECTAL CANCER SCREENING [facility] Start: [address] COLONOGRAPHY [facility] Start: 2011 FECAL OCCULT BLOOD FECAL OCCULT BLOO D [facility] Start: 2011 SIGMOIDOSCOPY SIGMOIDOSCOPY [facility] Start: 2006 Diabetes screen Diabetes screen [place], [place] Start: 2006 Lipid panel Lipid screen [facility] Work Phone: Start: 2006 Lipid screen Lipid screen [place], [place] Start: 2001 LIPID SCREEN LIPID SCREEN [facility] Start: 1985 DTaP/Tdap/Td vaccine (1 - Tdap) DTaP/Tdap/Td vaccine (1 - Tdap) [place], [place] Start: 1985 Urine microalbumin profile DTAP,TDAP,TD (1 - Tdap) [facility] Start: 1984 HIV SCREENING HIV SCREENING [facility] Start: 1981 HIV screen HIV screen [place], [place] Start: 1981 HIV screening HIV screen [facility] Work Phone: Start: 1977 DTaP/Tdap/Td vaccine (1 - Tdap) DTaP/Tdap/Td vaccine (1 - Tdap) [facility] Work Phone: Start: 1966 HEPATITIS B (1 of 3 - 3-dose series) HEPATITIS B (1 of 3 - 3-dose series) [facility] Start: 1966 Hepatitis C screening Hepatitis C sc reen [facility] Work Phone: End: 08-28-2019 Bacteria identified Cx Nom (U) Urine Culture Microbiology Routine Once for 1 Occurrences starting 08/28/2019 until 08/28/2019 [facility] Work Phone: Comment on above: Once for 1 Occurrenc es starting 08/28/2019 until 08/28/2019 Bacteria identified Cx Nom (U) Urine Culture Microbiology Routine 08/28/2019 11:23 AM [facility] [employer] Work Phone: End: 09-13-2019 Basic Metabolic Panel w/ Reflex to MG Basic Metabolic Panel w/ Reflex to MG Lab Routine Daily for 2 Occurrences starting 09/12/2019 until 09/13/2019, 1 completed [employer] Comment on above: Daily for 2 Occurren dawn starting 09/12/2019 until 09/13/2019, 1 completed End: 09-13-2019 CBC CBC Lab Routine Daily for 2 Occurrences starting 09/12/2019 until 09/13/2019, 1 completed [employer] [facility] Comment on above: Daily for 2 Occurren dawn starting 09/12/2019 until 09/13/2019, 1 completed End: 08-28-2019 Culture, Staph Aureus - [facility] only Culture, Staph Aureus - [facility] only Microbiology Routine Lumbar radiculopathy 1 Occurrences starting 08/28/2019 until 08/28/2019 [facility] Work Phone: Comment on above: 1 Occurrences starti ng 08/28/2019 until 08/28/2019 Culture, Staph Aureu s - [facility] only Culture, Staph Aureus - [facility] only Microbiology Routine Lumbar radiculopathy 08/28/2019 11:23 AM [facility] Work Phone: EKG 12 Lead EKG 12 Lead ECG Routine 09/12/2019 1:48 PM LEIGH [employer] HER[facility]N GUILLEN End: 09-11-2019 FL Greater Than 1 Hour FL Greater Than 1 Hour Imaging Routine Once for 1 Occurrences starting 09/11/2019 until 09/11/2019 [employer] [facility] Comment on above: Once for 1 Occurrenc es starting 09/11/2019 until 09/11/2019 FL Greater Than 1 Hour FL Greate r Than 1 Hour Imaging Routine 09/11/2019 7:54 AM LEIGH [employer] [facility] Initiate Oxygen Ther apy Protocol Initiate Oxygen Therapy Protocol Respiratory Care Routine Daily until discontinued starting 09/11/2019 [facility] [employer] HERNAN GUILLEN Comment on above: Daily until [...] for 1 Occurrences starting 03/15/2019 until 03/15/2019 [place] Comment on above: Once for 1 Occurrenc es starting 03/15/2019 until 03/15/2019 XR LUMBAR SPINE (MIN 4 VIEWS) XR LUMBAR SPINE (MIN 4 VIEWS) Imaging Routine 03/15/2019 1:58 PM EDT [place] [facility] Immunizations Immunization Date Immunization Notes Care Provider Fa cili 10-23-2020 Covid (Pfizer) [facility] 10-03-2020 Covid (Pfizer) [facility] 04-12-2016 Influenza virus vaccine [facility] Payers Date Payer Category Payer Self-pay [id number] 2022 Medicaid [facility] MEDICAID [facility] COMMUNITY PLAN MEDICA[place] [id number] 2022-Present [phone] [address] [place] [address] Medicaid [id number] 2019 Medicaid [id number] 2016 Private Health Insurance [facility] COMMUNITY PLAN xxxxxxxxx 2016-Present [phone] [address] [place] [address] xxxxxxxxx [id number] 2016 Private Health Insurance [id number] 1966 Unknown [id number] Unknown [facility] [id number] Unknown [facility] [id number] Unknown [id number] Unknown [id number] Social History Date Type Detail Facility Start: 03-15-2019 End: 08-24-2022 Tobacco smoking status NHIS Former smoker [facility] End: 07-11-2009 History of tobacco use Current smoker [place], [place] End: 07-11-2009 History of tobacco use Cigarette Smoker [place] Start: 03-15-2019 Alcohol intake Not Currently [place] Sex Assigned At Not on file [place] Start: 09-11-2019 End: 08-24-2022 Alcohol intake Ex-drinker (finding) [facility] Work Phone: Start: 08-20-2020 Tobacco use and exposure Never used [facility] Work Phone: Exposure to SARS-CoV -2 (event) Not sure [facility] Work Phone: Start: 08-24-2022 Tobacco use and exposure Former smokeless tobacco user [facility] History of tobacco use Chews Tobacco [facility] Start: 1965 Sex Assigned At Male [facility] Start: 08-19-2021 Tobacco smoking stat [facility] Unknown if ever smoked [facility] Start: 08-08-2020 Non-smoker [facility] Medical Equipment Procedure Code Equipment Code Equipment Origin al Text Equipment Identifier Dates Repair, hernia, umbilical, using mesh MESH,VENTLEX ST SM 4.3CM FDA Start: 08-12-2020 Repair, hernia, umbilical, using mesh MESH,VENTLEX ST SM 4.3CM FDA Start: 02-02-2021 Clinical Notes 12-26-2020 to 05-09-2023 Note Date & Type Note Facility 05-09-2023 Discharge summary Note Date/Time May 09, 2023 1:46pm [facility] Physical Therapy [facility] [address] [place] [address] / REHABILITATION SERVICES DISCHARGE SUMMARY MR#: [id number] Acct: [id number] Name: CHANO DALTON Rep #: [id number] : 1965 58 From: Andreas Contreras DPT, OCS, CSCS Referring DrDaren: Status: REG RCR Insurance: [facility] COMMUNITY PLAN Discharge Summary D/C summary: It [...] please feel free to call me at [phone]. Thank you for the referral of thispatient. Sincerely, Andreas Contreras, DPT, OCS, CSCS Balance/Gait/Functional tests Balance/Special Test Scores Oswestry Low Back Score: 23 Improvement % Improvement: 10 <Electronically signed by Andreas MARQUEZT, OCS, CSCS> 05/09/23 1346 CC: Dr. Yannick Wilkins MD; DARCI SHALL ~ EBG Signed [facility] Work Phone: [phone]) 495-406403-27-2023 NoteHNO ID: [id number] Author: Joss Gonsalez MD Service: ? Author [...] MG TABLET Continue supportive treatment. Joss Gonsalez, [facility]02-14-2023 NoteHNO ID: [id number] Author: Loree Garnett PA-C Service: ? Author Type: Physician Aircraft Accessories Mechanic Type: Progress Notes Filed: 08/24/2022 4:40 PM [...] entered by the nurse and reviewed by ma Nursing Notes: Sanam Martin LPN 08/24/2022 12:58 [...] in no acute distre (more content not included)...[facility] 08-24-2022 History of Present illness Narrative* Loree [...] entered by the nurse and reviewed by ma Nursing Notes: Sanam Mratin LPN 08/24/2022 12:58 PM Signed REVIEW OF [...] patient was offered a surgery/procedure at a [facility] facility. I have counseled the patient [...] mail. Loree Garnett PA-C [facility] Nurse Note* Sanam Martin, ELECTRONIC SECURITY TECHNICIAN - 08/24/2022 12:55 PM EST REVIEW OF [...] none Sanam Martin LPN [facility]-2021 NoteHNO ID: [id number] Author: CARA Barber Service: Radiology Author Type: Clinical Bench Assembler Operator Type: Progress Notes Filed: 03/23/2021 10:37 AM [...] Dalton DATE: March 23, 2021 TIME: 10:35 [id number] NoteHNO ID: [id number] Author: Ml Cartagena (Colibrí) Service: Pharmacy Author Type: ? Type: Plan of Care Filed: 12/26/2020 6:47 PM Note Text: Pharmacy Discharge Medication Service: This patient has elected to receive their discharge prescriptions through the [facility] Bedside Prescription Delivery program. The prescriptions are currently being processed. A follow-up note will be entered once the prescriptions have been filled and delivered to the patient. Please contact me with any questions or updates to the patient's discharge medications. Ml Cartagena (Colibrí) DCT Contact Info: [id number] Regional Medical [id number] NoteHNO ID: [id number] Author: Ml Cartagena (Colibrí) Service: Pharmacy Author Type: ? Type: Plan [...] or your Primary Care Provider. Ml Cartagena (Colibrí) PAGER: [phone] December 26, 2020 6:47 [facility]06-18-2021 NoteHNO ID: [id number] Author: Ml Cartagena (Colibrí) Service: Pharmacy Author Type: ? Type: Plan of Care Filed: 12/26/2020 6:46 PM Note Text: MOBILITY SCOOTER REPAIRER BEDSIDE DELIVERY SURVEY 1. Patient to use [facility] Bedside Delivery - YES Insurance Information as follows: 2. Insurance card on file - YES 3. Credit card for payment - /[facility] note* Diagnosis Encounter for screening for malignant neoplasm of colon- Primary Special screening for malignant neoplasms, colon documented in this encounter [facility] noteNo assessment information availableWMet[facility] Work Phone: Advance Directives No Advanced Directives Records FoundDocuments on File Type Date Recorded Patient Wellness Trainer Expl anation Advance Directives and Living Will Power of [place] Latest Code Status on File Code Status Date Activated Date Inactivated Comments Full Code 09/11/2019 8:28 PM Full Code 09/11/2019 6:43 AM 09/11/2019 8:28 PM Latest Code Status on File Code Status Date Activated Date Inactivated Comments Full Code 09/11/2019 8:28 PM 09/12/2019 8:50 PM Documents on File Type Date Recorded Patient Wellness Trainer Expl anation ACP-Advance Directive ACP-Power of [place] Advance Directive Response Recorded Date/ Time Advance Directives Yes August 12, 2016 3:35pm Living Will Yes September 02 3:07am Power of [place] Yes September 02, 2020 3:07am Discharge Instructions [...] Lugo RN - 08/28/2019 Please bring your [employer] [facility] Information folder on the day of [...] Care Everywhere. * Lumbar Spinal Fusion: Pre-op (Cameroonian) documented in this encounter History of Present [...] 09/12/2019 1:21 PM EST Physical Therapy Facility/Department: [facility] Initial Assessment NAME: Chano Dalton : 1965 Date of Service: 09/12/2019 Discharge Recommendations: Home with Home health PT, Home with assist PRN PT Equipment Recommendations Equipment Needed: Yes(FWW for maintain floor of house) Assessment Body structures, Functions, Activity limitations: Decreased functional mobility ;Decreased safe awareness;Decreased endurance;Decreased strength;Decreased ROM Assessment: Pt admitted for ALIF L4-S1 +PSF L4-S1 on 09/10. 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 Physical Therapy staff. Goals and/or treatment plan [...] assigned room number documented in this encounter* [place] - 08/28/2019 10:00 AM EST Labs obtained [...] Procedure: 09/11/19 Attending Surgeon: Yuri Lovelace MD Aircraft Accessories Mechanic: Tez [email or web address] PREOPERATIVE DIAGNOSES: 1. L5-S1 DDD [...] Procedure: 09/11/19 Attending Surgeon: Yuri Lovelace MD Aircraft Accessories Mechanic: Tez [email or web address] PREOPERATIVE DIAGNOSES: 1. L5-S1 DDD [...] section and content) DATE CREATED AUTHOR 08/26/2020 [facility] DATE CREATED AUTHOR AUTHOR'S ORGANIZ ATION 12/29/2020 [facility] DATE CREATED AUTHOR AUTHOR'S ORGANIZ ATION 03/24/2021 [facility] DATE CREATED AUTHOR AUTHOR'S ORGANIZ ATION 10/06/2022 [facility] DATE CREATED AUTHOR AUTHOR'S ORGANIZ ATION 01/27/2024 [facility] DATE CREATED AUTHOR AUTHOR'S ORGANIZ ATION 04/26/2025 [facility] Source Comments (unrecognize d section and content) In the event this informatio n is protected by the Federal Confidentiality of Alcohol and Drug Abuse Patient Records regulations: The Federal rules restrict any use of the information to criminally investigate or prosecute any alcohol or drug abuse patient.[facility] Reason for Visit (unrecogniz ed section and content) Reason Comments Consult colonoscopy Care Teams (unrecognized sec tion and content) Biology Lecturer Relationship Specialty Start Date End Date Yannick [...] BE BASED ON THE PRIMARY CLINICAL RECORDS. [facility] [employer] [facility]. provides no warranty or guarantee of the accuracy or completeness of information in this document.
[2025-05-01 12:09] LABS: Hematocrit 45.7 % (40-54); Hemoglobin 15.7 g/dL (13.0-16.5); Immature Granulocytes Count 0.010 X10^3/uL (0.0-0.0); Mean Corp Hgb Conc 34.4 g/dL (32-36); Mean Corpuscular Volume 88.1 fL (80-94); Mean Platelet Vol. 10.1 fl (6.2-12.0); NRBC Flagged by Analyzer 0 % (0-5); Platelet Count 187 K/mm3 (150-450); RBC Distribution Width CV 12.3 % (11.6-14.6); RBC Distribution Width SD 39.9 fl (35.1-43.9); Red Blood Count 5.19 M/mm3 (4.6-6.2); White Blood Count 5.8 K/mm3 (4.4-11.0)
[2025-05-01 12:52] LABS: CRP < 3.00 mg/L (0.0-3.0); Uric Acid 4.8 mg/dL (3.5-7.2)
== END | disposition home or self-care (01) ==
LOC: LAB 11:25
PROVIDERS: PCP Family Medicine
DX: M25.562 Pain in left knee (principal)
CPT/HCPCS: 36415; 84550; 85025; 85652; 86140

== ENCOUNTER → 2025-06-07 | Outpatient (CLI) | payer MEDICAID, SELFPAY ==
--- NOTE | 2025-05-24 15:00 | RAD_ITS ---
PROCEDURE: CERV SPINE 2 OR 3 VIEWS 05/24/2025 REASON FOR EXAM: MRI CLEARANCE LEAD TIP IN EPIDURAL SPACE BETWEEN C'D AND S2? TECHNIQUE: Procedure Code: RADSPCL Modality: DX Procedure: CERV SPINE 2 OR 3 VIEWS COMPARISON: None FINDINGS: Vertebrae: The vertebral body heights are within normal limits. There is no spondylolysis. Moderate spondylosis of the cervical spine is noted. Disc spaces: Disc space narrowing is noted involving C4-C5, C5-C6 and C6-C7 disc spaces. Alignment: There is 1-2 mm of retrolisthesis of L4 in relationship to L5. Remaining vertebral body alignments are within normal limits. soft tissues: Paravertebral soft tissues are unremarkable. Other: The spinal cord stimulator tip is not visualized on this single lateral view of the cervical spine. An AP view of the cervical spine was therefore not performed. RAD/Cerv Spine 2 or 3 Views IMPRESSION: No radiopaque spinal cord stimulator tip is visualized. Spondylosis of the cervical spine. Degenerative disc disease involving C4-C5, C5-C6 and C6-C7 disc spaces. Disclaimer: Reading Location: [id number]
--- OUTSIDE RECORDS SUMMARY | 2025-06-07 08:27 | XMS RPT_ITS | CCD ---
Author Organization [facility] Care Team Providers Care Community Living Specialist Name Role Phone Yannick Wilkins Primary Care Provider YANNICK WILKINS Primary Care Unavailable YANNICK WILKINS Referring Unavailable YANNICK WILKINS Primary Care Unavailable LOREE GARNETT Attending Unavailable YANNICK WILKINS Primary Care Unavailable GRUPO SILVA Referring Unavailable GRUPO SILVA Attending Unavailable Dr. Yannick Wilkins MD Primary Care Physician Dr. Luis Braxton DO Attending Physician Dr. Luis Braxton DO Emergency Departmen t Physician Hina Osman Attending Physician Hina Osman Referring Provider Santos Hallman Attending Unavailable Yannick Wilkins Primary Care Unavailable Luis Braxton Attending Unavailabl Yannick Burch Primary Care Unavailable Hina Stallings Referring Unavailable Hina Stallings Attending Unavailable Yannick Wilkins Primary Care Unavailable Allergies Allergy Classification Reported Allergen(s) Allergy Type Date of Onset Reaction(s) Facility (10 sources) Clarithromycin; Translations: [CLARITHROMYCIN] Drug Allergy 05-05-20 16 [place], [place] (7 sources) Iodine; Translations: [IODINE] Drug Allergy 05-05-20 16 Other: See Comments [place], [place] (7 sources) pregabalin; Translations: [PREGABALIN] Drug Allergy 02-10-20 18 Other: See Comments [place], [place] (8 sources) bee venom Propensity to adverse reactions to drug 05-10-20 19 Anaphylaxis [facility] Work Phone: (1 source) BEE VENOM PROTEIN (HONEY BEE); Translations: [BEE VENOM PROTEIN (HONEY BEE)] Propensity to adverse reactions to drug (disorder) 10-04-19 21 [facility] (3 sources) Triiodobenzoic Acids Propensity to adverse reactions 08-19-19 22 Other [facility] Comment on above: PATIENT STATES PUT H IM INTO AFIB, chest pain (1 source) Clarithromycin Drug Allergy 04-24-20 [facility] (1 source) Iodinated Contrast Media Drug allergy (disorder) 04-24-20 [facility] (1 source) venom-honey bee Drug allergy (disorder) 04-24-20 [facility] Medications Current Medications Medication Drug Class(es) Dates Sig (Normalized) Sig (Original) acetaminophen 500 mg oral tablet (2 sources) Start: 09-11-2019 End: 09-11-2019 take 1 dose by mouth three times daily 1,000 mg, Oral, EVERY 8 HOURS SCHEDULED (3 times per day), First dose on Tue09/11/19 at 2200 Maximum dose of acetaminophen is 4000 mg from all sources in 24 hours. ARIPiprazole 10 mg oral tablet (1 source) Atypical Antipsychotic Start: 04-24-2025 take 1 tablet by mouth once daily ascorbic acid 60 mg / beta carotene 5000 unt / copper sulfate 40 mg / dl-alpha tocopheryl acetate 30 unt / sodium selenite 0.04 mg / zinc oxide 40 mg oral tablet (1 source) Vitamin C take 1 tablet by mouth once daily Multiple Vitamins-Minerals (THERAPEUTIC MULTIVITAMIN-MINERA LS) tablet Take 1 tablet by mouth daily 0 Active cholecalciferol 5000 unt oral tablet (3 sources) Vitamin D Start: 09-05-2019 End: 10-05-2019 take 1 tablet by mouth once daily Cholecalciferol (VITAMIN D3) 125 MCG (5000 UT) TABS Take 1 tablet by mouth daily 30 tablet 2 09/05/2019 Active 1 ml dexamethasone phosphate 4 mg/ml injection (1 source) Corticosteroid Start: 09-11-2019 End: 09-14-2019 4 mg, Intravenous, EVERY 4 HOURS, First dose on Tue09/11/19 at 2100, For 3 days docusate sodium 50 mg / sennosides, half-way 8.6 mg oral tablet (4 sources) Start: 09-11-2019 take 1 tablet by mouth twice daily 1 tablet, Oral, 2 TIMES DAILY, First dose on Tue09/11/19 at 2099 Start: 09-11-2019 take 8.6-50 mg by [facility] once as needed senna-docusate (PERICOLACE) 8.6-50 MG per tablet Take 2 tablets by mouth daily as needed for Constipation 20 tablet 0 09/11/2019 Active metoclopramide 10 mg oral tablet (1 source) Dopamine-2 Receptor Antagonist Start: 09-11-2019 take 10 mg by mouth four times daily before mealtime 10 mg, Oral, 4 TIMES DAILY BEFORE MEALS & NIGHTLY, First dose on Tue09/11/19 at 2099 1 ml morphine sulfate 4 mg/ml injection (1 source) Opioid Agonist Start: 09-11-2019 take 4 mg by mouth every six [...] other unless specifically ordered. Multiple Vitamins-Minerals (THERAPEUTIC MULTIVITAMIN-MINERAL S) tablet (3 sources) take 1 tablet by mouth once daily Multiple Vitamins-Minerals (THERAPEUTIC MULTIVITAMIN-MINE RALS) tablet Take 1 tablet by mouth daily 0 Active Multivitamin With Minerals (2 sources) Start: 09-14-2019 Multivitamin With Minerals Active 1 EACH PO DAILY September 14, 2019 1:00am Multivitamin With Minerals 1 EACH tablet (1 source) Start: 09-14-2019 take 1 tablet by mouth once daily oxyCODONE hydrochloride 5 mg oral tablet (2 sources) Opioid Agonist Start: 09-11-2019 End: 09-18-2019 take 5 mg by mouth every six hours as needed for pain 5 mg, Oral, EVERY 6 HOURS PRN, Pain Mild (1-3), Pain Moderate (4-6), Starting Tue09/11/19 at 2027 phenol 14 mg/ml mouthwash (1 source) Start: 09-11-2019 phenol 1.4 % mouth spray 1 spray Promethazine (1 source) Phenothiazine Start: 09-11-2019 promethazine (PHENERGAN) tablet 12.5 mg 3 ml sodium chloride 9 mg/ml injection (2 sources) Start: 09-11-2019 10 mL, Intravenous, EVERY 12 HOURS SCHEDULED [...] DAILY, First dose on Tue09/12/19 at 0900 traZODone hydrochloride 50 mg oral tablet (1 source) Serotonin Reuptake Inhibitor Start: 04-24-2025 take 25-150 mg by mouth at bedtime as needed for sleep Completed/Discontinued Medications Medication Drug Class(es) Dates Sig (Normalized) Sig (Original) acetaminophen 325 mg / oxyCODONE hydrochloride 5 mg oral tablet (3 sources) Opioid Agonist Start: 08-12-2020 End: 08-15-2020 Oxycodone-Acetamino phen 1 EACH tablet Discontinued 1 - 2 {tbl} PO EVERY 6 HOURS NEEDED as needed for Pain Score 4-10/10 20 3 0 August 12, 2020 August 14, 2020 1:00am August 15, 2020 1:03am Umbilical hernia Umbilical hernia without obstruction or gangrene Start: 08-12-2020 End: 08-15-2020 take 1 tablet by mouth every six hours as needed Oxycodone-Acetaminophen Discontinued 1 - 2 TABLET PO EVERY 6 HOURS NEEDED 20 3 August 12, 2020 August 15, 2020 1:03am [id number] 200 actuat albuterol 0.09 mg/actuat metered dose inhaler (6 sources) beta2-Adrenergic Agonist Start: 07-08-2021 End: 03-22-2024 Albuterol Sulfate (Ventolin Hfa) 90 mcg/actuation HFA aerosol inhaler Discontinued 2 NMA INHALATION Q4H as needed for shortness of breath or wheezing 18 July 08, 2021 1:00am March 22, 2024 10:48am Dyspnea Dyspnea, unspecified Start: 07-08-2021 take 1 puff(s) by in halation every four hours Albuterol Sulfate (Ventolin Hfa) 90 mcg/actuation HFA aerosol inhaler Active 2 PUFF INHALATION Q4H July 08, 2021 1:00am Start: 09-20-2019 End: 08-07-2020 Albuterol Sulfate 1 INHALER inhaler Discontinued 1 - 2 NMA INHALATION EVERY 4 HOURS NEEDED as needed for Wheezing 1 0 September 20, 2019 12:00am August 07, 2020 3:10pm Start: 09-20-2019 End: 08-07-2020 take 1 puff(s) by inhalation every four hours as needed Albuterol Sulfate Discontinued 1 - 2 PUFF INHALATION EVERY 4 HOURS NEEDED September 20, 2019 12:00am August 07, 2020 3:10pm ALPRAZolam 0.25 mg disintegrating oral tablet (1 source) Benzodiazepine Start: 09-11-2019 End: 09-11-2019 ALPRAZolam (NIRAVAM) dissolvable tablet 0.25 mg aspirin 81 mg delayed release oral tablet (10 sources) Platelet Aggregation Inhibitor, Nonsteroidal Anti-inflammatory Drug Start: 08-08-2020 End: 03-22-2024 take 1 tablet by mouth once daily Aspirin 81 MG tablet Discontinued 81 mg PO DAILY@0800 August 08, 2020 1:00am March 22, 2024 10:48am Start: 09-26-2019 End: 10-26-2019 take 1 tablet [...] once daily. atenolol 25 mg oral tablet (9 sources) beta-Adrenergic Roberto Start: 11-04-2016 End: 03-22-2024 Atenolol 25 MG tablet Discontinued 25 mg PO NEEDED as needed for afib September 14, 2019 1:00am March 22, 2024 10:49am Comment on above: Take 1 tablet by neris once daily. calcium chloride 0.0014 meq/ml / potassium chloride [...] End: 09-11-2019 celecoxib (CELEBREX) capsule 400 mg Cholecalciferol (Vitamin D3) (Vitamin D3) 5,000 UNIT capsule (3 sources) Start: 09-14-2019 End: 03-22-2024 take 1 capsule by mouth once daily Cholecalciferol (Vitamin D3) (Vitamin D3) 5,000 UNIT capsule Discontinued 5000 U PO DAILY September 14, 2019 1:00am March 22, 2024 10:49am Start: 09-14-2019 take 1 capsule by mo [facility] once daily Cholecalciferol (Vitamin D3) (Vitamin D3) 5,000 UNIT capsule Active 5000 UNIT PO DAILY September 14, 2019 1:00am ciprofloxacin 500 mg oral tablet (1 source) Quinolone Antimicrobial Start: 07-06-2024 End: 04-24-2025 take 1 tablet by mouth twice daily Ciprofloxacin Hcl (Cipro) 500 mg tablet Discontinued 500 mg PO TWICE A DAY 28 14 0 July 06, 2024 1:00am April 24, 2025 1:08pm citalopram 20 mg oral tablet (1 source) Serotonin Reuptake Inhibitor Start: 01-18-2017 citalopram 10 mg tab(s) (CeleXA) 24 hr dilTIAZem hydrochloride 360 mg extended release oral tablet (3 sources) Calcium Channel Roberto Start: 05-03-2016 End: 05-04-2016 take 1 tablet by mouth once daily Diltiazem Hcl 360 MG Tab.Er.24h Discontinued 360 mg PO DAILY May 03, 2016 12:00am May [...] ml enoxaparin sodium 100 mg/ml prefilled syringe (7 sources) Low Molecular Weight Heparin Start: 09-11-2019 End: 08-07-2020 Enoxaparin 40 MG/0.4 ML syringe Discontinued 40 mg SC DAILY@0600 September 14, 2019 1:00am August 07, 2020 3:10pm famotidine 20 mg oral tablet (1 source) Histamine-2 Receptor Antagonist Start: 09-11-2019 End: 09-11-2019 famotidine (PEPCID) tablet 20 mg Start: 09-11-2019 End: 09-11-2019 famotidine (PEPCID) tablet 2 0 mg flecainide acetate 100 mg oral tablet (12 sources) Antiarrhythmic Start: 09-14-2019 End: 03-22-2024 Flecainide 100 MG tablet Discontinued 100 mg PO NEEDED as needed for afib September 14, 2019 1:00am March 22, 2024 10:49am Start: 09-12-2019 take 1 dose by mouth twice daily 100 mg, Oral, EVERY 12 HOURS SCHEDULED (2 times per day), First dose on Tue09/12/19 at 2100 Start: 11-04-2016 End: 08-24-2022 Flecainide 100 MG tablet Dis continued 100 mg PO NEEDED as needed for Not Specified December 30, 2016 12:00am April 13, 2019 9:12am Comment on above: Take 1 tablet by neris th twice daily. furosemide 20 mg oral tablet (3 sources) Loop Diuretic Start: 09-20-2019 End: 08-07-2020 take 1 tablet by mouth once daily Furosemide 20 MG tablet Discontinued 20 mg PO DAILY 7 0 September 20, 2019 12:00am August 07, 2020 [...] Start: 01-17-2017 maprotiline 50 mg tab(s) (LUDIOMIL) meloxicam 7.5 mg oral tablet (1 source) Nonsteroidal Anti-inflammatory Drug Start: 03-22-2024 End: 04-24-2025 take 1 tablet by mouth once daily Meloxicam 7.5 mg tablet Discontinued 7.5 mg PO DAILY March 22, 2024 12:00am April 24, 2025 1:08pm montelukast 10 mg oral tablet (3 sources) Leukotriene Receptor Antagonist Start: 07-08-2021 End: 03-22-2024 take 1 tablet by mouth once daily in the evening Montelukast 10 mg tablet Discontinued 10 mg PO EVERY EVENING 30 July 08, 2021 1:00am March 22, 2024 10:49am Dyspnea Dyspnea, unspecified MULTIVITAMIN ORAL (1 source) MULTIVITAMIN ORA L [...] DAILY at 6:00 AM polyethylene glycol 3350 316258 mg / potassium chloride 2970 mg / sodium bicarbonate 6740 mg / sodium chloride 5860 mg / sodium sulfate 44653 mg powder for oral solution (1 source) Osmotic Laxative Start: 08-24-2022 End: 08-24-2022 peg 3350-Electrolytes (GOLYTELY) 236-22.74-6.74 -5.86 gram suspension Take 4,000 mL by mouth one time only for 1 dose. 1 Each 0 08/24/2022 08/24/2022 Comment on above: Take 4,000 mL by neris th one time only for 1 dose. rivaroxaban 20 mg oral tablet (9 sources) Factor Xa Inhibitor Start: 09-02-2020 End: 08-24-2022 Rivaroxaban 20 MG tablet Discontinued 20 mg PO NEEDED as needed for Cardiac/Chest Pain September 02, 2020 1:00am August 19, 2021 11:20am Start: 03-27-2019 End: 09-11-2019 take 1 tablet by mouth once daily Rivaroxaban 20 MG tablet Discontinued 20 mg PO DAILY March 27, 2019 12:00am April 13, 2019 1:14pm Comment on above: Take 1 tablet by neris th daily with dinner. tamsulosin hydrochloride 0.4 mg oral capsule (1 source) alpha-Adrenergic Roberto Start: End: 5 take 1 capsule by mouth once daily Tamsulosin (Flomax) 0.4 mg capsule Discontinued 0.4 mg PO DAILY 10 July 06, 2024 1:00am April 24, 2025 1:07pm tiZANidine 4 mg oral tablet (1 source) Central alpha-2 Adrenergic Agonist Start: End: 5 take 1 tablet by mouth at bedtime as needed Tizanidine 4 mg tablet Discontinued 4 mg PO AT BEDTIME NEEDED as needed for muscle spasticity March 22, 2024 12:00am April 24, 2025 1:08pm Problems Active Problems Problem Classification Problem Date Documented Date Episodic/Chronic Abdominal hernia (3 sources) Umbilical hernia; Translations: [Umbilical hernia without obstruction or gangrene] 08-12-2020 Episodic Abdominal pain (3 sources) Abdominal pain; Translations: [Unspecified abdominal pain] 08-12-2020 Episodic Biliary tract disease (3 sources) Gallstone; Translations: [Calculus of gallbladder without cholecystitis without obstruction] 08-12-2020 Episodic Cardiac dysrhythmias (13 sources) Atrial fibrillation; Translations: [Unspecified atrial fibrillation] Onset: 05-05-2016 12-25-2020 Chronic Mood disorders (3 sources) Depressive disorder; Translations: [Depression] 08-07-2020 Chronic Osteoarthritis (3 sources) Arthritis; Translations: [Unspecified osteoarthritis, unspecified site] 08-12-2020 Chronic Other injuries and conditions due to external causes (3 sources) H/O: fracture; Translations: [Personal history of (healed) traumatic fracture] 08-12-2020 Episodic Other lower respiratory disease (3 sources) Dyspnea; Translations: [Dyspnea, unspecified] 07-08-2021 Episodic Other non-traumatic joint disorders (1 source) Pain in left knee; Translations: [Pain in left knee] Onset: 05-09-2025 Episodic Other screening for suspected conditions (not mental disorders or infectious disease) (2 sources) Patient encounter status; Translations: [Encounter for screening for malignant neoplasm of colon] Onset: 08-24-2022 Episodic Pulmonary heart disease (3 sources) Pulmonary embolism; Translations: [Other pulmonary embolism without acute cor pulmonale] 08-12-2020 Episodic Comment on above: AFTER A BACK SURGERY Residual codes; unclassified (3 sources) Obstructive sleep apnea syndrome; Translations: [Obstructive sleep apnea (adult) (pediatric)] 08-12-2020 Chronic Residual codes; unclassified (3 sources) Sleep apnea; Translations: [Sleep apnea, unspecified] 08-12-2020 Chronic Comment on above: NONT USED SINCE ABLA TION Residual codes; unclassified (3 sources) Hypersomnia; Translations: [Hypersomnia, unspecified] 08-07-2020 Chronic Residual codes; unclassified (3 sources) History of repair of umbilical hernia; Translations: [Other specified postprocedural states] 08-26-2020 Episodic Comment on above: 08/12/20 Residual codes; unclassified (3 sources) H/O Spinal surgery; Translations: [Other specified postprocedural states] 08-12-2020 Episodic Comment on above: X3 Spondylosis; intervertebral disc disorders; other back problems (1 source) Post-surgery back pain; Translations: [Postlaminectomy syndrome, not elsewhere classified] Onset: 11-19-2016 11-19-2016 Chronic Spondylosis; intervertebral disc disorders; other back problems (9 sources) Lumbar radiculopathy; Translations: [Chronic low back pain] Onset: 09-22-2016 04-05-2019 Episodic Sprains and strains (2 sources) Sprain of left knee; Translations: [Sprain of unspecified site of left knee, initial encounter] Onset: 05-01-2025 05-02-2025 Episodic Past or Other Problems Problem Classification Problem Date Documented Date Episodic/Chronic Complications of surgical procedures or medical care (4 sources) Pseudarthrosis after fusion or arthrodesis; Translations: [Pseudarthrosis after fusion or arthrodesis] Onset: 09-11-2019 09-11-2019 Episodic Inflammatory conditions of male genital organs (2 sources) Acute prostatitis; Translations: [Acute prostatitis] Onset: 08-01-2024 07-14-2024 Episodic Other connective tissue disease (1 source) History of lumbar fusion; Translations: [Arthrodesis status] Onset: 05-05-2016 05-05-2016 Episodic Residual codes; unclassified (1 source) Family history of atrial fibrillation; Translations: [Family history of ischemic heart disease and other diseases of the circulatory system] Onset: 05-05-2016 05-05-2016 Episodic Results Test Name Value Interpretation Reference Range Facility Absolute lymphocyte countOrd ered By: Hina Stallings on 05-01-2025 Lymphocytes Auto (Unsp spec) [#/Vol] 2.18 10*3/uL 0.83-4.51 [facility] Absolute neutrophil countOrd ered By: Hina Stallings on 05-01-2025 Neutrophils (Bld) [#/Vol] 3.1 10*3/uL 2.0-7.7 [facility] Automated lymphocyte count a s percentage of total leukocytesOrdered By: Hina Stallings on 05-01-2025 Lymphocytes/100 WBC Auto (Unsp spec) 37.7 % 19-41 [facility] Basophil percentageOrdered B y: Hina Stallings on 05-01-2025 Basophils/100 WBC (Bld) 1.0 % 0-1 [facility] CBC W/Diff, Automatedon 04-11 Absolute Lymph 2.18 X10 3/uL Normal 0.83-4.51 [facility] Comment on above: Performed By: #### L [id number], [id number], L501.1400, L100.0100 #### [facility] [address] [place], [address] Absolute Neut 3.1 X10 3/uL Normal 2.0-7.7 [facility] Comment on above: Performed By: #### L [id number], [id number], L501.1400, L100.0100 #### [facility] [address] [place], [address] Basophils/100 WBC (Bld) 1.0 % Normal 0-1 [facility] Comment on above: Performed By: #### L [id number], [id number], [id number], L100.0100 #### [facility] [address] [place], [address] Eosinophils/100 WBC (Bld) 2.4 % Normal 0-5 [facility] Comment on above: Performed By: #### L [id number], [id number], [id number], L100.0100 #### [facility] [address] [place], [address] Erythrocyte distribution width (RBC) [Ratio] 12.3 % Normal 11.6-14.6 [facility] Comment on above: Performed By: #### L [id number], [id number], [id number], L100.0100 #### [facility] [address] [place], [address] Hematocrit (Bld) [Volume fraction] 45.7 % Normal 40-54 [facility] Comment on above: Performed By: #### L [id number], [id number], [id number], L100.0100 #### [facility] [address] [place], [address] Hemoglobin (Bld) [Mass/Vol] 15.7 g/dL Normal 13.0-16.5 [facility] Comment on above: Performed By: #### L [id number], [id number], [id number], L100.0100 #### [facility] [address] [place], [address] IG% 0.200 Normal 0.0-0.9 [facility] Comment on above: Result Comment: IG% - Immature Granulocytes (promyelocytes, myelocytes and metamyelocytes) > 1% indicates that a LEFT SHIFT is Present. Performed By: #### L [id number], [id number], [id number], L100.0100 #### [facility] [address] [place], [address] Lymphocytes/100 WBC (Bld) 37.7 % Normal 19-41 [facility] Comment on above: Performed By: #### L [id number], [id number], [id number], L100.0100 #### [facility] [address] [place], [address] MCH (RBC) [Entitic mass] 30.3 pg Normal 27.0-32.0 [facility] Comment on above: Performed By: #### L [id number], [id number], [id number], L100.0100 #### [facility] [address] [place], [address] MCHC (RBC) [Mass/Vol] 34.4 g/dL Normal 32-36 [facility] Comment on above: Performed By: #### L [id number], [id number], L501.1400, L100.0100 #### [facility] [address] [place], [address] MCV (RBC) [Entitic vol] 88.1 fL Normal 80-94 [facility] Comment on above: Performed By: #### L [id number], [id number], [id number], L100.0100 #### [facility] [address] [place], [address] Monocytes/100 WBC (Bld) 5.0 % Normal 0-10 [facility] Comment on above: Performed By: #### L [id number], L101.9900, [id number], L100.0100 #### [facility] [address] [place], [address] Neutrophils/100 WBC (Bld) 53.7 % Normal 47-70 [facility] Comment on above: Performed By: #### L [id number], L101.9900, [id number], L100.0100 #### [facility] [address] [place], [address] Nucleated RBC (Bld) [#/Vol] 0 10*3/uL Normal 0-5 [facility] Comment on above: Performed By: #### L [id number], L101.9900, [id number], L100.0100 #### [facility] [address] [place], [address] Platelet mean volume (Bld) [Entitic vol] 10.1 fL Normal 6.2-12.0 [facility] Comment on above: Performed By: #### L [id number], L101.9900, L501.1400, L100.0100 #### [facility] [address] [place], [address] Platelets (Bld) [#/Vol] 187 10*3/uL Normal 150-450 [facility] Comment on above: Performed By: #### L [id number], L101.9900, L501.1400, L100.0100 #### [facility] [address] [place], [address] RBC (Bld) [#/Vol] 5.19 10*6/uL Normal 4.6-6.[address] [facility] Comment on above: Performed By: #### L [id number], L101.9900, [id number], L100.0100 #### [facility] [address] [place], [address] RDW SD 39.9 fl Normal 35.1-43.9 [facility] Comment on above: Performed By: #### L [id number], L101.9900, [id number], L100.0100 #### [facility] [address] [place], [address] WBC (Bld) [#/Vol] 5.8 10*3/uL Normal 4.4-11.0 [facility] Comment on above: Performed By: #### L [id number], L101.9900, L501.1400, L100.0100 #### [facility] [address] [place], [address] CRPon 05-01-2025 C-REACTIVE PROT < 3.00 Normal 0.0-3.0 [facility] Comment on above: Performed By: #### L 500.4050, L501.2450, L100.0100 #### [facility] [address] [place], [address] Eosinophil percentageOrdered By: Hina Stallings on 05-01-2025 Eosinophils/100 WBC (Bld) 2.4 % 0-5 [facility] Erythrocyte Sed Rateon 05-01 SED RATE 1 mm/hr Normal 0-20 [facility] Comment on above: Performed By: #### L [id number], L101.9900, L501.1400, L100.0100 #### [facility] [address] [place], [address] Erythrocyte distribution wid th ratioOrdered By: Hina Stallings on 05-01-2025 Erythrocyte distribution width (RBC) [Ratio] 12.3 % 11.6-14.6 [facility] Erythrocyte distribution wid th standard deviationOrdered By: Hina Stallings on 05-01-2025 Erythrocyte distribution width (RBC) [Ratio] 39.9 fl 35.1-43.9 [facility] Erythrocyte sedimentation ra teOrdered By: Hina Stallings on 05-01-2025 ESR (Bld) [Velocity] 1 mm/h 0-20 [facility] Hematocrit Auto (Bld) [Volum e fraction]Ordered By: Hina Stallings on 05-01-2025 Hematocrit (Bld) [Volume fraction] 45.7 % 40-54 [facility] Hemoglobin measurementOrdere d By: Hina Stallings on 05-01-2025 Hemoglobin (Bld) [Mass/Vol] 15.7 g/dL 13.0-16.5 [facility] Immature granulocytes/100 WB C Auto (Bld)Ordered By: Hina Stallings on 05-01-2025 Immature granulocytes/100 WBC (Bld) 0.200 % 0.0-0.9 [facility] Comment on above: IG% - Immature Granu locytes (promyelocytes, myelocytes and metamyelocytes) > 1% indicates that a LEFT SHIFT is Present. MCV (mean corpuscular volume ) determinationOrdered By: Hina Stallings on 05-01-2025 MCV (RBC) [Entitic vol] 88.1 fL 80-94 [facility] Mean corpuscular hemoglobin (MCH) determinationOrdered By: Hina Stallings on 05-01-2025 MCH (RBC) [Entitic mass] 30.3 pg 27.0-32.0 [facility] Mean corpuscular hemoglobin concentration (MCHC) determinationOrdered By: Hina tSallings on 05-01-2025 MCHC (RBC) [Mass/Vol] 34.4 g/dL 32-36 [facility] Mean platelet volume determi nationOrdered By: Hina Stallings on 05-01-2025 Platelet mean volume (Bld) [Entitic vol] 10.1 fL 6.2-12.0 [facility] Monocyte percentageOrdered B y: Hina Stallings on 05-01-2025 Monocytes/100 WBC (Bld) 5.0 % 0-10 [facility] Neutrophil percentageOrdered By: Hina Stallings on 05-01-2025 Neutrophils/100 WBC (Bld) 53.7 % 47-70 [facility] Nucleated red blood cell per centageOrdered By: Hina Stallings on 05-01-2025 Nucleated RBC/100 WBC (Bld) [Ratio] 0 % 0-5 [facility] Platelet countOrdered By: Carolyn Stallings on 05-01-2025 Platelets (Bld) [#/Vol] 187 10*3/uL 150-450 [facility] RBC Auto (Bld) [#/Vol]Ordere d By: Hina Stallings on 05-01-2025 RBC (Bld) [#/Vol] 5.19 10*6/uL 4.6-6.[address] [facility] Serum or plasma C reactive p rotein measurement (mass/volume)Ordered By: Hina Stallings on 05-01-2025 CRP [Mass/Vol] mg/L 0.0-3.0 [facility] Serum or plasma uric acid me asurement (mass/volume)Ordered By: Hina Stallings on 05-01-2025 Urate [Mass/Vol] 4.8 mg/dL 3.5-7.2 [facility] Comment on above: The drugs N-Acetylcy steine and Metamizole may falsely depress this assay. Uric Acidon 05-01-2025 URIC 4.8 mg/dL Normal 3.5-7.2 [facility] Comment on above: Result Comment: The drugs N-Acetylcysteine and Metamizole may falsely depress this assay. Performed By: #### L 500.4050, L501.2450, L100.0100 #### [facility] [address] [place], [address] White blood cell (WBC) count Ordered By: Hina Stallings on 05-01-2025 WBC (Bld) [#/Vol] 5.8 10*3/uL 4.4-11.0 [facility] Emergency Department Summary on 04-24-2025 Emergency Department Summary [facility] Medical Records Department [address] [place] [address] Emergency Department Summary 04/24/25 MR#: [id number] Acct: [id number] Name: CHANO DALTON Rep #: [id number] : 1965 60 From: Luis Braxton DO [...] medial collateral ligament, no meniscus tenderness, no swelling/warmth/eryt anuradha/ecchymosis/crep itus of the knee joint or left lower extremity, compartments soft, sensation intact, good capillary refill, femoral/DP/PT pulses +2 Skin: Warm, dry Psych: Cooperative, appropriate mood and affect [facility] Medical History (Updated 04/24/25 @ 13:[address] Luis Braxton DO) Wears glasses Back pain Former smoker [...] Clinical Impres (more content not included)... Normal [facility] Knee 4 or More Viewson 04-24 Knee 4 or More Views [facility] Imaging Services [address] [place], [place] [address] Knee 4 or More Views MR#: [id number] Acct: [id number] Name: CHANO DALTON Rep #: [id number] : 1965 M 60 From: Jacob cochran MD PCP: Dr. Yannick Wilkins MD Status: REG ER Study: Knee 4 or More Views Date of Exam: 04/24/25 Exam# [id number] Ordering Dr: Luis Braxton DO PROCEDURE: KNEE [...] EFFUSION ACUTE FRACTURE OR DISLOCATION. Reading Location: [place] [address] CC: Dr. Luis Braxton DO; Dr. Yannick Wilkins MD [employer] Sales Representative: Signed Normal [facility] Urine Cultureon 07-07-2024 URC Culture exhibits no growth. Normal [facility] Comment on above: Performed By: #### M 100.220 #### [facility] [address] [place], [place], [address] Abdomen/Pelvis without Conto n 07-06-2024 Abdomen/Pelvis without Cont [facility] Imaging Services [address] [place] [address] Abdomen/Pelvis without Cont MR#: [id number] Acct: [id number] Name: CHANO DALTON Rep #: [id number] : 1965 M 59 From: Kerri nielsen MD PCP: Dr. Yannick Wilkins MD Status: REG ER Study: Abdomen/Pelvis without Cont Date of Exam: 06/11 01/31 Exam# [id number] Ordering Dr: Yannick Arevalo [id number] HISTORY: Pain. TECHNIQUE: Helically acquired images were [...] Signed: Kerri Hernandez MD at 15:21 EST , CC: YANY Arevalo; Dr. Yannick Wilkins MD [employer] Sales Representative: Signed Normal [facility] CBC W/Diff, Automatedon 12- Absolute Lymph 1.79 X10 3/uL Normal 0.83-4.51 [facility] Comment on above: Performed By: #### L 500.4050, L501.2450, L100.0100 #### [facility] [address] [place], [address] Absolute Neut 12.5 X10 3/uL High 2.0-7.7 [facility] Comment on above: Performed By: #### L 500.4050, L501.2450, L100.0100 #### [facility] [address] [place], [address] Basophils/100 WBC (Bld) 0.4 % Normal 0-1 [facility] Comment on above: Performed By: #### L 500.4050, L501.2450, L100.0100 #### [facility] [address] [place], [address] Eosinophils/100 WBC (Bld) 0.3 % Normal 0-5 [facility] Comment on above: Performed By: #### L 500.4050, L501.2450, L100.0100 #### [facility] [address] [place], [address] Erythrocyte distribution width (RBC) [Ratio] 12.8 % Normal 11.6-14.6 [facility] Comment on above: Performed By: #### L 500.4050, L501.2450, L100.0100 #### [facility] [address] [place], [address] Hematocrit (Bld) [Volume fraction] 44.4 % Normal 40-54 [facility] Comment on above: Performed By: #### L 500.4050, L501.2450, L100.0100 #### [facility] [address] [place], [address] Hemoglobin (Bld) [Mass/Vol] 15.3 g/dL Normal 13.0-16.5 [facility] Comment on above: Performed By: #### L 500.4050, L501.2450, L100.0100 #### [facility] [address] [place], [address] IG% 0.300 Normal 0.0-0.9 [facility] Comment on above: Result Comment: IG% - Immature Granulocytes (promyelocytes, myelocytes and metamyelocytes) > 1% indicates that a LEFT SHIFT is Present. Performed By: #### L 500.4050, L501.2450, L100.0100 #### [facility] [address] [place], [address] Lymphocytes/100 WBC (Bld) 11.8 % Low 19-41 [facility] Comment on above: Performed By: #### L 500.4050, L501.2450, L100.0100 #### [facility] [address] [place], [address] MCH (RBC) [Entitic mass] 31.2 pg Normal 27.0-32.0 [facility] Comment on above: Performed By: #### L 500.4050, L501.2450, L100.0100 #### [facility] [address] [place], [address] MCHC (RBC) [Mass/Vol] 34.5 g/dL Normal 32-36 [facility] Comment on above: Performed By: #### L 500.4050, L501.2450, L100.0100 #### [facility] [address] [place], [address] MCV (RBC) [Entitic vol] 90.4 fL Normal 80-94 [facility] Comment on above: Performed By: #### L 500.4050, L501.2450, L100.0100 #### [facility] [address] [place], [address] Monocytes/100 WBC (Bld) 5.3 % Normal 0-10 [facility] Comment on above: Performed By: #### L 500.4050, L501.2450, L100.0100 #### [facility] [address] [place], [address] Neutrophils/100 WBC (Bld) 81.9 % High 47-70 [facility] Comment on above: Performed By: #### L 500.4050, L501.2450, L100.0100 #### [facility] [address] [place], [address] Nucleated RBC (Bld) [#/Vol] 0 10*3/uL Normal 0-5 [facility] Comment on above: Performed By: #### L 500.4050, L501.2450, L100.0100 #### [facility] [address] [place], [address] Platelet mean volume (Bld) [Entitic vol] 9.6 fL Normal 6.2-12.0 [facility] Comment on above: Performed By: #### L 500.4050, L501.2450, L100.0100 #### [facility] [address] [place], [address] Platelets (Bld) [#/Vol] 129 10*3/uL Low 150-450 [facility] Comment on above: Performed By: #### L 500.4050, L501.2450, L100.0100 #### [facility] [address] [place], [address] RBC (Bld) [#/Vol] 4.91 10*6/uL Normal 4.6-6.[address] [facility] Comment on above: Performed By: #### L 500.4050, L501.2450, L100.0100 #### [facility] [address] [place], [address] RDW SD 42.5 fl Normal 35.1-43.9 [facility] Comment on above: Performed By: #### L 500.4050, L501.2450, L100.0100 #### [facility] [address] [place], [address] WBC (Bld) [#/Vol] 15.2 10*3/uL High 4.4-11.[address] [facility] Comment on above: Performed By: #### L 500.4050, L501.2450, L100.0100 #### [facility] [address] [place], [address] Comprehensive Metabolic Prof ilon 07-06-2024 Albumin [Mass/Vol] 3.4 g/dL Normal 3.2-5.0 [facility] Comment on above: Performed By: #### L 500.4050, L501.2450, L100.0100 #### [facility] [address] [place], [address] Albumin/Globulin [Mass ratio] 0.9 {ratio} Normal 0.9-2.4 [facility] Comment on above: Performed By: #### L 500.4050, L501.2450, L100.0100 #### [facility] [address] [place], [address] ALK P 84 U/L Normal 45-117 [facility] Comment on above: Performed By: #### L 500.4050, L501.2450, L100.0100 #### [facility] [address] [place], [address] ALT [Catalytic activity/Vol] 62 U/L High 16-61 [facility] Comment on above: Performed By: #### L 500.4050, L501.2450, L100.0100 #### [facility] [address] [place], [address] AST [Catalytic activity/Vol] 41 U/L High 15-37 [facility] Comment on above: Result Comment: Mode rate Hemolysis, Result may be falsely increased. Performed By: #### L 500.4050, L501.2450, L100.0100 #### [facility] [address] [place], [address] Bilirubin [Mass/Vol] 1.20 mg/dL High 0.20-1.00 [facility] Comment on above: Result Comment: For patients on eltrombopag therapy, use of Dimension [place] TBIL is not recommended. Performed By: #### L 500.4050, L501.2450, L100.0100 #### [facility] [address] [place], [address] BUN/CRE 13.0 RATIO Normal 10-20 [facility] Comment on above: Performed By: #### L 500.4050, L501.2450, L100.0100 #### [facility] [address] [place], [address] CA,Total 9.2 mg/dL Normal 8.5-10.1 [facility] Comment on above: Performed By: #### L 500.4050, L501.2450, L100.0100 #### [facility] [address] [place], [address] Chloride [Moles/Vol] 105 mmol/L Normal 98-107 [facility] Comment on above: Performed By: #### L 500.4050, L501.2450, L100.0100 #### [facility] [address] [place], [address] CO2 [Moles/Vol] 29.0 mmol/L Normal 21.0-32.0 [facility] Comment on above: Performed By: #### L 500.4050, L501.2450, L100.0100 #### [facility] [address] [place], [address] Creatinine [Mass/Vol] 1.15 mg/dL Normal 0.70-1.30 [facility] Comment on above: Result Comment: The validity of the calculated GFR GFRAA in patients over 70 years has not been determined. Clinical correlation is essential. Performed By: #### L 500.4050, L501.2450, L100.0100 #### [facility] [address] [place], [address] ECRCL 84.53 ml/min Normal [facility] Comment on above: Performed By: #### L 500.4050, L501.2450, L100.0100 #### [facility] [address] [place], [address] EST GFR - AA 84 mL/min Normal >60 [facility] Comment on above: Result Comment: Afri can [place] GFR Calc Performed By: #### L 500.4050, L501.2450, L100.0100 #### [facility] [address] [place], [address] GAP 4 Low 5-15 [facility] Comment on above: Performed By: #### L 500.4050, L501.2450, L100.0100 #### [facility] [address] [place], [address] GFR/1.73 sq M.predicted among non-blacks MDRD (S/P/Bld) [Vol rate/Area] 69 mL/min/{1.73_m2} Normal >60 [facility] Comment on above: Result Comment: Non- GFR Calc Performed By: #### L 500.4050, L501.2450, L100.0100 #### [facility] [address] [place], [address] Globulin (S) [Mass/Vol] 3.8 g/dL Normal 2.2-4.2 [facility] Comment on above: Performed By: #### L 500.4050, L501.2450, L100.0100 #### [facility] [address] [place], [address] Glucose [Mass/Vol] 100 mg/dL Normal 74-106 [facility] Comment on above: Result Comment: Fast ing Glucose result from 100 to 125 mg/dL suggests IMPAIRED HOMEOSTASIS per A.D.A. criteria. Performed By: #### L 500.4050, L501.2450, L100.0100 #### [facility] [address] [place], [address] Potassium [Moles/Vol] 4.5 mmol/L Normal 3.5-5.1 [facility] Comment on above: Result Comment: Mode rate Hemolysis, Result may be falsely increased. Performed By: #### L 500.4050, L501.2450, L100.0100 #### [facility] [address] [place], [address] Sodium [Moles/Vol] 137 mmol/L Normal 136-145 [facility] Comment on above: Performed By: #### L 500.4050, L501.2450, L100.0100 #### [facility] [address] [place], [address] T PROT 7.2 g/dL Normal 6.4-8.2 [facility] Comment on above: Performed By: #### L 500.4050, L501.2450, L100.0100 #### [facility] [address] [place], [address] Urea nitrogen [Mass/Vol] 15 mg/dL Normal 7-18 [facility] Comment on above: Performed By: #### L 500.4050, L501.2450, L100.0100 #### [facility] [address] [place], [address] Emergency Department Summary on 07-06-2024 Emergency Department Summary [facility] Medical Records Department [address] [place] [address] Emergency Department Summary 07/06/24 MR#: [id number] Acct: [id number] Name: CHANO DALTON Rep #: [id number] : 1965 59 From: Yannick SLADE PCP: [...] blood thinners. Denies any concern for STD. [facility] Medical History (Updated 07/06/24 @ 16:22 by [...] spinal te (more content not included)... Normal [facility] Lipaseon 07-06-2024 Lipase [Catalytic activity/Vol] 26 U/L Normal 13-75 [facility] Comment on above: Result Comment: Renetta abarca note: LIPASE revised reference range effective 22. New Lipase methodology. Expected to produce lower values than the previous assay method. NEW Reference Range: 13 - 75 U/L Performed By: #### L 500.4050, L501.2450, L100.0100 #### [facility] [address] [place], [address] Urinalysis, Completeon 07-06 Mucus Ql (Urine sed) 1+ /hpf Normal [facility] Comment on above: Order Comment: COLOR OF URINE MAY AFFECT DIPSTICK RESULTS.CLEAN CATCH Performed By: #### L 500.4050, L501.2450, L100.0100 #### [facility] [address] [place], [address] WBC 25-50 SEEN Normal 0-5 [facility] Comment on above: Order Comment: COLOR OF URINE MAY AFFECT DIPSTICK RESULTS.CLEAN CATCH Performed By: #### L 500.4050, L501.2450, L100.0100 #### [facility] [address] [place], [address] BACTERIA 0 SEEN Normal None Seen [facility] Comment on above: Order Comment: COLOR OF URINE MAY AFFECT DIPSTICK RESULTS.CLEAN CATCH Performed By: #### L 500.4050, L501.2450, L100.0100 #### [facility] [address] [place], [address] EPI,SQUAMOUS 0 SEEN Normal 0-5 [facility] Comment on above: Order Comment: COLOR OF URINE MAY AFFECT DIPSTICK RESULTS.CLEAN CATCH Performed By: #### L 500.4050, L501.2450, L100.0100 #### [facility] [address] [place], [address] RBC 0 SEEN Normal 0-5 [facility] Comment on above: Order Comment: COLOR OF URINE MAY AFFECT DIPSTICK RESULTS.CLEAN CATCH Performed By: #### L 500.4050, L501.2450, L100.0100 #### [facility] [address] [place], [address] CNOVon 10-04-2022 CNOV Office Visit (UCWSTR) CHANO DALTON ([id number]) 1965 M Date Time Provider Department 10/04/22 12:45 PM JOSS GONSALEZ [facility] During your visit today, we recorded [...] 25 mg by mouth as needed.) Current Facility-Administere d Medications Medication Dose Route Frequency citalopram 10 [...] Visit Diagnosis:Acute non-recurrent sinusitis, unspecified location [J01.90] Order(s):amoxicillin -clavulanic acid (AUGMENTIN) 875-125 mg per tabletTake 1 tablet by mouth twice daily for 5 days.Disp: 10 tabletRfl: 0 Prescriptions as of 10/04/2022 - amoxicillin-clavulan ic acid (AUGMENTIN) 875-125 mg per tablet Take [...] Take 1 tablet by mouth once daily. Facility-Administere d Medications as of 10/04/2022 - citalopram 10 [...] Encounter Status:Closed by JOSS GONSALEZ on 10/04/22 [facility] Roman 08-24-2022 CNOV Office Visit (GENSWS) CHANO DALTON ([id number]) 1965 M Date Time Provider Department 08/24/22 [...] Neurologic: The patient denies a history of epilepsy/convulsions , denies headaches, notes head/spinal injuries, and denies [...] 4:40 PM Signed HISTORY AND PHYSICAL Chano Dalton 1965 REFERRING [...] 25 mg by mouth as needed.) Current Facility-Administere d Medications Medication Dose Route Frequency citalopram 10 [...] data was (more content not included)... Normal [facility] CT PULMONARY VEIN W IVCONon 03-23-2021 CT PULMONARY VEIN W IVCON * * *Final Report* * * DATE OF EXAM: Mar 23 2021 10:34AM [facility] [place] PULMONARY VEIN W IVCON [...] left atrial or left atrial appendage thrombus. [employer] Sales Representative: PSCB Transcribe Date/Time: Mar 23 2021 11:51A Dictated by : OSWALDO PEREZ MD This examination was interpreted and the report reviewed and electronically signed by: OSWALDO PEREZ MD on Mar 23 2021 11:59AM EST [id number] [facility] 12-26-2020 [facility] HNO ID: [id number] Author: Deya Sow MD Service: Electrophysiology Author [...] Time Provider Department Center 01/01/2021 2:00 PM [id number] BENEDICT Highest Readmission Risk Score: 7 The [...] factors: P (more content not included)... Normal [facility] NURSING PROGon 12-26-2020 NURSING PROG HNO ID: [id number] Author: Susy Mccormick RN Service: Nursing Author [...] having throat and chest discomfort. Nadja Fernández JOURNEYMAN [employer]ESSMAN paged. 1150 Nadja Fernández in to see patient. 1300 Patient given Tylenol, Cepacol, and Protonix. Nadja Fernández in to check patient. 1400 Patient states that he is feeling better but his throat is still sore. Patient ready for discharge. Waiting for his ride home. [facility] NURSING PROG HNO ID: [id number] Author: Nelly Almaguer RN Service: ? Author Type: Registered Nurse Type: Nursing Progress Note Filed: 12/26/2020 12:43 AM Note Text: Nursing Progress Note Patient Name: Chano Dalton Patient Location: [id number]/[facility]-[id number] Daily Note: Assumed care of pt at [...] This note was completed by: Nelly Almaguer [facility] ANES PRE-OPon 12-25-2020 ANES PRE-OP HNO ID: [id number] Author: Andreas Verde MD Service: Anesthesiology Author [...] SpO2 97 % 12/25/20 0711 No current facility-administere d medications on file as of 12/25/2020. Outpatient [...] December 25, 2020 TIME: 7:46 AM CSN: [id number] Normal [facility] Basic Metabolic Panlon 12-25 Anion gap [Moles/Vol] 10 mmol/L Normal 9-18 [facility] Comment on above: Performed By: #### B MP, CBC ####[place] [phone] Calcium [Mass/Vol] 9.3 mg/dL Normal 8.5-10.5 [facility] Comment on above: Performed By: #### B MP, CBC ####[place] [phone] Chloride [Moles/Vol] 104 mmol/L Normal 98-110 [facility] Comment on above: Performed By: #### B MP, CBC ####[place] [phone] CO2 [Moles/Vol] 27 mmol/L Normal 23-32 [facility] Comment on above: Performed By: #### B MP, CBC ####[place] [phone] Creatinine [Mass/Vol] 1.15 mg/dL Normal 0.70-1.40 [facility] Comment on above: Performed By: #### B MP, CBC ####[place] [phone] eGFR- Amer. >60 Normal >60 [facility] Comment on above: Performed By: #### B SHOSHANA, CBC ####[place] [phone] eGFR-All Other Races >60 Normal >60 [facility] Comment on above: Result Comment: eGFR (Estimated [...] reflect actual GFR. Performed By: #### B SHOSHANA, CBC ####[place] [phone] Glucose [Mass/Vol] 96 mg/dL Normal 65-100 [facility] Comment on above: Performed By: #### B SHOSHANA, CBC ####[place] [phone] Potassium [Moles/Vol] 4.8 mmol/L Normal 3.5-5.0 [facility] Comment on above: Performed By: #### B SHOSHANA, CBC ####[place] [phone] Sodium [Moles/Vol] 141 mmol/L Normal 135-146 [facility] Comment on above: Performed By: #### B MP, CBC ####[place] [phone] Urea nitrogen [Mass/Vol] 17 mg/dL Normal 10-25 [facility] Comment on above: Performed By: #### B MP, CBC ####[place] [phone] CBCon 12-25-2020 Absolute nRBC <0.01 Normal <0.01 [facility] Comment on above: Performed By: #### B MP, CBC #### [place] [phone] Erythrocyte distribution width (RBC) [Ratio] 12.9 % Normal 11.5-15.0 [facility] Comment on above: Performed By: #### B MP, CBC #### [place] [phone] Hematocrit (Bld) [Volume fraction] 44.8 % Normal 39.0-51.0 [facility] Comment on above: Performed By: #### B MP, CBC #### [place] [phone] Hemoglobin (Bld) [Mass/Vol] 15.0 g/dL Normal 13.0-17.0 [facility] Comment on above: Performed By: #### B MP, CBC #### [place] [phone] MCH 29.5 pG Normal 26.0-34.0 [facility] Comment on above: Performed By: #### B MP, CBC #### [place] [phone] MCHC (RBC) [Mass/Vol] 33.5 g/dL Normal 30.5-36.0 [facility] Comment on above: Performed By: #### B MP, CBC #### [place] [phone] MCV (RBC) [Entitic vol] 88.2 fL Normal 80.0-100.0 [facility] Comment on above: Performed By: #### B MP, CBC #### [place] [phone] Platelet mean volume (Bld) [Entitic vol] 10.4 fL Normal 9.0-12.7 [facility] Comment on above: Performed By: #### B MP, CBC #### [place] [phone] Platelets (Bld) [#/Vol] 179 10*3/uL Normal 150-400 [facility] Comment on above: Performed By: #### B MP, CBC #### [facility] [address] [place] [address] RBC (Bld) [#/Vol] 5.08 10*6/uL Normal 4.20-6.00 [facility] Comment on above: Performed By: #### B MP, CBC #### [facility] [address] [place] [phone] WBC (Bld) [#/Vol] 7.88 10*3/uL Normal 3.70-11.00 [facility] Comment on above: Performed By: #### B MP, CBC #### [place] [id number] [place] [address] CONSULT PROGon 12-25-2020 CONSULT PROG HNO ID: [id number] Author: Jere Mohan RP Service: Pharmacy Author Type: Pharmacist Type: Consult [...] any questions or concerns. SIGNATURE: Jere Mohan [facility] DATE/TIME: 12/25/2020 4:27 PM Normal [facility] Confirm Blood Typeon 021 ABO/RH(D) Positive Normal [facility] Comment on above: Performed By: #### C ONABO ####[id number] [place], [place] [phone] HISTORY PHYSICALon HISTORY PHYSICAL HNO ID: [id number] Author: Violeta Henley PA-C Service: Cardiovascular Disease Author Type: Physician [employer] Systems Engineer Type: HANDP Filed: 12/25/2020 7:54 AM Note [...] few times he end up at local [facility] and his A.Fib was terminated with [...] mg, ORAL, DAILY (6 AM), Sanam Horta APRN.CNP maprotiline 50 mg tab(s) (LUDIOMIL), 50 mg, ORAL, AT BEDTIME, Sanam Horta APRN.CNP rivaroxaban (XARELTO) 20 mg tablet, Take 1 [...] PSYCH: Negative for depression or sleep disturbance. HEMATOLOGY/LYMPHOLOG Y: Negative for prolonged bleeding, bruising easily or [...] normal. No deformities, (more content not included)... [facility] NURSING PROGon 12-25-2020 NURSING PROG HNO ID: [id number] Author: Briana Rae RN Service: ? Author Type: Registered Nurse Type: Nursing Progress Note Filed: 12/25/2020 9:57 PM Note Text: Nursing Progress Note Patient Name: Chano Dalton Patient Location: [id number]/[id number] 1999 Assumed care of patient. Report given [...] This note was completed by: Briana Rae [facility] NURSING PROG HNO ID: [id number] Author: Susy Mccormick RN Service: Nursing Author Type: Registered Nurse Type: Nursing Progress Note Filed: 12/25/2020 6:52 PM Note Text: Patient alert, oriented, and denies pain or need at time of arrival to [facility] from [facility]. He is calm and [...] pain or needs. Patient ordering his dinner. 184 No changes. Patient sitting at the edge of the bed. He will ambulate and then his carpenter can be removed. Normal [facility] NURSING PROG HNO ID: [id number] Author: Jackie Tesfaye, RN Service: Nursing Author Type: Registered Nurse Type: Nursing Progress Note Filed: 12/25/2020 3:33 PM Note Text: Nursing Progress Note Topic of Note: Daily Note Chano Dalton [id number] Pt. in recovery following a PVI [...] note was completed by: Jackie Tesfaye Normal [facility] Type and Screenon 12-25-2020 ABO/RH(D) Positive [facility] Comment on above: Performed By: #### T SCR ####[facility] [place], [place] [phone] Urinalysison 12-25-2020 Bilirubin, Urine Negative Normal Negative [facility] Comment on above: Performed By: #### U A #### [facility] [address] [place] [address] Clarity (U) Clear Normal Clear [facility] Comment on above: Performed By: #### U A #### [place] [phone] Color (U) Light Yellow Critically abnormal Yellow [facility] Comment on above: Performed By: #### U A #### [place] [phone] Comments SEE COMMENT Normal [facility] Comment on above: Result Comment: Micr oscopic not warranted Performed By: #### U A #### [place] [phone] Glucose Ql (U) Negative Normal Negative [facility] Comment on above: Performed By: #### U A #### [address] Hemoglobin/Blood,Ur Negative Normal Negative [facility] Comment on above: Performed By: #### U A #### [address] Ketones Ql (U) Negative Normal Negative [facility] Comment on above: Performed By: #### U A #### [place] [address] Leukest Negative Normal Negative [facility] Comment on above: Performed By: #### U A #### [place] [phone] Nitrite Ql (U) Negative Normal [facility] Comment on above: Performed By: #### U A #### [place] [phone] pH (U) 5.5 [pH] Normal 5.0-8.0 [facility] Comment on above: Performed By: #### U A #### [place] [phone] Protein, Urine Negative Normal [facility] Comment on above: Performed By: #### U A #### [place] [phone] Specific [place], Ur 1.023 Normal 1.005-1.030 [facility] Comment on above: Performed By: #### U A #### [facility] [address] [place] [address] Urobilinogen (U) [Mass/Vol] Negative Normal Negative [facility] Comment on above: Performed By: #### U A #### [facility] [address] [place] [address] CR Spine Lumbosacral 4+ View son 08-20-2020 CR Spine Lumbosacral 4+ Views Patient Name: CHANO DALTON Diagnostic Radiology ACCESSION EXAM DATE/TIME PROCEDURE ORDERING PROVIDER [id number] 08/20/2020 07:56 EST CR Spine Lumbosacral 4+ MD TEQUILA, YURI [place] CPT code 03848 Reason For Exam (CR Spine Lumbosacral 4+ [...] Transcribed Date and Time: 08/20/2020 2:21 Normal [facility] XR LUMBAR SPINE (MIN 4 VIEWS )on 08-20-2020 Patient Name: CHANO DALTON Diagnostic Radiology ACCESSION EXAM DATE/TIME PROCEDURE ORDERING PROVIDER [id number] 08/20/2020 07:56 EST CR Spine Lumbosacral 4+ MD LOVELACE BRADLEY Views PHILLIP CPT code 21999 Reason For Exam (CR Spine Lumbosacral 4+ [...] HARLAN Transcribed Date and Time: 08/20/2020 2:21 [facility] Work Phone: Ron[facility] Incoming Radiology Results From [facility] - 08/20/2020 2:33 PM EST Patient Name: CHANO DALTON Diagnostic Radiology ACCESSION EXAM DATE/TIME PROCEDURE ORDERING PROVIDER [id number] 08/20/2020 07:56 EST CR Spine Lumbosacral 4+ MD LOVELACE BRADLEY Views PHILLIP CPT code 42419 Reason For Exam (CR Spine Lumbosacral 4+ [...] and Time: 08/20/2020 2:21 [facility] Work Phone: CR Spine Lumbosacral 2 or 3 Viewson 09-27-2019 CR Spine Lumbosacral 2 or 3 Views Patient Name: CHANO DALTON Diagnostic Radiology Exam Date/Time 09/27/2019 10:01:47 EDT Exam CR Spine Lumbosacral 2 or 3 Views Ordering Physician MD LOVELACE BRADLEY [place] Accession Number [id number] CPT4 Codes 81196 () Reason For Exam status post lumbar [...] Transcribed Date and Time: 09/27/2019 10:53 Normal [facility] XR LUMBAR SPINE (2-3 VIEWS)o n 09-27-2019 Patient Name: CHANO DALTON ---Diagnostic Radiology--- Exam Date/Time 09/27/2019 10:01:47 EDT Exam CR Spine Lumbosacral 2 or 3 Views Ordering Physician MD TEQUILA, YURI BERNARDO Accession Number [id number] CPT4 Codes 15478 () Reason For Exam status post lumbar [...] LAURA Transcribed Date and Time: 09/27/2019 10:53 [facility] [place], MD Ronnie, [facility] Incoming Radiology Results From [facility] - 09/27/2019 10:55 AM EDT Patient Name: CHANO DALTON ---Diagnostic Radiology--- Exam Date/Time 09/27/2019 10:01:47 EDT Exam CR Spine Lumbosacral 2 or 3 Views Ordering Physician MD TEQUILA, YURI [place] Accession Number [id number] CPT4 Codes 16880 () Reason For Exam status post lumbar [...] LAURA Transcribed Date and Time: 09/27/2019 10:53 [place], [place] Basic Metabolic Panelon 03-0 Calcium [Mass/Vol] 8.6 mg/dL Normal 8.4-10.4 [facility] Comment on above: Performed By: #### H VERENA BMP3M #### [facility] [address] [place], [place] Glucose [Mass/Vol] 145 mg/dL High 70-100 [facility] Comment on above: Performed By: #### H VERENA BMP3M #### [facility] [address] [place] [address] Urea nitrogen [Mass/Vol] 18 mg/dL Normal 7-20 [facility] Comment on above: Performed By: #### H VERENA BMP3M #### [facility] [address] [place] [address] Anion gap [Moles/Vol] 9 Normal [facility] Comment on above: Performed By: #### H VERENA BMP3M #### [facility] [address] [place], [place] CO2 [Moles/Vol] 25 mmol/L Normal 22-30 [facility] Comment on above: Performed By: #### VICENTE MEADE3Miriam #### [address] [place], [place] Creatinine [Mass/Vol] 0.95 mg/dL Normal 0.52-1.25 [facility] Comment on above: Performed By: #### Bandar ALBARADO BMP3M #### [address] [place] [address] GFR/1.73 sq M predicted among blacks MDRD (S/P/Bld) [Vol rate/Area] mL/min/{1.73_m2} Normal >60 [facility] Comment on above: Performed By: #### Bandar ALBARADO BMP3M #### [address] [place], [place] GFR/1.73 sq M predicted among non-blacks MDRD (S/P/Bld) [Vol rate/Area] mL/min/{1.73_m2} Normal >60 [facility] Comment on above: Result Comment: Sour ce- MDRD equation with creatinine calibration to IDMS(NKDEP) eGFR not recommended for drug dose adjustment Performed By: #### Bandar ALBARADO BMP3M #### [address] [place], [place] Chloride [Moles/Vol] 104 mmol/L Normal 98-107 [facility] Comment on above: Performed By: #### Bandar ALBARADO BMP3M #### [address] [place], [place] Potassium [Moles/Vol] 4.6 mmol/L Normal 3.5-5.1 [facility] Comment on above: Performed By: #### Bandar ALBARADO BMP3M #### [address] [place], [place] Sodium [Moles/Vol] 138 mmol/L Normal 135-145 [facility] Comment on above: Performed By: #### Bandar ALBARADO BMP3M #### [address] [address] Basic Metabolic Panel w/ Ref cornelius to MGon 09-12-2019 Anion gap [Moles/Vol] 9 mmol/L [place], [place] Calcium [Mass/Vol] 8.6 mg/dL 8.4 - 10. 4 mg/dL [place] Chloride [Moles/Vol] 104 mmol/L 98 - 10 7 mmol/L [place] CO2 [Moles/Vol] 25 mmol/L 22 - 30 mmol/L [place] Creatinine [Mass/Vol] 0.95 mg/dL 0.52 - 1.25 mg/dL [place] EGFR IF NonAfrican [place] >60.0 >60 mL/min [place] Comment on above: Source- MDRD equatio n with creatinine calibration to IDMS(NKDEP) eGFR not recommended for drug dose adjustment GFR/1.73 sq M predicted among blacks MDRD (S/P/Bld) [Vol rate/Area] mL/min/{1.73_m2} >60 mL/min [place] Glucose [Mass/Vol] 145 mg/dL High 70 - 100 mg/dL [place] Interpretation and review of laboratory results Abnormal [place] Potassium [Moles/Vol] 4.6 mmol/L 3.5 - 5.1 mmol/L [place] Sodium [Moles/Vol] 138 mmol/L 135 - 145 mmol/L [place] Urea nitrogen [Mass/Vol] 18 mg/dL 7 - 20 mg/d L [place] Test Performed by [facility], [address] [place] [address], [place] [address] [place], [place] CBCon 09-12-2019 Erythrocyte distribution width (RBC) [Ratio] 13.5 % 11.5 - 14.5 % [place] Hematocrit (Bld) [Volume fraction] 42.3 % 40 - 52 % [place] Hemoglobin (Bld) [Mass/Vol] 14.0 g/dL 13 - 18 g/dL [place] Interpretation and review of laboratory results Abnormal [place] MCH (RBC) [Entitic mass] 29.9 pg 26 - 34 pg [place] MCHC (RBC) [Mass/Vol] 33.0 % 32 - 36 % [place] MCV (RBC) [Entitic vol] 90.4 fL 80 - 98 fL [place], [place] Platelet mean volume (Bld) [Entitic vol] 8.3 fL 7.4 - 10.4 fL [place] Platelets (Bld) [#/Vol] 194 10*3/uL 140 - 440 10*3/uL [place] RBC (Bld) [#/Vol] 4.68 10*6/uL 4.4 - 5.9 10*6/uL [place] WBC (Bld) [#/Vol] 16.7 10*3/uL High 3.6 - 10.7 10*3/uL [place] Test Performed by [facility], [address] [place] [address] Hemogramon 09-12-2019 Erythrocyte distribution width (RBC) [Ratio] 13.5 % Normal 11.5-14.5 [facility] Comment on above: Performed By: #### H VICENTE ALBARADO3M #### [address] Hematocrit (Bld) [Volume fraction] 42.3 % Normal 40.0-52.0 [facility] Comment on above: Performed By: #### H VICENTE ALBARADO3M #### [address] Hemoglobin (Bld) [Mass/Vol] 14.0 g/dL Normal 13.0-18.0 [facility] Comment on above: Performed By: #### H VICENTE ALBARADO3M #### [address] MCH (RBC) [Entitic mass] 29.9 pg Normal 26.0-34.0 [facility] Comment on above: Performed By: #### H VERENA BMP3M #### [address] [place], [place] MCHC (RBC) [Mass/Vol] 33.0 % Normal 32.0-36.0 [facility] Comment on above: Performed By: #### H VERENA BMP3M #### [facility] [address] [place], [place] MCV (RBC) [Entitic vol] 90.4 fL Normal 80.0-98.0 [facility] Comment on above: Performed By: #### H VERENA BMP3M #### [address] [place], [place] Platelet mean volume (Bld) [Entitic vol] 8.3 fL Normal 7.4-10.4 [facility] Comment on above: Performed By: #### H VERENA BMP3M #### [address] [address] [place], [place] Platelets (Bld) [#/Vol] 194 10*3/uL Normal 140-440 [facility] Comment on above: Performed By: #### H VERENA BMP3M #### [address] [place], [place] RBC (Bld) [#/Vol] 4.68 10*6/uL Normal 4.40-5.90 [facility] Comment on above: Performed By: #### H EMOLex BMP3M #### [address] [address] [place], [place] WBC (Bld) [#/Vol] 16.7 10*3/uL High 3.6-10.7 [facility] Comment on above: Performed By: #### H EMOLex BMP3M #### [address] [address] [place], [place] Op Noteon 09-11-2019 Op Note PATIENT: CHANO [...] Lovelace will dictate separately. Disk[employer] Job ID: [id number] Mireya Sagastume MD DOD:09/11/2019 02:51 P DP/radha DOT:09/11/2019 03:41 P Job Number: [id number] Document Number: [id number] cc: Yuri Lovelace MD [address] [facility] [address] Mireya Sagastume MD [address] [place] [address] [address] [facility] [address] Normal [facility] Vit D, 1,25-Dihydroxyon 02-2 1-2020 Vit D, 1,25-Dihydroxy 44.7 pg/mL Normal 19.9-79.3 [facility] Comment on above: Result Comment: INTE RPRETIVE INFORMATION: Vitamin D, 1,25-Dihydroxy This test is primarily indicated during patient evaluation for hypercalcemia and renal failure. A normal result does not rule out Vitamin D deficiency. The recommended test for diagnosing Vitamin D deficiency is Vitamin D 25-hydroxy. Performed by [email or web address], [address] [place] [id number] [email or web address], Osiel Lassiter MD, Lab. Director Performed By: #### D 125O #### The performing lab is in the report. CULTURE STAPH AUREUSon 08-30 CULTURE STAPH AUREUS CULTURE STAPH AUREU S --> Status: F No Staphylococcus aureus isolated. Normal [facility] Comment on above: Order Comment: Speci men Source Comment:Nasal Performed By: #### C /SA ####[address] [address] CULTURE URINEon 08-30-2019 CULTURE URINE CULTURE URINE --> Status: F Normal urogenital porter present. Normal [facility] Comment on above: Performed By: #### C UA2, C/UR #### [address] [address] Add On Lab Teston 08-28-2019 Sodium [Moles/Vol] Accepted [facility] Work Phone: Comment on above: Specimen available & acceptable for analysis. Test Performed by [facility] [employer], [facility] [place], [place] [id number] [place] [address] Work Phone: Add on test from HISon 08-28 Add on test from HIS Accepted Normal [facility] Comment on above: Result Comment: Spec imen available & acceptable for analysis. Performed By: #### A DDON #### [facility] [address] [place] [address] Complete Urinalysison 2019 Appearance (U) Clear Normal Clear [facility] Comment on above: Performed By: #### C UA2, C/UR #### [facility] [address] [place], [place] Bacteria LM.HPF (Urine sed) [#/Area] Moderate Normal Negative [facility] Comment on above: Performed By: #### C UA2, C/UR #### [place] [address] [place], [place] Bilirubin,Urine Negative Normal Negative [facility] Comment on above: Performed By: #### C UA2, C/UR #### [address] [place], [place] Color (U) Yellow Normal Lt. Yellow [facility] Comment on above: Performed By: #### C UA2, C/UR #### [place] [address] [place], [place] Glucose Ql (U) Normal Normal Normal (<70) [facility] Comment on above: Performed By: #### C UA2, C/UR #### [place] [address] [place], [place] Ketone,Urine Negative Normal Negative [facility] Comment on above: Performed By: #### C UA2, C/UR #### [place] [address] [place], [place] Leukocytes,Urine 75 Lanny/uL Normal Negative [facility] Comment on above: Performed By: #### C UA2, C/UR #### [place] [address] [place], [place] Mucous Threads Many Normal Negative [facility] Comment on above: Performed By: #### C UA2, C/UR #### [place] [address] [place], [place] Nitrites,Urine Positive Normal Negative [facility] Comment on above: Performed By: #### C UA2, C/UR #### [place] [address] [place], [place] Occult Blood,Urine Negative Normal Negative [facility] Comment on above: Performed By: #### C UA2, C/UR #### [place] [address] [place], [place] pH (U) 5.5 Normal 5.0-8.0 [facility] Comment on above: Performed By: #### C UA2, C/UR #### [address] [address] [place], [place] Protein (U) [Mass/Vol] Negative Normal Negative [facility] Comment on above: Performed By: #### C UA2, C/UR #### [facility] [address] [place], [place] RBC LM.HPF (Urine sed) [#/Area] 3 - 5 Normal 0-2 [facility] Comment on above: Performed By: #### C UA2, C/UR #### [address] [address] [place], [place] Specific [place],Urine 1.018 Normal 1.005-1.030 [facility] Comment on above: Performed By: #### C UA2, C/UR #### [place] [address] [place], [place] Squamous Epithelial 0 - 2 Normal 3-5 [facility] Comment on above: Performed By: #### C UA2, C/UR #### [place] [place], [place] Urobilinogen,Urine Normal Normal Normal (0-1) [facility] Comment on above: Performed By: #### C UA2, C/UR #### [place] [address] [place], [place] WBC LM.HPF (Urine sed) [#/Area] 11 - 25 Normal 0-5 [facility] Comment on above: Performed By: #### C UA2, C/UR #### [address] [place], [place] TS GELon 08-28-2019 TS GEL ABO Group: A Rh, Gel: POS Antibody Screen Gel: NEG Normal [facility] Comment on above: Performed By: #### T SGL #### [place] [place], [place] [facility] TYPE AND SCREENon 08-28-2019 Sodium [Moles/Vol] A [facility] Work Phone: [phone] Sodium [Moles/Vol] Negative [employer] Work Phone: [phone] Comment on above: Test Performed by [employer], [facility] [place] [address] Sodium [Moles/Vol] Positive [employer] Work Phone: [phone] Comment on above: Test Performed by [employer], [facility] [place] [address] Test Performed by [email or web address], [facility] [place] [address] [employer] Work Phone: [phone] Urinalysison 08-28-2019 Appearance (U) Clear Clear NA [employer] Work Phone: [phone] Bacteria, UA Moderate Negative /[HPF] [employer] Work Phone: [phone] Bilirubin Urine Negative Negative mg/dL [employer] Work Phone: 1 Color (U) Yellow Lt. Yellow NA [employer] Work Phone: 1 Glucose, Ur Normal Normal (<70) mg/dL [employer] Work Phone: [phone] Ketones Ql (U) Negative Negative mg/dL [employer] Work Phone: 1 LEUKOCYTES, UA 75 Negative Lanny/uL [employer] Work Phone: [phone] Mucous Threads Many Negative /[LPF] [employer] Work Phone: [phone] Nitrite, Urine Positive Negative NA [employer] Work Phone: [phone] Occult Blood,Urine Negative Negative mg/dL [facility] Work Phone: [phone] pH (U) 5.5 [pH] [facility] Work Phone: [phone] Protein (U) [Mass/Vol] Negative Negat ida mg/dL [employer] Work Phone: [phone] RBC (U) [#/Vol] 3-5 0 - 2 /[HPF] [employer] Work Phone: [phone] Specific [place], Urine 1.018 S [facility] Work Phone: [phone] Squam Epithel, UA 0-2 3 - 5 /[HPF] [employer] Work Phone: Urobilinogen, Urine Normal Normal ( 0-1) mg/dL [facility] Work Phone: WBC, UA 11-25 0 - 5 /[HPF] [facility] Work Phone: Test Performed by [email or web address], [address] [place] [address] [facility] Work Phone: Vital Signs Date Time Vital Sign Value Performing Clinician Facility 04-24-2025 13:36-0400 Body temperature 98 [degF] Dr. Yannick Wilkins MD Work Phone: [facility] 04-24-2025 13:36-0400 Diastolic blood pressure 70 mm[Hg] Dr. Yannick Wilkins MD Work Phone: [phone] [address] 04-24-2025 13:36-0400 Heart rate 69 /min Dr. Yannick Wilkins MD Work Phone: [phone] [place] [address] 04-24-2025 13:36-0400 Respiratory rate 16 /min Dr. Yannick Wilkins MD Work Phone: [facility] 04-24-2025 13:36-0400 SaO2% (BldA) [Mass fraction] 94 % Dr. Yannick Wilkins MD Work Phone: [phone] [place] [address] 04-24-2025 13:36-0400 Systolic blood pressure 123 mm[Hg] Dr. Yannick Wilkins MD Work Phone: [phone] [place] [address] 04-24-2025 12:09-0400 Body height 180.[address] Yannick Wilkins MD Work Phone: [facility] 04-24-2025 12:09-0400 Body mass index (BMI) [Ratio] 30.1 kg/m2 Dr. Yannick Wilkins MD Work Phone: [facility] 04-24-2025 12:09-0400 Body weight 97.[address] Yannick Wilkins MD Work Phone: [facility] 08-24-2022 12:55-0500 Body height 182.9 cm Loree Garnett PA-C Work Phone: [facility] 08-24-2022 12:55-0500 Body temperature 97.2 [degF] Loree Kostas PA-C Work Phone: [facility] 08-24-2022 12:55-0500 Body weight 99.34 kg Loree Kostas PA-C Work Phone: [facility] 08-24-2022 12:55-0500 Diastolic blood pressure 78 mm[Hg] Loree Kostas PA-C Work Phone: [facility] 08-24-2022 12:55-0500 Heart rate 94 /min Loree [place] PA-C Work Phone: [facility] 08-24-2022 12:55-0500 SaO2% (BldA) [Mass fraction] 96 % Loree Kostas PA-C Work Phone: [facility] 08-24-2022 12:55-0500 Systolic blood pressure 140 mm[Hg] Loree [place] PA-C Work Phone: [facility] 09-12-2019 13:14-0500 Body Temperature 97.81 [degF] Yuri Brozengo [facility], [place] 09-12-2019 13:14-0500 BP Diastolic 59 mm[Hg] Yuri [facility] , [place] 09-12-2019 13:14-0500 BP Systolic 112 mm[Hg] Yuri [facility] , [place] 09-12-2019 13:14-0500 Pulse (Heart Rate) 72 /min Yuri [employer].comMaria Parham HealthC2cubeCR[facility], [place] 09-12-2019 13:14-0500 Pulse Oximetry 93 % Yuri [facility] , [place] 09-12-2019 13:14-0500 Respiratory Rate 16 /min [facility] [place] 09-11-2019 06:43-0500 BMI (Body Mass Index) 33.52 kg/m2 Yuri [facility], [place] 09-11-2019 06:43-0500 Body weight 102.97 kg Yuri [email or web address] , [place] 09-11-2019 06:43-0500 Height 175.3 cm Yuri Lovelace [facility] , HERNAN 08-28-2019 10:16-0500 BMI (Body Mass Index) 31.66 kg/m2 Yuri [facility] Work Phone: 08-28-2019 10:16-0500 Body Temperature 97.59 [degF] Yuri [facility] Work Phone: 08-28-2019 10:16-0500 Body weight 102.97 kg Yuri [facility] Work Phone: 08-28-2019 10:16-0500 BP Diastolic 76 mm[Hg] Yuri [facility] Work Phone: 08-28-2019 10:16-0500 BP Systolic 117 mm[Hg] Yuri [facility] Work Phone: 08-28-2019 10:16-0500 Height 180.3 cm Yuri [facility] Work Phone: 08-28-2019 10:16-0500 Pulse (Heart Rate) 52 /min [facility] Work Phone: 08-28-2019 10:16-0500 Pulse Oximetry 95 % Yuri [facility] Work Phone: Encounters Encounter Date Encounter Type Care Provider Facility Start: 05-01-2025 End: 05-01-2025 ambulatory Hina Chandrakant Facility:[facility] Start: 04-24-2025 End: 04-24-2025 Emergency department patient visit Dr. Luis Braxton DO Emergency Department Work Phone: Start: 07-06-2024 End: 07-06-2024 Emergency department patient visit Santos Hallman Facility:[facility] Start: 01-23-2024 ambulatory YANNICK WILKINS [facility] Start: 10-27-2023 End: 10-27-2023 ambulatory [facility] Work Phone: Start: 10-27-2023 End: 10-27-2023 Patient encounter procedure [facility]-Radiology, [facility] Work Phone: Start: 05-09-2023 End: 05-09-2023 ambulatory [facility] Work Phone: Start: 05-09-2023 End: 05-09-2023 Discharged Recurring [facility]-Physical Therapy Work Phone: Start: 10-04-2022 End: 10-04-2022 ambulatory YANNICK WILKINS Facility:[facility] Start: 08-24-2022 End: 08-25-2022 ambulatory YANNICK WILKINS Facility:[facility] Start: 08-24-2022 End: 08-24-2022 Patient encounter procedure Loree Garnett PA-C Work Phone: General Surgery Comment on above: Encounter for screen ing for malignant neoplasm of colon (Primary Dx) Start: 08-20-2020 End: 08-20-2020 Subsequent hospital visit by physician Yuri Lovelace Work Phone: [facility] X-Ray Start: 09-27-2019 End: 09-27-2019 Subsequent hospital visit by physician Yuri Lovelace Work Phone: [facility] Start: 09-11-2019 End: 09-12-2019 Evaluation and management of inpatient Yuri Lovelace Work Phone: [facility] H6 TELEMETRY Comment on above: 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 Yannick Wilkins MD Work Phone: Start: 10-27-2023 X-ray of lumbar spin e, two or three views Start: 12-25-2020 Antibody screen Comment on above: Performed By: #### T SCR ####[id number] [place], [place] [phone] Start: 08-20-2020 Radex spine lumbosac ral minimum 4 views Yuri Figueroahasmukh Work Phone: Start: 09-27-2019 Radex spine lumbosac ral 2/3 views Yuri Inkrotrita Work Phone: Start: 09-12-2019 OPERATIVE REPORT 3m Sca nning Start: 09-12-2019 BASIC METABOLIC PANE L W/ REFLEX TO MG FOR LOW K David Reagan Work Phone: Start: 09-12-2019 Blood count complete automated David Tez Work Phone: Start: 08-28-2019 ADD ON LAB TEST Abbi Andujar Work Phone: Start: 08-28-2019 Urnls dip stick/tabl et rgnt auto w/o microscopy Abbi Andujar Work Phone: Start: 08-28-2019 Blood typing serologic abo Abbi Andujar Work Phone: Plan of Treatment Date Care Activity Detail Author Start: 05-01-2025 Patient encounter procedure Registered Clinical -Laboratory Work Phone: Start: 04-24-2025 [facility] Start: 12-26-2023 DIABETES SCREEN DIABETES SCREEN [facility] Start: 07-11-2022 DEPRESSION ASSESSMENT DEPRESSION ASS ESSMENT [facility] Start: 02-04-2022 COVID-19 VACCINE (5 - Booster for Pfizer series) COVID-19 VACCINE (5 - Booster for Pfizer series) [facility] Start: 2021 PROSTATE CANCER SCREENING DISCUSSION PROSTATE CANCER SCREENING DISCUSSION [facility] Start: 03-11-2020 Influenza vaccination Flu vaccine (# 1) [facility] Work Phone: Start: 11-08-2019 End: 11-08-2019 Nurse Only [facility] [place] Start: 10-04-2019 End: 10-04-2019 Office Visit [facility] [place] Start: 09-20-2019 End: 09-20-2019 Office Visit [facility] [place] Start: 09-11-2019 End: 09-11-2019 Appointment 09/11/2019 Appointment General Surgery Yuri Lovelace MD [address] [facility] [place] [address] [place] [address] [phone] Mireya Sagastume MD [address] [facility] [address] [place] [address] [phone] [facility] Start: 04-05-2019 End: 04-05-2019 Office Visit 04/05/2019 Office Visit Orthopedic Surgery Yuri Lovelace MD [address] [facility] [place] [address] [place] [address] [phone] [facility] [place] Start: 03-11-2019 Influenza vaccination Flu vaccine (# 1) [place], [place] Start: 2016 Colon cancer screen colonoscopy Colon cancer screen colonoscopy [place], [place] Start: 2016 Screening for malign ant neoplasm of colon Colon cancer screen colonoscopy [facility] Work Phone: Start: 2016 Shingles Vaccine (1 of 2) Shingles Vaccine (1 of 2) [place] Start: 2016 SHINGRIX VACCINE (1 of 2) SHINGRIX VACCINE (1 of 2) [facility] Start: 2011 COLOGUARD (FIT-DNA) COLOGUARD (FIT-D NA) [facility] Start: 2011 Colonoscopy COLONOSCOPY [facility] Start: 2011 COLORECTAL CANCER SCREENING COLORECTAL CANCER SCREENING [facility] Start: [address] COLONOGRAPHY [facility] Start: 2011 FECAL OCCULT BLOOD FECAL OCCULT BLOO D [facility] Start: 2011 SIGMOIDOSCOPY SIGMOIDOSCOPY [facility] Start: 2006 Diabetes screen Diabetes screen [place], [place] Start: 2006 Lipid panel Lipid screen [facility] Work Phone: Start: 2006 [facility] Start: 2001 LIPID SCREEN LIPID SCREEN [facility] Start: 1985 DTaP/Tdap/Td vaccine (1 - Tdap) DTaP/Tdap/Td vaccine (1 - Tdap) [facility] Start: 1985 Urine microalbumin profile DTAP,TDAP,TD (1 - Tdap) [facility] Start: 1984 HIV SCREENING HIV SCREENING [facility] Start: 1981 HIV screen [facility] Start: 1981 HIV screening [facility] Work Phone: Start: 1977 DTaP/Tdap/Td vaccine (1 - Tdap) DTaP/Tdap/Td vaccine (1 - Tdap) [employer] Work Phone: Start: 1966 HEPATITIS B (1 of 3 - 3-dose series) HEPATITIS B (1 of 3 - 3-dose series) [facility] Start: 1966 Hepatitis C screening Hepatitis C sc reen [employer] Work Phone: End: 08-28-2019 Bacteria identified Cx Nom (U) Urine Culture Microbiology Routine Once for 1 Occurrences starting 08/28/2019 until 08/28/2019 [employer] Work Phone: Comment on above: Once for 1 Occurrenc es starting 08/28/2019 until 08/28/2019 Bacteria identified Cx Nom (U) Urine Culture Microbiology Routine 08/28/2019 11:23 AM EST [facility] Work Phone: End: 09-13-2019 Basic Metabolic Panel w/ Reflex to MG Basic Metabolic Panel w/ Reflex to MG Lab Routine Daily for 2 Occurrences starting 09/12/2019 until 09/13/2019, 1 completed [facility] MD Comment on above: Daily for 2 Occurren dawn starting 09/12/2019 until 09/13/2019, 1 completed End: 09-13-2019 CBC CBC Lab Routine Daily for 2 Occurrences starting 09/12/2019 until 09/13/2019, 1 completed [facility] MD Comment on above: Daily for 2 Occurren dawn starting 09/12/2019 until 09/13/2019, 1 completed End: 08-28-2019 Culture, Staph Aureus - [facility] only Culture, Staph Aureus - [facility] only Microbiology Routine Lumbar radiculopathy 1 Occurrences starting 08/28/2019 until 08/28/2019 [facility] Work Phone: Comment on above: 1 Occurrences starti ng 08/28/2019 until 08/28/2019 Culture, Staph Aureu s - [facility] only Culture, Staph Aureus - [facility] only Microbiology Routine Lumbar radiculopathy 08/28/2019 11:23 AM EST [facility] Work Phone: EKG 12 Lead EKG 12 Lead ECG Routine 09/12/2019 1:48 PM LEIGH [employer] [facility] End: 09-11-2019 FL Greater Than 1 Hour FL Greater Than 1 Hour Imaging Routine Once for 1 Occurrences starting 09/11/2019 until 09/11/2019 [facility] Comment on above: Once for 1 Occurrenc es starting 09/11/2019 until 09/11/2019 FL Greater Than 1 Hour FL Greate r Than 1 Hour Imaging Routine 09/11/2019 7:54 AM EST [employer] NJHERNAN Initiate Oxygen Ther apy Protocol Initiate Oxygen Therapy Protocol Respiratory Care Routine Daily until discontinued starting 09/11/2019 [facility] Comment on above: Daily until disconti nued starting 09/11/2019 Patient Education ED Knee Sprain ED [facility] Work Phone: End: 08-28-2019 Vitamin D 1,25 Dihydroxy Vitamin D 1,25 Dihydroxy Lab Routine One Time for 1 Occurrences starting 08/28/2019 until 08/28/2019 [employer] Work Phone: Comment on above: One Time for 1 Occur rences starting 08/28/2019 until 08/28/2019 Vitamin D 1,25 Dihydroxy Vitamin D 1,25 Dihydroxy Lab Routine 08/28/2019 11:21 AM EST [facility] Work Phone: End: 03-15-2019 XR LUMBAR SPINE (MIN 4 VIEWS) XR LUMBAR SPINE (MIN 4 VIEWS) Imaging Routine Once for 1 Occurrences starting 03/15/2019 until 03/15/2019 [employer] HERNAN GUILLEN Comment on above: Once for 1 Occurrenc es starting 03/15/2019 until 03/15/2019 XR LUMBAR SPINE (MIN 4 VIEWS) XR LUMBAR SPINE (MIN 4 VIEWS) Imaging Routine 03/15/2019 1:58 PM EDT [facility] HERNAN GUILLEN Andrews [facility] roberson Immunizations Immunization Date Immunization Notes Care Provider Saira carvalho 10-23-2020 Covid (Pfizer) [facility] 10-03-2020 Covid (Pfizer) [facility] 04-12-2016 Influenza virus vaccine W [facility] Payers Date Payer Category Payer Self-pay [id number] 2022 Medicaid [facility] MED[facility] COMMUNITY PLAN MEDICAID [facility] [id number] 2022-Present [phone] [address] [place] [address] Medicaid [id number] 2016 Medicaid [id number] 2016 Private Health Insurance [facility] COMMUNITY PLAN xxxxxxxxx 2016-Present [phone] [address] [place] [address] xxxxxxxxx [id number] 2016 Private Health Insurance [id number] 1966 Unknown [id number] Unknown [employer] [id number] Unknown [id number] Unknown [id number] Unknown [id number] Unknown [id number] Social History Date Type Detail Facility Start: 03-15-2019 End: 04-24-2025 Tobacco smoking status NHIS Former smoker [facility] End: 07-11-2009 History of tobacco use Current smoker [place] End: 07-11-2009 History of tobacco use Cigarette Smoker [place] Start: 03-15-2019 Alcohol intake Not Currently [facility] Sex Assigned At Not on file [place] Start: 09-11-2019 End: 08-24-2022 Alcohol intake Ex-drinker (finding) [facility] Work Phone: Start: 08-20-2020 Tobacco use and exposure Never used [employer] Work Phone: Exposure to SARS-CoV -2 (event) Not sure [facility] Work Phone: Start: 08-24-2022 Tobacco use and exposure Former smokeless tobacco user [facility] History of tobacco use Chews Tobacco [facility] Start: 1965 Sex Assigned At Male [facility] Start: 08-19-2021 Tobacco smoking stat [facility] Unknown if ever smoked [facility] Start: 08-08-2020 Non-smoker [facility] Medical Equipment Procedure Code Equipment Code Equipment Origin al Text Equipment Identifier Dates Repair, hernia, umbilical, using mesh MESH,VENTLEX ST SM 4.3CM FDA Start: 08-12-2020 Repair, hernia, umbilical, using mesh MESH,VENTLEX ST SM 4.3CM FDA Start: 08-12-2020 Repair, hernia, umbilical, using mesh MESH,VENTLEX ST SM 4.3CM FDA Start: 08-12-2020 Insertion, spinal cord stimulator, permanent ref- [id number] cheng octrode lead kit, 60cm length FDA Start: 03-23-2024 Insertion, spinal cord stimulator, permanent ref- [id number] cheng octrode lead kit, 60cm length FDA Start: 03-23-2024 Insertion, spinal cord stimulator, permanent ref- [id number] cheng eterna implantable pulse generator FDA Start: 03-23-2024 Clinical Notes 12-26-2020 to 04-24-2025 Note Date & Type Note Facility 04-24-2025 Discharge summary [facility] 04-24-2025 Radiology Diagnostic study note [facility] Imaging Services [address] [place], [place] [id number] Knee 4 or More Views MR#: [id number] Acct: [id number] Name: CHANO DALTON Rep #: [id number] : 1965 M 60 From: Kit Regan MD PCP: Dr. Yannick Wilkins MD Status: REG E R Study:Knee 4 or More Views Date of Exam: 04/24/25 Exam# [id number] Ordering Dr: Luis Pa DO PROCEDURE: KNEE 4 OR MORE VIEWS [...] EFFUSION ACUTE FRACTURE OR DISLOCATION. Reading Location: [place] [address] CC: Dr. Luis Braxton DO; Dr. 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 [address] [place] [address] / REHABILITATION SERVICES DISCHARGE SUMMARY MR#: [id number] Acct: [id number] Name: CHANO DALTON Rep #: [id number] : 1965 58 From: Andreas Contreras DPT, OCS, CSCS Referring Dr.: Status: REG RCR Insurance: [facility] COMMUNITY PLAN Discharge Summary D/C summary: [...] HEP and 3x/week in the pool at [facility]. In clinic work toward ROM Low back [...] please feel free to call me at [phone]. Thank you for the referral of thispatient. Sincerely, Andreas Contreras, NAILA, OCS, CSCS Balance/Gait/Functional tests Balance/Special Test Scores Oswestry Low Back Score: 23 Improvement % Improvement: 10 <Electronically signed by Andreas Contreras DPT, OCS, CSCS> 05/09/23 3056 CC: Dr. Yannick Wilkins MD; DARCI SHALL ~ EBG Signed [facility] Work Phone: [phone]) 681-869203-27-2023 NoteHNO ID: [id number] Author: Joss Gonsalez MD Service: ? Author [...] MG TABLET Continue supportive treatment. Joss Gonsalez, [facility]02-14-2023 NoteHNO ID: [id number] Author: Loree Garnett PA-C Service: ? Author Type: Physician Solar Photovoltaic Systems Engineer Type: Progress Notes Filed: 08/24/2022 4:40 PM [...] entered by the nurse and reviewed by mi Nursing Notes: Sanam MartinKRISTEN 08/24/2022 12:58 PM Signed REVIEW OF SYSTEMS: [...] in no acute distre (more content not included)...[facility] 08-24-2022 History of Present illness Narrative* Loree Garnett PA-C - 08/24/2022 1:12 PM EST HISTORY AND PHYSICAL Chano Beeood 1965 REFERRING [...] entered by the nurse and reviewed by mi Nursing Notes: Sanam Martin LPN 08/24/2022 12:58 [...] patient was offered a surgery/procedure at a [facility] facility. I have counseled the patient [...] mail. Loree Garnett PA-C [facility] Nurse Note* Sanam Martin LPN - 08/24/2022 12:55 PM EST REVIEW OF [...] none Sanam Martin LPN [facility]2021 NoteHNO ID: [id number] Author: CARA Barber Service: Radiology Author Type: Clinical Director Of In Service Education Type: Progress Notes Filed: 03/23/2021 10:37 AM [...] Dalton DATE: March 23, 2021 TIME: 10:35 AMUpper [facility] [id number] NoteHNO ID: [id number] Author: Ml Cartagena ([employer]) Service: Pharmacy Author Type: ? Type: Plan of Care Filed: 12/26/2020 6:47 PM Note Text: Pharmacy Discharge Medication Service: This patient has elected to receive their discharge prescriptions through the [facility] Bedside Prescription Delivery program. The prescriptions are currently being processed. A follow-up note will be entered once the prescriptions have been filled and delivered to the patient. Please contact me with any questions or updates to the patient's discharge medications. Ml Cartagena ([employer]) DCT Contact Info: [id number] Medical [id number] NoteHNO ID: [id number] Author: Ml Cartagena ([employer]) Service: Pharmacy Author Type: ? Type: Plan [...] or your Primary Care Provider. Ml Cartagena ([employer]) PAGER: [phone] December 26, 2020 6:47 [facility]06-18-2021 NoteHNO ID: [id number] Author: Ml Cartagena ([employer]) Service: Pharmacy Author Type: ? Type: Plan of Care Filed: 12/26/2020 6:46 PM Note Text: STEAM TENDER BEDSIDE DELIVERY SURVEY 1. Patient to use [facility] Bedside Delivery - YES Insurance Information as follows: 2. Insurance card on file - YES 3. Credit card for payment - N/[facility] Author Luis Braxton [facility] Note Date/Time April 24, 2025 1 :25pm [facility] Medical Records Department [address] [place] [id number] Emergency Department Summary 04/24/25 MR#: [id number] Acct: [id number] Name: CHANO DALTON Rep #:[id number] : 1965 60 From: Luis merino DO PCP: Dr. Yannick Wilkins MD Status:REG E R Location: ED HPI History of Present Illness [...] on the chart. Reviewed. Physical exam: Gen: A&O x3, NAD Head: Normocephalic, atraumatic Eyes: No sclera icterus, conjunctiva clear ENT: Moist mucous membranes CV: RRR, no murmurs Resp: Lungs CTA BL, no w/r/c Musc: Full active and passive range of motion of the left lower extremity/knee although endorses pain in the medial knee with movement, no knee instability, nopopping or clicking of the knee with movement, patient has tenderness to palpation of the medial knee located over the medial collateral ligament, no meniscus tenderness, no swelling/warmth/erythema/ecchymosis/crepitus of the kneejoint or left lower extremity, compartments soft, sensation intact, good capillary refill, femoral/DP/PT pulses +2 Skin: Warm, dry Psych: Cooperative, appropriate mood and affect PFSH PFSH Medical History (Updated 04/24/25 @ 13:[address] Luis Braxton, DO) Wears glasses Back pain Former smoker History of echocardiogram Cardiology follow-up encounter Umbilical hernia Abdominal pain Sleep apnea Low back problem Arthritis LATESHA (obstructive sleep apnea) Atrial fibrillation Hypersomnia Depression Pulmonary embolism Gall stones Home Medications ?Medication ?Instructions ?Recorded ?Last Taken ?Type multivitamin with minerals 1 ea PO DAILY 09/14/1903/11 History aripiprazole 10 mg tablet 10 mg PO DAILY 04/24/25 Unkn own History trazodone 50 mg tablet 25 - 150 mg PO QHS PRN PRN s leep 04/24/25 Unknown History Allergy/AdvReac Type Severity Reaction Status [...] osteoarthritis. Suspect less likely fracture. Exam not consistentwith septic arthritis. IM Toradol ordered for pain. [...] Left knee sprain Radiography Diagnostic Testing: Clinical Impression(s) from Imaging Studies Knee X-Ray 04/24/25 12:37 IMPRESSION: NO EFFUSION ACUTE FRACTURE OR DISLOCATION. Reading Location: [facility]- Discharge Plan Triage Chief Complaint: Lower Extremity Injury ED Provider: Luis Braxton Dx/Rx/DC Orders Clinical Impression: Left knee sprain Instructions: ED Knee Sprain, ED RICE Prescriptions: No Action multivitamin with minerals 1 EACH tablet 1 ea PO DAILY trazodone 50 mg tablet 25 - 150 mg PO QHS PRN PRN (Reason: sleep) aripiprazole 10 mg tablet 10 mg PO DAILY Primary Care Provider: Yannick Wilkins Referrals: Yannick Wilkins MD [Primary Care Provider, Family Practice] - 3-5 Days Jaylen Carlos MD [Med Staff - Active Staff, Orthopedics] - 3-5 Days Activity Restrictions/Additional Instructions: Follow-up with primary care physician and orthopedic physician. Return back to ED if symptoms change or worsen. Crutches as needed for ambulation. Tylenol and ibuprofen as needed for pain. Received Toradol here in the emergency department, no ibuprofen for 8 hours. After okay for ibuprofen. Print Language: Tajik Disposition Disposition: Home, Self Care What to do if you have Problems For any increased pain, shortness of breath, bleeding, nausea or vomiting, chestpain, or any unexpected problems, contact your Primary Care Provider. Call [facility] ([phone]) or report to the closest Emergency Room. Call 911 if necessary. 04/24/25 1325 <Electronically signed by Luis Braxton DO> Cosigner Signature (if applicable): CC: Dr. Yannick Wilkins MD ~ Signed [facility] Work Phone: Evaluation note* Diagnosis Encounter for screening for malignant neoplasm of colon- Primary Special screening for malignant neoplasms, colon [facility] note[facility] assessment information availableW[facility] Work Phone: Hospital Discharge instructionsAdditional Instructions Follow-up with primary care physician and orthopedic physician. Return back to ED if symptoms change or worsen. Crutches as needed for ambulation. Tylenol and ibuprofen as needed for pain. Received Toradol here in the emergency department, no ibuprofen for 8 hours. After okay for ibuprofen.[facility] Work Phone: Reason for referral (narrative)No reason for referral information availableWProMedica Tol[facility] Hospital Work Phone: Advance Directives No Advanced Directives Records FoundDocuments on File Type Date Recorded Patient Fire Claims Adjuster Expl anation Advance Directives and Living Will Power of Can Repairer Latest Code Status on File Code Status Date Activated Date Inactivated Comments Full Code 09/11/2019 8:28 PM Full Code 09/11/2019 6:43 AM 09/11/2019 8:28 PM Latest Code Status on File Code Status Date Activated Date Inactivated Comments Full Code 09/11/2019 8:28 PM 09/12/2019 8:50 PM Documents on File Type Date Recorded Patient Fire Claims Adjuster Expl anation ACP-Advance Directive ACP-Power of Can Repairer Advance Directive Response Recorded Date/ Time Advance Directives Yes August 12, 2016 3:35pm Living Will Yes September 02 3:07am Power of Can Repairer Yes September 02, 2020 3:07am Advance Directive Response Recorded Date/ Time Do you have a Healthcare Power of Can Repairer? Yes April 24, 2025 1:06pm Advance Directives Yes August 12, 2016 3:35pm Discharge Instructions * Instructions* David Reagan MD [...] Lugo RN - 08/28/2019 Please bring your [employer] [facility] Information folder on the day of [...] Care Everywhere. * Lumbar Spinal Fusion: Pre-op (Tajik) documented in this encounter History of Present [...] ortho, ortho ok for discharge. * Jaylen Sanchez PT - 09/12/2019 1:21 PM EST Physical Therapy Facility/Department: [facility] Initial Assessment NAME: Chano Dalton : 1965 Date of Service: 09/12/2019 Discharge Recommendations: Home with Home health PT, Home with assist PRN PT Equipment Recommendations Equipment Needed: Yes(FWW for maintain floor of house) Assessment Body structures, Functions, Activity limitations: Decreased functional mobility ;Decreased safe awareness;Decreased endurance;Decreased strength;Decreased ROM Assessment: Pt admitted for ALIF L4-S1 +PSF L4-S1 on 09/10. 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 Goals and/or treatment plan [...] assigned room number documented in this encounter* Shay Cohen - 08/28/2019 10:00 AM EST Labs obtained [...] Procedure: 09/11/19 Attending Surgeon: Yuri Lovelace MD Solar Photovoltaic Systems Engineer: MICAH [email or web address] PREOPERATIVE DIAGNOSES: 1. L5-S1 DDD with Instability [...] Procedure: 09/11/19 Attending Surgeon: Yuri Lovelace MD Solar Photovoltaic Systems Engineer: Tez [email or web address] PREOPERATIVE DIAGNOSES: 1. L5-S1 DDD [...] LUMBAR DR TO FAX, WE HAVE C9 Chief Complaint Admit Date LOWER EXT April 24, 2025 1 2:09pm Additional Source Comments (unrecognized sect ion and content) No Status Records FoundNo Status Records FoundNo Status Records FoundNo Status Records FoundNo Status Records FoundNo Status Records Found INFORMATION SOURCE (unrecogn ized section and content) DATE CREATED AUTHOR 08/26/2020 [facility] DATE CREATED AUTHOR AUTHOR'S ORGANIZ ATION 12/29/2020 [facility] DATE CREATED AUTHOR AUTHOR'S ORGANIZ ATION 03/24/2021 [facility] DATE CREATED AUTHOR AUTHOR'S ORGANIZ ATION 10/06/2022 [facility] DATE CREATED AUTHOR AUTHOR'S ORGANIZ ATION 01/27/2024 [facility] [facility] DATE CREATED AUTHOR AUTHOR'S ORGANIZ ATION 05/11/2025 [facility] Source Comments (unrecognize d section and content) In the event this informatio n is protected by the Federal Confidentiality of Alcohol and Drug Abuse Patient Records regulations: The Federal rules restrict any use of the information to criminally investigate or prosecute any alcohol or drug abuse patient.[facility] Reason for Visit (unrecogniz ed section and content) Reason Comments Consult colonoscopy Care Teams (unrecognized sec tion and content) Community Living Specialist Relationship Specialty Start Date End Date Yannick [...] Marlon Doyle MD Attending Provider, Referring Pr val Active Team Status: Active Member Role/Relationship Status Dates Dr. Yannick Wilkins MD Primary care physician Active Team Status: Inactive Member Role/Relationship Status Dates Dr. Yannick Wilkins MD Primary care physician Active Start: April 24, 2025 End: April 24, 2025 Dr. Luis Braxton DO Attending physician Active Start: April 24, 2025 End: April 24, 2025 Dr. Luis Braxton DO Emergency Department Physician Active Start: April 24, 2025 End: April 24, 2025 Team Status: Active Member Role/Relationship Status Dates Dr. Yannick Wilkins MD Primary care physician Active Start: May 01, 2025 SKIP Santos Attending physician Active S tart: May 01, 2025 SKIP Santos Referring Provider Active St art: May 01, 2025 Goals (unrecognized section and content) Goals may be documented in a n alternate sectionGoals may be documented in an alternate sectionGoals may be documented in an [...] BE BASED ON THE PRIMARY CLINICAL RECORDS. [employer] provides no warranty or guarantee of the accuracy or completeness of information in this document.
== END | disposition home or self-care (01) ==
LOC: OPMRI 08:10
PROVIDERS: PCP Family Medicine
DX: M25.562 Pain in left knee (principal)